=== PATIENT | male | born 1940 | race American Indian/Alaskan Native ===

== ENCOUNTER 2016-05-15 19:22 | Emergency (ER) | payer MEDICARE, OTHER ==
[2016-05-15 19:55] VITALS: BP 148/77
[2016-05-15 20:16] LABS: CHLORIDE,CL 105 mmol/L (101-111); SODIUM,NA 135 mmol/L (135-145)
[2016-05-15] MEDS ORDERED: cefTRIAXone 1 GM in Sodium Chloride 0.9% 100 ML IV ONE (20:34)
[2016-05-15] MEDS ORDERED: Loperamide 2 MG Cap PO ONE (20:35)
[2016-05-15] MEDS ORDERED: Ondansetron 4 MG/2 ML SDV IV ONE (20:35)
--- NOTE | 2016-05-15 20:52 | EDM.PDOC ---
ED HPI GENERAL MEDICAL PROBLEM - General Chief Complaint: General Stated Complaint: PAIN IN CHEST Time Seen by Provider: 05/15/16 19:30 Source of Information: Reports: Patient - History of Present Illness INITIAL COMMENTS - FREE TEXT/NARRATIVE: c/o multiple loose watery stools since 2pm. feeling weak, nausea. mild sore throat. chills no fever Onset: today Middle Chest Pain Score (Numeric/FACES): 3 - Related Data Allergies Allergy/AdvReac Type Severity Reaction Status Date / Time No Known Allergies Allergy Verified 05/15/16 20:05 Home Meds: Home Meds Aspirin [Halfprin] 81 mg PO DAILY 04/06/13 [History] Diazepam [Valium] 5 mg PO DAILY PRN 04/06/13 [History] Metoprolol Succinate [Toprol XL] 50 mg PO DAILY 04/06/13 [History] Ramipril [Altace] 5 mg PO DAILY 04/06/13 [History] Simvastatin [Zocor] 40 mg PO BEDTIME 04/06/13 [History] Tamsulosin [Tamsulosin 24 Hr] 0.4 mg PO DAILY 04/06/13 [History] glyBURIDE/Metformin [glyBURIDE/Metformin 5-500 MG] 2 tab PO BID 04/06/13 [ History] Clopidogrel [Plavix] 75 mg PO DAILY 06/30/13 [History] Insulin Detemir [Levemir] 45 unit SQ DAILY 09/15/13 [History] Leuprolide Acetate [Lupron Depot] 50 mg SQ ASDIRECTED 02/18/14 [History] Isosorbide Mononitrate [Imdur] 30 mg PO DAILY 07/11/15 [History] Pantoprazole [Protonix] 40 mg PO DAILY 10/16/15 [History] Past Medical History HEENT History: Reports: Impaired vision Cardiovascular History: Reports: High cholesterol, Hypertension, [place], Stents Genitourinary History: Reports: BPH Other Genitourinary History: prostate cancer Psychiatric History: Reports: Anxiety Endocrine/Metabolic History: 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, type I Oncologic (Cancer) History: Reports: Prostate - Past Surgical History Other Cardiovascular Surgeries/Procedures: 7 stents Social & Family History - Family History Family Medical History: Noncontributory - Tobacco Use Smoking Status *Q: Former Smoker Years of Tobacco use: 40 Used Tobacco, but Quit: Yes Month Tobacco Last Used: unknown Second Hand Smoke Exposure: No - Alcohol Use Days Per Week of Alcohol Use: 0 - Recreational Drug Use Recreational Drug Use: No - Living Situation & Occupation Living situation: Reports: , alone Occupation: retired ED ROS GENERAL - Review of Systems Review Of Systems: See Below Constitutional: Reports: chills, decreased appetite HEENT: Reports: Throat pain Respiratory: Reports: No Symptoms Cardiovascular: Reports: No symptoms GI/Abdominal: Reports: Diarrhea, Decreased appetite, Nausea : Reports: no symptoms Musculoskeletal: Reports: other (generalized aches) Skin: Reports: no symptoms Neurological: Reports: No Symptoms ED EXAM, GENERAL - Physical Exam Exam: See Below Exam Limited By: No limitations General Appearance: alert, mild distress Eye Exam: bilateral eye: EOMI, PERRL Ears: normal external exam Ear Exam: bilateral ear: TM normal Nose: normal inspection Throat/Mouth: Other (mild posterior pharyngeal erythema) Head: atraumatic, normocephalic Neck: normal inspection, non-tender Respiratory/Chest: no respiratory distress, lungs clear, normal breath sounds Cardiovascular: regular rate, rhythm GI/Abdominal: no distention. No: normal bowel sounds (hyperactve) Extremities: normal inspection Neurological: alert, oriented Psychiatric: normal affect, normal mood, other (pleasant talkative) Skin Exam: Warm, Dry, Intact Course - Vital Signs Last Recorded V/S: Last Vital Signs Temp 98.8 F 05/15/16 19:30 Pulse 99 05/15/16 19:30 Resp 16 05/15/16 19:30 BP 148/77 H 05/15/16 19:30 Pulse Ox 94 L 05/15/16 19:30 - Orders/Labs/Meds Orders: Active Orders 24 hr Category Date Time Status EKG 12 Lead [EKG Documentation Completion] [RC] URGENT Care 05/15/16 19:32 Active Labs: Laboratory Tests 05/15/16 05/15/16 05/15/16 Range/Units 19:45 19:45 19:45 WBC 7.7 (5.0-10.0) 10^3/uL RBC 4.06 L (4.6-6.2) 10^6/uL Hgb 13.0 L (14.0-18.0) g/dL Hct 38.5 L (40.0-54.0) % MCV 94.8 (80-100) fL MCH 32.0 (27.0-34.0) pg MCHC 33.8 (33.0-35.0) g/dL Plt Count 257 (150-450) 10^3/uL Neut % (Auto) 84.1 H (42.2-75.2) % Lymph % (Auto) 8.7 L (20.5-50.1) % [place] % (Auto) 6.5 (2-8) % Eos % (Auto) 0.4 L (1.0-3.0) % Baso % (Auto) 0.3 (0.0-1.0) % PT 9.3 (9.0-12.0) SEC INR 0.9 (0.9-1.2) Sodium 135 (135-145) mmol/L Potassium 4.7 (3.6-5.0) mmol/L Chloride 105 (101-111) mmol/L Carbon Dioxide 22.0 (21.0-31.0) mmol/L Anion Gap 12.7 BUN 25 H (7-18) mg/dL Creatinine 1.2 (0.6-1.3) mg/dL Est Cr Clr Drug Dosing 53.23 mL/min Estimated GFR (MDRD) 59 BUN/Creatinine Ratio 20.83 Glucose 208 H (74-105) mg/dL Lactic Acid (0.5-2.2) mmol/L Calcium 8.7 (8.4-10.2) mg/dl Magnesium 1.2 L (1.8-2.5) mg/dL Total Bilirubin 1.1 H (0.2-1.0) mg/dL AST 28 (10-42) IU/L ALT 17 (10-60) IU/L Alkaline Phosphatase 82 (42-121) IU/L Troponin I < 0.02 (0.00-0.02) ng/ml Total Protein 7.4 (6.7-8.2) g/dl Albumin 3.8 (3.2-5.5) g/dl Globulin 3.6 Albumin/Globulin Ratio 1.06 Amylase 72 (28-100) U/L Lipase 37 (22-51) U/L 03/15/17 Range/Units 19:45 WBC (5.0-10.0) 10^3/uL RBC (4.6-6.2) 10^6/uL Hgb (14.0-18.0) g/dL Hct (40.0-54.0) % MCV (80-100) fL MCH (27.0-34.0) pg MCHC (33.0-35.0) g/dL Plt Count (150-450) 10^3/uL Neut % (Auto) (42.2-75.2) % Lymph % (Auto) (20.5-50.1) % [place] % (Auto) (2-8) % Eos % (Auto) (1.0-3.0) % Baso % (Auto) (0.0-1.0) % PT (9.0-12.0) SEC INR (0.9-1.2) Sodium (135-145) mmol/L Potassium (3.6-5.0) mmol/L Chloride (101-111) mmol/L Carbon Dioxide (21.0-31.0) mmol/L Anion Gap BUN (7-18) mg/dL Creatinine (0.6-1.3) mg/dL Est Cr Clr Drug Dosing mL/min Estimated GFR (MDRD) BUN/Creatinine Ratio Glucose (74-105) mg/dL Lactic Acid 1.4 (0.5-2.2) mmol/L Calcium (8.4-10.2) mg/dl Magnesium (1.8-2.5) mg/dL Total Bilirubin (0.2-1.0) mg/dL AST (10-42) IU/L ALT (10-60) IU/L Alkaline Phosphatase (42-121) IU/L Troponin I (0.00-0.02) ng/ml Total Protein (6.7-8.2) g/dl Albumin (3.2-5.5) g/dl Globulin Albumin/Globulin Ratio Amylase (28-100) U/L Lipase (22-51) U/L Meds: Medications Discontinued Medications Generic Name Dose Route Start Last Admin Trade Name Freq PRN Reason Stop Dose Admin Ceftriaxone Sodium 1 gm/ 100 mls @ 200 mls/hr 05/15/16 20:34 05/15/16 20:43 Sodium Chloride IV 05/15/16 21:03 200 mls/hr ONETIME ONE Administration Loperamide HCl 2 mg 05/15/16 20:35 05/15/16 20:49 Imodium PO 05/15/16 20:36 2 mg ONETIME ONE Administration Ondansetron HCl 4 mg 05/15/16 20:35 05/15/16 20:42 Zofran IV 05/15/16 20:36 4 mg ONETIME ONE Administration Ondansetron HCl Confirm 05/15/16 20:59 05/15/16 21:27 Zofran Odt Administered 05/15/16 21:00 Not Given Dose 8 mg .ROUTE .STK-MED ONE - Re-Assessments/Exams Free Text/Narrative Re-Assessment/Exam: 05/16/16 03:34 Up to BR one time during ED stay. Steady. Nausea resolved with zofran. Tolerating water. Departure - Departure Time of Disposition: 20:46 Disposition: Home, Self-Care 01 Condition: good Clinical Impression: Gastroenteritis, Strep pharyngitis, Anxiety Diarrhea Qualifiers: Diarrhea type: unspecified type Qualified Code(s): R19.7 - Diarrhea, unspecified Instructions: Diarrhea, Adult Referrals: Pamela Blair [facility] [Primary Care Provider] - Forms: ED Department Discharge Additional Instructions: zofran 4mg ODT one every 6 hours as needed for nausea encouage fluid, small amounts, gradually progress monitor blood sugars amoxicillin 500mg one three times daily for one week imodium 2mg oral after each loose stool up to 6 tablets per day follow up if not improving - My Orders Last 24 Hours: My Active Orders 05/15/16 19:32 EKG 12 Lead [EKG Documentation Completion] [RC] URGENT - Assessment/Plan Last 24 Hours: My Active Orders 05/15/16 19:32 EKG 12 Lead [EKG Documentation Completion] [RC] URGENT
[2016-05-15] MEDS ORDERED: Ondansetron 4 MG Tab.DIS ONE (20:59)
[2016-05-15] MEDS ORDERED: Ondansetron 4 MG Tab.DIS PO ONE (20:59)
--- NOTE | 2016-05-16 20:42 | EKG ---
05/15/2016 - LUKASZ FLETCHER - TIME OF EK hours. EKG shows sinus rhythm at 99 beats per minute. There are Q-waves present in inferior leads III and AVF, consistent with prior inferior infarct. There is poor R-wave delayed progression. Inverted T-wave in aVL. [facility] /[id number]
== END 2016-05-15 21:24 | disposition home or self-care (01) ==
LOC: DL.ED 19:22
DX: K52.9 Noninfective gastroenteritis and colitis, unspecified (principal); J02.0 Streptococcal pharyngitis; F41.9 Anxiety disorder, unspecified; E78.00 Pure hypercholesterolemia, unspecified; I10 Essential (primary) hypertension; I25.2 Old myocardial infarction; E10.9 Type 1 diabetes mellitus without complications; Z79.899 Other long term (current) drug therapy; Z87.891 Personal history of nicotine dependence
CPT/HCPCS: 36415; 80053; 82150; 83605; 83690; 83735; 84484; 85025; 85610; 87430; 87804; 93005; 93010; 96365; 96375; 99284; A9270; J0696; J2405; J7050

== ENCOUNTER 2016-06-28 18:01 | Emergency (ER) | payer SELFPAY ==
[2016-06-28 18:42] VITALS: BP 154/63
[2016-06-28 19:05] LABS: CHLORIDE,CL 104 mmol/L (101-111); SODIUM,NA 136 mmol/L (135-145)
--- NOTE | 2016-06-28 19:10 | EDM.PDOC ---
ED HISTORY OF PRESENT ILLNESS - General Chief Complaint: Cardiovascular Problem Stated Complaint: DIZZY,SHORT OF BREATH,LEFT ARM PAIN Time Seen by Provider: 06/28/16 19:08 Source of Information: Reports: Patient History Limitations: Reports: No limitations - History of Present Illness INITIAL COMMENTS - FREE TEXT/NARRATIVE: 3 weeks h/o [id number]. not seen anyone for this and not getting better. states doesn't like the clinic. appetite on off. - Related Data Allergies/ADRs: Allergies Allergy/AdvReac Type Severity Reaction Status Date / Time No Known Allergies Allergy Verified 06/28/16 18:12 Home Meds: Home Meds Aspirin [Halfprin] 81 mg PO DAILY 04/06/13 [History] Diazepam [Valium] 5 mg PO DAILY PRN 04/06/13 [History] Metoprolol Succinate [Toprol XL] 50 mg PO DAILY 04/06/13 [History] Ramipril [Altace] 5 mg PO DAILY 04/06/13 [History] Simvastatin [Zocor] 40 mg PO BEDTIME 04/06/13 [History] Tamsulosin [Tamsulosin 24 Hr] 0.4 mg PO DAILY 04/06/13 [History] glyBURIDE/Metformin [glyBURIDE/Metformin 5-500 MG] 2 tab PO BID 04/06/13 [ History] Clopidogrel [Plavix] 75 mg PO DAILY 06/30/13 [History] Insulin Detemir [Levemir] 60 unit SQ DAILY 09/15/13 [History] Leuprolide Acetate [Lupron Depot] 50 mg SQ ASDIRECTED 02/18/14 [History] Isosorbide Mononitrate [Imdur] 30 mg PO DAILY 07/11/15 [History] Pantoprazole [ProTONIX] 40 mg PO DAILY 10/16/15 [History] Past Medical History HEENT History: Reports: Impaired vision Cardiovascular History: Reports: High cholesterol, Hypertension, [place], Stents Respiratory History: Reports: Pneumonia, recurrent Genitourinary History: Reports: BPH Other Genitourinary History: prostate cancer Psychiatric History: Reports: Anxiety Endocrine/Metabolic History: 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, type I Oncologic (Cancer) History: Reports: Prostate - Past Surgical History Other Cardiovascular Surgeries/Procedures: 7 stents Social & Family History - Family History Family Medical History: Noncontributory - Tobacco Use Smoking Status *Q: Former Smoker Years of Tobacco use: 40 Used Tobacco, but Quit: No Month Tobacco Last Used: unknown Second Hand Smoke Exposure: No - Caffeine Use Caffeine Use: Reports: None - Alcohol Use Days Per Week of Alcohol Use: 0 - Recreational Drug Use Recreational Drug Use: No - Living Situation & Occupation Living situation: Reports: , alone Occupation: retired ED ROS GENERAL - Review of Systems Review Of Systems: ROS reveals no pertinent complaints other than HPI. ED EXAM, GENERAL - Physical Exam Exam: See Below Exam Limited By: No limitations General Appearance: alert, WD/WN, no apparent distress Ears: hearing grossly normal Throat/Mouth: Normal voice, No airway compromise Head: atraumatic Neck: non-tender, full range of motion Respiratory/Chest: no respiratory distress Cardiovascular: regular rate, rhythm GI/Abdominal: soft, non tender Neurological: alert, oriented, normal cognition, normal gait, no motor/sensory deficits Psychiatric: flat affect Skin Exam: Warm, Dry Lymphatic: no adenopathy Course - Vital Signs Last Recorded V/S: Last Vital Signs Temp 36.2 C 06/28/16 18:30 Pulse 71 06/28/16 18:38 Resp 16 06/28/16 18:38 BP 129/64 06/28/16 18:38 Pulse Ox 96 06/28/16 18:38 - Orders/Labs/Meds Orders: Active Orders 24 hr Category Date Time Status EKG 12 Lead [EKG Documentation Completion] [RC] URGENT Care 06/28/16 19:00 Active Labs: Laboratory Tests 06/28/16 06/28/16 06/28/16 Range/Units 18:36 18:36 18:36 WBC 6.2 (5.0-10.0) 10^3/uL RBC 3.78 L (4.6-6.2) 10^6/uL Hgb 12.0 L (14.0-18.0) g/dL Hct 36.2 L (40.0-54.0) % MCV 95.8 (80-100) fL MCH 31.7 (27.0-34.0) pg MCHC 33.1 (33.0-35.0) g/dL Plt Count 274 (150-450) 10^3/uL Neut % (Auto) 60.3 (42.2-75.2) % Lymph % (Auto) 26.6 (20.5-50.1) % [place] % (Auto) 10.0 H (2-8) % Eos % (Auto) 2.6 (1.0-3.0) % Baso % (Auto) 0.5 (0.0-1.0) % Sodium 136 (135-145) mmol/L Potassium 4.7 (3.6-5.0) mmol/L Chloride 104 (101-111) mmol/L Carbon Dioxide 24.0 (21.0-31.0) mmol/L Anion Gap 12.7 BUN 22 H (7-18) mg/dL Creatinine 1.3 (0.6-1.3) mg/dL Est Cr Clr Drug Dosing TNP Estimated GFR (MDRD) 54 BUN/Creatinine Ratio 16.92 Glucose 222 H (74-105) mg/dL Calcium 8.8 (8.4-10.2) mg/dl Total Bilirubin 0.3 (0.2-1.0) mg/dL AST 25 (10-42) IU/L ALT 19 (10-60) IU/L Alkaline Phosphatase 83 (42-121) IU/L Troponin I < 0.02 (0.00-0.02) ng/ml B-Natriuretic Peptide 17 (0-100) pg/ml Total Protein 7.2 (6.7-8.2) g/dl Albumin 3.7 (3.2-5.5) g/dl Globulin 3.5 Albumin/Globulin Ratio 1.06 - Re-Assessments/Exams Free Text/Narrative Re-Assessment/Exam: 06/28/16 20:05 results discussed with Pt & family who state Pt has been depressed past 3 years since of spouse. Pt states knows this but is having a slow & hard time in getting over it. but is trying his best. Departure - Departure Time of Disposition: 20:06 Disposition: Home, Self-Care 01 Condition: good Clinical Impression: Reaction, situational, acute, to stress Forms: ED Department Discharge Additional Instructions: 1) avoid excessive activities 2) follow up with family doctor or recheck if there is any change or concern - My Orders Last 24 Hours: My Active Orders 06/28/16 19:00 EKG 12 Lead [EKG Documentation Completion] [RC] URGENT - Assessment/Plan Last 24 Hours: My Active Orders 06/28/16 19:00 EKG 12 Lead [EKG Documentation Completion] [RC] URGENT
--- NOTE | 2016-07-04 07:44 | EKG ---
06/28/2016 - LUKASZ FLETCHER - This 12-lead EKG shows a normal sinus rhythm with a ventricular rate of 62. Normal intervals, left axis deviation. No acute ST-T wave changes. [facility] /[id number]
== END 2016-06-28 20:14 | disposition home or self-care (01) ==
LOC: DL.ED 18:01
DX: F43.9 Reaction to severe stress, unspecified (principal); E78.00 Pure hypercholesterolemia, unspecified; I10 Essential (primary) hypertension; I25.2 Old myocardial infarction; Z95.5 Presence of coronary angioplasty implant and graft; N40.0 Benign prostatic hyperplasia without lower urinary tract symptoms; F41.9 Anxiety disorder, unspecified; E10.9 Type 1 diabetes mellitus without complications; Z79.4 Long term (current) use of insulin; Z79.899 Other long term (current) drug therapy; Z87.891 Personal history of nicotine dependence; Z79.82 Long term (current) use of aspirin; Z79.02 Long term (current) use of antithrombotics/antiplatelets
CPT/HCPCS: 36415; 71020; 80053; 83880; 84484; 85025; 93005; 93010; 99282; 99284

== ENCOUNTER 2016-08-12 15:37 | Observation (INO) | payer OTHER ==
--- NOTE | 2016-08-12 15:39 | EDM.PDOC ---
ED HPI GENERAL MEDICAL PROBLEM - General Chief Complaint: Head Injury Stated Complaint: IN BY AMBULANCE Time Seen by Provider: 08/12/16 15:39 Source of Information: Reports: Patient, EMS, Old Records, Provider, RN, RN Notes Reviewed History Limitations: Reports: No Limitations - History of Present Illness INITIAL COMMENTS - FREE TEXT/NARRATIVE: Arrives by ambulance from [facility] with report that he blacked out and woke up on the floor. Patient has given varying accounts of what happened. He told a family member that he had fallen and hit his head and he told the nurse that he fainted and fell but did not hit his head. He admits to generalized weakness and fatigue over the past few days. Denies fever, chills, cough or headache. Patient is not able to provide any more relevant history. He was alone during the episode and there are not witnesses. Denies any chest pain or lightheadedness and denies nausea or vomiting. He admits to decreased appetite this week. Severity: Moderate Improves with: Reports: None Worsens with: Reports: None Associated Symptoms: Reports: No Other Symptoms - Related Data Allergies Allergy/AdvReac Type Severity Reaction Status Date / Time cephalexin Allergy Mild Itching Verified 08/12/16 15:57 levofloxacin [From Levaquin] Allergy chest pain Verified 08/12/16 15:57 and SOB Home Meds: Home Meds Aspirin [Halfprin] 81 mg PO DAILY 04/06/13 [History] Diazepam [Valium] 5 mg PO DAILY PRN 04/06/13 [History] Metoprolol Succinate [Toprol XL] 50 mg PO DAILY 04/06/13 [History] Ramipril [Altace] 5 mg PO DAILY 04/06/13 [History] Simvastatin [Zocor] 40 mg PO BEDTIME 04/06/13 [History] Tamsulosin [Tamsulosin 24 Hr] 0.4 mg PO DAILY 04/06/13 [History] glyBURIDE/Metformin [glyBURIDE/Metformin 5-500 MG] 2 tab PO BID 04/06/13 [ History] Clopidogrel [Plavix] 75 mg PO DAILY 06/30/13 [History] Insulin Detemir [Levemir] 60 unit SQ DAILY 09/15/13 [History] Leuprolide Acetate [Lupron Depot] 50 mg SQ ASDIRECTED 12/19/14 [History] Isosorbide Mononitrate [Imdur] 30 mg PO DAILY 07/11/15 [History] Pantoprazole [ProTONIX] 40 mg PO DAILY 10/16/15 [History] Past Medical History HEENT History: Reports: Impaired Vision Cardiovascular History: Reports: High Cholesterol, Hypertension, [place], Stents Respiratory History: Reports: Pneumonia, Recurrent Genitourinary History: Reports: BPH Other Genitourinary History: prostate cancer Psychiatric History: Reports: Anxiety Endocrine/Metabolic History: 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, Type I Oncologic (Cancer) History: Reports: Prostate - Past Surgical History Cardiovascular Surgical History: Reports: Coronary Artery Stent Social & Family History - Family History Family Medical History: Noncontributory - Tobacco Use Smoking Status *Q: Former Smoker Years of Tobacco use: 40 Used Tobacco, but Quit: No Month Tobacco Last Used: unknown Second Hand Smoke Exposure: No - Caffeine Use Caffeine Use: Reports: None - Alcohol Use Days Per Week of Alcohol Use: 0 - Recreational Drug Use Recreational Drug Use: No - Living Situation & Occupation Living situation: Reports: , Alone Occupation: Retired ED ROS GENERAL - Review of Systems Review Of Systems: ROS reveals no pertinent complaints other than HPI. ED EXAM, GENERAL - Physical Exam Exam: See Below Exam Limited By: Altered Mental Status General Appearance: Alert, WD/WN, No Apparent Distress Eye Exam: Bilateral Eye: Normal Inspection Ears: Normal External Exam, Normal Canal, Hearing Grossly Normal, Normal TMs Nose: Normal Inspection, Normal Mucosa, No Blood Throat/Mouth: Normal Inspection, Normal Lips, Normal Teeth, Normal Gums, Normal Oropharynx, Normal Voice, No Airway Compromise, Other (dry oral membranes.) Head: Atraumatic, Normocephalic Neck: Normal Inspection, Supple, Non-Tender, Full Range of Motion Respiratory/Chest: No Respiratory Distress, Lungs Clear, No Accessory Muscle Use , Decreased Breath Sounds Cardiovascular: Normal Peripheral Pulses, Regular Rate, Rhythm, No Gallop, No JVD, No Murmur, No Rub, Other (trace pedal edema.) GI/Abdominal: Normal Bowel Sounds, Soft, Non-Tender, No Distention, No Abnormal Bruit (Male) Exam: Deferred Rectal (Males) Exam: Deferred Back Exam: Normal Inspection, Full Range of Motion, NT Extremities: Normal Inspection, Normal Range of Motion, Non-Tender, Normal Capillary Refill, No Pedal Edema Neurological: Alert, CN II-XII Intact, No Motor/Sensory Deficits, Other ( orientated to person, place and month. Generalized weakness without focal deficits. ) Psychiatric: Normal Affect, Normal Mood Skin Exam: Warm, Dry, Intact, No Rash, Pallor EKG INTERPRETATION EKG Date: 08/12/16 Time: 15:50 Rhythm: other (sinus rhythm) Rate (beats/min): 63 QRS: other (Q waves in inferior leads, old.) Course - Vital Signs Last Recorded V/S: Last Vital Signs Temp 36.4 C 08/12/16 15:40 Pulse 70 08/12/16 15:40 Resp 20 08/12/16 15:40 BP 125/56 L 08/12/16 15:40 Pulse Ox 100 08/12/16 15:40 - Orders/Labs/Meds Orders: Active Orders 24 hr Category Date Time Status Blood Glucose Check, Bedside [] ONETIME Care 08/12/16 15:44 Active EKG 12 Lead [EKG Documentation Completion] [] STAT Care 08/12/16 15:46 Active Peripheral IV Care [] . DIRECTED Care 08/12/16 15:48 Active Head wo Cont [CT] Stat Exams 08/12/16 18:12 Taken CULTURE BLOOD [BC] Stat Lab 08/12/16 16:03 Received CULTURE BLOOD [BC] Stat Lab 08/12/16 16:24 Received Sodium Chloride 0.9% [Saline Flush] Med 08/12/16 15:47 Active 10 ml FLUSH ASDIRECTED PRN Blood Culture x2 Reflex Set [OM.PC] Stat Oth 08/12/16 15:47 Ordered Peripheral IV Insertion Adult [OM.PC] Stat Oth 08/12/16 15:46 Ordered Medication Orders Sodium Chloride (Saline Flush) 10 ml FLUSH ASDIRECTED PRN PRN Reason: Keep Vein Open Last Admin: 08/12/16 16:16 Dose: 10 ml Labs: Laboratory Tests 08/12/16 08/12/16 08/12/16 Range/Units 15:47 16:03 16:03 WBC 7.9 (5.0-10.0) 10^3/uL RBC 3.93 L (4.6-6.2) 10^6/uL Hgb 12.6 L (14.0-18.0) g/dL Hct 37.9 L (40.0-54.0) % MCV 96.4 (80-100) fL MCH 32.1 (27.0-34.0) pg MCHC 33.2 (33.0-35.0) g/dL Plt Count 231 (150-450) 10^3/uL Neut % (Auto) 75.7 H (42.2-75.2) % Lymph % (Auto) 13.2 L (20.5-50.1) % Webb % (Auto) 8.7 H (2-8) % Eos % (Auto) 2.0 (1.0-3.0) % Baso % (Auto) 0.4 (0.0-1.0) % PT 9.5 (9.0-12.0) SEC INR 0.9 (0.9-1.2) APTT 23.5 (22.0-34.0) SEC Sodium (135-145) mmol/L Potassium (3.6-5.0) mmol/L Chloride (101-111) mmol/L Carbon Dioxide (21.0-31.0) mmol/L Anion Gap BUN (7-18) mg/dL Creatinine (0.6-1.3) mg/dL Est Cr Clr Drug Dosing Estimated GFR (MDRD) BUN/Creatinine Ratio Glucose (74-105) mg/dL POC Glucose 105 (83-110) mg/dl Lactic Acid (0.5-2.2) mmol/L Calcium (8.4-10.2) mg/dl Total Bilirubin (0.2-1.0) mg/dL AST (10-42) IU/L ALT (10-60) IU/L Alkaline Phosphatase (42-121) IU/L Troponin I (0.00-0.02) ng/ml B-Natriuretic Peptide (0-100) pg/ml Total Protein (6.7-8.2) g/dl Albumin (3.2-5.5) g/dl Globulin Albumin/Globulin Ratio Amylase (28-100) U/L Lipase (22-51) U/L Urine Color (YELLOW) Urine Appearance (CLEAR) Urine pH (5.0-9.0) Ur Specific [place] (1.005-1.030) Urine Protein (NEGATIVE) Urine Glucose (UA) (NEGATIVE) Urine Ketones (NEGATIVE) Urine Occult Blood (NEGATIVE) Urine Nitrite (NEGATIVE) Urine Bilirubin (NEGATIVE) Urine Urobilinogen (0.2-1.0) mg/dL Ur Leukocyte Esterase (NEGATIVE) Urine RBC /HPF Urine WBC (0-5/HPF) /HPF Urine Bacteria (0-FEW/HPF) /HPF Urine Mucus /LPF 08/12/16 08/12/16 08/12/16 Range/Units 16:03 16:03 16:20 WBC (5.0-10.0) 10^3/uL RBC (4.6-6.2) 10^6/uL Hgb (14.0-18.0) g/dL Hct (40.0-54.0) % MCV (80-100) fL MCH (27.0-34.0) pg MCHC (33.0-35.0) g/dL Plt Count (150-450) 10^3/uL Neut % (Auto) (42.2-75.2) % Lymph % (Auto) (20.5-50.1) % Webb % (Auto) (2-8) % Eos % (Auto) (1.0-3.0) % Baso % (Auto) (0.0-1.0) % PT (9.0-12.0) SEC INR (0.9-1.2) APTT (22.0-34.0) SEC Sodium 140 (135-145) mmol/L Potassium 4.3 (3.6-5.0) mmol/L Chloride 105 (101-111) mmol/L Carbon Dioxide 24.0 (21.0-31.0) mmol/L Anion Gap 15.3 BUN 20 H (7-18) mg/dL Creatinine 1.2 (0.6-1.3) mg/dL Est Cr Clr Drug Dosing TNP Estimated GFR (MDRD) 59 BUN/Creatinine Ratio 16.66 Glucose 117 H (74-105) mg/dL POC Glucose (83-110) mg/dl Lactic Acid 2.4 H (0.5-2.2) mmol/L Calcium 9.1 (8.4-10.2) mg/dl Total Bilirubin 0.4 (0.2-1.0) mg/dL AST 22 (10-42) IU/L ALT 21 (10-60) IU/L Alkaline Phosphatase 78 (42-121) IU/L Troponin I < 0.02 (0.00-0.02) ng/ml B-Natriuretic Peptide 27 (0-100) pg/ml Total Protein 7.2 (6.7-8.2) g/dl Albumin 3.9 (3.2-5.5) g/dl Globulin 3.3 Albumin/Globulin Ratio 1.18 Amylase 78 (28-100) U/L Lipase 35 (22-51) U/L Urine Color Yellow (YELLOW) Urine Appearance Clear (CLEAR) Urine pH 5.5 (5.0-9.0) Ur Specific [place] <= 1.005 (1.005-1.030) Urine Protein Negative (NEGATIVE) Urine Glucose (UA) Negative (NEGATIVE) Urine Ketones Negative (NEGATIVE) Urine Occult Blood Negative (NEGATIVE) Urine Nitrite Negative (NEGATIVE) Urine Bilirubin Negative (NEGATIVE) Urine Urobilinogen 0.2 (0.2-1.0) mg/dL Ur Leukocyte Esterase Negative (NEGATIVE) Urine RBC 0-5 /HPF Urine WBC 0-5 (0-5/HPF) /HPF Urine Bacteria Rare (0-FEW/HPF) /HPF Urine Mucus Rare /LPF /02/16 Range/Units 17:06 WBC (5.0-10.0) 10^3/uL RBC (4.6-6.2) 10^6/uL Hgb (14.0-18.0) g/dL Hct (40.0-54.0) % MCV (80-100) fL MCH (27.0-34.0) pg MCHC (33.0-35.0) g/dL Plt Count (150-450) 10^3/uL Neut % (Auto) (42.2-75.2) % Lymph % (Auto) (20.5-50.1) % Webb % (Auto) (2-8) % Eos % (Auto) (1.0-3.0) % Baso % (Auto) (0.0-1.0) % PT (9.0-12.0) SEC INR (0.9-1.2) APTT (22.0-34.0) SEC Sodium (135-145) mmol/L Potassium (3.6-5.0) mmol/L Chloride (101-111) mmol/L Carbon Dioxide (21.0-31.0) mmol/L Anion Gap BUN (7-18) mg/dL Creatinine (0.6-1.3) mg/dL Est Cr Clr Drug Dosing Estimated GFR (MDRD) BUN/Creatinine Ratio Glucose (74-105) mg/dL POC Glucose 221 H (83-110) mg/dl Lactic Acid (0.5-2.2) mmol/L Calcium (8.4-10.2) mg/dl Total Bilirubin (0.2-1.0) mg/dL AST (10-42) IU/L ALT (10-60) IU/L Alkaline Phosphatase (42-121) IU/L Troponin I (0.00-0.02) ng/ml B-Natriuretic Peptide (0-100) pg/ml Total Protein (6.7-8.2) g/dl Albumin (3.2-5.5) g/dl Globulin Albumin/Globulin Ratio Amylase (28-100) U/L Lipase (22-51) U/L Urine Color (YELLOW) Urine Appearance (CLEAR) Urine pH (5.0-9.0) Ur Specific [place] (1.005-1.030) Urine Protein (NEGATIVE) Urine Glucose (UA) (NEGATIVE) Urine Ketones (NEGATIVE) Urine Occult Blood (NEGATIVE) Urine Nitrite (NEGATIVE) Urine Bilirubin (NEGATIVE) Urine Urobilinogen (0.2-1.0) mg/dL Ur Leukocyte Esterase (NEGATIVE) Urine RBC /HPF Urine WBC (0-5/HPF) /HPF Urine Bacteria (0-FEW/HPF) /HPF Urine Mucus /LPF Meds: Medications Generic Name Dose Route Start Last Admin Trade Name Freq PRN Reason Stop Dose Admin Sodium Chloride 10 ml 08/12/16 15:47 08/12/16 16:16 Saline Flush FLUSH 10 ml ASDIRECTED PRN Administration Keep Vein Open Discontinued Medications Generic Name Dose Route Start Last Admin Trade Name Freq PRN Reason Stop Dose Admin Dextrose/Water 25 ml 08/12/16 15:48 08/12/16 16:15 Dextrose 50% In Water IVPUSH 08/12/16 15:49 25 ml ONETIME ONE Administration - Radiology Interpretation Free Text/Narrative:: Chest x-ray: Per rad report shows no acute cardiopulmonary abnormality since June 28, [address] head: Per rad report reveals no acute findings. - Re-Assessments/Exams Free Text/Narrative Re-Assessment/Exam: 08/12/16 18:41 Care of patient transferred to [facility] at shift change. Departure - Departure Time of Disposition: 19:00 ((Admit to Dr. Maldonado)) Disposition: Refer to Observation Condition: serious Clinical Impression: Decreased appetite Syncope Qualifiers: Syncope type: unspecified Qualified Code(s): R55 - Syncope and collapse - Discharge Information Forms: ED Department Discharge - My Orders Last 24 Hours: My Active Orders 08/12/16 15:44 Blood Glucose Check, Bedside [RC] ONETIME 08/12/16 15:46 EKG 12 Lead [EKG Documentation Completion] [RC] STAT Peripheral IV Insertion Adult [OM.PC] Stat 08/12/16 15:47 Sodium Chloride 0.9% [Saline Flush] 10 ml FLUSH ASDIRECTED PRN Blood Culture x2 Reflex Set [OM.PC] Stat 08/12/16 15:48 Peripheral IV Care [RC] . DIRECTED 08/12/16 16:03 CULTURE BLOOD [BC] Stat 08/12/16 16:24 CULTURE BLOOD [BC] Stat 08/12/16 18:12 Head wo Cont [CT] Stat - Assessment/Plan Last 24 Hours: My Active Orders 08/12/16 15:44 Blood Glucose Check, Bedside [RC] ONETIME 08/12/16 15:46 EKG 12 Lead [EKG Documentation Completion] [RC] STAT Peripheral IV Insertion Adult [OM.PC] Stat 08/12/16 15:47 Sodium Chloride 0.9% [Saline Flush] 10 ml FLUSH ASDIRECTED PRN Blood Culture x2 Reflex Set [OM.PC] Stat 08/12/16 15:48 Peripheral IV Care [RC] . DIRECTED 08/12/16 16:03 CULTURE BLOOD [BC] Stat 08/12/16 16:24 CULTURE BLOOD [BC] Stat 08/12/16 18:12 Head wo Cont [CT] Stat
[2016-08-12] MEDS ORDERED: Sodium Chloride 0.9% 10 ML Syringe FLUSH PRN (15:47)
[2016-08-12] MEDS ORDERED: 50% Dextrose in Water 50 ML Syringe IVPUSH ONE (15:48)
--- NOTE | 2016-08-12 16:10 | CR ---
Clinical history: 75-year-old male with chest pain. Interpretation: Less than optimal inspiratory effort accentuating some chronic lingular fibrosis unchanged since 28 June 2016 exam. Normal cardiac silhouette without new cephalization of flow, signs of alveolar edema or dependent ef fusion. No new lung mass, hilar lymphadenopathy or focal lobar infiltrate/atelectasis. No pneumothorax (chronic rotator cuff damage right shoulder). CONCLUSION: No acute new cardiopulmonary abnormality since 28 June 2016 exam.
[2016-08-12 16:35] LABS: CHLORIDE,CL 105 mmol/L (101-111); SODIUM,NA 140 mmol/L (135-145)
[2016-08-12] MEDS ORDERED: Diazepam 5 MG Tab PO PRN (19:29)
[2016-08-12] MEDS ORDERED: Dextrose 5%-0.9% NaCl with KCl 1,000 ML IV SCH (19:30)
[2016-08-12] MEDS ORDERED: Acetaminophen 325 MG Tab PO PRN (19:37)
[2016-08-12] MEDS ORDERED: Zolpidem 5 MG Tab PO PRN (19:37)
[2016-08-12] MEDS ORDERED: 25% Dextrose in Water 10 ML Syringe IVPUSH PRN (19:41)
--- NOTE | 2016-08-12 20:11 | PCM.HP ---
H&P History of Present Illness - General Date of Service: 08/12/16 Admit Problem/Dx: Admission Diagnosis/Problem Admission Diagnosis/Problem Syncope Source of Information: Patient - History of Present Illness Initial Comments - Free Text/Narative: The patient is a diabetic whose blood sugars usually run in the 200 or above range. He does not really follow up set dietary pattern. Yesterday had a regular normal day. He used 40 units of Levemir yesterday. Today he woke up around 6:00. He was watching the news. Blood sugar was 215. He took his imdur. He ate a toast with that. A little later he was sitting on the side of the bed and somehow he got down on the floor. He is unsure if he passed out. He did hurt his right shoulder and right side of the face. He was able to get up and started to do his daily activities. He went to a meeting with other elders. When he explained his symptoms he was sent to the clinic and from the clinic today emergency room. In the clinic he was noted to have blood sugar in the 60s. He was given some sugar to eat. The blood glucose still remained in the 60s. In the emergency room he was given dextrose and blood sugar came up to above 100. He is feeling well now. Throughout this episode he never had chest pain, no shortness of breath, no headache, no focal motor weakness. - Related Data Allergies/Adverse Reactions: Allergies Allergy/AdvReac Type Severity Reaction Status Date / Time cephalexin Allergy Mild Itching Verified 08/12/16 15:57 levofloxacin [From Levaquin] Allergy chest pain Verified 08/12/16 15:57 and SOB Home Medications: Home Meds Aspirin [Halfprin] 81 mg PO DAILY 04/06/13 [History] Diazepam [Valium] 5 mg PO DAILY PRN 04/06/13 [History] Metoprolol Succinate [Toprol XL] 50 mg PO DAILY 04/06/13 [History] Ramipril [Altace] 5 mg PO DAILY 04/06/13 [History] Simvastatin [Zocor] 40 mg PO BEDTIME 04/06/13 [History] Tamsulosin [Tamsulosin 24 Hr] 0.4 mg PO DAILY 04/06/13 [History] glyBURIDE/Metformin [glyBURIDE/Metformin 5-500 MG] 2 tab PO BID 04/06/13 [ History] Clopidogrel [Plavix] 75 mg PO DAILY 06/30/13 [History] Insulin Detemir [Levemir] 60 unit SQ DAILY 09/15/13 [History] Leuprolide Acetate [Lupron Depot] 50 mg SQ ASDIRECTED 02/18/14 [History] Isosorbide Mononitrate [Imdur] 30 mg PO DAILY 07/11/15 [History] Pantoprazole [ProTONIX] 40 mg PO DAILY 10/16/15 [History] Past Medical History HEENT History: Reports: Impaired Vision Cardiovascular History: Reports: High Cholesterol, Hypertension, [place], Stents Respiratory History: Reports: Pneumonia, Recurrent Gastrointestinal History: Reports: None Genitourinary History: Reports: BPH Other Genitourinary History: prostate cancer Musculoskeletal History: Reports: None Neurological History: Reports: None Psychiatric History: Reports: Anxiety Endocrine/Metabolic History: 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, Type I Hematologic History: Reports: None Immunologic History: Reports: None Oncologic (Cancer) History: Reports: Prostate Dermatologic History: Reports: None - Infectious Disease History Infectious Disease History: Reports: None - Past Surgical History Head Surgeries/Procedures: Reports: None Cardiovascular Surgical History: Reports: Coronary Artery Stent Social & Family History - Family History Family Medical History: Noncontributory - Tobacco Use Smoking Status *Q: Former Smoker Years of Tobacco use: 30 Packs/Tins Daily: 1 Used Tobacco, but Quit: Yes Month Tobacco Last Used: March Second Hand Smoke Exposure: No - Caffeine Use Caffeine Use: Reports: Coffee - Alcohol Use Days Per Week of Alcohol Use: 0 - Recreational Drug Use Recreational Drug Use: No - Living Situation & Occupation Living situation: Reports: , Alone Occupation: Retired H&P Review of Systems - Review of Systems: Review Of Systems: See Below General: Denies: Chills Pulmonary: Denies: Shortness of Breath Cardiovascular: Denies: Chest Pain, Edema Gastrointestinal: Denies: Abdominal Pain Musculoskeletal: Reports: Shoulder Pain (after the fall/syncope). Denies: Neck Pain Psychiatric: Denies: Confusion Neurological: Reports: Syncope. Denies: Dizziness, Headache Exam - Exam Exam: See Below - Vital Signs Vital Signs: Last Vital Signs Temp 36.3 C 08/12/16 19:37 Pulse 66 08/12/16 19:37 Resp 22 H 08/12/16 19:37 BP 167/62 H 08/12/16 19:37 Pulse Ox 100 08/12/16 19:37 Weight: 91.263 kg - Exam General: Alert, Oriented, 4 HEENT: Conjunctiva Clear, EACs Clear, EOMI, Hearing Intact, Mucosa Moist & [place] , Nares Patent, PERRLA Neck: Supple, Trachea Midline, 2 Lungs: Clear to Auscultation, Normal Respiratory Effort Cardiovascular: Regular Rate, Regular Rhythm Abdomen: Normal Bowel Sounds, Soft Extremities: Normal Inspection. No: Edema - Patient Data Result Diagrams: 08/12/16 16:03 08/12/16 16:03 *Q Meaningful Use (ADM) - VTE *Q VTE Criteria *Q: - Stroke *Q Stroke Criteria *Q: - AMI *Q AMI Criteria *Q: - Problem List (1) Hypoglycemia SNOMED Code(s): 575537552 ICD Code: E16.2 - HYPOGLYCEMIA, UNSPECIFIED Status: Acute Current Visit: Yes (2) Syncope SNOMED Code(s): 797604394 ICD Code: R55 - SYNCOPE AND COLLAPSE Status: Acute Current Visit: Yes Qualifiers: Syncope type: unspecified Qualified Code(s): R55 - Syncope and collapse Problem List Initiated/Reviewed/Updated: Yes Orders Last 24hrs: Active Orders 24 hr Category Date Time Status Telemetry Monitoring [Cardiac Monitoring] [RC] . Care 08/12/16 19:40 Active DIRECTED BASIC METABOLIC PANEL,BMP [CHEM] AM Lab 08/13/16 05:15 Ordered CBC WITH AUTO DIFF [HEME] AM Lab 08/13/16 05:15 Ordered TROPONIN I [CHEM] AM Lab 08/13/16 05:11 Ordered Dextrose 25% in Water Med 08/12/16 19:41 Active 10 ml IVPUSH .Q1H PRN Medication Orders Acetaminophen (Tylenol) 650 mg PO Q4H PRN PRN Reason: Pain (Mild 1-3)/fever Aspirin (Halfprin) 81 mg PO DAILY DRU Clopidogrel Bisulfate (Plavix) 75 mg PO DAILY DRU Dextrose/Water (Dextrose 25% In Water) 10 ml IVPUSH .Q1H PRN PRN Reason: bs<70 or symptomatic Diazepam (Valium.) 5 mg PO DAILY PRN PRN Reason: Anxiety Heparin Sodium (Porcine) (Heparin Sodium) 5,000 units SUBCUT Q8HR DRU Potassium Chloride/Dextrose/Sod Cl (D5 Ns With 20 Meq Kcl) 1,000 mls @ 75 mls/ hr IV ASDIRECTED DRU Isosorbide Mononitrate (Imdur) 30 mg PO DAILY DRU Metoprolol Succinate (Toprol Xl) 50 mg PO DAILY DRU Non-Formulary Medication (Insulin Detemir) 30 unit SQ DAILY DRU Pantoprazole Sodium (Protonix) 40 mg PO ACBREAKFAST DRU Ramipril (Altace) 5 mg PO DAILY DRU Simvastatin (Zocor) 40 mg PO BEDTIME DRU Sodium Chloride (Saline Flush) 10 ml FLUSH ASDIRECTED PRN PRN Reason: Keep Vein Open Last Admin: 08/12/16 16:16 Dose: 10 ml Tamsulosin HCl (Flomax) 0.4 mg PO DAILY DRU Zolpidem Tartrate (Ambien) 5 mg PO BEDTIME PRN PRN Reason: Sleep Assessment/Plan Comment:: The patient is a diabetic whose blood sugars usually run in the 200 or above range. He does not really follow up set dietary pattern. Yesterday had a regular normal day. He used 40 units of Levemir yesterday. Today he woke up around 6:00. He was watching the news. Blood sugar was 215. He took his imdur. He ate a toast with that. A little later he was sitting on the side of the bed and somehow he got down on the floor. He is unsure if he passed out. He did hurt his right shoulder and right side of the face. He was able to get up and started to do his daily activities. He went to a meeting with other elders. When he explained his symptoms he was sent to the clinic and from the clinic today emergency room. In the clinic he was noted to have blood sugar in the 60s. He was given some sugar to eat. The blood glucose still remained in the 60s. In the emergency room he was given dextrose and blood sugar came up to above 100. He is feeling well now. Throughout this episode he never had chest pain, no shortness of breath, no headache, no focal motor weakness. Possible Syncopal episode Differential diagnosis is wide It might be due to hypoglycemia For now to keep the blood sugars from going too low risk start the patient on D5 normal saline IV fluid. We will decrease the patients diabetic regimen. Stop the glyburide and metformin Decrease Levemir from 40 units to 30. Follow blood sugars Use supplemental insulin for hyperglycemia and D50 for hypoglycemia. Discussed with the patient that it is very difficult to set the blood sugars from the hospital. After discharge he will have to check his blood sugars more frequently, eat more regularly. Follow-up with dietary and diabetic educators. Accidentally he is granddaughter who has just recently graduated will be a diabetic nurse. Have to consider cardiac events Recheck troponin Monitor on telemetry The patient has been on metoprolol and ramipril Monitor blood pressure with his home regimen Consider neurological event No apparent seizure or focal neurological deficit We will monitor the patient closely The patient has been on diazepam We will have to use with caution The patient has prostate cancer On CAT scan no apparent mental status is seen If no other abnormalities consider MRI of the head is outpatient If no other abnormalities found consider EEG as outpatient Consider metabolic causes Recheck electrolytes in the morning Consider musculoskeletal causes Consult physical and occupational therapy for evaluation History of coronary artery disease Treat with aspirin, Plavix, Imdur, metoprolol Monitor blood pressure, heart rhythm and heart rate DVT prophylaxis will be with subcutaneous heparin
[2016-08-12] MEDS ORDERED: INSULIN DETEMIR 30 UNIT SQ SCH (21:00)
[2016-08-12] MEDS ORDERED: Insulin Detemir 100 Units/ML 3 ML Pen SUBCUT SCH (21:00)
[2016-08-12] MEDS ORDERED: Simvastatin 40 MG Tab PO SCH (21:00)
[2016-08-12] MEDS: Heparin Sodium 5,000 Units/ML Vial SUBCUT SCH (21:46)
[2016-08-13] MEDS ORDERED: Pantoprazole 40 MG Tab.CR PO SCH (06:00)
[2016-08-13] MEDS: Heparin Sodium 5,000 Units/ML Vial SUBCUT SCH ×2 (06:17→14:39)
[2016-08-13 07:05] LABS: CHLORIDE,CL 104 mmol/L (101-111); SODIUM,NA 138 mmol/L (135-145)
[2016-08-13] MEDS ORDERED: Metoprolol Succinate 50 MG Tab.ER PO SCH (09:00)
[2016-08-13] MEDS ORDERED: Insulin Detemir 100 Units/ML 3 ML Pen SUBCUT SCH (09:00)
[2016-08-13] MEDS ORDERED: Ramipril 5 MG Cap PO SCH (09:00)
[2016-08-13] MEDS ORDERED: Isosorbide Mononitrate 30 MG Tab.ER PO SCH (09:00)
[2016-08-13] MEDS ORDERED: Tamsulosin 0.4 MG Cap.ER PO SCH (09:00)
[2016-08-13] MEDS ORDERED: Aspirin 81 MG Tab.EC PO SCH (09:00)
[2016-08-13] MEDS ORDERED: Clopidogrel 75 MG Tab PO SCH (09:00)
[2016-08-13] MEDS ORDERED: INSULIN DETEMIR 30 UNIT SQ SCH (09:00)
--- NOTE | 2016-08-13 10:00 | PCM.DCSUM1 ---
Discharge Summary - Hospital Course Free Text/Narrative:: The patient is a 75-year-old gentleman who presented after a possible syncopal episode. The patient was alone it was on weakness. It is unclear what exactly happened but somehow he fell down from sitting on the side of the bed to the floor. He had minor injuries to the right shoulder and right side of the head. Subsequently was doing his usual activities during the day but at the request of the family later he showed up at the clinic for evaluation. The patient was noted to have hypoglycemia in the clinic although according to the patient's he had no hypoglycemia at home before and after the presumed syncopal episode. During the hospital stay the patient has been given dextrose supplements. With that his blood sugars remained elevated. We discussed the importance of blood sugar control at home. It will be challenging for the patient since he has been using Levemir twice a day at his will and has an irregular eating pattern. I suggested the patient to follow-up with network relations consultant. Using NovoLog rather than Levemir to correct hyperglycemia. We discussed the action and length of action of Levemir and why it is not a good idea to use that for quick blood sugar control. The patient's daughter is using NovoLog and she is straining to be a diabetic nurse so I believe the patient has good resources. From cardiac point the patient was monitored on telemetry. There was no significant arrhythmia. Remained Coumadin medically stable. Had repeat troponins remained stable. The patient's potassium on the day of discharge was noted to be on the upper limit. This is likely due to not receiving his morning insulin yet. For now continue all home medications including the ramipril but follow-up with the primary care physician in a few days to recheck electrolyte panel to evaluate for hyperkalemia. From neurological point the patient had no focal motor weakness. CT of the head showed no acute changes (this was without contrast). The patient will be discharged in a stable condition. Follow up with his primary care physician in a few days. - Discharge Data Discharge Date: 08/13/16 Discharge Disposition: Home, Self-Care 01 Condition: Good - Discharge Diagnosis/Problem(s) (1) Hypoglycemia SNOMED Code(s): 086260743 ICD Code: E16.2 - HYPOGLYCEMIA, UNSPECIFIED Status: Acute Current Visit: Yes (2) Syncope SNOMED Code(s): 296435151 ICD Code: R55 - SYNCOPE AND COLLAPSE Status: Acute Current Visit: Yes Qualifiers: Syncope type: unspecified Qualified Code(s): R55 - Syncope and collapse - Patient Instructions Diet: Heart Healthy Diet Activity: As Tolerated - Discharge Plan Home Medications: Home Meds Aspirin [Halfprin] 81 mg PO DAILY 04/06/13 [History] Diazepam [Valium] 5 mg PO DAILY PRN 04/06/13 [History] Metoprolol Succinate [Toprol XL] 50 mg PO DAILY 04/06/13 [History] Ramipril [Altace] 5 mg PO DAILY 04/06/13 [History] Simvastatin [Zocor] 40 mg PO BEDTIME 04/06/13 [History] Tamsulosin [Flomax] 0.4 mg PO DAILY 04/06/13 [History] glyBURIDE/Metformin [glyBURIDE/Metformin 5-500 MG] 2 tab PO BID 04/06/13 [ History] Clopidogrel [Plavix] 75 mg PO DAILY 06/30/13 [History] Insulin Detemir [Levemir] 60 unit SQ DAILY 09/15/13 [History] Leuprolide Acetate [Lupron Depot] 50 mg SQ ASDIRECTED 02/18/14 [History] Isosorbide Mononitrate [Imdur] 30 mg PO DAILY 07/11/15 [History] Pantoprazole [ProTONIX] 40 mg PO DAILY 10/16/15 [History] Forms: ED Department Discharge Referrals: [facility] [Primary Care Provider] - (in 2-3 days with BMP: re diabetes, hyperkalemia) - Discharge Summary/Plan Comment DC Time >30 min.: No - General Info Date of Service: 08/13/16 Admission Dx/Problem (Free Text: Admission Diagnosis/Problem Admission Diagnosis/Problem Syncope Functional Status: Reports: pain controlled - Review of Systems General: Denies: Fever Pulmonary: Denies: shortness of breath Cardiovascular: Denies: Chest Pain, Palpitations Gastrointestinal: Denies: Abdominal pain Neurological: Denies: Confusion, Dizziness Psychiatric: Denies: depression - Patient Data Vitals - Most Recent: Last Vital Signs Temp 36.3 C 08/13/16 08:16 Pulse 71 08/13/16 09:51 Resp 20 08/13/16 08:16 BP 152/69 H 08/13/16 09:52 Pulse Ox 97 08/13/16 08:16 Weight - Most Recent: 91.263 kg I&O - Last 24 hours: Intake & Output 08/12/16 08/13/16 08/13/16 22:59 06:59 14:59 Intake Total 1212 Output Total 1450 Balance -238 Lab Results - Last 24 hrs: Laboratory Results - last 24 hr 08/12/16 08/13/16 08/13/16 Range/Units 20:43 06:25 06:25 WBC 5.3 (5.0-10.0) 10^3/uL RBC 3.93 L (4.6-6.2) 10^6/uL Hgb 12.4 L (14.0-18.0) g/dL Hct 37.7 L (40.0-54.0) % MCV 95.9 (80-100) fL MCH 31.6 (27.0-34.0) pg MCHC 32.9 L (33.0-35.0) g/dL Plt Count 229 (150-450) 10^3/uL Neut % (Auto) 59.5 (42.2-75.2) % Lymph % (Auto) 23.0 (20.5-50.1) % [place] % (Auto) 13.3 H (2-8) % Eos % (Auto) 3.8 H (1.0-3.0) % Baso % (Auto) 0.4 (0.0-1.0) % Sodium 138 (135-145) mmol/L Potassium 5.1 H (3.6-5.0) mmol/L Chloride 104 (101-111) mmol/L Carbon Dioxide 25.0 (21.0-31.0) mmol/L Anion Gap 14.1 BUN 17 (7-18) mg/dL Creatinine 1.2 (0.6-1.3) mg/dL Est Cr Clr Drug Dosing 53.23 mL/min Estimated GFR (MDRD) 59 Glucose 292 H (74-105) mg/dL POC Glucose 126 H (83-110) mg/dl Calcium 8.8 (8.4-10.2) mg/dl Troponin I < 0.02 (0.00-0.02) ng/ml 08/13/16 Range/Units 07:44 WBC (5.0-10.0) 10^3/uL RBC (4.6-6.2) 10^6/uL Hgb (14.0-18.0) g/dL Hct (40.0-54.0) % MCV (80-100) fL MCH (27.0-34.0) pg MCHC (33.0-35.0) g/dL Plt Count (150-450) 10^3/uL Neut % (Auto) (42.2-75.2) % Lymph % (Auto) (20.5-50.1) % [place] % (Auto) (2-8) % Eos % (Auto) (1.0-3.0) % Baso % (Auto) (0.0-1.0) % Sodium (135-145) mmol/L Potassium (3.6-5.0) mmol/L Chloride (101-111) mmol/L Carbon Dioxide (21.0-31.0) mmol/L Anion Gap BUN (7-18) mg/dL Creatinine (0.6-1.3) mg/dL Est Cr Clr Drug Dosing mL/min Estimated GFR (MDRD) Glucose (74-105) mg/dL POC Glucose 282 H (83-110) mg/dl Calcium (8.4-10.2) mg/dl Troponin I (0.00-0.02) ng/ml Med Orders - Current: Current Medications Acetaminophen (Tylenol) 650 mg PO Q4H PRN PRN Reason: Pain (Mild 1-3)/fever Aspirin (Halfprin) 81 mg PO DAILY [facility] Last Admin: 08/13/16 09:52 Dose: 81 mg Clopidogrel Bisulfate (Plavix) 75 mg PO DAILY [facility] Last Admin: 08/13/16 09:52 Dose: 75 mg Dextrose/Water (Dextrose 25% In Water) 10 ml IVPUSH .Q1H PRN PRN Reason: bs<70 or symptomatic Diazepam (Valium.) 5 mg PO DAILY PRN PRN Reason: Anxiety Heparin Sodium (Porcine) (Heparin Sodium) 5,000 units SUBCUT Q8HR [facility] Last Admin: 08/13/16 06:17 Dose: 5,000 units Insulin Detemir (Levemir) 30 unit SUBCUT DAILY [facility] Last Admin: 08/13/16 09:49 Dose: 30 units Isosorbide Mononitrate (Imdur) 30 mg PO DAILY [facility] Last Admin: 08/13/16 09:52 Dose: 30 mg Metoprolol Succinate (Toprol Xl) 50 mg PO DAILY [facility] Last Admin: 08/13/16 09:51 Dose: 50 mg Pantoprazole Sodium (Protonix) 40 mg PO ACBREAKFAST [facility] Last Admin: 08/13/16 06:17 Dose: 40 mg Simvastatin (Zocor) 40 mg PO BEDTIME [facility] Last Admin: 08/12/16 20:52 Dose: 40 mg Sodium Chloride (Saline Flush) 10 ml FLUSH ASDIRECTED PRN PRN Reason: Keep Vein Open Last Admin: 08/12/16 16:16 Dose: 10 ml Tamsulosin HCl (Flomax) 0.4 mg PO DAILY [facility] Last Admin: 08/13/16 09:52 Dose: 0.4 mg Zolpidem Tartrate (Ambien) 5 mg PO BEDTIME PRN PRN Reason: Sleep Discontinued Medications Dextrose/Water (Dextrose 50% In Water) 25 ml IVPUSH ONETIME ONE Stop: 08/12/16 15:49 Last Admin: 08/12/16 16:15 Dose: 25 ml Potassium Chloride/Dextrose/Sod Cl (D5 Ns With 20 Meq Kcl) 1,000 mls @ 75 mls/ hr IV ASDIRECTED [facility] Last Admin: 08/12/16 20:30 Dose: 75 mls/hr Insulin Detemir (Levemir) 30 unit SUBCUT BEDTIME [facility] Last Admin: 08/12/16 22:13 Dose: Not Given Non-Formulary Medication (Insulin Detemir) 30 unit SQ DAILY [facility] Non-Formulary Medication (Insulin Detemir) 30 unit SQ QID [facility] Ramipril (Altace) 5 mg PO DAILY [facility] - Exam General: Reports: alert, oriented Neck: Reports: supple Lungs: Reports: Clear to auscultation, Normal respiratory effort Cardiovascular: Reports: Regular Rate, Regular Rhythm Abdomen: Reports: bowel sounds present, soft, no tenderness, no distension Extremities: Reports: no edema Skin: Reports: warm, dry, intact Neurological: Reports: no new focal deficit Psy/Mental Status: Reports: alert, normal affect, normal mood *Q Meaningful Use (DIS) - VTE *Q VTE Criteria *Q: - Stroke *Q Stroke Criteria *Q: - AMI *Q AMI Criteria *Q:
[2016-08-13] MEDS ORDERED: Insulin Aspart 100 Units/ML 3 ML Pen SUBCUT ONE (12:08)
[2016-08-13 14:44] VITALS: BP 154/70
--- NOTE | 2016-08-14 13:20 | EKG ---
08/12/2016- LUKASZ FLETCHER - EKG per my reading shows sinus rhythm with a rate of 63 with inferior Q-waves. [facility] /[id number]
== END 2016-08-13 14:07 | disposition home or self-care (01) ==
LOC: DL.ED 15:37 → DL.MS 19:08 → UNDOADMOB 19:08 → DL.MS 19:37
PROVIDERS: ADMIT Internal Medicine; ATTEND Internal Medicine
DX: E10.649 Type 1 diabetes mellitus with hypoglycemia without coma (principal); R55 Syncope and collapse; E78.00 Pure hypercholesterolemia, unspecified; I10 Essential (primary) hypertension; I25.10 Atherosclerotic heart disease of native coronary artery without angina pectoris; I25.2 Old myocardial infarction; F41.9 Anxiety disorder, unspecified; Z79.82 Long term (current) use of aspirin; Z79.899 Other long term (current) drug therapy; Z95.5 Presence of coronary angioplasty implant and graft; Z87.01 Personal history of pneumonia (recurrent); Z79.02 Long term (current) use of antithrombotics/antiplatelets; Z85.46 Personal history of malignant neoplasm of prostate; Z87.891 Personal history of nicotine dependence; Z88.8 Allergy status to other drugs, medicaments and biological substances
CPT/HCPCS: 36415; 70450; 71010; 80048; 80053; 81001; 82150; 82962; 83605; 83690; 83880; 84484; 85025; 85610; 85730; 87040; 93005; 93010; 96361; 96372; 99284; 99285; A9270; G0378; J1644; J1815; J3480; J7050; 99217; J7060

== ENCOUNTER 2016-10-12 11:58 | Emergency (ER) | payer SELFPAY ==
[2016-10-12 13:16] VITALS: BP 104/40
--- NOTE | 2016-10-12 13:29 | EDM.PDOC ---
Scribed by Shawna Bynum 10/12/16 1329 for Virgil Anaya MD ED HPI GENERAL MEDICAL PROBLEM - General Chief Complaint: Upper Extremity Injury/Pain Stated Complaint: HAND CUT BLEADING [id number] Time Seen by Provider: 10/12/16 13:15 Source of Information: Reports: Patient, RN, RN Notes Reviewed History Limitations: Reports: No Limitations - History of Present Illness INITIAL COMMENTS - FREE TEXT/NARRATIVE: Skin tear to dorsum of left hand sustained this morning on the edge of a door. No other injury. Last tetanus was less than 10 years. Onset: Today Location: Reports: Upper Extremity, Left Quality: Reports: Ache Severity: Mild Improves with: Reports: None Worsens with: Reports: None Associated Symptoms: Reports: No Other Symptoms - Related Data Allergies Allergy/AdvReac Type Severity Reaction Status Date / Time cephalexin Allergy Mild Itching Verified 08/12/16 15:57 levofloxacin [From Levaquin] Allergy chest pain Verified 08/12/16 15:57 and SOB Home Meds: Home Meds Aspirin [Halfprin] 81 mg PO DAILY 04/06/13 [History] Diazepam [Valium] 5 mg PO DAILY PRN 04/06/13 [History] Metoprolol Succinate [Toprol XL] 50 mg PO DAILY 04/06/13 [History] Ramipril [Altace] 5 mg PO DAILY 04/06/13 [History] Simvastatin [Zocor] 40 mg PO BEDTIME 04/06/13 [History] Tamsulosin [Flomax] 0.4 mg PO DAILY 04/06/13 [History] glyBURIDE/Metformin [glyBURIDE/Metformin 5-500 MG] 2 tab PO BID 04/06/13 [ History] Clopidogrel [Plavix] 75 mg PO DAILY 06/30/13 [History] Insulin Detemir [Levemir] 60 unit SQ DAILY 09/15/13 [History] Leuprolide Acetate [Lupron Depot] 50 mg SQ ASDIRECTED 02/18/14 [History] Isosorbide Mononitrate [Imdur] 30 mg PO DAILY 07/11/15 [History] Pantoprazole [ProTONIX] 40 mg PO DAILY 10/16/15 [History] Past Medical History HEENT History: Reports: Impaired Vision Cardiovascular History: Reports: High Cholesterol, Hypertension, [place], Stents Respiratory History: Reports: Pneumonia, Recurrent Gastrointestinal History: Reports: None Genitourinary History: Reports: BPH Other Genitourinary History: prostate cancer Musculoskeletal History: Reports: None Neurological History: Reports: None Psychiatric History: Reports: Anxiety Endocrine/Metabolic History: 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, Type I Hematologic History: Reports: None Immunologic History: Reports: None Oncologic (Cancer) History: Reports: Prostate Dermatologic History: Reports: None - Infectious Disease History Infectious Disease History: Reports: None - Past Surgical History Head Surgeries/Procedures: Reports: None Cardiovascular Surgical History: Reports: Coronary Artery Stent Social & Family History - Family History Family Medical History: Noncontributory - Tobacco Use Smoking Status *Q: Former Smoker Years of Tobacco use: 30 Packs/Tins Daily: 1 Used Tobacco, but Quit: Yes Month Tobacco Last Used: March Hand Smoke Exposure: No - Caffeine Use Caffeine Use: Reports: Coffee - Alcohol Use Days Per Week of Alcohol Use: 0 - Recreational Drug Use Recreational Drug Use: No - Living Situation & Occupation Living situation: Reports: , Alone Occupation: Retired Review of Systems - Review of Systems Review Of Systems: ROS reveals no pertinent complaints other than HPI. ED EXAM, GENERAL - Physical Exam Exam: See Below Exam Limited By: No Limitations General Appearance: Alert, WD/WN, No Apparent Distress Head: Atraumatic, Normocephalic Respiratory/Chest: No Respiratory Distress Extremities: Normal Range of Motion, Other (4cm crescent shaped skin tear dorsum of left hand. No active bleeding. No foriegn body. ) Neurological: Alert, No Motor/Sensory Deficits Course - Vital Signs Last Recorded V/S: Last Vital Signs Temp 35.3 C 10/12/16 13:15 Pulse 54 L 10/12/16 13:15 Resp 16 10/12/16 13:15 BP 104/40 L 10/12/16 13:15 Pulse Ox 96 10/12/16 13:15 - Re-Assessments/Exams Free Text/Narrative Re-Assessment/Exam: 10/12/16 13:29 Steri-Strip closure and dressing by RN. Departure - Departure Time of Disposition: 13:25 Disposition: Home, Self-Care 01 Condition: Good Clinical Impression: Skin tear of left hand without complication Qualifiers: Encounter type: initial encounter Qualified Code(s): S61.412A - Laceration without foreign body of left hand, initial encounter - Discharge Information Instructions: Stitches, Vida, or Adhesive Wound Closure, [id number] Forms: ED Department Discharge Additional Instructions: Follow up in clinic if any signs of wound infection or other problems develop. I have read and agree with the documentation that has been completed regarding this visit. By signing this record, I attest that the documentation was completed in my physical presence and is an accurate record of the encounter.
== END 2016-10-12 13:31 | disposition home or self-care (01) ==
LOC: DL.ED 11:58
DX: S61.412A Laceration without foreign body of left hand, initial encounter (principal); E78.00 Pure hypercholesterolemia, unspecified; I10 Essential (primary) hypertension; I25.2 Old myocardial infarction; F41.9 Anxiety disorder, unspecified; E10.9 Type 1 diabetes mellitus without complications; Z87.891 Personal history of nicotine dependence; Z87.01 Personal history of pneumonia (recurrent); Z95.5 Presence of coronary angioplasty implant and graft; Z88.1 Allergy status to other antibiotic agents; Z79.82 Long term (current) use of aspirin; Z79.899 Other long term (current) drug therapy; Z79.4 Long term (current) use of insulin; W26.9XXA Contact with unspecified sharp object(s), initial encounter
CPT/HCPCS: 99282

== ENCOUNTER 2016-10-23 14:10 | Emergency (ER) | payer OTHER ==
--- NOTE | 2016-10-23 11:56 | EDM.PDOC ---
ED HPI GENERAL MEDICAL PROBLEM - General Chief Complaint: Respiratory Problem Stated Complaint: IN BY AMBULANCE Time Seen by Provider: 10/23/16 11:32 Source of Information: Reports: Patient, EMS History Limitations: Reports: No Limitations - History of Present Illness INITIAL COMMENTS - FREE TEXT/NARRATIVE: This 75 yo male patient reports to the ED with increased shortness of breath over the past 3 weeks. The patient reports he is only able to walk short distances without feeling lightheaded and short of breath. The patient has not been followed up by his primary care facility ([facility]) due to the provider advising the patient that he was too complicated and referred the patient to Dr. Pack. The patient has not been able to get into see Dr. Pack. The patient reports his quality of life is not good. The patient reports he is very lonely and "does not care if he is here." The patient denies any chest pain at this time. The patient does have a history of cardiac stents in 2007 or 2010. Onset: Gradual Duration: Week(s):, Constant, Getting Worse Location: Reports: Chest Quality: Reports: Ache, Dull Severity: Moderate Improves with: Reports: Rest Worsens with: Reports: Movement Associated Symptoms: Reports: Shortness of Breath - Related Data Allergies Allergy/AdvReac Type Severity Reaction Status Date / Time cephalexin Allergy Mild Itching Verified 10/23/16 11:20 levofloxacin [From Levaquin] Allergy chest pain Verified 10/23/16 11:20 and SOB Home Meds: Home Meds Aspirin [Halfprin] 81 mg PO DAILY 04/06/13 [History] Diazepam [Valium] 5 mg PO DAILY PRN 04/06/13 [History] Metoprolol Succinate [Toprol XL] 50 mg PO DAILY 04/06/13 [History] Ramipril [Altace] 5 mg PO DAILY 04/06/13 [History] Simvastatin [Zocor] 40 mg PO BEDTIME 04/06/13 [History] Tamsulosin [Flomax] 0.4 mg PO DAILY 04/06/13 [History] glyBURIDE/Metformin [glyBURIDE/Metformin 5-500 MG] 2 tab PO BID 04/06/13 [ History] Clopidogrel [Plavix] 75 mg PO DAILY 06/30/13 [History] Insulin Detemir [Levemir] 60 unit SQ DAILY 09/15/13 [History] Leuprolide Acetate [Lupron Depot] 50 mg SQ ASDIRECTED 02/18/14 [History] Isosorbide Mononitrate [Imdur] 30 mg PO DAILY 07/11/15 [History] Pantoprazole [ProTONIX] 40 mg PO DAILY 10/16/15 [History] Past Medical History HEENT History: Reports: Impaired Vision Cardiovascular History: Reports: High Cholesterol, Hypertension, Stents Respiratory History: Reports: Pneumonia, Recurrent Gastrointestinal History: Reports: None Genitourinary History: Reports: BPH Other Genitourinary History: prostate cancer Musculoskeletal History: Reports: None Neurological History: Reports: None Psychiatric History: Reports: Anxiety Endocrine/Metabolic History: 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, Type I Hematologic History: Reports: None Immunologic History: Reports: None Oncologic (Cancer) History: Reports: Prostate Dermatologic History: Reports: None - Infectious Disease History Infectious Disease History: Reports: None - Past Surgical History Head Surgeries/Procedures: Reports: None Cardiovascular Surgical History: Reports: Coronary Artery Stent Social & Family History - Family History Family Medical History: Noncontributory - Tobacco Use Smoking Status *Q: Never Smoker Years of Tobacco use: 30 Packs/Tins Daily: 1 Used Tobacco, but Quit: Yes Month Tobacco Last Used: March Second Hand Smoke Exposure: No - Caffeine Use Caffeine Use: Reports: Coffee - Alcohol Use Days Per Week of Alcohol Use: 0 - Recreational Drug Use Recreational Drug Use: No - Living Situation & Occupation Living situation: Reports: , Alone Occupation: Retired ED ROS GENERAL - Review of Systems Review Of Systems: ROS reveals no pertinent complaints other than HPI. ED EXAM, GENERAL - Physical Exam Exam: See Below Exam Limited By: No Limitations General Appearance: Alert, WD/WN, Moderate Distress Eye Exam: Bilateral Eye: EOMI, Normal Inspection, PERRL Ears: Normal External Exam, Normal Canal, Hearing Grossly Normal, Normal TMs Nose: Normal Inspection, Normal Mucosa, No Blood Throat/Mouth: Normal Inspection, Normal Lips, Normal Teeth, Normal Gums, Normal Oropharynx, Normal Voice, No Airway Compromise Head: Atraumatic, Normocephalic Neck: Normal Inspection, Supple, Non-Tender, Full Range of Motion Respiratory/Chest: Decreased Breath Sounds (bilateral lower lobes), Crackles Cardiovascular: Normal Peripheral Pulses, Regular Rate, Rhythm, No Edema, No Gallop, No JVD, No Murmur, No Rub GI/Abdominal: Normal Bowel Sounds, Soft, Non-Tender, No Organomegaly, No Distention, No Abnormal Bruit, No Mass (Male) Exam: Deferred Rectal (Males) Exam: Deferred Back Exam: Normal Inspection, Full Range of Motion, NT Extremities: Normal Inspection, Normal Range of Motion, Non-Tender, Normal Capillary Refill, No Pedal Edema Neurological: Alert, Oriented, CN II-XII Intact, Normal Cognition, Normal Gait, Normal Reflexes, No Motor/Sensory Deficits Psychiatric: Normal Affect, Depressed Mood Skin Exam: Warm, Dry, Intact, Normal Color, No Rash Lymphatic: No Adenopathy Course - Vital Signs Last Recorded V/S: Last Vital Signs Temp 36.6 C 10/23/16 15:06 Pulse 65 10/23/16 15:06 Resp 20 10/23/16 15:06 BP 130/56 L 10/23/16 15:06 Pulse Ox 99 10/23/16 15:06 - Orders/Labs/Meds Orders: Active Orders 24 hr Category Date Time Status EKG Documentation Completion [RC] URGENT Care 10/23/16 11:23 Active RT Post Treatment Assessment [RC] Click To Edit Care 10/23/16 15:06 Ordered RT Pre-Treatment Assessment [RC] Click To Edit Care 10/23/16 15:06 Ordered Labs: Laboratory Tests 10/23/16 10/23/16 10/23/16 Range/Units 11:35 11:35 11:35 WBC 6.0 (5.0-10.0) 10^3/uL RBC 4.07 L (4.6-6.2) 10^6/uL Hgb 12.9 L (14.0-18.0) g/dL Hct 39.3 L (40.0-54.0) % MCV 96.6 (80-100) fL MCH 31.7 (27.0-34.0) pg MCHC 32.8 L (33.0-35.0) g/dL Plt Count 245 (150-450) 10^3/uL Neut % (Auto) 66.5 (42.2-75.2) % Lymph % (Auto) 20.7 (20.5-50.1) % [place] % (Auto) 9.3 H (2-8) % Eos % (Auto) 3.2 H (1.0-3.0) % Baso % (Auto) 0.3 (0.0-1.0) % D-Dimer, Quantitative 226 (0-400) ng/mL Sodium 138 (135-145) mmol/L Potassium 5.2 H (3.6-5.0) mmol/L Chloride 105 (101-111) mmol/L Carbon Dioxide 21.0 (21.0-31.0) mmol/L Anion Gap 17.2 BUN 25 H (7-18) mg/dL Creatinine 1.2 (0.6-1.3) mg/dL Est Cr Clr Drug Dosing 53.23 mL/min Estimated GFR (MDRD) 59 BUN/Creatinine Ratio 20.83 Glucose 325 H (74-105) mg/dL Calcium 8.7 (8.4-10.2) mg/dl Total Bilirubin 0.6 (0.2-1.0) mg/dL AST 24 (10-42) IU/L ALT 19 (10-60) IU/L Alkaline Phosphatase 90 (42-121) IU/L Troponin I < 0.02 (0.00-0.02) ng/ml B-Natriuretic Peptide (0-100) pg/ml Total Protein 7.1 (6.7-8.2) g/dl Albumin 3.6 (3.2-5.5) g/dl Globulin 3.5 Albumin/Globulin Ratio 1.03 // Range/Units 11:35 WBC (5.0-10.0) 10^3/uL RBC (4.6-6.2) 10^6/uL Hgb (14.0-18.0) g/dL Hct (40.0-54.0) % MCV (80-100) fL MCH (27.0-34.0) pg MCHC (33.0-35.0) g/dL Plt Count (150-450) 10^3/uL Neut % (Auto) (42.2-75.2) % Lymph % (Auto) (20.5-50.1) % [place] % (Auto) (2-8) % Eos % (Auto) (1.0-3.0) % Baso % (Auto) (0.0-1.0) % D-Dimer, Quantitative (0-400) ng/mL Sodium (135-145) mmol/L Potassium (3.6-5.0) mmol/L Chloride (101-111) mmol/L Carbon Dioxide (21.0-31.0) mmol/L Anion Gap BUN (7-18) mg/dL Creatinine (0.6-1.3) mg/dL Est Cr Clr Drug Dosing mL/min Estimated GFR (MDRD) BUN/Creatinine Ratio Glucose (74-105) mg/dL Calcium (8.4-10.2) mg/dl Total Bilirubin (0.2-1.0) mg/dL AST (10-42) IU/L ALT (10-60) IU/L Alkaline Phosphatase (42-121) IU/L Troponin I (0.00-0.02) ng/ml B-Natriuretic Peptide 37 (0-100) pg/ml Total Protein (6.7-8.2) g/dl Albumin (3.2-5.5) g/dl Globulin Albumin/Globulin Ratio Meds: Medications Discontinued Medications Generic Name Dose Route Start Last Admin Trade Name Arielq PRN Reason Stop Dose Admin Albuterol 6.7 gm 10/23/16 15:06 Proventil Hfa INH 10/23/16 15:07 ONETIME ONE Iopamidol 75 ml 10/23/16 13:11 10/23/16 13:40 Isovue-300 (61%) IVPUSH 10/23/16 13:12 75 ml ONETIME ONE Administration Departure - Departure Time of Disposition: 15:09 Disposition: Home, Self-Care 01 Condition: Fair Clinical Impression: COPD (chronic obstructive pulmonary disease) Qualifiers: COPD type: unspecified COPD Qualified Code(s): J44.9 - Chronic obstructive pulmonary disease, unspecified - Discharge Information Instructions: Chronic Obstructive Pulmonary Disease Exacerbation, [id number] Forms: ED Department Discharge Care Plan Goals: The patient was advised of the examination, lab, EKG, x-ray and CT results during the visit. The patient was discharged with an Albuterol (metered dose inhaler) to take 2 puffs every 6 hours as needed for shortness of breath. The patient was encouraged to follow-up with his primary care facility for further evaluation (a pulmonary function test) and treatment. If the patient has any additional symptoms or concerns, the patient should visit his primary care facility or return to the emergency department. - My Orders Last 24 Hours: My Active Orders 10/23/16 11:23 EKG Documentation Completion [RC] URGENT 10/23/16 15:06 RT Post Treatment Assessment [RC] Click To Edit RT Pre-Treatment Assessment [RC] Click To Edit - Assessment/Plan Last 24 Hours: My Active Orders 10/23/16 11:23 EKG Documentation Completion [RC] URGENT 10/23/16 15:06 RT Post Treatment Assessment [RC] Click To Edit RT Pre-Treatment Assessment [RC] Click To Edit
[2016-10-23 12:03] LABS: CHLORIDE,CL 105 mmol/L (101-111); SODIUM,NA 138 mmol/L (135-145)
[~2016-10-23 14:10] MED LIST: Iopamidol 612 MG/ML 75 ML Bottle IVPUSH ONE
[2016-10-23] MEDS ORDERED: Albuterol 6.7 GM Inhaler INH ONE (15:06)
[2016-10-23 15:07] VITALS: BP 130/56
--- NOTE | 2016-12-02 04:54 | EKG ---
10/23/2016 - LUKASZ FLETCHER - This 12-lead EKG shows a normal sinus rhythm with a ventricular rate of 64. Left axis deviation. No acute ST-segment or T-wave changes. [facility] /[id number]
== END 2016-10-23 15:33 | disposition home or self-care (01) ==
LOC: DL.ED 14:10
DX: J44.9 Chronic obstructive pulmonary disease, unspecified (principal); H54.7 Unspecified visual loss; E78.00 Pure hypercholesterolemia, unspecified; I10 Essential (primary) hypertension; F41.9 Anxiety disorder, unspecified; E10.9 Type 1 diabetes mellitus without complications; Z95.5 Presence of coronary angioplasty implant and graft; Z88.1 Allergy status to other antibiotic agents; Z88.8 Allergy status to other drugs, medicaments and biological substances; Z79.82 Long term (current) use of aspirin; Z79.899 Other long term (current) drug therapy; Z79.4 Long term (current) use of insulin
CPT/HCPCS: 36415; 71010; 71020; 71260; 80053; 83880; 84484; 85025; 85379; 93005; 93010; 99285; A9270; Q9967

== ENCOUNTER 2016-10-31 01:10 | Emergency (ER) | payer OTHER ==
--- NOTE | 2016-10-31 01:16 | EDM.PDOC ---
ED HPI GENERAL MEDICAL PROBLEM - General Stated Complaint: IN BY AMBULANCE Time Seen by Provider: 10/31/16 01:14 Source of Information: Reports: Patient, EMS History Limitations: Reports: No Limitations - History of Present Illness INITIAL COMMENTS - FREE TEXT/NARRATIVE: EMS states pt said onset mid sternal CP after lunch then tonight pain went directly to his back with SOB. EMS gave 4x NTG and now pain almost gone. Mid-Sternal Chest Pain Score (Numeric/FACES): 1 - Related Data Allergies Allergy/AdvReac Type Severity Reaction Status Date / Time cephalexin Allergy Mild Itching Verified 10/31/16 01:18 levofloxacin [From Levaquin] Allergy chest pain Verified 10/31/16 01:18 and SOB Home Meds: Home Meds Aspirin [Halfprin] 81 mg PO DAILY 04/06/13 [History] Diazepam [Valium] 5 mg PO DAILY PRN 04/06/13 [History] Metoprolol Succinate [Toprol XL] 50 mg PO DAILY 04/06/13 [History] Ramipril [Altace] 5 mg PO DAILY 04/06/13 [History] Simvastatin [Zocor] 40 mg PO BEDTIME 04/06/13 [History] Tamsulosin [Flomax] 0.4 mg PO DAILY 04/06/13 [History] glyBURIDE/Metformin [glyBURIDE/Metformin 5-500 MG] 2 tab PO BID 04/06/13 [ History] Clopidogrel [Plavix] 75 mg PO DAILY 06/30/13 [History] Insulin Detemir [Levemir] 60 unit SQ DAILY 09/15/13 [History] Leuprolide Acetate [Lupron Depot] 50 mg SQ ASDIRECTED 02/18/14 [History] Isosorbide Mononitrate [Imdur] 30 mg PO DAILY 07/11/15 [History] Pantoprazole [ProTONIX] 40 mg PO DAILY 10/16/15 [History] Past Medical History HEENT History: Reports: Impaired Vision Cardiovascular History: Reports: High Cholesterol, Hypertension, Stents Respiratory History: Reports: Pneumonia, Recurrent Gastrointestinal History: Reports: None Genitourinary History: Reports: BPH Other Genitourinary History: prostate cancer Musculoskeletal History: Reports: None Neurological History: Reports: None Psychiatric History: Reports: Anxiety Endocrine/Metabolic History: 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, Type I Hematologic History: Reports: None Immunologic History: Reports: None Oncologic (Cancer) History: Reports: Prostate Dermatologic History: Reports: None - Infectious Disease History Infectious Disease History: Reports: None - Past Surgical History Head Surgeries/Procedures: Reports: None Cardiovascular Surgical History: Reports: Coronary Artery Stent Social & Family History - Family History Family Medical History: Noncontributory - Tobacco Use Smoking Status *Q: Never Smoker Years of Tobacco use: 30 Packs/Tins Daily: 1 Used Tobacco, but Quit: Yes Month Tobacco Last Used: March Second Hand Smoke Exposure: No - Caffeine Use Caffeine Use: Reports: Coffee - Alcohol Use Days Per Week of Alcohol Use: 0 - Recreational Drug Use Recreational Drug Use: No - Living Situation & Occupation Living situation: Reports: , Alone Occupation: Retired ED ROS GENERAL - Review of Systems Review Of Systems: ROS reveals no pertinent complaints other than HPI. ED EXAM, GENERAL - Physical Exam Exam: See Below Exam Limited By: No Limitations General Appearance: Alert, WD/WN, No Apparent Distress, Anxious Ears: Hearing Grossly Normal Throat/Mouth: Normal Voice, No Airway Compromise Head: Atraumatic Neck: Non-Tender, Full Range of Motion Respiratory/Chest: No Respiratory Distress Cardiovascular: Regular Rate, Rhythm GI/Abdominal: Soft, Non-Tender Neurological: Alert, Oriented, Normal Cognition, No Motor/Sensory Deficits Psychiatric: Flat Affect Skin Exam: Warm, Dry, Normal Color Lymphatic: No Adenopathy Course - Vital Signs Last Recorded V/S: Last Vital Signs Temp 36.2 C 10/31/16 01:14 Pulse 59 L 10/31/16 01:14 Resp 18 10/31/16 01:14 BP 126/61 10/31/16 01:14 Pulse Ox 97 10/31/16 01:14 - Orders/Labs/Meds Orders: Active Orders 24 hr Category Date Time Status EKG 12 Lead [EKG Documentation Completion] [RC] STAT Care 10/31/16 01:13 Active Chest 1V Frontal [CR] Urgent Exams 10/31/16 01:48 Taken Amoxicillin [Amoxil] Med 10/31/16 03:02 Once 250 mg PO ONETIME ONE Medication Orders Amoxicillin (Amoxil) 250 mg PO ONETIME ONE Stop: 10/31/16 03:03 Labs: Laboratory Tests 10/31/16 10/31/16 Range/Units 01:20 01:20 WBC 7.4 (5.0-10.0) 10^3/uL RBC 3.92 L (4.6-6.2) 10^6/uL Hgb 12.4 L (14.0-18.0) g/dL Hct 38.1 L (40.0-54.0) % MCV 97.2 (80-100) fL MCH 31.6 (27.0-34.0) pg MCHC 32.5 L (33.0-35.0) g/dL Plt Count 272 (150-450) 10^3/uL Neut % (Auto) 65.2 (42.2-75.2) % Lymph % (Auto) 20.8 (20.5-50.1) % [place] % (Auto) 9.5 H (2-8) % Eos % (Auto) 4.1 H (1.0-3.0) % Baso % (Auto) 0.4 (0.0-1.0) % Sodium 142 (135-145) mmol/L Potassium 4.5 (3.6-5.0) mmol/L Chloride 105 (101-111) mmol/L Carbon Dioxide 27.0 (21.0-31.0) mmol/L Anion Gap 14.5 BUN 15 (7-18) mg/dL Creatinine 1.2 (0.6-1.3) mg/dL Est Cr Clr Drug Dosing 53.23 mL/min Estimated GFR (MDRD) 59 BUN/Creatinine Ratio 12.50 Glucose 104 (74-105) mg/dL Calcium 8.9 (8.4-10.2) mg/dl Total Bilirubin 0.1 L (0.2-1.0) mg/dL AST 23 (10-42) IU/L ALT 19 (10-60) IU/L Alkaline Phosphatase 86 (42-121) IU/L Troponin I < 0.02 (0.00-0.02) ng/ml Total Protein 7.0 (6.7-8.2) g/dl Albumin 3.5 (3.2-5.5) g/dl Globulin 3.5 Albumin/Globulin Ratio 1.00 Meds: Medications Generic Name Dose Route Start Last Admin Trade Name Freq PRN Reason Stop Dose Admin Amoxicillin 250 mg 10/31/16 03:02 Amoxil PO 10/31/16 03:03 ONETIME ONE - Re-Assessments/Exams Free Text/Narrative Re-Assessment/Exam: 10/31/16 03:03 results discussed with Pt & family. pt states noticed while he was taking amox for his left hand infection, he actually felt better in his lings & chest since he wasn't so congested. Departure - Departure Time of Disposition: 03:04 Disposition: Home, Self-Care 01 Condition: Good Clinical Impression: Atypical chest pain, Pleurisy Instructions: Nonspecific Chest Pain, [id number] Forms: ED Department Discharge Additional Instructions: 1) rest 2) don't sleep flat at night 3) follow up at clinic or recheck as needed rx given; amox 250mg tid x 30 - My Orders Last 24 Hours: My Active Orders 10/31/16 01:13 EKG 12 Lead [EKG Documentation Completion] [RC] STAT 10/31/16 01:48 Chest 1V Frontal [CR] Urgent 10/31/16 03:02 Amoxicillin [Amoxil] 250 mg PO ONETIME ONE - Assessment/Plan Last 24 Hours: My Active Orders 10/31/16 01:13 EKG 12 Lead [EKG Documentation Completion] [RC] STAT 10/31/16 01:48 Chest 1V Frontal [CR] Urgent 10/31/16 03:02 Amoxicillin [Amoxil] 250 mg PO ONETIME ONE
[2016-10-31 01:19] VITALS: BP 126/61
[2016-10-31 01:52] LABS: CHLORIDE,CL 105 mmol/L (101-111); SODIUM,NA 142 mmol/L (135-145)
[2016-10-31] MEDS ORDERED: Amoxicillin 250 MG Cap PO ONE (03:02)
--- NOTE | 2016-11-03 10:52 | EKG ---
10/31/2016 - LUKASZ FLETCHER - This 12-lead EKG shows sinus bradycardia with a ventricular rate of 58. Normal axis and intervals. There is left axis deviation. No acute changes. [facility] /[id number] MTDD
== END 2016-10-31 03:14 | disposition home or self-care (01) ==
LOC: DL.ED 01:10
DX: R09.1 Pleurisy (principal); I10 Essential (primary) hypertension; E78.00 Pure hypercholesterolemia, unspecified; F41.9 Anxiety disorder, unspecified; E10.9 Type 1 diabetes mellitus without complications; Z87.01 Personal history of pneumonia (recurrent); Z85.46 Personal history of malignant neoplasm of prostate; Z79.4 Long term (current) use of insulin; Z79.82 Long term (current) use of aspirin; Z79.02 Long term (current) use of antithrombotics/antiplatelets; Z79.899 Other long term (current) drug therapy; Z95.5 Presence of coronary angioplasty implant and graft; Z88.1 Allergy status to other antibiotic agents
CPT/HCPCS: 36415; 71010; 80053; 84484; 85025; 93005; 93010; 99285; A9270; 99284

== ENCOUNTER 2017-01-18 16:45 | Observation (INO) | payer OTHER ==
--- NOTE | 2017-01-18 17:21 | EDM.PDOC ---
ED HPI GENERAL MEDICAL PROBLEM - General Stated Complaint: AMBULANCE/ STROKE LIKE SYMPTOMS Time Seen by Provider: 01/18/17 17:11 Source of Information: Reports: Patient, Family History Limitations: Reports: No Limitations - History of Present Illness INITIAL COMMENTS - FREE TEXT/NARRATIVE: This 76 yo male patient reports to the ED with changes in mental status. The patient reports he was napping this afternoon and when he woke up from his nap he was having difficulties remembering his grandson's name as well as other family members names. The patient reports about 1 hour ago he was having difficulties speaking in full sentences. The patient also reports pain in his left eye and left side of his head. The patient's family reports he was last seen normal at about 1330 or 1400 today. The patient reports he continues to have difficulties remembering names of people that he should know, but is now able to come up with the names after a short amount of time. Onset: Today Duration: Hour(s):, Other (The patient was last seen normal between 1330 and 1400 today. ) Location: Reports: Head (pain in left eye (intermittent) ) Severity: Moderate Improves with: Reports: None Worsens with: Reports: None Associated Symptoms: Reports: No Other Symptoms Left Eye Pain Score (Numeric/FACES): 4 - Related Data Allergies Allergy/AdvReac Type Severity Reaction Status Date / Time cephalexin Allergy Mild Itching Verified 10/31/16 01:18 levofloxacin [From Levaquin] Allergy chest pain Verified 10/31/16 01:18 and SOB Home Meds: Home Meds Aspirin [Halfprin] 81 mg PO DAILY 04/06/13 [History] Diazepam [Valium] 5 mg PO DAILY PRN 04/06/13 [History] Metoprolol Succinate [Toprol XL] 50 mg PO DAILY 04/06/13 [History] Ramipril [Altace] 5 mg PO DAILY 04/06/13 [History] Simvastatin [Zocor] 40 mg PO BEDTIME 04/06/13 [History] Tamsulosin [Flomax] 0.4 mg PO DAILY 04/06/13 [History] glyBURIDE/Metformin [glyBURIDE/Metformin 5-500 MG] 2 tab PO BIDMEALS 04/06/13 [ History] Clopidogrel [Plavix] 75 mg PO DAILY 06/30/13 [History] Insulin Detemir [Levemir] 50 unit SQ DAILY 09/15/13 [History] Leuprolide Acetate [Lupron Depot] 50 mg SQ ASDIRECTED 02/18/14 [History] Isosorbide Mononitrate [Imdur] 15 mg PO DAILY 07/11/15 [History] Pantoprazole [ProTONIX] 40 mg PO DAILY 10/16/15 [History] Past Medical History HEENT History: Reports: Impaired Vision Cardiovascular History: Reports: High Cholesterol, Hypertension, VT, Stents Respiratory History: Reports: Pneumonia, Recurrent Gastrointestinal History: Reports: None Genitourinary History: Reports: BPH Other Genitourinary History: prostate cancer Musculoskeletal History: Reports: None Neurological History: Reports: None Psychiatric History: Reports: Anxiety Endocrine/Metabolic History: 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, Type I Hematologic History: Reports: None Immunologic History: Reports: None Oncologic (Cancer) History: Reports: Prostate Dermatologic History: Reports: None - Infectious Disease History Infectious Disease History: Reports: None - Past Surgical History Head Surgeries/Procedures: Reports: None Cardiovascular Surgical History: Reports: Coronary Artery Stent Social & Family History - Family History Family Medical History: Noncontributory - Tobacco Use Smoking Status *Q: Unknown Ever Smoked Years of Tobacco use: 30 Packs/Tins Daily: 1 Used Tobacco, but Quit: Yes Month Tobacco Last Used: March Hand Smoke Exposure: No - Caffeine Use Caffeine Use: Reports: Coffee - Alcohol Use Days Per Week of Alcohol Use: 0 - Recreational Drug Use Recreational Drug Use: No - Living Situation & Occupation Living situation: Reports: , Alone Occupation: Retired ED ROS GENERAL - Review of Systems Review Of Systems: ROS reveals no pertinent complaints other than HPI. ED EXAM, NEURO - Physical Exam Exam: See Below Exam Limited By: No Limitations General Appearance: Alert, WD/WN, Mild Distress Eye Exam: Bilateral Eye: EOMI, Normal Inspection, PERRL Ears: Normal External Exam, Normal Canal, Hearing Grossly Normal, Normal TMs Nose: Normal Inspection, Normal Mucosa, No Blood Throat/Mouth: Normal Inspection, Normal Lips, Normal Teeth, Normal Gums, Normal Oropharynx, Normal Voice, No Airway Compromise Head Exam: Atraumatic, Normocephalic Neck: Normal Inspection, Supple, Non-Tender, Full Range of Motion Respiratory/Chest: No Respiratory Distress, Lungs Clear, Normal Breath Sounds, No Accessory Muscle Use, Chest Non-Tender Cardiovascular: Normal Peripheral Pulses, Regular Rate, Rhythm, No Edema, No Gallop, No JVD, No Murmur, No Rub GI/Abdominal: Normal Bowel Sounds, Soft, Non-Tender, No Organomegaly, No Distention, No Abnormal Bruit, No Mass (Male) Exam: Deferred Rectal (Males) Exam: Deferred Neurological: Alert, Normal Mood/Affect, Normal Dorsiflexion, CN II-XII Intact, Oriented x 3 Back Exam: Normal Inspection, Full Range of Motion, NT Extremities: Normal Inspection, Normal Range of Motion, Non-Tender, No Pedal Edema, Normal Capillary Refill Psychiatric: Normal Affect, Normal Mood Skin Exam: Warm, Dry, Intact, Normal Color, No Rash EKG INTERPRETATION EKG Date: 01/18/17 Time: 17:16 Rhythm: NSR [place]: Normal P-Wave: Present QRS: Normal ST-T: Normal QT: Normal Course - Vital Signs Last Recorded V/S: Last Vital Signs Temp 36.5 C 01/18/17 18:20 Pulse 66 01/18/17 18:20 Resp 18 01/18/17 18:20 BP 142/66 H 01/18/17 18:20 Pulse Ox 96 01/18/17 18:20 - Orders/Labs/Meds Orders: Active Orders 24 hr Category Date Time Status EKG Documentation Completion [RC] URGENT Care 01/18/17 16:46 Active Labs: Laboratory Tests 01/18/17 01/18/17 01/18/17 Range/Units 17:15 17:15 17:15 WBC 6.1 (5.0-10.0) 10^3/uL RBC 4.13 L (4.6-6.2) 10^6/uL Hgb 13.1 L (14.0-18.0) g/dL Hct 39.5 L (40.0-54.0) % MCV 95.6 (80-100) fL MCH 31.7 (27.0-34.0) pg MCHC 33.2 (33.0-35.0) g/dL Plt Count 291 (150-450) 10^3/uL Neut % (Auto) 58.8 (42.2-75.2) % Lymph % (Auto) 27.3 (20.5-50.1) % [place] % (Auto) 10.4 H (2-8) % Eos % (Auto) 3.0 (1.0-3.0) % Baso % (Auto) 0.5 (0.0-1.0) % ESR (0-15) mm/hr PT 9.2 (9.0-12.0) SEC INR 0.9 (0.9-1.2) Sodium 138 (135-145) mmol/L Potassium 4.7 (3.6-5.0) mmol/L Chloride 102 (101-111) mmol/L Carbon Dioxide 26.0 (21.0-31.0) mmol/L Anion Gap 14.7 BUN 21 H (7-18) mg/dL Creatinine 1.3 (0.6-1.3) mg/dL Est Cr Clr Drug Dosing 48.35 mL/min Estimated GFR (MDRD) 53 BUN/Creatinine Ratio 16.15 Glucose 157 H (74-105) mg/dL POC Glucose (83-110) mg/dl Calcium 9.3 (8.4-10.2) mg/dl Total Bilirubin 0.2 (0.2-1.0) mg/dL AST 21 (10-42) IU/L ALT 18 (10-60) IU/L Alkaline Phosphatase 90 (42-121) IU/L Troponin I < 0.02 (0.00-0.02) ng/ml Total Protein 7.5 (6.7-8.2) g/dl Albumin 4.0 (3.2-5.5) g/dl Globulin 3.5 Albumin/Globulin Ratio 1.14 Urine Color (YELLOW) Urine Appearance (CLEAR) Urine pH (5.0-9.0) Ur Specific [place] (1.005-1.030) Urine Protein (NEGATIVE) Urine Glucose (UA) (NEGATIVE) Urine Ketones (NEGATIVE) Urine Occult Blood (NEGATIVE) Urine Nitrite (NEGATIVE) Urine Bilirubin (NEGATIVE) Urine Urobilinogen (0.2-1.0) mg/dL Ur Leukocyte Esterase (NEGATIVE) Urine RBC /HPF Urine WBC (0-5/HPF) /HPF Ur Epithelial Cells /HPF Urine Bacteria (0-FEW/HPF) /HPF Urine Opiates Screen (NEGATIVE) Ur Oxycodone Screen (NEGATIVE) Urine Methadone Screen (NEGATIVE) Ur Barbiturates Screen (NEGATIVE) U Tricyclic Antidepress (NEGATIVE) Ur Phencyclidine Scrn (NEGATIVE) Ur Amphetamine Screen (NEGATIVE) U Methamphetamines Scrn (NEGATIVE) Urine MDMA Screen (NEGATIVE) U Benzodiazepines Scrn (NEGATIVE) Urine Cocaine Screen (NEGATIVE) U Marijuana (THC) Screen (NEGATIVE) 01/18/17 01/18/17 01/18/17 Range/Units 17:15 17:24 17:49 WBC (5.0-10.0) 10^3/uL RBC (4.6-6.2) 10^6/uL Hgb (14.0-18.0) g/dL Hct (40.0-54.0) % MCV (80-100) fL MCH (27.0-34.0) pg MCHC (33.0-35.0) g/dL Plt Count (150-450) 10^3/uL Neut % (Auto) (42.2-75.2) % Lymph % (Auto) (20.5-50.1) % [place] % (Auto) (2-8) % Eos % (Auto) (1.0-3.0) % Baso % (Auto) (0.0-1.0) % ESR 26 H (0-15) mm/hr PT (9.0-12.0) SEC INR (0.9-1.2) Sodium (135-145) mmol/L Potassium (3.6-5.0) mmol/L Chloride (101-111) mmol/L Carbon Dioxide (21.0-31.0) mmol/L Anion Gap BUN (7-18) mg/dL Creatinine (0.6-1.3) mg/dL Est Cr Clr Drug Dosing mL/min Estimated GFR (MDRD) BUN/Creatinine Ratio Glucose (74-105) mg/dL POC Glucose 143 H (83-110) mg/dl Calcium (8.4-10.2) mg/dl Total Bilirubin (0.2-1.0) mg/dL AST (10-42) IU/L ALT (10-60) IU/L Alkaline Phosphatase (42-121) IU/L Troponin I (0.00-0.02) ng/ml Total Protein (6.7-8.2) g/dl Albumin (3.2-5.5) g/dl Globulin Albumin/Globulin Ratio Urine Color (YELLOW) Urine Appearance (CLEAR) Urine pH (5.0-9.0) Ur Specific [place] (1.005-1.030) Urine Protein (NEGATIVE) Urine Glucose (UA) (NEGATIVE) Urine Ketones (NEGATIVE) Urine Occult Blood (NEGATIVE) Urine Nitrite (NEGATIVE) Urine Bilirubin (NEGATIVE) Urine Urobilinogen (0.2-1.0) mg/dL Ur Leukocyte Esterase (NEGATIVE) Urine RBC /HPF Urine WBC (0-5/HPF) /HPF Ur Epithelial Cells /HPF Urine Bacteria (0-FEW/HPF) /HPF Urine Opiates Screen Negative (NEGATIVE) Ur Oxycodone Screen Negative (NEGATIVE) Urine Methadone Screen Negative (NEGATIVE) Ur Barbiturates Screen Negative (NEGATIVE) U Tricyclic Antidepress Negative (NEGATIVE) Ur Phencyclidine Scrn Negative (NEGATIVE) Ur Amphetamine Screen Negative (NEGATIVE) U Methamphetamines Scrn Negative (NEGATIVE) Urine MDMA Screen Negative (NEGATIVE) U Benzodiazepines Scrn Positive H (NEGATIVE) Urine Cocaine Screen Negative (NEGATIVE) U Marijuana (THC) Screen Negative (NEGATIVE) 01/18/17 Range/Units 17:49 WBC (5.0-10.0) 10^3/uL RBC (4.6-6.2) 10^6/uL Hgb (14.0-18.0) g/dL Hct (40.0-54.0) % MCV (80-100) fL MCH (27.0-34.0) pg MCHC (33.0-35.0) g/dL Plt Count (150-450) 10^3/uL Neut % (Auto) (42.2-75.2) % Lymph % (Auto) (20.5-50.1) % [place] % (Auto) (2-8) % Eos % (Auto) (1.0-3.0) % Baso % (Auto) (0.0-1.0) % ESR (0-15) mm/hr PT (9.0-12.0) SEC INR (0.9-1.2) Sodium (135-145) mmol/L Potassium (3.6-5.0) mmol/L Chloride (101-111) mmol/L Carbon Dioxide (21.0-31.0) mmol/L Anion Gap BUN (7-18) mg/dL Creatinine (0.6-1.3) mg/dL Est Cr Clr Drug Dosing mL/min Estimated GFR (MDRD) BUN/Creatinine Ratio Glucose (74-105) mg/dL POC Glucose (83-110) mg/dl Calcium (8.4-10.2) mg/dl Total Bilirubin (0.2-1.0) mg/dL AST (10-42) IU/L ALT (10-60) IU/L Alkaline Phosphatase (42-121) IU/L Troponin I (0.00-0.02) ng/ml Total Protein (6.7-8.2) g/dl Albumin (3.2-5.5) g/dl Globulin Albumin/Globulin Ratio Urine Color Yellow (YELLOW) Urine Appearance Clear (CLEAR) Urine pH 5.5 (5.0-9.0) Ur Specific [place] 1.015 (1.005-1.030) Urine Protein Negative (NEGATIVE) Urine Glucose (UA) Negative (NEGATIVE) Urine Ketones Negative (NEGATIVE) Urine Occult Blood Trace-lysed H (NEGATIVE) Urine Nitrite Negative (NEGATIVE) Urine Bilirubin Negative (NEGATIVE) Urine Urobilinogen 0.2 (0.2-1.0) mg/dL Ur Leukocyte Esterase Negative (NEGATIVE) Urine RBC 0-5 /HPF Urine WBC Not seen (0-5/HPF) /HPF Ur Epithelial Cells Rare /HPF Urine Bacteria Rare (0-FEW/HPF) /HPF Urine Opiates Screen (NEGATIVE) Ur Oxycodone Screen (NEGATIVE) Urine Methadone Screen (NEGATIVE) Ur Barbiturates Screen (NEGATIVE) U Tricyclic Antidepress (NEGATIVE) Ur Phencyclidine Scrn (NEGATIVE) Ur Amphetamine Screen (NEGATIVE) U Methamphetamines Scrn (NEGATIVE) Urine MDMA Screen (NEGATIVE) U Benzodiazepines Scrn (NEGATIVE) Urine Cocaine Screen (NEGATIVE) U Marijuana (THC) Screen (NEGATIVE) - Re-Assessments/Exams Free Text/Narrative Re-Assessment/Exam: 01/18/17 17:41 A call was placed to Dr. Grant (Neurology with [facility]) for consult. After reporting the patient's symptoms, CT, x-ray, EKG and initial lab results. Dr. Grant advised that these symptoms do not present as an acute stroke. Dr. Grant advised to monitor the patient for improvement, but no further work-up with Neuro at this time. Departure - Departure Time of Disposition: 18:59 Disposition: Home, Self-Care 01 Condition: Fair Clinical Impression: TIA (transient ischemic attack) Qualifiers: Transient cerebral ischemia type: unspecified Qualified Code(s): G45.9 - Transient cerebral ischemic attack, unspecified - Discharge Information Instructions: Transient Ischemic Attack, [id number] Forms: ED Department Discharge Care Plan Goals: The patient and family were advised of the examination, lab, x-ray and CT results during the visit. The patient was encouraged to continue to remain active. If the patient has any additional symptoms or concerns, the patient should follow-up with his primary care facility or return to the ED. - My Orders Last 24 Hours: My Active Orders 01/18/17 16:46 EKG Documentation Completion [RC] URGENT - Assessment/Plan Last 24 Hours: My Active Orders 01/18/17 16:46 EKG Documentation Completion [RC] URGENT
[2017-01-18 17:44] LABS: CHLORIDE,CL 102 mmol/L (101-111); SODIUM,NA 138 mmol/L (135-145)
[2017-01-18] MEDS ORDERED: Sodium Chloride 0.9% 10 ML Syringe FLUSH PRN (20:38)
[2017-01-18] MEDS ORDERED: Acetaminophen 325 MG Tab PO PRN (20:38)
[2017-01-18] MEDS ORDERED: Temazepam 15 MG Cap PO PRN (20:38)
[2017-01-18] MEDS ORDERED: Diazepam 5 MG Tab PO PRN (20:42)
[2017-01-18] MEDS ORDERED: Simvastatin 40 MG Tab PO SCH (21:00)
[2017-01-18] MEDS: Heparin Sodium 5,000 Units/ML Vial SUBCUT SCH (21:14)
--- NOTE | 2017-01-18 21:17 | PCM.HP ---
H&P History of Present Illness - General Date of Service: 01/18/17 Admit Problem/Dx: Admission Diagnosis/Problem Admission Diagnosis/Problem TIA, Transient ischemic attack Source of Information: Patient - History of Present Illness Initial Comments - Free Text/Narative: The patient is a 76-year-old with a history of coronary artery disease. The patient has been on aspirin and Plavix. He was noted to have episodes of transient memory deficit 2 or 3 times over the past week. Today after waking up the patient was noted to have inappropriate use of words. This has improved quickly but then recurred in the emergency room. This was associated with headache that is mostly behind the left eye. The patient usually does not get headaches. The patient was seen in the emergency room CT of the head which showed no acute bleed. The symptoms and presentation was discussed with neurology. They recommended observation but no further immediate workup. Onset of Symptoms: Reports: Today, Sudden Left Eye Pain Score (Numeric/FACES): 4 - Related Data Allergies/Adverse Reactions: Allergies Allergy/AdvReac Type Severity Reaction Status Date / Time cephalexin Allergy Mild Itching Verified 01/18/17 20:35 levofloxacin [From Levaquin] Allergy chest pain Verified 01/18/17 20:35 and SOB Home Medications: Home Meds Aspirin [Halfprin] 81 mg PO DAILY 04/06/13 [History] Diazepam [Valium] 5 mg PO DAILY PRN 04/06/13 [History] Metoprolol Succinate [Toprol XL] 50 mg PO DAILY 04/06/13 [History] Ramipril [Altace] 5 mg PO DAILY 04/06/13 [History] Simvastatin [Zocor] 40 mg PO BEDTIME 04/06/13 [History] Tamsulosin [Flomax] 0.4 mg PO DAILY 04/06/13 [History] glyBURIDE/Metformin [glyBURIDE/Metformin 5-500 MG] 2 tab PO BIDMEALS 04/06/13 [ History] Clopidogrel [Plavix] 75 mg PO DAILY 06/30/13 [History] Insulin Detemir [Levemir] 50 unit SQ DAILY 09/15/13 [History] Leuprolide Acetate [Lupron Depot] 50 mg SQ ASDIRECTED 02/18/14 [History] Isosorbide Mononitrate [Imdur] 15 mg PO DAILY 07/11/15 [History] Pantoprazole [ProTONIX] 40 mg PO DAILY 10/16/15 [History] Past Medical History HEENT History: Reports: Impaired Vision Cardiovascular History: Reports: High Cholesterol, Hypertension, [place], Stents Respiratory History: Reports: Pneumonia, Recurrent Gastrointestinal History: Reports: None Genitourinary History: Reports: BPH Other Genitourinary History: prostate cancer Musculoskeletal History: Reports: None Neurological History: Reports: None Psychiatric History: Reports: Anxiety Endocrine/Metabolic History: 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, Type I Hematologic History: Reports: None Immunologic History: Reports: None Oncologic (Cancer) History: Reports: Prostate Dermatologic History: Reports: None - Infectious Disease History Infectious Disease History: Reports: None - Past Surgical History Head Surgeries/Procedures: Reports: None Cardiovascular Surgical History: Reports: Coronary Artery Stent Social & Family History - Family History Family Medical History: Noncontributory - Tobacco Use Smoking Status *Q: Former Smoker Years of Tobacco use: 30 Packs/Tins Daily: 1 Used Tobacco, but Quit: No Month Tobacco Last Used: March Hand Smoke Exposure: Yes - Caffeine Use Caffeine Use: Reports: Coffee - Alcohol Use Days Per Week of Alcohol Use: 0 - Recreational Drug Use Recreational Drug Use: No - Living Situation & Occupation Living situation: Reports: , Alone Occupation: Retired H&P Review of Systems - Review of Systems: Review Of Systems: See Below General: Denies: Fever Pulmonary: Denies: Shortness of Breath Cardiovascular: Denies: Chest Pain Gastrointestinal: Denies: Abdominal Pain Genitourinary: Denies: Dysuria Exam - Exam Exam: See Below - Vital Signs Vital Signs: Last Vital Signs Temp 36.4 C 01/18/17 19:05 Pulse 72 01/18/17 19:05 Resp 18 01/18/17 19:05 BP 173/70 H 01/18/17 19:05 Pulse Ox 96 01/18/17 19:05 Weight: 88.904 kg - Exam General: Alert, Oriented Neck: Supple Lungs: Clear to Auscultation, Normal Respiratory Effort Cardiovascular: Regular Rate, Regular Rhythm GI/Abdominal Exam: Normal Bowel Sounds, Soft Extremities: No Pedal Edema Skin: Warm, Dry Neuro Extensive - Mental Status: Alert, Oriented x3, Normal Mood/Affect, Normal Cognition, Memory Intact Neuro Extensive - Motor, Sensory, Reflexes: No: Abnormal Gait, Ataxia, Receptive Aphasia, Expressive Aphasia Psychiatric: Alert, Normal Affect, Normal Mood - Patient Data Result Diagrams: 01/18/17 17:15 01/18/17 17:15 *Q Meaningful Use (ADM) - VTE *Q VTE Criteria *Q: - Stroke *Q Stroke Criteria *Q: - AMI *Q AMI Criteria *Q: - Problem List (1) TIA (transient ischemic attack) SNOMED Code(s): 953475906 ICD Code: G45.9 - TRANSIENT CEREBRAL ISCHEMIC ATTACK, UNSPECIFIED Status: Acute Current Visit: Yes Qualifiers: Transient cerebral ischemia type: unspecified Qualified Code(s): G45.9 - Transient cerebral ischemic attack, unspecified Problem List Initiated/Reviewed/Updated: Yes Orders Last 24hrs: Active Orders 24 hr Category Date Time Status Telemetry Monitoring [Cardiac Monitoring] [RC] . Care 01/18/17 20:41 Active DIRECTED Aspirin [Halfprin] Med 01/19/17 09:00 Active 81 mg PO DAILY Clopidogrel [Plavix] Med 01/19/17 09:00 Active 75 mg PO DAILY Diazepam [Valium] Med 01/18/17 20:42 Active 5 mg PO DAILY PRN Insulin Aspart [NovoLOG] Med 01/19/17 08:00 Active See Protocol SUBCUT TIDAC Insulin Detemir [Levemir] Med 01/19/17 09:00 Active 50 unit SUBCUT DAILY Isosorbide Mononitrate [Imdur] Med 01/19/17 09:00 Active 15 mg PO DAILY Metoprolol Succinate [Toprol XL] Med 01/19/17 09:00 Active 50 mg PO DAILY Pantoprazole [ProTONIX] Med 01/19/17 09:00 Active 40 mg PO DAILY Ramipril [Altace] Med 01/19/17 09:00 Active 5 mg PO DAILY Simvastatin [Zocor] Med 01/18/17 21:00 Active 40 mg PO BEDTIME Tamsulosin [Flomax] Med 01/19/17 09:00 Active 0.4 mg PO DAILY glyBURIDE [Micronase] Med 01/19/17 08:00 Active 10 mg PO BIDMEALS metFORMIN [Glucophage] Med 01/19/17 08:00 Active 1,000 mg PO BIDMEALS Medication Orders Acetaminophen (Tylenol) 650 mg PO Q4H PRN PRN Reason: Pain (Mild 1-3)/fever Aspirin (Halfprin) 81 mg PO DAILY DRU Clopidogrel Bisulfate (Plavix) 75 mg PO DAILY DRU Diazepam (Valium.) 5 mg PO DAILY PRN PRN Reason: Anxiety Glyburide (Micronase) 10 mg PO BIDMEALS [facility] Heparin Sodium (Porcine) (Heparin Sodium) 5,000 units SUBCUT Q8HR DRU Insulin Aspart (Novolog) 0 unit SUBCUT TIDAC DRU PRN Reason: Protocol Insulin Detemir (Levemir) 50 unit SUBCUT DAILY [facility] Isosorbide Mononitrate (Imdur) 15 mg PO DAILY [facility] Metformin HCl (Glucophage) 1,000 mg PO BIDMEALS [facility] Metoprolol Succinate (Toprol Xl) 50 mg PO DAILY [facility] Pantoprazole Sodium (Protonix) 40 mg PO DAILY DRU Ramipril (Altace) 5 mg PO DAILY [facility] Simvastatin (Zocor) 40 mg PO BEDTIME DRU Sodium Chloride (Saline Flush) 10 ml FLUSH ASDIRECTED PRN PRN Reason: Keep Vein Open Tamsulosin HCl (Flomax) 0.4 mg PO DAILY DRU Temazepam (Restoril) 15 mg PO BEDTIME PRN PRN Reason: Sleep Assessment/Plan Comment:: The patient is a 76-year-old gentleman who presented with transient memory deficit. Noted to have a inappropriate use of words. Associated headache. #[address] of the head showed no acute bleed. The patient is already on aspirin and Plavix. Sedimentation rate is not elevated. I will monitor the patient on telemetry for arrhythmia requiring anticoagulation. Monitor neurological symptoms. #2 coronary artery disease Continue to treat with aspirin, Plavix, Imdur #3 diabetes Use glipizide, Metformin, Levemir Follow blood sugars use supplemental insulin as needed #4 DVT prophylaxis will be subcutaneous heparin
[2017-01-19] MEDS: Heparin Sodium 5,000 Units/ML Vial SUBCUT SCH (05:32)
[2017-01-19 06:40] LABS: CHLORIDE,CL 104 mmol/L (101-111); SODIUM,NA 138 mmol/L (135-145)
[2017-01-19] MEDS ORDERED: glyBURIDE 5 MG Tab PO SCH (08:00)
[2017-01-19] MEDS ORDERED: METFORMIN PO SCH (08:00)
[2017-01-19] MEDS ORDERED: Insulin Aspart 100 Units/ML 3 ML Pen SUBCUT SCH (08:00)
[2017-01-19] MEDS ORDERED: [UNRECOGNIZED DRUG - OTHER] PO SCH (08:00)
[2017-01-19] MEDS ORDERED: GLYBURIDE PO SCH (08:00)
[2017-01-19] MEDS ORDERED: metFORMIN 500 MG Tab PO SCH (08:00)
[2017-01-19] MEDS ORDERED: Tamsulosin 0.4 MG Cap.ER PO SCH (09:00)
[2017-01-19] MEDS ORDERED: Insulin Detemir 100 Units/ML 3 ML Pen SUBCUT SCH (09:00)
[2017-01-19] MEDS ORDERED: Pantoprazole 40 MG Tab.CR PO SCH (09:00)
[2017-01-19] MEDS ORDERED: Aspirin 81 MG Tab.EC PO SCH (09:00)
[2017-01-19] MEDS ORDERED: Ramipril 5 MG Cap PO SCH (09:00)
[2017-01-19] MEDS ORDERED: Metoprolol Succinate 50 MG Tab.ER PO SCH (09:00)
[2017-01-19] MEDS ORDERED: Clopidogrel 75 MG Tab PO SCH (09:00)
[2017-01-19] MEDS ORDERED: Isosorbide Mononitrate 30 MG Tab.ER PO SCH (09:00)
[2017-01-19 10:30] VITALS: BP 120/53
--- NOTE | 2017-01-19 11:00 | PCM.DCSUM1 ---
Discharge Summary - Hospital Course Free Text/Narrative:: The patient is a 76-year-old with a history of coronary artery disease. The patient has been on aspirin and Plavix. He was noted to have episodes of transient memory deficit 2 or 3 times over the past week. Today after waking up the patient was noted to have inappropriate use of words. This has improved quickly but then recurred in the emergency room. This was associated with headache that is mostly behind the left eye. The patient usually does not get headaches. The patient was seen in the emergency room CT of the head which showed no acute bleed. The symptoms and presentation was discussed with neurology. They recommended observation but no further immediate workup. The patient was admitted for close monitoring The headache has resolved. Slept well. No new neurological deficit noted. The patient is a 76-year-old gentleman who presented with transient memory deficit. Noted to have a inappropriate use of words. Associated headache. #[address] of the head showed no acute bleed. The patient is already on aspirin and Plavix. Sedimentation rate is not elevated. Suggested follow-up with carotid ultrasound and brain MRI. #2 coronary artery disease Continue to treat with aspirin, Plavix, Imdur #3 diabetes Use glipizide, Metformin, Levemir Follow blood sugars use supplemental insulin as needed #4 started Restoril for sleep - Discharge Data Discharge Date: 01/19/17 Discharge Disposition: Home, Self-Care 01 Condition: Stable - Discharge Diagnosis/Problem(s) (1) TIA (transient ischemic attack) SNOMED Code(s): 217701529 ICD Code: G45.9 - TRANSIENT CEREBRAL ISCHEMIC ATTACK, UNSPECIFIED Status: Acute Current Visit: Yes Qualifiers: Transient cerebral ischemia type: transient global amnesia Qualified Code(s ): G45.4 - Transient global amnesia - Patient Instructions Diet: Heart Healthy Diet Activity: As Tolerated - Discharge Plan Prescriptions/Med Rec: Temazepam [Restoril] 15 mg PO BEDTIME PRN #30 cap PRN Reason: for sleep Home Medications: Home Meds Aspirin [Halfprin] 81 mg PO DAILY 04/06/13 [History] Diazepam [Valium] 5 mg PO DAILY PRN 04/06/13 [History] Metoprolol Succinate [Toprol XL] 50 mg PO DAILY 04/06/13 [History] Ramipril [Altace] 5 mg PO DAILY 04/06/13 [History] Simvastatin [Zocor] 40 mg PO BEDTIME 04/06/13 [History] Tamsulosin [Flomax] 0.4 mg PO DAILY 04/06/13 [History] glyBURIDE/Metformin [glyBURIDE/Metformin 5-500 MG] 2 tab PO BIDMEALS 04/06/13 [ History] Clopidogrel [Plavix] 75 mg PO DAILY 06/30/13 [History] Insulin Detemir [Levemir] 50 unit SQ DAILY 09/15/13 [History] Leuprolide Acetate [Lupron Depot] 50 mg SQ ASDIRECTED 02/18/14 [History] Isosorbide Mononitrate [Imdur] 15 mg PO DAILY 07/11/15 [History] Pantoprazole [ProTONIX] 40 mg PO DAILY 10/16/15 [History] Temazepam [Restoril] 15 mg PO BEDTIME PRN #30 cap 01/19/17 [Rx] Patient Handouts: Transient Ischemic Attack, [id number] Forms: ED Department Discharge Referrals: PCP,Unobtain [Ordering Only Provider] - (See primary cared doctor in [facility], schedule 2-3 days Carotid U/s re: tia, CAD MRI Head with and without contrast re: Transient word finding difficulty) - General Info Date of Service: 01/19/17 Admission Dx/Problem (Free Text: Admission Diagnosis/Problem Admission Diagnosis/Problem TIA, Transient ischemic attack - Review of Systems General: Denies: Fever, Weakness Pulmonary: Denies: Shortness of Breath Cardiovascular: Denies: Chest Pain Gastrointestinal: Denies: Abdominal Pain Neurological: Reports: Other (No new deficit, headache resolved.). Denies: Confusion - Patient Data Vitals - Most Recent: Last Vital Signs Temp 36.7 C 01/19/17 10:29 Pulse 66 01/19/17 10:29 Resp 20 01/19/17 10:29 BP 120/53 L 01/19/17 10:29 Pulse Ox 96 01/19/17 10:29 Weight - Most Recent: 88.904 kg I&O - Last 24 hours: Intake & Output 01/18/17 01/19/17 01/19/17 22:59 06:59 14:59 Intake Total 200 500 Balance 200 500 Lab Results - Last 24 hrs: Laboratory Results - last 24 hr 1101/19/17 01/19/17 Range/Units 05:55 05:55 07:45 WBC 5.9 (5.0-10.0) 10^3/uL RBC 3.90 L (4.6-6.2) 10^6/uL Hgb 12.2 L (14.0-18.0) g/dL Hct 37.4 L (40.0-54.0) % MCV 95.9 (80-100) fL MCH 31.3 (27.0-34.0) pg MCHC 32.6 L (33.0-35.0) g/dL Plt Count 276 (150-450) 10^3/uL Neut % (Auto) 57.3 (42.2-75.2) % Lymph % (Auto) 29.2 (20.5-50.1) % [place] % (Auto) 10.8 H (2-8) % Eos % (Auto) 2.4 (1.0-3.0) % Baso % (Auto) 0.3 (0.0-1.0) % Sodium 138 (135-145) mmol/L Potassium 4.4 (3.6-5.0) mmol/L Chloride 104 (101-111) mmol/L Carbon Dioxide 26.0 (21.0-31.0) mmol/L Anion Gap 12.4 BUN 20 H (7-18) mg/dL Creatinine 1.2 (0.6-1.3) mg/dL Est Cr Clr Drug Dosing 52.38 mL/min Estimated GFR (MDRD) 59 Glucose 123 H (74-105) mg/dL POC Glucose 143 H (83-110) mg/dl Calcium 8.8 (8.4-10.2) mg/dl Total Bilirubin 0.3 (0.2-1.0) mg/dL Direct Bilirubin < 0.1 (0.0-0.2) mg/dL Indirect Bilirubin 0.87256 AST 20 (10-42) IU/L ALT 16 (10-60) IU/L Alkaline Phosphatase 73 (42-121) IU/L Total Protein 6.6 L (6.7-8.2) g/dl Albumin 3.4 (3.2-5.5) g/dl Globulin 3.2 Albumin/Globulin Ratio 1.06 Med Orders - Current: Current Medications Acetaminophen (Tylenol) 650 mg PO Q4H PRN PRN Reason: Pain (Mild 1-3)/fever Last Admin: 01/18/17 21:12 Dose: 650 mg Aspirin (Halfprin) 81 mg PO DAILY [facility] Last Admin: 01/19/17 09:09 Dose: 81 mg Clopidogrel Bisulfate (Plavix) 75 mg PO DAILY [facility] Last Admin: 01/19/17 09:08 Dose: 75 mg Diazepam (Valium.) 5 mg PO DAILY PRN PRN Reason: Anxiety Glyburide (Micronase) 10 mg PO BIDMEALS [facility] Last Admin: 01/19/17 08:23 Dose: 10 mg Heparin Sodium (Porcine) (Heparin Sodium) 5,000 units SUBCUT Q8HR [facility] Last Admin: 01/19/17 05:32 Dose: 5,000 units Insulin Aspart (Novolog) 0 unit SUBCUT TIDAC [facility] PRN Reason: Protocol Last Admin: 01/19/17 08:17 Dose: Not Given Insulin Detemir (Levemir) 50 unit SUBCUT DAILY [facility] Last Admin: 01/19/17 09:04 Dose: 50 units Isosorbide Mononitrate (Imdur) 15 mg PO DAILY [facility] Last Admin: 01/19/17 09:11 Dose: 15 mg Metformin HCl (Glucophage) 1,000 mg PO BIDMEALS [facility] Last Admin: 01/19/17 08:24 Dose: 1,000 mg Metoprolol Succinate (Toprol Xl) 50 mg PO DAILY [facility] Last Admin: 01/19/17 09:10 Dose: 50 mg Pantoprazole Sodium (Protonix) 40 mg PO DAILY [facility] Last Admin: 01/19/17 09:09 Dose: 40 mg Ramipril (Altace) 5 mg PO DAILY [facility] Last Admin: 01/19/17 09:09 Dose: 5 mg Simvastatin (Zocor) 40 mg PO BEDTIME [facility] Last Admin: 01/18/17 21:13 Dose: Not Given Sodium Chloride (Saline Flush) 10 ml FLUSH ASDIRECTED PRN PRN Reason: Keep Vein Open Tamsulosin HCl (Flomax) 0.4 mg PO DAILY [facility] Last Admin: 01/19/17 09:09 Dose: 0.4 mg Temazepam (Restoril) 15 mg PO BEDTIME PRN PRN Reason: Sleep Last Admin: 01/18/17 21:13 Dose: 15 mg Discontinued Medications Non-Formulary Medication (Glyburide/Metformin [Glyburide/Metformin 5-500 Mg]) 2 tab PO BIDMEALS DRU - Exam General: Reports: Alert, Oriented Neck: Reports: Supple Lungs: Reports: Clear to Auscultation, Normal Respiratory Effort Cardiovascular: Reports: Regular Rate, Regular Rhythm Extremities: No Pedal Edema *Q Meaningful Use (DIS) - VTE *Q VTE Criteria *Q: - Stroke *Q Stroke Criteria *Q: - AMI *Q AMI Criteria *Q:
--- NOTE | 2017-01-22 09:39 | EKG ---
01/18/2017- LUKASZ FLETCHER - EKG per my reading shows sinus rhythm at a rate of 67. [facility] /[id number]
== END 2017-01-19 12:00 | disposition home or self-care (01) ==
LOC: DL.ED 16:45 → DL.MS 20:00 → UNDOADMOB 20:00 → DL.MS 20:38
PROVIDERS: ADMIT Internal Medicine; ATTEND Internal Medicine
DX: R41.3 Other amnesia (principal); R47.89 Other speech disturbances; R51 Headache; I25.10 Atherosclerotic heart disease of native coronary artery without angina pectoris; E11.9 Type 2 diabetes mellitus without complications; I25.2 Old myocardial infarction; E78.00 Pure hypercholesterolemia, unspecified; F41.9 Anxiety disorder, unspecified; N40.0 Benign prostatic hyperplasia without lower urinary tract symptoms; Z87.891 Personal history of nicotine dependence; Z79.4 Long term (current) use of insulin; Z79.01 Long term (current) use of anticoagulants; Z79.82 Long term (current) use of aspirin; Z79.899 Other long term (current) drug therapy; Z88.1 Allergy status to other antibiotic agents; Z95.5 Presence of coronary angioplasty implant and graft; Z87.01 Personal history of pneumonia (recurrent); Z85.46 Personal history of malignant neoplasm of prostate
CPT/HCPCS: 36415; 70450; 71020; 80048; 80053; 80076; 80305; 81001; 82962; 84484; 85025; 85610; 85651; 93005; 93010; 99285; A9270; J1644; J1815; 96372; 99217; 99283; G0378

== ENCOUNTER 2017-01-20 09:48 | Emergency (ER) | payer OTHER ==
[2017-01-20 10:41] LABS: CHLORIDE,CL 101 mmol/L (101-111); SODIUM,NA 135 mmol/L (135-145)
--- NOTE | 2017-01-20 11:00 | EDM.PDOC ---
ED HPI GENERAL MEDICAL PROBLEM - General Chief Complaint: Chest Pain Stated Complaint: CHEST PAIN . IN BY [facility] Time Seen by Provider: 01/20/17 10:30 Source of Information: Reports: Patient History Limitations: Reports: No Limitations - History of Present Illness INITIAL COMMENTS - FREE TEXT/NARRATIVE: This 76 yo male patient was brought to the ED by [facility] from the [facility] due to chest pain. The patient reports he was at home this morning when his chest pain started. The patient describes his pain as a sharp pressure in the middle of his chest. The patient rates his initial pain at a 9/10. The patient stated that his pain started just after he had eaten breakfast and taken his morning medications. The patient reports that after her started having pain, he got in his car and drove to the [facility]. The patient reports he was given 2 oral doses of Nitro and an oral dose of Aspirin while in the Clinic. The patient reports that his pain went away while in the clinic, but he continued to have pressure in his chest. The patient reports that during the ambulance transport the chest pressure went away. The patient reports his pain and pressure were gone at the time of the examination. Onset: Today Onset Date: 01/20/17 Onset Time: 08:30 Duration: Resolved Prior to Arrival Location: Reports: Chest Quality: Reports: Ache, Dull, Pressure Severity: Severe Improves with: Reports: Medication (Aspirin and Nitro (x2)) Worsens with: Reports: None Associated Symptoms: Reports: Chest Pain Treatments [employer]LEOM[employer]INE [employer]ER: Reports: Aspirin, Nitroglycerin Mid-Sternal Chest Pain Score (Numeric/FACES): 1 - Related Data Allergies Allergy/AdvReac Type Severity Reaction Status Date / Time cephalexin Allergy Mild Itching Verified 01/18/17 20:35 levofloxacin [From Levaquin] Allergy chest pain Verified 01/18/17 20:35 and SOB Home Meds: Home Meds Aspirin [Halfprin] 81 mg PO DAILY 04/06/13 [History] Diazepam [Valium] 5 mg PO DAILY PRN 04/06/13 [History] Metoprolol Succinate [Toprol XL] 50 mg PO DAILY 04/06/13 [History] Ramipril [Altace] 5 mg PO DAILY 04/06/13 [History] Simvastatin [Zocor] 40 mg PO BEDTIME 04/06/13 [History] Tamsulosin [Flomax] 0.4 mg PO DAILY 04/06/13 [History] glyBURIDE/Metformin [glyBURIDE/Metformin 5-500 MG] 2 tab PO BIDMEALS 04/06/13 [ History] Clopidogrel [Plavix] 75 mg PO DAILY 06/30/13 [History] Insulin Detemir [Levemir] 50 unit SQ DAILY 09/15/13 [History] Leuprolide Acetate [Lupron Depot] 50 mg SQ ASDIRECTED 02/18/14 [History] Isosorbide Mononitrate [Imdur] 15 mg PO DAILY 07/11/15 [History] Pantoprazole [ProTONIX] 40 mg PO DAILY 10/16/15 [History] Temazepam [Restoril] 15 mg PO BEDTIME PRN #30 cap 01/19/17 [Rx] Past Medical History HEENT History: Reports: Impaired Vision Cardiovascular History: Reports: High Cholesterol, Hypertension, [place], Stents Respiratory History: Reports: Pneumonia, Recurrent Gastrointestinal History: Reports: GERD Genitourinary History: Reports: BPH Other Genitourinary History: prostate cancer Musculoskeletal History: Reports: None Neurological History: Reports: TIA Psychiatric History: Reports: Anxiety Endocrine/Metabolic History: 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, Type II Hematologic History: Reports: None Immunologic History: Reports: None Oncologic (Cancer) History: Reports: Prostate Dermatologic History: Reports: None - Infectious Disease History Infectious Disease History: Reports: None - Past Surgical History Head Surgeries/Procedures: Reports: None Cardiovascular Surgical History: Reports: Coronary Artery Stent Social & Family History - Family History Family Medical History: Noncontributory HEENT: Reports: None Cardiac: Reports: None Respiratory: Reports: None GI: Reports: None : Reports: None OBGYN: Reports: None Musculoskeletal: Reports: None Neurological: Reports: None Psychiatric: Reports: None Endocrine/Metabolic: 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, Type I Hematologic: Reports: None Immunologic: Reports: None Dermatologic: Reports: None Oncologic: Reports: Breast, Colon, Pancreatic - Tobacco Use Smoking Status *Q: Former Smoker Years of Tobacco use: 30 Packs/Tins Daily: 1 Used Tobacco, but Quit: Yes Month Tobacco Last Used: 1984 Second Hand Smoke Exposure: Yes - Caffeine Use Caffeine Use: Reports: Coffee, Soda, Tea - Alcohol Use Days Per Week of Alcohol Use: 0 - Recreational Drug Use Recreational Drug Use: No - Living Situation & Occupation Living situation: Reports: , Alone Occupation: Retired ED ROS GENERAL - Review of Systems Review Of Systems: ROS reveals no pertinent complaints other than HPI. ED EXAM, GENERAL - Physical Exam Exam: See Below Exam Limited By: No Limitations General Appearance: Alert, WD/WN, Moderate Distress, Obese Eye Exam: Bilateral Eye: EOMI, Normal Inspection, PERRL Ears: Normal External Exam, Normal Canal, Hearing Grossly Normal, Normal TMs Nose: Normal Inspection, Normal Mucosa, No Blood Throat/Mouth: Normal Inspection, Normal Lips, Normal Teeth, Normal Gums, Normal Oropharynx, Normal Voice, No Airway Compromise Head: Atraumatic, Normocephalic Neck: Normal Inspection, Supple, Non-Tender, Full Range of Motion Respiratory/Chest: No Respiratory Distress, Lungs Clear, Normal Breath Sounds, No Accessory Muscle Use, Chest Non-Tender Cardiovascular: Normal Peripheral Pulses, Regular Rate, Rhythm, No Edema, No Gallop, No JVD, No Murmur, No Rub GI/Abdominal: Normal Bowel Sounds, Soft, Non-Tender, No Organomegaly, No Distention, No Abnormal Bruit, No Mass (Male) Exam: Deferred Rectal (Males) Exam: Deferred Back Exam: Normal Inspection, Full Range of Motion, NT Extremities: Normal Inspection, Normal Range of Motion, Non-Tender, Normal Capillary Refill, No Pedal Edema Neurological: Alert, Oriented, CN II-XII Intact, Normal Cognition, Normal Gait, Normal Reflexes, No Motor/Sensory Deficits Psychiatric: Anxious Skin Exam: Warm, Dry, Intact, Normal Color, No Rash Lymphatic: No Adenopathy Course - Vital Signs Last Recorded V/S: Last Vital Signs Temp 36.1 C 01/20/17 15:00 Pulse 96 01/20/17 15:00 Resp 18 01/20/17 15:00 BP 128/59 L 01/20/17 15:00 Pulse Ox 95 01/20/17 15:00 - Orders/Labs/Meds Orders: Active Orders 24 hr Category Date Time Status EKG Documentation Completion [RC] ROUTINE Care 01/20/17 14:30 Active EKG Documentation Completion [RC] URGENT Care 01/20/17 09:52 Active Heart Healthy Diet [DIET] Diet 01/20/17 Lunch Active Labs: Laboratory Tests 01/20/17 01/20/17 01/20/17 Range/Units 10:02 10:02 14:26 WBC 6.9 (5.0-10.0) 10^3/uL RBC 4.10 L (4.6-6.2) 10^6/uL Hgb 12.9 L (14.0-18.0) g/dL Hct 39.0 L (40.0-54.0) % MCV 95.1 (80-100) fL MCH 31.5 (27.0-34.0) pg MCHC 33.1 (33.0-35.0) g/dL Plt Count 298 (150-450) 10^3/uL Neut % (Auto) 71.3 (42.2-75.2) % Lymph % (Auto) 19.1 L (20.5-50.1) % [place] % (Auto) 7.2 (2-8) % Eos % (Auto) 2.0 (1.0-3.0) % Baso % (Auto) 0.4 (0.0-1.0) % Sodium 135 (135-145) mmol/L Potassium 4.4 (3.6-5.0) mmol/L Chloride 101 (101-111) mmol/L Carbon Dioxide 22.0 (21.0-31.0) mmol/L Anion Gap 16.4 BUN 23 H (7-18) mg/dL Creatinine 1.2 (0.6-1.3) mg/dL Est Cr Clr Drug Dosing 52.38 mL/min Estimated GFR (MDRD) 59 BUN/Creatinine Ratio 19.16 Glucose 291 H (74-105) mg/dL Calcium 9.2 (8.4-10.2) mg/dl Total Bilirubin 0.4 (0.2-1.0) mg/dL AST 20 (10-42) IU/L ALT 16 (10-60) IU/L Alkaline Phosphatase 82 (42-121) IU/L Troponin I < 0.02 < 0.02 (0.00-0.02) ng/ml Total Protein 7.4 (6.7-8.2) g/dl Albumin 3.8 (3.2-5.5) g/dl Globulin 3.6 Albumin/Globulin Ratio 1.06 - Re-Assessments/Exams Free Text/Narrative Re-Assessment/Exam: 01/20/17 11:06 Discussed the examination, lab, EKG and x-ray results with the patient. The patient will be sent to the floor as an extended ED patient with repeat EKG and Troponin scheduled at 1430. Departure - Departure Time of Disposition: 16:55 Disposition: Home, Self-Care 01 Condition: Fair Clinical Impression: Non-cardiac chest pain Instructions: Nonspecific Chest Pain, [id number] Forms: ED Department Discharge Care Plan Goals: The patient was advised of the examination, lab, EKG and x-ray results during the visit. The patient was encouraged to continue to take his medications as previously prescribed. The patient should follow-up with his primary care facility this week for continued evaluation and further management. - My Orders Last 24 Hours: My Active Orders 01/20/17 09:52 EKG Documentation Completion [RC] URGENT 01/20/17 14:30 EKG Documentation Completion [RC] ROUTINE 01/20/17 Lunch Heart Healthy Diet [DIET] - Assessment/Plan Last 24 Hours: My Active Orders 01/20/17 09:52 EKG Documentation Completion [RC] URGENT 01/20/17 14:30 EKG Documentation Completion [RC] ROUTINE 01/20/17 Lunch Heart Healthy Diet [DIET]
--- NOTE | 2017-01-20 11:44 | CR ---
Clinical history: 76-year-old male chest pain. Interpretation: Upright AP portable chest film reveals bibasilar atelectasis that reflects less than optimal or poor inspiratory effort when compared to 18 January 2017 exam. Normal cardiac silhouette without new signs of alveolar edema or dependent pleural fluid accumulation . No new lung mass, hilar lymphadenopathy focal lobar pneumonia or pneumothorax.
[2017-01-20 15:34] VITALS: BP 128/59
--- NOTE | 2017-01-21 20:02 | EKG ---
01/20/2017 - LUKASZ FLETCHER - TIME: 9:58 a.m. EKG per my reading, shows sinus rhythm with inferior Q-waves. [facility] /[id number]
--- NOTE | 2017-01-22 09:39 | EKG ---
01/20/2017- LUKASZ FLETCHER - EKG per my reading from 5:15 p.m. shows sinus rhythm with inferior Q-waves. [facility] /[id number]
== END 2017-01-20 17:15 | disposition home or self-care (01) ==
LOC: DL.ED 09:48
DX: R07.89 Other chest pain (principal); I10 Essential (primary) hypertension; E78.00 Pure hypercholesterolemia, unspecified; F41.9 Anxiety disorder, unspecified; E11.9 Type 2 diabetes mellitus without complications; Z87.891 Personal history of nicotine dependence; Z79.4 Long term (current) use of insulin; Z79.02 Long term (current) use of antithrombotics/antiplatelets; Z79.82 Long term (current) use of aspirin; Z79.899 Other long term (current) drug therapy; Z88.1 Allergy status to other antibiotic agents
CPT/HCPCS: 36415; 71010; 80053; 84484; 85025; 93005; 93010; 99283; 99285

== ENCOUNTER 2017-01-25 20:06 | Emergency (ER) | payer OTHER ==
[2017-01-25] MEDS ORDERED: Acetaminophen/HYDROcodone 325-10 MG Tab PO ONE ×2 (20:07→20:27)
--- NOTE | 2017-01-25 20:33 | EDM.PDOC ---
ED HPI GENERAL MEDICAL PROBLEM - General Chief Complaint: Upper Extremity Injury/Pain Stated Complaint: FELL [id number] Time Seen by Provider: 01/25/17 20:30 Source of Information: Reports: Patient History Limitations: Reports: No Limitations - History of Present Illness INITIAL COMMENTS - FREE TEXT/NARRATIVE: states fell injuring left rib 11am today tried to tough it out but unable. now hard to breath & cough. hurts too much. Left Shoulder Pain Score (Numeric/FACES): 7 - Related Data Allergies Allergy/AdvReac Type Severity Reaction Status Date / Time cephalexin Allergy Mild Itching Verified 01/25/17 20:35 levofloxacin [From Levaquin] Allergy chest pain Verified 01/25/17 20:35 and SOB Home Meds: Home Meds Aspirin [Halfprin] 81 mg PO DAILY 04/06/13 [History] Diazepam [Valium] 5 mg PO DAILY PRN 04/06/13 [History] Metoprolol Succinate [Toprol XL] 50 mg PO DAILY 04/06/13 [History] Ramipril [Altace] 5 mg PO DAILY 04/06/13 [History] Simvastatin [Zocor] 40 mg PO BEDTIME 04/06/13 [History] Tamsulosin [Flomax] 0.4 mg PO DAILY 04/06/13 [History] glyBURIDE/Metformin [glyBURIDE/Metformin 5-500 MG] 2 tab PO BIDMEALS 04/06/13 [ History] Clopidogrel [Plavix] 75 mg PO DAILY 06/30/13 [History] Insulin Detemir [Levemir] 50 unit SQ DAILY 09/15/13 [History] Leuprolide Acetate [Lupron Depot] 50 mg SQ ASDIRECTED 02/18/14 [History] Isosorbide Mononitrate [Imdur] 15 mg PO DAILY 07/11/15 [History] Pantoprazole [ProTONIX] 40 mg PO DAILY 10/16/15 [History] Temazepam [Restoril] 15 mg PO BEDTIME PRN #30 cap 01/19/17 [Rx] Past Medical History HEENT History: Reports: Impaired Vision Cardiovascular History: Reports: High Cholesterol, Hypertension, [place], Stents Respiratory History: Reports: Pneumonia, Recurrent Gastrointestinal History: Reports: None Genitourinary History: Reports: BPH Other Genitourinary History: prostate cancer Musculoskeletal History: Reports: None Neurological History: Reports: None Psychiatric History: Reports: Anxiety Endocrine/Metabolic History: 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, Type I Hematologic History: Reports: None Immunologic History: Reports: None Oncologic (Cancer) History: Reports: Prostate Dermatologic History: Reports: None - Infectious Disease History Infectious Disease History: Reports: None - Past Surgical History Head Surgeries/Procedures: Reports: None Cardiovascular Surgical History: Reports: Coronary Artery Stent Social & Family History - Family History Family Medical History: Noncontributory HEENT: Reports: None Cardiac: Reports: None Respiratory: Reports: None GI: Reports: None : Reports: None OBGYN: Reports: None Musculoskeletal: Reports: None Neurological: Reports: None Psychiatric: Reports: None Endocrine/Metabolic: 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, Type I Hematologic: Reports: None Immunologic: Reports: None Dermatologic: Reports: None Oncologic: Reports: Breast, Colon, Pancreatic - Tobacco Use Smoking Status *Q: Never Smoker Years of Tobacco use: 30 Packs/Tins Daily: 1 Used Tobacco, but Quit: Yes Month Tobacco Last Used: 1984 Second Hand Smoke Exposure: Yes - Caffeine Use Caffeine Use: Reports: Coffee - Alcohol Use Days Per Week of Alcohol Use: 0 - Recreational Drug Use Recreational Drug Use: No - Living Situation & Occupation Living situation: Reports: , Alone Occupation: Retired Review of Systems - Review of Systems Review Of Systems: ROS reveals no pertinent complaints other than HPI. ED EXAM, GENERAL - Physical Exam Exam: See Below Exam Limited By: No Limitations General Appearance: Alert, WD/WN, Mild Distress, Moderate Distress, Other ( distraught) Ears: Hearing Grossly Normal Throat/Mouth: Normal Voice, No Airway Compromise Head: Atraumatic Neck: Non-Tender, Full Range of Motion Respiratory/Chest: Decreased Breath Sounds, Rhonchi, Splinting, Other (tender left brass roller-lateral #5-8, no gross E/C) Cardiovascular: Regular Rate, Rhythm GI/Abdominal: Soft, Non-Tender Neurological: Alert, Oriented, Normal Cognition, Normal Gait, No Motor/Sensory Deficits Psychiatric: Flat Affect Skin Exam: Warm, Dry, Normal Color Lymphatic: No Adenopathy Course - Vital Signs Last Recorded V/S: Last Vital Signs Temp 36.4 C 01/25/17 20:13 Pulse 65 01/25/17 20:58 Resp 22 H 01/25/17 20:58 BP 107/47 L 01/25/17 20:58 Pulse Ox 99 01/25/17 20:58 - Orders/Labs/Meds Meds: Medications Discontinued Medications Generic Name Dose Route Start Last Admin Trade Name Jessie PRN Reason Stop Dose Admin Hydrocodone Bitart/Acetaminophen 1 tab 01/25/17 20:27 01/25/17 20:36 [place] 325-10 Mg PO 01/25/17 20:28 1 tab ONETIME ONE Administration - Re-Assessments/Exams Free Text/Narrative Re-Assessment/Exam: 01/25/17 21:19 results discussed with pt & family. Departure - Departure Time of Disposition: 21:19 Disposition: Home, Self-Care 01 Condition: Good Clinical Impression: Rib fracture Qualifiers: Encounter type: initial encounter Rib fracture type: single rib Fracture type: closed Laterality: left Qualified Code(s): S22.32XA - Fracture of one rib, left side, initial encounter for closed fracture - Discharge Information Instructions: Rib Fracture, [id number] Forms: ED Department Discharge Additional Instructions: 1) try to breath deeply as much as possible 2) avoid bending lifting straining 3) recheck if develops increasing breathing problems and high fever rx given; vicodin 5/325mg bid prn x12
[2017-01-25 20:59] VITALS: BP 107/47
[2017-01-25] MEDS ORDERED: Acetaminophen/HYDROcodone 325-10 MG Tab ONE (21:20)
== END 2017-01-25 21:33 | disposition home or self-care (01) ==
LOC: DL.ED 20:06
DX: S22.32XA Fracture of one rib, left side, initial encounter for closed fracture (principal); E10.9 Type 1 diabetes mellitus without complications; I10 Essential (primary) hypertension; Z88.1 Allergy status to other antibiotic agents; Z79.82 Long term (current) use of aspirin; Z79.899 Other long term (current) drug therapy; Z79.4 Long term (current) use of insulin; W19.XXXA Unspecified fall, initial encounter
CPT/HCPCS: 71250; 99283; A9270

== ENCOUNTER 2017-03-06 07:13 | Emergency (ER) | payer OTHER ==
--- NOTE | 2017-03-06 07:15 | EDM.PDOC ---
ED HPI GENERAL MEDICAL PROBLEM - General Chief Complaint: Chest Pain Stated Complaint: CHEST PAIN Time Seen by Provider: 03/06/17 07:15 Source of Information: Reports: Patient, Old Records, RN, RN Notes Reviewed History Limitations: Reports: No Limitations - History of Present Illness INITIAL COMMENTS - FREE TEXT/NARRATIVE: Arrives from home by POV with pt c/o waking with heavy, dull aching substernal chest pain this morning. Pt states he had no CP yesterday, and went to be last night pain free. He was seen in clinic last week and tx'd with amoxicillin for sinusitis & pharyngitis. 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 He was scheduled to have a neurology f/u visit in [place] today at 1100HRS. Pt states his CP was about a 6/10 pain when he woke. He admits to generalized weakness this morning also. The pain radiated to the left neck. He denies any associated nausea, vomiting, shortness of breath, fever, chills, cough, wheezing , orthopnea, edema, rapid HR or palpitations, neck pain, headache, or neuro. deficits. Pt states he took a Nitroglycerin 0.4mg SL shortly after waking this morning, then took a second dose just prior to arrival to the ER. He isn't sure if the Nitro relieved the pain, or if it just subsided on it's own. Currently pt states the pain is "almost completely gone". He did not take any aspirin today. He took his scheduled dose of Plavix and Aspirin last night. Today he also took all of his "regular morning medications". Onset: Today, Unknown/Unsure (woke with the pain) Duration: Improving, Resolved Prior to Arrival Location: Reports: Chest Quality: Reports: Ache, Dull, Pressure Severity: Moderate Improves with: Reports: None Worsens with: Reports: None Context: Reports: Other (onset at rest) Associated Symptoms: Reports: No Other Symptoms Treatments [employer]: Reports: Nitroglycerin Anterior Chest Pain Score (Numeric/FACES): 4 - Related Data Allergies Allergy/AdvReac Type Severity Reaction Status Date / Time cephalexin Allergy Mild Itching Verified 01/25/17 20:35 levofloxacin [From Levaquin] Allergy chest pain Verified 01/25/17 20:35 and SOB Home Meds: Home Meds Aspirin [Halfprin] 81 mg PO DAILY 04/06/13 [History] Diazepam [Valium] 5 mg PO DAILY PRN 04/06/13 [History] Metoprolol Succinate [Toprol XL] 50 mg PO DAILY 04/06/13 [History] Ramipril [Altace] 5 mg PO DAILY 04/06/13 [History] Simvastatin [Zocor] 40 mg PO BEDTIME 04/06/13 [History] Tamsulosin [Flomax] 0.4 mg PO DAILY 04/06/13 [History] glyBURIDE/Metformin [glyBURIDE/Metformin 5-500 MG] 2 tab PO BIDMEALS 04/06/13 [ History] Clopidogrel [Plavix] 75 mg PO DAILY 06/30/13 [History] Insulin Detemir [Levemir] 60 unit SQ DAILY 09/15/13 [History] Leuprolide Acetate [Lupron Depot] 50 mg SQ ASDIRECTED 02/18/14 [History] Isosorbide Mononitrate [Imdur] 15 mg PO DAILY 07/11/15 [History] Pantoprazole [ProTONIX] 40 mg PO DAILY 10/16/15 [History] Temazepam [Restoril] 15 mg PO BEDTIME PRN #30 cap 01/19/17 [Rx] Past Medical History HEENT History: Reports: Impaired Vision Cardiovascular History: Reports: Angina, High Cholesterol, Hypertension, [place], Stents Respiratory History: Reports: Pneumonia, Recurrent Gastrointestinal History: Reports: None Genitourinary History: Reports: BPH Other Genitourinary History: prostate cancer Musculoskeletal History: Reports: None Neurological History: Reports: TIA (TIA or CVA in 01/2017) Psychiatric History: Reports: Anxiety, Depression, Panic Attack Endocrine/Metabolic History: 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, Type II Hematologic History: Reports: None Immunologic History: Reports: None Oncologic (Cancer) History: Reports: Prostate Dermatologic History: Reports: None - Infectious Disease History Infectious Disease History: Reports: None - Past Surgical History Head Surgeries/Procedures: Reports: None Cardiovascular Surgical History: Reports: Coronary Artery Stent Social & Family History - Family History Family Medical History: Noncontributory HEENT: Reports: None Cardiac: Reports: None Respiratory: Reports: None GI: Reports: None : Reports: None OBGYN: Reports: None Musculoskeletal: Reports: None Neurological: Reports: None Psychiatric: Reports: None Endocrine/Metabolic: 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, Type I Hematologic: Reports: None Immunologic: Reports: None Dermatologic: Reports: None Oncologic: Reports: Breast, Colon, Pancreatic - Tobacco Use Smoking Status *Q: Never Smoker Years of Tobacco use: 30 Packs/Tins Daily: 1 Used Tobacco, but Quit: Yes Month Tobacco Last Used: 1984 Second Hand Smoke Exposure: Yes - Caffeine Use Caffeine Use: Reports: Coffee - Alcohol Use Days Per Week of Alcohol Use: 0 - Recreational Drug Use Recreational Drug Use: No - Living Situation & Occupation Living situation: Reports: , Alone Occupation: Retired ED ROS GENERAL - Review of Systems Review Of Systems: ROS reveals no pertinent complaints other than HPI. ED EXAM, GENERAL - Physical Exam Exam: See Below Exam Limited By: No Limitations General Appearance: Alert, No Apparent Distress, Anxious, Other (frail elderly and chronically ill appearing) Eye Exam: Bilateral Eye: Normal Inspection Ears: Normal External Exam, Hearing Grossly Normal Nose: Normal Inspection, Normal Mucosa, No Blood Throat/Mouth: Normal Inspection, Normal Lips, Normal Teeth, Normal Gums, Normal Oropharynx, Normal Voice, No Airway Compromise Head: Atraumatic, Normocephalic Neck: Normal Inspection, Supple, Non-Tender, Full Range of Motion Respiratory/Chest: No Respiratory Distress, Lungs Clear, Normal Breath Sounds, No Accessory Muscle Use, Chest Non-Tender Cardiovascular: Normal Peripheral Pulses, Regular Rate, Rhythm, No Edema, No Gallop, No JVD, No Murmur, No Rub GI/Abdominal: Normal Bowel Sounds, Soft, Non-Tender, No Distention, No Abnormal Bruit (Male) Exam: Deferred Rectal (Males) Exam: Deferred Back Exam: Normal Inspection Extremities: Normal Inspection, Normal Range of Motion, Non-Tender, Normal Capillary Refill, No Pedal Edema Neurological: Alert, Oriented, CN II-XII Intact, Normal Cognition, Normal Gait, No Motor/Sensory Deficits Psychiatric: Anxious Skin Exam: Warm, Dry, Intact, No Rash, Pallor EKG INTERPRETATION EKG Date: 03/06/17 Time: 07:14 Rhythm: Other (Sinus Tach) Rate (Beats/Min): 102 P-Wave: Present QRS: Other (old inferior Q-waves) ST-T: Normal QT: Normal Comparison: No Change EKG Interpretation Comments: No acute ischemic changes. Course - Vital Signs Last Recorded V/S: Last Vital Signs Temp 36.6 C 03/06/17 07:14 Pulse 102 H 03/06/17 07:14 Resp 22 H 03/06/17 07:14 BP 142/62 H 03/06/17 07:14 Pulse Ox 97 03/06/17 07:14 - Orders/Labs/Meds Orders: Active Orders 24 hr Category Date Time Status EKG 12 Lead [EKG Documentation Completion] [RC] STAT Care 03/06/17 07:22 Active Peripheral IV Care [RC] . DIRECTED Care 03/06/17 07:22 Active Chest 1V Frontal [CR] Stat Exams 03/06/17 07:22 Taken Nitroglycerin [Nitrostat] Med 03/06/17 07:21 Active 0.4 mg SL Q5M PRN Sodium Chloride 0.9% [Saline Flush] Med 03/06/17 07:22 Active 10 ml FLUSH ASDIRECTED PRN Peripheral IV Insertion Adult [OM.PC] Stat Oth 03/06/17 07:22 Ordered Medication Orders Nitroglycerin (Nitrostat) 0.4 mg SL Q5M PRN PRN Reason: Chest Pain Sodium Chloride (Saline Flush) 10 ml FLUSH ASDIRECTED PRN PRN Reason: Keep Vein Open Last Admin: 03/06/17 07:31 Dose: 10 ml Labs: Laboratory Tests 03/06/17 03/06/17 03/06/17 Range/Units 07:30 07:30 07:30 WBC 7.2 (5.0-10.0) 10^3/uL RBC 3.92 L (4.6-6.2) 10^6/uL Hgb 12.3 L (14.0-18.0) g/dL Hct 37.3 L (40.0-54.0) % MCV 95.2 (80-100) fL MCH 31.4 (27.0-34.0) pg MCHC 33.0 (33.0-35.0) g/dL Plt Count 286 (150-450) 10^3/uL Neut % (Auto) 71.4 (42.2-75.2) % Lymph % (Auto) 17.4 L (20.5-50.1) % [place]rell % (Auto) 7.6 (2-8) % Eos % (Auto) 3.2 H (1.0-3.0) % Baso % (Auto) 0.4 (0.0-1.0) % PT 9.2 (9.0-12.0) SEC INR 0.9 (0.9-1.2) APTT 23.5 (22.0-34.0) SEC Sodium 132 L (135-145) mmol/L Potassium 5.2 H (3.6-5.0) mmol/L Chloride 99 L (101-111) mmol/L Carbon Dioxide 22.0 (21.0-31.0) mmol/L Anion Gap 16.2 BUN 19 H (7-18) mg/dL Creatinine 1.2 (0.6-1.3) mg/dL Est Cr Clr Drug Dosing 52.38 mL/min Estimated GFR (MDRD) 59 BUN/Creatinine Ratio 15.83 Glucose 285 H (74-105) mg/dL Calcium 9.0 (8.4-10.2) mg/dl Total Bilirubin 0.6 (0.2-1.0) mg/dL AST 20 (10-42) IU/L ALT 17 (10-60) IU/L Alkaline Phosphatase 80 (42-121) IU/L Troponin I < 0.02 (0.00-0.02) ng/ml Total Protein 7.2 (6.7-8.2) g/dl Albumin 3.6 (3.2-5.5) g/dl Globulin 3.6 Albumin/Globulin Ratio 1.00 Amylase 91 (28-100) U/L Lipase 52 H (22-51) U/L Meds: Medications Generic Name Dose Route Start Last Admin Trade Name Freq PRN Reason Stop Dose Admin Nitroglycerin 0.4 mg 03/06/17 07:21 Nitrostat SL Q5M PRN Chest Pain Sodium Chloride 10 ml 03/06/17 07:22 03/06/17 07:31 Saline Flush FLUSH 10 ml ASDIRECTED PRN Administration Keep Vein Open Discontinued Medications Generic Name Dose Route Start Last Admin Trade Name Freq PRN Reason Stop Dose Admin Aspirin 324 mg 03/06/17 07:21 03/06/17 07:31 Aspirin PO 03/06/17 07:22 324 mg ONETIME ONE Administration - Radiology Interpretation Free Text/Narrative:: CXR: no acute process compared to 01/2017 CXR; see Rad. report. Departure - Departure Time of Disposition: 08:13 Disposition: Home, Self-Care 01 Condition: Good Clinical Impression: Chest pain Qualifiers: Chest pain type: unspecified Qualified Code(s): R07.9 - Chest pain, unspecified Instructions: Nonspecific Chest Pain, [id number] Forms: ED Department Discharge Additional Instructions: Continue your current medications as prescribed. Follow up with your primary doctor or settlement technician in the next 3 to 5 days for recheck. Return to ER if chest pain returns. Inform your neurologist about your swallowing difficulty that began with your TIA. - My Orders Last 24 Hours: My Active Orders 03/06/17 07:21 Nitroglycerin [Nitrostat] 0.4 mg SL Q5M PRN 03/06/17 07:22 EKG 12 Lead [EKG Documentation Completion] [RC] STAT Peripheral IV Care [RC] . DIRECTED Chest 1V Frontal [CR] Stat Sodium Chloride 0.9% [Saline Flush] 10 ml FLUSH ASDIRECTED PRN Peripheral IV Insertion Adult [OM.PC] Stat - Assessment/Plan Last 24 Hours: My Active Orders 03/06/17 07:21 Nitroglycerin [Nitrostat] 0.4 mg SL Q5M PRN 03/06/17 07:22 EKG 12 Lead [EKG Documentation Completion] [RC] STAT Peripheral IV Care [RC] . DIRECTED Chest 1V Frontal [CR] Stat Sodium Chloride 0.9% [Saline Flush] 10 ml FLUSH ASDIRECTED PRN Peripheral IV Insertion Adult [OM.PC] Stat
[2017-03-06] MEDS ORDERED: Aspirin 81 MG Tab.Chew PO ONE (07:21)
[2017-03-06] MEDS ORDERED: Nitroglycerin 0.4 MG Tab.SL SL PRN (07:21)
[2017-03-06] MEDS ORDERED: Sodium Chloride 0.9% 10 ML Syringe FLUSH PRN (07:22)
[2017-03-06 07:41] VITALS: BP 142/62
[2017-03-06 07:58] LABS: CHLORIDE,CL 99 mmol/L (101-111); SODIUM,NA 132 mmol/L (135-145)
--- NOTE | 2017-03-06 08:42 | CR ---
Clinical history: 76-year-old male chest pain. Was a history (January 2017) "left fifth rib fracture ". Interpretation: Platelike atelectasis right lung base and reproducible consolidation left lower lobe silhouetting the hemidiaphragm unchanged since plain film exam 20 January 2017. Despite less than optimal inspiratory effort normal cardiac silhouette without cephalization of vascu lar flow, signs of alveolar edema or dependent new pleural fluid accumulation. Some peribronchial "cuffing" but no new lung mass or focal lobar pneumonia. No rib fractures or pneum othorax. CONCLUSION: Atelectasis and pleural reactive changes both bases that were present on 20 January 2017 upright AP portable chest film. No acute new cardiopulmonary abnormality.
--- NOTE | 2017-03-11 09:06 | EKG ---
03/06/2017 - LUKASZ FLETCHER - FINDINGS: This 12-lead EKG shows a sinus tachycardia with a ventricular rate of 102. Normal axis and intervals. Q-waves seen in the inferior leads, suggesting possible previous inferior infarct, age indeterminate. No acute ST-T wave changes. [facility] /[id number] MTDD
== END 2017-03-06 08:37 | disposition home or self-care (01) ==
LOC: DL.ED 07:13
DX: R07.2 Precordial pain (principal); E11.9 Type 2 diabetes mellitus without complications; I10 Essential (primary) hypertension; E78.00 Pure hypercholesterolemia, unspecified; Z79.82 Long term (current) use of aspirin; Z79.4 Long term (current) use of insulin; Z79.899 Other long term (current) drug therapy; Z88.1 Allergy status to other antibiotic agents; Z87.891 Personal history of nicotine dependence
CPT/HCPCS: 36415; 71045; 80053; 82150; 83690; 84484; 85025; 85610; 85730; 93005; 93010; 99285; A9270; J7050

== ENCOUNTER 2017-03-06 16:18 | Emergency (ER) | payer OTHER ==
[2017-03-06] MEDS ORDERED: Sodium Chloride 0.9% 10 ML Syringe FLUSH PRN (16:26)
--- NOTE | 2017-03-06 16:26 | EDM.PDOC ---
ED HPI GENERAL MEDICAL PROBLEM - General Chief Complaint: Chest Pain Stated Complaint: Chest Pain Time Seen by Provider: 03/06/17 16:23 Source of Information: Reports: Patient, EMS, Old Records, RN, RN Notes Reviewed History Limitations: Reports: No Limitations - History of Present Illness INITIAL COMMENTS - FREE TEXT/NARRATIVE: Arrives from home by ambulance with c/o chest pain. Pt was seen here early this morning for chest pain and had a negative work up. Pt states the CP returned this afternoon and was worse. This afternoon he also felt he heart rate was much faster than normal, but did not measure his pulse. The pain radiates to the left neck. Pt feels that the CP is worse with even minimal exertion. Onset: Today Duration: Recurring Location: Reports: Chest Quality: Reports: Ache, Dull, Pressure Improves with: Reports: None Worsens with: Reports: Movement Associated Symptoms: Reports: No Other Symptoms Treatments [facility] [employer]: Reports: Aspirin, Nitroglycerin - Related Data Allergies Allergy/AdvReac Type Severity Reaction Status Date / Time cephalexin Allergy Mild Itching Verified 01/25/17 20:35 levofloxacin [From Levaquin] Allergy chest pain Verified 01/25/17 20:35 and SOB Home Meds: Home Meds Aspirin [Halfprin] 81 mg PO DAILY 04/06/13 [History] Diazepam [Valium] 5 mg PO DAILY PRN 04/06/13 [History] Metoprolol Succinate [Toprol XL] 50 mg PO DAILY 04/06/13 [History] Ramipril [Altace] 5 mg PO DAILY 04/06/13 [History] Simvastatin [Zocor] 40 mg PO BEDTIME 04/06/13 [History] Tamsulosin [Flomax] 0.4 mg PO DAILY 04/06/13 [History] glyBURIDE/Metformin [glyBURIDE/Metformin 5-500 MG] 2 tab PO BIDMEALS 04/06/13 [ History] Clopidogrel [Plavix] 75 mg PO DAILY 06/30/13 [History] Insulin Detemir [Levemir] 60 unit SQ DAILY 09/15/13 [History] Leuprolide Acetate [Lupron Depot] 50 mg SQ ASDIRECTED 02/18/14 [History] Isosorbide Mononitrate [Imdur] 15 mg PO DAILY 07/11/15 [History] Pantoprazole [ProTONIX] 40 mg PO DAILY 10/16/15 [History] Temazepam [Restoril] 15 mg PO BEDTIME PRN #30 cap 01/19/17 [Rx] Past Medical History HEENT History: Reports: Impaired Vision Cardiovascular History: Reports: Angina, High Cholesterol, Hypertension, [place], Stents Respiratory History: Reports: Pneumonia, Recurrent Gastrointestinal History: Reports: None Genitourinary History: Reports: BPH Other Genitourinary History: prostate cancer Musculoskeletal History: Reports: None Neurological History: Reports: TIA (TIA or CVA in 01/2017) Psychiatric History: Reports: Anxiety, Depression, Panic Attack Endocrine/Metabolic History: 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, Type II Hematologic History: Reports: None Immunologic History: Reports: None Oncologic (Cancer) History: Reports: Prostate Dermatologic History: Reports: None - Infectious Disease History Infectious Disease History: Reports: None - Past Surgical History Head Surgeries/Procedures: Reports: None Cardiovascular Surgical History: Reports: Coronary Artery Stent Social & Family History - Family History Family Medical History: Noncontributory HEENT: Reports: None Cardiac: Reports: None Respiratory: Reports: None GI: Reports: None : Reports: None OBGYN: Reports: None Musculoskeletal: Reports: None Neurological: Reports: None Psychiatric: Reports: None Endocrine/Metabolic: 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, Type I Hematologic: Reports: None Immunologic: Reports: None Dermatologic: Reports: None Oncologic: Reports: Breast, Colon, Pancreatic - Tobacco Use Smoking Status *Q: Never Smoker Years of Tobacco use: 30 Packs/Tins Daily: 1 Used Tobacco, but Quit: Yes Month Tobacco Last Used: 1984 Second Hand Smoke Exposure: Yes - Caffeine Use Caffeine Use: Reports: Coffee - Alcohol Use Days Per Week of Alcohol Use: 0 - Recreational Drug Use Recreational Drug Use: No - Living Situation & Occupation Living situation: Reports: , Alone Occupation: Retired ED ROS GENERAL - Review of Systems Review Of Systems: ROS reveals no pertinent complaints other than HPI. ED EXAM, GENERAL - Physical Exam Exam: See Below Exam Limited By: No Limitations General Appearance: Alert, No Apparent Distress, Anxious, Other (frail elderly, chronically ill but non-toxic appearing) Eye Exam: Bilateral Eye: Normal Inspection Ears: Hearing Grossly Normal Nose: Normal Inspection Throat/Mouth: Normal Inspection, Normal Lips, Normal Teeth, Normal Gums, Normal Oropharynx, Normal Voice, No Airway Compromise Head: Atraumatic, Normocephalic Neck: Normal Inspection, Supple, Non-Tender, Full Range of Motion Respiratory/Chest: No Respiratory Distress, Lungs Clear, Normal Breath Sounds, No Accessory Muscle Use, Chest Non-Tender Cardiovascular: Normal Peripheral Pulses, Regular Rate, Rhythm, No Edema, No Gallop, No JVD, No Murmur, No Rub, Tachycardia GI/Abdominal: Normal Bowel Sounds, Soft, Non-Tender, No Distention, No Abnormal Bruit (Male) Exam: Deferred Rectal (Males) Exam: Deferred Back Exam: Normal Inspection Extremities: Normal Inspection, Normal Range of Motion, Non-Tender, Normal Capillary Refill, No Pedal Edema Neurological: Alert, Oriented, CN II-XII Intact, Normal Cognition, Normal Gait, No Motor/Sensory Deficits Psychiatric: Anxious Skin Exam: Warm, Dry, Intact, Normal Color, No Rash EKG INTERPRETATION EKG Date: 03/06/17 Time: 16:31 Rhythm: Other (Sinus Tach) Rate (Beats/Min): 100 [place]: LAD-Left [place] Deviation P-Wave: Present QRS: Other (old inf. Q-waves) ST-T: Normal QT: Normal Comparison: No Change EKG Interpretation Comments: No acute ischemic changes. Course - Vital Signs Last Recorded V/S: Last Vital Signs Temp 36.4 C 03/06/17 18:29 Pulse 95 03/06/17 18:29 Resp 24 H 03/06/17 18:29 BP 157/65 H 03/06/17 18:29 Pulse Ox 98 03/06/17 18:29 - Orders/Labs/Meds Orders: Active Orders 24 hr Category Date Time Status EKG 12 Lead [EKG Documentation Completion] [RC] STAT Care 03/06/17 16:26 Active Peripheral IV Care [RC] . DIRECTED Care 03/06/17 16:27 Active Chest 1V Frontal [CR] Stat Exams 03/06/17 16:26 Taken Sodium Chloride 0.9% [Saline Flush] Med 03/06/17 16:26 Active 10 ml FLUSH ASDIRECTED PRN Peripheral IV Insertion Adult [OM.PC] Stat Oth 03/06/17 16:26 Ordered Medication Orders Sodium Chloride (Saline Flush) 10 ml FLUSH ASDIRECTED PRN PRN Reason: Keep Vein Open Last Admin: 03/06/17 16:50 Dose: 10 ml Labs: Laboratory Tests 03/06/17 03/06/17 Range/Units 16:36 16:36 WBC 6.1 (5.0-10.0) 10^3/uL RBC 4.01 L (4.6-6.2) 10^6/uL Hgb 12.5 L (14.0-18.0) g/dL Hct 38.0 L (40.0-54.0) % MCV 94.8 (80-100) fL MCH 31.2 (27.0-34.0) pg MCHC 32.9 L (33.0-35.0) g/dL Plt Count 285 (150-450) 10^3/uL Neut % (Auto) 65.7 (42.2-75.2) % Lymph % (Auto) 20.9 (20.5-50.1) % [place] % (Auto) 9.9 H (2-8) % Eos % (Auto) 2.5 (1.0-3.0) % Baso % (Auto) 1.0 (0.0-1.0) % Sodium 131 L (135-145) mmol/L Potassium 5.2 H (3.6-5.0) mmol/L Chloride 99 L (101-111) mmol/L Carbon Dioxide 23.0 (21.0-31.0) mmol/L Anion Gap 14.2 BUN 20 H (7-18) mg/dL Creatinine 1.3 (0.6-1.3) mg/dL Est Cr Clr Drug Dosing 48.35 mL/min Estimated GFR (MDRD) 53 BUN/Creatinine Ratio 15.38 Glucose 336 H (74-105) mg/dL Calcium 8.9 (8.4-10.2) mg/dl Total Bilirubin 0.5 (0.2-1.0) mg/dL AST 24 (10-42) IU/L ALT 17 (10-60) IU/L Alkaline Phosphatase 76 (42-121) IU/L Troponin I 0.02 (0.00-0.02) ng/ml B-Natriuretic Peptide 29 (0-100) pg/ml Total Protein 7.2 (6.7-8.2) g/dl Albumin 3.7 (3.2-5.5) g/dl Globulin 3.5 Albumin/Globulin Ratio 1.06 Amylase 102 H (28-100) U/L Lipase 65 H (22-51) U/L Meds: Medications Generic Name Dose Route Start Last Admin Trade Name Freq PRN Reason Stop Dose Admin Sodium Chloride 10 ml 03/06/17 16:26 03/06/17 16:50 Saline Flush FLUSH 10 ml ASDIRECTED PRN Administration Keep Vein Open Pt received Aspirin 324mg at first ER visit today. - Radiology Interpretation Free Text/Narrative:: CXR: no acute process per Rad. report. - Re-Assessments/Exams Free Text/Narrative Re-Assessment/Exam: 03/06/17 18:58 No cardiology/lab director locally. Attempted transfer to [facility] (closest facility) but they had no beds available. Pt transferred to [facility] to Dr. Tracy. Departure - Departure Time of Disposition: 18:56 Disposition: DC/Tfer to [facility] 02 Reason for Transfer *Q: Primary PCI Indicated Condition: Serious Clinical Impression: Acute coronary syndrome Chest pain Qualifiers: Chest pain type: unspecified Qualified Code(s): R07.9 - Chest pain, unspecified Forms: ED Department Discharge, Interfacility Transfer EMTALA - My Orders Last 24 Hours: My Active Orders 03/06/17 16:26 EKG 12 Lead [EKG Documentation Completion] [RC] STAT Chest 1V Frontal [CR] Stat Sodium Chloride 0.9% [Saline Flush] 10 ml FLUSH ASDIRECTED PRN Peripheral IV Insertion Adult [OM.PC] Stat 03/06/17 16:27 Peripheral IV Care [RC] . DIRECTED - Assessment/Plan Last 24 Hours: My Active Orders 03/06/17 16:26 EKG 12 Lead [EKG Documentation Completion] [RC] STAT Chest 1V Frontal [CR] Stat Sodium Chloride 0.9% [Saline Flush] 10 ml FLUSH ASDIRECTED PRN Peripheral IV Insertion Adult [OM.PC] Stat 03/06/17 16:27 Peripheral IV Care [RC] . DIRECTED
[2017-03-06 18:30] VITALS: BP 157/65
--- NOTE | 2017-03-10 14:41 | EKG ---
03/06/2017 - LUKASZ FLETCHER - FINDINGS: This 12-lead EKG shows a sinus tachycardia with a ventricular rate of 100, left axis deviation. No acute ST-segment or T-wave changes. [facility] /[id number]
== END 2017-03-06 19:27 ==
LOC: DL.ED 16:18
DX: I24.9 Acute ischemic heart disease, unspecified (principal); I10 Essential (primary) hypertension; E11.9 Type 2 diabetes mellitus without complications; E78.00 Pure hypercholesterolemia, unspecified; I25.2 Old myocardial infarction; Z87.891 Personal history of nicotine dependence; Z79.84 Long term (current) use of oral hypoglycemic drugs; Z79.899 Other long term (current) drug therapy; Z79.4 Long term (current) use of insulin; Z88.8 Allergy status to other drugs, medicaments and biological substances; Z88.1 Allergy status to other antibiotic agents
CPT/HCPCS: 36415; 71045; 80053; 82150; 83690; 83880; 84484; 85025; 93005; 93010; 99285; J7050

== ENCOUNTER 2017-03-26 17:01 | Emergency (ER) | payer MEDICAID, OTHER ==
--- NOTE | 2017-03-26 17:30 | EDM.PDOC ---
<Anthony Almendarez - Last Filed: 03/26/17 17:25> ED HPI GENERAL MEDICAL PROBLEM - General Chief Complaint: Cardiovascular Problem Stated Complaint: SWOLLEN ARM, [facility] Time Seen by Provider: 03/26/17 17:20 Source of Information: Reports: Patient History Limitations: Reports: No Limitations - History of Present Illness INITIAL COMMENTS - FREE TEXT/NARRATIVE: This 76 yo male patient was sent to the ED from [facility] due to swelling in his left forearm. The patient had a bypass at [facility] on 03/11/17 in which they harvested the vein from his left forearm. The patient reports he started to notice the swelling about 4 hours ago and went to the clinic to get is looked at. The patient reports tenderness to palpation of his left upper forearm. Onset: Today Duration: Hour(s): (4), Constant Location: Reports: Upper Extremity, Left Quality: Reports: Ache, Dull, Pressure Severity: Moderate Improves with: Reports: None Worsens with: Reports: None Associated Symptoms: Reports: No Other Symptoms Mid-Sternal Chest Pain Score (Numeric/FACES): 5 - Related Data Allergies Allergy/AdvReac Type Severity Reaction Status Date / Time cephalexin Allergy Mild Itching Verified 03/26/17 17:05 levofloxacin [From Levaquin] Allergy chest pain Verified 03/26/17 17:05 and SOB Home Meds: Home Meds Aspirin [Halfprin] 81 mg PO DAILY 04/06/13 [History] Diazepam [Valium] 5 mg PO DAILY PRN 04/06/13 [History] Metoprolol Succinate [Toprol XL] 50 mg PO DAILY 04/06/13 [History] Ramipril [Altace] 5 mg PO DAILY 04/06/13 [History] Simvastatin [Zocor] 40 mg PO BEDTIME 04/06/13 [History] Tamsulosin [Flomax] 0.4 mg PO DAILY 04/06/13 [History] glyBURIDE/Metformin [glyBURIDE/Metformin 5-500 MG] 2 tab PO BIDMEALS 04/06/13 [ History] Clopidogrel [Plavix] 75 mg PO DAILY 06/30/13 [History] Insulin Detemir [Levemir] 60 unit SQ DAILY 09/15/13 [History] Leuprolide Acetate [Lupron Depot] 50 mg SQ ASDIRECTED 02/18/14 [History] Isosorbide Mononitrate [Imdur] 15 mg PO DAILY 07/11/15 [History] Pantoprazole [ProTONIX] 40 mg PO DAILY 10/16/15 [History] Temazepam [Restoril] 15 mg PO BEDTIME PRN #30 cap 01/19/17 [Rx] Past Medical History HEENT History: Reports: Impaired Vision Cardiovascular History: Reports: Angina, High Cholesterol, Hypertension, [place], Stents Respiratory History: Reports: Pneumonia, Recurrent Gastrointestinal History: Reports: None Genitourinary History: Reports: BPH Other Genitourinary History: prostate cancer Musculoskeletal History: Reports: None Neurological History: Reports: TIA Psychiatric History: Reports: Anxiety, Depression, Panic Attack Endocrine/Metabolic History: 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, Type II Hematologic History: Reports: None Immunologic History: Reports: None Oncologic (Cancer) History: Reports: Prostate Dermatologic History: Reports: None - Infectious Disease History Infectious Disease History: Reports: None - Past Surgical History Head Surgeries/Procedures: Reports: None Cardiovascular Surgical History: Reports: Coronary Artery Bypass, Coronary Artery Stent Social & Family History - Family History Family Medical History: Noncontributory HEENT: Reports: None Cardiac: Reports: None Respiratory: Reports: None GI: Reports: None : Reports: None OBGYN: Reports: None Musculoskeletal: Reports: None Neurological: Reports: None Psychiatric: Reports: None Endocrine/Metabolic: 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, Type I Hematologic: Reports: None Immunologic: Reports: None Dermatologic: Reports: None Oncologic: Reports: Breast, Colon, Pancreatic - Tobacco Use Smoking Status *Q: Never Smoker Years of Tobacco use: 30 Packs/Tins Daily: 1 Used Tobacco, but Quit: Yes Month Tobacco Last Used: 1984 Second Hand Smoke Exposure: No - Caffeine Use Caffeine Use: Reports: Coffee - Alcohol Use Days Per Week of Alcohol Use: 0 - Recreational Drug Use Recreational Drug Use: No - Living Situation & Occupation Living situation: Reports: , Alone Occupation: Retired ED ROS GENERAL - Review of Systems Review Of Systems: ROS reveals no pertinent complaints other than HPI. ED EXAM, GENERAL - Physical Exam Exam: See Below Exam Limited By: No Limitations General Appearance: Alert, WD/WN, Moderate Distress Eye Exam: Bilateral Eye: EOMI, Normal Inspection, PERRL Ears: Normal External Exam, Normal Canal, Hearing Grossly Normal, Normal TMs Nose: Normal Inspection, Normal Mucosa, No Blood Throat/Mouth: Normal Inspection, Normal Lips, Normal Teeth, Normal Gums, Normal Oropharynx, Normal Voice, No Airway Compromise Head: Atraumatic, Normocephalic Neck: Normal Inspection, Supple, Non-Tender, Full Range of Motion Respiratory/Chest: No Respiratory Distress, Lungs Clear, Normal Breath Sounds, No Accessory Muscle Use, Chest Non-Tender Cardiovascular: Normal Peripheral Pulses, Regular Rate, Rhythm, No Edema, No Gallop, No JVD, No Murmur, No Rub GI/Abdominal: Normal Bowel Sounds, Soft, Non-Tender, No Organomegaly, No Distention, No Abnormal Bruit, No Mass (Male) Exam: Deferred Rectal (Males) Exam: Deferred Back Exam: Normal Inspection, Full Range of Motion, NT Extremities: Other (swelling and tenderness of the left upper forearm) Neurological: Alert, Oriented, CN II-XII Intact, Normal Cognition, Normal Gait, Normal Reflexes, No Motor/Sensory Deficits Psychiatric: Normal Affect, Normal Mood Skin Exam: Warm, Dry, Intact, Normal Color, No Rash Lymphatic: No Adenopathy Course - Vital Signs Last Recorded V/S: Last Vital Signs Temp 97.8 F 03/26/17 17:01 Pulse 93 03/26/17 20:50 Resp 20 03/26/17 20:50 BP 120/56 L 03/26/17 20:50 Pulse Ox 96 03/26/17 20:50 - Orders/Labs/Meds Labs: Laboratory Tests 03/26/17 03/26/17 03/26/17 Range/Units 17:37 17:37 17:37 WBC 8.3 (5.0-10.0) 10^3/uL RBC 3.37 L (4.6-6.2) 10^6/uL Hgb 10.4 L D (14.0-18.0) g/dL Hct 32.8 L (40.0-54.0) % MCV 97.3 (80-100) fL MCH 30.9 (27.0-34.0) pg MCHC 31.7 L (33.0-35.0) g/dL Plt Count 538 H D (150-450) 10^3/uL Neut % (Auto) 78.5 H (42.2-75.2) % Lymph % (Auto) 9.7 L (20.5-50.1) % [place] % (Auto) 6.7 (2-8) % Eos % (Auto) 4.7 H (1.0-3.0) % Baso % (Auto) 0.4 (0.0-1.0) % D-Dimer, Quantitative 3820 H (0-400) ng/mL Sodium 133 L (135-145) mmol/L Potassium 4.4 (3.6-5.0) mmol/L Chloride 101 (101-111) mmol/L Carbon Dioxide 23.0 (21.0-31.0) mmol/L Anion Gap 13.4 BUN 16 (7-18) mg/dL Creatinine 1.3 (0.6-1.3) mg/dL Est Cr Clr Drug Dosing 48.35 mL/min Estimated GFR (MDRD) 53 BUN/Creatinine Ratio 12.30 Glucose 233 H (74-105) mg/dL POC Glucose (83-110) mg/dl Calcium 8.5 (8.4-10.2) mg/dl Total Bilirubin 0.8 (0.2-1.0) mg/dL AST 19 (10-42) IU/L ALT 15 (10-60) IU/L Alkaline Phosphatase 109 (42-121) IU/L Creatine Kinase (26-174) IU/L Creatine Kinase Index (0-2.4) % CK-MB (CK-2) (0.4-4.7) ng/mL Total Protein 6.7 (6.7-8.2) g/dl Albumin 3.1 L (3.2-5.5) g/dl Globulin 3.6 Albumin/Globulin Ratio 0.86 Urine Color (YELLOW) Urine Appearance (CLEAR) Urine pH (5.0-9.0) Ur Specific [place] (1.005-1.030) Urine Protein (NEGATIVE) Urine Glucose (UA) (NEGATIVE) Urine Ketones (NEGATIVE) Urine Occult Blood (NEGATIVE) Urine Nitrite (NEGATIVE) Urine Bilirubin (NEGATIVE) Urine Urobilinogen (0.2-1.0) mg/dL Ur Leukocyte Esterase (NEGATIVE) Urine RBC /HPF Urine WBC (0-5/HPF) /HPF Ur Epithelial Cells /HPF Urine Bacteria (0-FEW/HPF) /HPF 03/26/17 03/26/17 03/26/17 Range/Units 18:00 19:27 21:48 WBC (5.0-10.0) 10^3/uL RBC (4.6-6.2) 10^6/uL Hgb (14.0-18.0) g/dL Hct (40.0-54.0) % MCV (80-100) fL MCH (27.0-34.0) pg MCHC (33.0-35.0) g/dL Plt Count (150-450) 10^3/uL Neut % (Auto) (42.2-75.2) % Lymph % (Auto) (20.5-50.1) % [place] % (Auto) (2-8) % Eos % (Auto) (1.0-3.0) % Baso % (Auto) (0.0-1.0) % D-Dimer, Quantitative (0-400) ng/mL Sodium (135-145) mmol/L Potassium (3.6-5.0) mmol/L Chloride (101-111) mmol/L Carbon Dioxide (21.0-31.0) mmol/L Anion Gap BUN (7-18) mg/dL Creatinine (0.6-1.3) mg/dL Est Cr Clr Drug Dosing mL/min Estimated GFR (MDRD) BUN/Creatinine Ratio Glucose (74-105) mg/dL POC Glucose 204 H (83-110) mg/dl Calcium (8.4-10.2) mg/dl Total Bilirubin (0.2-1.0) mg/dL AST (10-42) IU/L ALT (10-60) IU/L Alkaline Phosphatase (42-121) IU/L Creatine Kinase 32 (26-174) IU/L Creatine Kinase Index 3.8 H (0-2.4) % CK-MB (CK-2) 1.20 (0.4-4.7) ng/mL Total Protein (6.7-8.2) g/dl Albumin (3.2-5.5) g/dl Globulin Albumin/Globulin Ratio Urine Color Yellow (YELLOW) Urine Appearance Clear (CLEAR) Urine pH 5.5 (5.0-9.0) Ur Specific [place] <= 1.005 (1.005-1.030) Urine Protein Negative (NEGATIVE) Urine Glucose (UA) Negative (NEGATIVE) Urine Ketones Negative (NEGATIVE) Urine Occult Blood Negative (NEGATIVE) Urine Nitrite Negative (NEGATIVE) Urine Bilirubin Negative (NEGATIVE) Urine Urobilinogen 0.2 (0.2-1.0) mg/dL Ur Leukocyte Esterase Negative (NEGATIVE) Urine RBC 0-5 /HPF Urine WBC 0-5 (0-5/HPF) /HPF Ur Epithelial Cells Rare /HPF Urine Bacteria Rare (0-FEW/HPF) /HPF Meds: Medications Discontinued Medications Generic Name Dose Route Start Last Admin Trade Name Jessie PRN Reason Stop Dose Admin Hydrocodone Bitart/Acetaminophen 1 tab 03/26/17 19:19 03/26/17 19:26 [place] 325-10 Mg PO 03/26/17 19:20 1 tab ONETIME ONE Administration Iopamidol 100 ml 03/26/17 21:54 03/26/17 21:54 Isovue-300 (61%) IVPUSH 03/26/17 21:55 100 ml ONETIME ONE Administration Departure - Departure Disposition: DC/Tfer to Acute Hospital 02 Clinical Impression: Arm pain, left Hematoma, postoperative Qualifiers: Surgical complication system/body Area: circulatory system Procedure type: circulatory, unspecified Qualified Code(s): I97.638 - Postprocedural hematoma of a circulatory system organ or structure following other circulatory system procedure Referrals: Hiren Tatum [Primary Care Provider] - Forms: ED Department Discharge <Suzie Drummond - Last Filed: 03/27/17 03:31> ED EXAM, GENERAL - Physical Exam Cardiovascular: Other Extremities: Other (swelling and tenderness of the left upper forearm, unable to palpate redial pulses bilaterally, weak doppler bilateral, delayed cap refill bilaterally. ) Course - Re-Assessments/Exams Free Text/Narrative Re-Assessment/Exam: 03/27/17 03:23 Pain improved, improved mobility of extremity upper forearm firm. No decrease in sensation. Dr.Bhunia Jacob Adorno, accepting of patient for further evaluation of postsurgical swelling and pain at harvest site. Tx via [facility]. Departure - Departure Time of Disposition: 22:10 Reason for Transfer *Q: Other Condition: Undetermined
[2017-03-26 18:25] LABS: ANION GAP 13.4
[2017-03-26] MEDS ORDERED: Acetaminophen/HYDROcodone 325-10 MG Tab PO ONE (19:19)
[2017-03-26 20:50] VITALS: BP 120/56
[2017-03-26] MEDS ORDERED: Iopamidol 612 MG/ML 100 ML Bottle IVPUSH ONE (21:54)
== END 2017-03-26 22:05 ==
LOC: DL.ED 17:01 → EEVIPCON 17:01 → DL.ED 22:05
DX: I97.638 Postprocedural hematoma of a circulatory system organ or structure following other circulatory system procedure (principal); E78.00 Pure hypercholesterolemia, unspecified; I10 Essential (primary) hypertension; E11.9 Type 2 diabetes mellitus without complications; Z88.1 Allergy status to other antibiotic agents; Z79.82 Long term (current) use of aspirin; Z79.899 Other long term (current) drug therapy; Z87.891 Personal history of nicotine dependence; Z95.1 Presence of aortocoronary bypass graft
CPT/HCPCS: 36415; 73201; 80053; 81001; 82550; 82553; 82962; 85025; 85379; 87804; 99285; A9270; Q9967; 99284

== ENCOUNTER 2017-04-04 22:18 | Emergency (ER) | payer MEDICAID, OTHER ==
[2017-04-04 22:25] VITALS: BP 154/61
[2017-04-04 23:01] LABS: CHLORIDE,CL 100 mmol/L (101-111); SODIUM,NA 133 mmol/L (135-145)
[2017-04-04] MEDS ORDERED: Oxymetazoline 0.05% Nasal Spray 15 ML Bottle NAS ONE (23:16)
--- NOTE | 2017-04-04 23:23 | EDM.PDOC ---
ED HPI GENERAL MEDICAL PROBLEM - General Chief Complaint: Gastrointestinal Problem Stated Complaint: COUGHING UP BLOOD Time Seen by Provider: 04/04/17 23:15 Source of Information: Reports: Patient History Limitations: Reports: No Limitations - History of Present Illness INITIAL COMMENTS - FREE TEXT/NARRATIVE: This 76 yo male patient was brought to the ED by [facility] due to coughing up blood. The patient reports he has coughed up blood all evening, but it was much worse when he was at home. The patient believes his bleeding is coming from his throat. The patient has been hacking and coughing since he arrived in the ED. The patient reports no history of a GI bleed in the past. Onset: Today Duration: Constant Location: Reports: Other (coughing up blood) Quality: Reports: Other Severity: Moderate Improves with: Reports: None Worsens with: Reports: None Associated Symptoms: Reports: Other - Related Data Allergies Allergy/AdvReac Type Severity Reaction Status Date / Time cephalexin Allergy Mild Itching Verified 04/04/17 22:29 levofloxacin [From Levaquin] Allergy chest pain Verified 04/04/17 22:29 and SOB Home Meds: Home Meds Aspirin [Halfprin] 81 mg PO DAILY 04/06/13 [History] Diazepam [Valium] 5 mg PO DAILY PRN 04/06/13 [History] Metoprolol Succinate [Toprol XL] 50 mg PO DAILY 04/06/13 [History] Ramipril [Altace] 5 mg PO DAILY 04/06/13 [History] Simvastatin [Zocor] 40 mg PO BEDTIME 04/06/13 [History] Tamsulosin [Flomax] 0.4 mg PO DAILY 04/06/13 [History] glyBURIDE/Metformin [glyBURIDE/Metformin 5-500 MG] 2 tab PO BIDMEALS 04/06/13 [ History] Clopidogrel [Plavix] 75 mg PO DAILY 06/30/13 [History] Insulin Detemir [Levemir] 60 unit SQ DAILY 09/15/13 [History] Leuprolide Acetate [Lupron Depot] 50 mg SQ ASDIRECTED 02/18/14 [History] Isosorbide Mononitrate [Imdur] 15 mg PO DAILY 07/11/15 [History] Pantoprazole [ProTONIX] 40 mg PO DAILY 10/16/15 [History] Temazepam [Restoril] 15 mg PO BEDTIME PRN #30 cap 01/19/17 [Rx] Past Medical History HEENT History: Reports: Impaired Vision Cardiovascular History: Reports: Angina, High Cholesterol, Hypertension, [place], Stents Respiratory History: Reports: Pneumonia, Recurrent Gastrointestinal History: Reports: None Genitourinary History: Reports: BPH Other Genitourinary History: prostate cancer Musculoskeletal History: Reports: None Neurological History: Reports: TIA Psychiatric History: Reports: Anxiety, Depression, Panic Attack Endocrine/Metabolic History: 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, Type II Hematologic History: Reports: None Immunologic History: Reports: None Oncologic (Cancer) History: Reports: Prostate Dermatologic History: Reports: None - Infectious Disease History Infectious Disease History: Reports: None - Past Surgical History Head Surgeries/Procedures: Reports: None Cardiovascular Surgical History: Reports: Coronary Artery Bypass, Coronary Artery Stent Social & Family History - Family History Family Medical History: Noncontributory HEENT: Reports: None Cardiac: Reports: None Respiratory: Reports: None GI: Reports: None : Reports: None OBGYN: Reports: None Musculoskeletal: Reports: None Neurological: Reports: None Psychiatric: Reports: None Endocrine/Metabolic: 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, Type I Hematologic: Reports: None Immunologic: Reports: None Dermatologic: Reports: None Oncologic: Reports: Breast, Colon, Pancreatic - Tobacco Use Smoking Status *Q: Former Smoker Years of Tobacco use: 30 Packs/Tins Daily: 1 Used Tobacco, but Quit: Yes Month Tobacco Last Used: mar Second Hand Smoke Exposure: No - Caffeine Use Caffeine Use: Reports: Coffee - Alcohol Use Days Per Week of Alcohol Use: 0 - Recreational Drug Use Recreational Drug Use: No - Living Situation & Occupation Living situation: Reports: , Alone Occupation: Retired ED ROS GENERAL - Review of Systems Review Of Systems: ROS reveals no pertinent complaints other than HPI. ED EXAM, GENERAL - Physical Exam Exam: See Below Exam Limited By: No Limitations General Appearance: Alert, WD/WN, Moderate Distress Eye Exam: Bilateral Eye: EOMI, Normal Inspection, PERRL Ears: Normal External Exam, Normal Canal, Hearing Grossly Normal, Normal TMs Nose: Other (The patient has dried blood in the anterior nare bilaterally with current bleeding observed in the posterior nasal cavity bilaterally ) Throat/Mouth: Normal Lips, Normal Teeth, Normal Gums, Normal Voice, No Airway Compromise, Other (There is bloody transudate observed in the posterior pharynx) Head: Atraumatic, Normocephalic Neck: Normal Inspection, Supple, Non-Tender, Full Range of Motion Respiratory/Chest: No Respiratory Distress, Lungs Clear, Normal Breath Sounds, No Accessory Muscle Use, Chest Non-Tender Cardiovascular: Normal Peripheral Pulses, Regular Rate, Rhythm, No Edema, No Gallop, No JVD, No Murmur, No Rub GI/Abdominal: Normal Bowel Sounds, Soft, Non-Tender, No Organomegaly, No Distention, No Abnormal Bruit, No Mass (Male) Exam: Deferred Rectal (Males) Exam: Deferred Back Exam: Normal Inspection, Full Range of Motion, NT Extremities: Normal Inspection, Normal Range of Motion, Non-Tender, Normal Capillary Refill, No Pedal Edema Neurological: Alert, Oriented, CN II-XII Intact, Normal Cognition, Normal Gait, Normal Reflexes, No Motor/Sensory Deficits Psychiatric: Normal Affect, Normal Mood Skin Exam: Warm, Dry, Intact, Normal Color, No Rash Lymphatic: No Adenopathy Course - Vital Signs Last Recorded V/S: Last Vital Signs Temp 36.1 C 04/04/17 22:20 Pulse 82 04/04/17 22:20 Resp 18 04/04/17 22:20 BP 154/61 H 04/04/17 22:20 Pulse Ox 97 04/04/17 22:20 - Orders/Labs/Meds Orders: Active Orders 24 hr Category Date Time Status CULTURE STREP A CONFIRMATION [RM] Stat Lab 04/04/17 22:36 Results STREP SCRN A RAPID W CULT CONF [RM] Stat Lab 04/04/17 22:36 Results Labs: Laboratory Tests 04/04/17 04/04/17 04/04/17 Range/Units 22:28 22:28 22:28 WBC 7.0 (5.0-10.0) 10^3/uL RBC 3.42 L (4.6-6.2) 10^6/uL Hgb 10.5 L (14.0-18.0) g/dL Hct 32.9 L (40.0-54.0) % MCV 96.2 (80-100) fL MCH 30.7 (27.0-34.0) pg MCHC 31.9 L (33.0-35.0) g/dL Plt Count 432 D (150-450) 10^3/uL Neut % (Auto) 62.9 (42.2-75.2) % Lymph % (Auto) 20.7 (20.5-50.1) % [place] % (Auto) 8.8 H (2-8) % Eos % (Auto) 7.3 H (1.0-3.0) % Baso % (Auto) 0.3 (0.0-1.0) % Sodium 133 L (135-145) mmol/L Potassium 4.0 (3.6-5.0) mmol/L Chloride 100 L (101-111) mmol/L Carbon Dioxide 24.0 (21.0-31.0) mmol/L Anion Gap 13.0 BUN 16 (7-18) mg/dL Creatinine 1.2 (0.6-1.3) mg/dL Est Cr Clr Drug Dosing 52.38 mL/min Estimated GFR (MDRD) 59 BUN/Creatinine Ratio 13.33 Glucose 267 H (74-105) mg/dL Calcium 8.7 (8.4-10.2) mg/dl Total Bilirubin 0.4 (0.2-1.0) mg/dL AST 17 (10-42) IU/L ALT 15 (10-60) IU/L Alkaline Phosphatase 160 H (42-121) IU/L Ammonia 16 (11-35) umol/L Total Protein 7.1 (6.7-8.2) g/dl Albumin 3.5 (3.2-5.5) g/dl Globulin 3.6 Albumin/Globulin Ratio 0.97 Amylase 102 H (28-100) U/L Lipase 107 H (22-51) U/L Urine Color (YELLOW) Urine Appearance (CLEAR) Urine pH (5.0-9.0) Ur Specific [place] (1.005-1.030) Urine Protein (NEGATIVE) Urine Glucose (UA) (NEGATIVE) Urine Ketones (NEGATIVE) Urine Occult Blood (NEGATIVE) Urine Nitrite (NEGATIVE) Urine Bilirubin (NEGATIVE) Urine Urobilinogen (0.2-1.0) mg/dL Ur Leukocyte Esterase (NEGATIVE) Urine RBC /HPF Urine WBC (0-5/HPF) /HPF Ur Epithelial Cells /HPF Urine Bacteria (0-FEW/HPF) /HPF Urine Opiates Screen (NEGATIVE) Ur Oxycodone Screen (NEGATIVE) Urine Methadone Screen (NEGATIVE) Ur Barbiturates Screen (NEGATIVE) U Tricyclic Antidepress (NEGATIVE) Ur Phencyclidine Scrn (NEGATIVE) Ur Amphetamine Screen (NEGATIVE) U Methamphetamines Scrn (NEGATIVE) Urine MDMA Screen (NEGATIVE) U Benzodiazepines Scrn (NEGATIVE) Urine Cocaine Screen (NEGATIVE) U Marijuana (THC) Screen (NEGATIVE) Ethyl Alcohol < 5 mg/dL 04/04/17 04/04/17 Range/Units 23:48 23:48 WBC (5.0-10.0) 10^3/uL RBC (4.6-6.2) 10^6/uL Hgb (14.0-18.0) g/dL Hct (40.0-54.0) % MCV (80-100) fL MCH (27.0-34.0) pg MCHC (33.0-35.0) g/dL Plt Count (150-450) 10^3/uL Neut % (Auto) (42.2-75.2) % Lymph % (Auto) (20.5-50.1) % [place] % (Auto) (2-8) % Eos % (Auto) (1.0-3.0) % Baso % (Auto) (0.0-1.0) % Sodium (135-145) mmol/L Potassium (3.6-5.0) mmol/L Chloride (101-111) mmol/L Carbon Dioxide (21.0-31.0) mmol/L Anion Gap BUN (7-18) mg/dL Creatinine (0.6-1.3) mg/dL Est Cr Clr Drug Dosing mL/min Estimated GFR (MDRD) BUN/Creatinine Ratio Glucose (74-105) mg/dL Calcium (8.4-10.2) mg/dl Total Bilirubin (0.2-1.0) mg/dL AST (10-42) IU/L ALT (10-60) IU/L Alkaline Phosphatase (42-121) IU/L Ammonia (11-35) umol/L Total Protein (6.7-8.2) g/dl Albumin (3.2-5.5) g/dl Globulin Albumin/Globulin Ratio Amylase (28-100) U/L Lipase (22-51) U/L Urine Color Yellow (YELLOW) Urine Appearance Clear (CLEAR) Urine pH 5.5 (5.0-9.0) Ur Specific [place] 1.010 (1.005-1.030) Urine Protein Negative (NEGATIVE) Urine Glucose (UA) 100 H (NEGATIVE) Urine Ketones Negative (NEGATIVE) Urine Occult Blood Negative (NEGATIVE) Urine Nitrite Negative (NEGATIVE) Urine Bilirubin Negative (NEGATIVE) Urine Urobilinogen 0.2 (0.2-1.0) mg/dL Ur Leukocyte Esterase Negative (NEGATIVE) Urine RBC 0-5 /HPF Urine WBC 0-5 (0-5/HPF) /HPF Ur Epithelial Cells Few /HPF Urine Bacteria Few (0-FEW/HPF) /HPF Urine Opiates Screen Positive H (NEGATIVE) Ur Oxycodone Screen Negative (NEGATIVE) Urine Methadone Screen Negative (NEGATIVE) Ur Barbiturates Screen Negative (NEGATIVE) U Tricyclic Antidepress Negative (NEGATIVE) Ur Phencyclidine Scrn Negative (NEGATIVE) Ur Amphetamine Screen Negative (NEGATIVE) U Methamphetamines Scrn Negative (NEGATIVE) Urine MDMA Screen Negative (NEGATIVE) U Benzodiazepines Scrn Positive H (NEGATIVE) Urine Cocaine Screen Negative (NEGATIVE) U Marijuana (THC) Screen Negative (NEGATIVE) Ethyl Alcohol mg/dL Meds: Medications Discontinued Medications Generic Name Dose Route Start Last Admin Trade Name Freq PRN Reason Stop Dose Admin Oxymetazoline HCl 1 ml 04/04/17 23:16 04/04/17 23:21 Afrin Original 0.05% Nasal [place] AMITA 04/04/17 23:17 1 ml ONETIME ONE Administration Departure - Departure Time of Disposition: 00:53 Disposition: DC/Tfer to Acute Hospital 02 Condition: Fair Clinical Impression: Upper GI bleeding - Discharge Information Forms: Interfacility Transfer EMTALA Care Plan Goals: Discussed the examination, history and lab results with Dr. Gonzalez ( Hospitalist with [facility] in [place]). Dr. Gonzalez accepted the patient for continued evaluation and further management. The patient will be transferred by [facility]. - My Orders Last 24 Hours: My Active Orders 04/04/17 22:36 CULTURE STREP A CONFIRMATION [RM] Stat STREP SCRN A RAPID W CULT CONF [RM] Stat - Assessment/Plan Last 24 Hours: My Active Orders 04/04/17 22:36 CULTURE STREP A CONFIRMATION [RM] Stat STREP SCRN A RAPID W CULT CONF [RM] Stat
--- NOTE | 2017-04-09 12:40 | EKG ---
04/04/2017 - LUKASZ FLETCHER - FINDINGS: A 12-lead EKG shows normal sinus rhythm with left axis deviation. Heart rate of 79. No significant ST elevation or ST depression noted on this 12- lead EKG. Some T-wave inversions noted on leads V2 and V3. [facility] /[id number]
== END 2017-04-05 01:35 ==
LOC: DL.ED 22:18
DX: K92.2 Gastrointestinal hemorrhage, unspecified (principal); Z87.891 Personal history of nicotine dependence; I10 Essential (primary) hypertension; E78.00 Pure hypercholesterolemia, unspecified; F32.9 Major depressive disorder, single episode, unspecified; E11.9 Type 2 diabetes mellitus without complications; Z95.1 Presence of aortocoronary bypass graft; Z95.5 Presence of coronary angioplasty implant and graft; Z88.1 Allergy status to other antibiotic agents; Z79.4 Long term (current) use of insulin; Z79.02 Long term (current) use of antithrombotics/antiplatelets; Z79.82 Long term (current) use of aspirin; Z79.899 Other long term (current) drug therapy
CPT/HCPCS: 36415; 80053; 80305; 81001; 82140; 82150; 82962; 83690; 85025; 87081; 87430; 99285; A9270; G0480

== ENCOUNTER 2017-05-24 14:53 | Emergency (ER) | payer MEDICAID, OTHER ==
[2017-05-24 15:26] VITALS: BP 112/58
--- NOTE | 2017-05-24 15:56 | EDM.PDOC ---
ED HPI GENERAL MEDICAL PROBLEM - General Chief Complaint: Skin Complaint Stated Complaint: neck problem [id number] Time Seen by Provider: 05/24/17 15:40 Source of Information: Reports: Patient, Family, RN, RN Notes Reviewed - History of Present Illness INITIAL COMMENTS - FREE TEXT/NARRATIVE: Pt to the ER with his daughter with c/o possible blood around his tracheostomy. Daughter states that he has had the trach for about 3 weeks. She states when she cleaned it this morning she felt there was a tinge of pink on the q tip. She states there has been some green drainage from around the trach which has been normal. Skin is red but is healing after changing the type of gauze used around the trach. Onset: Today, Sudden - Related Data Allergies Allergy/AdvReac Type Severity Reaction Status Date / Time cephalexin Allergy Mild Itching Verified 04/04/17 22:29 levofloxacin [From Levaquin] Allergy chest pain Verified 04/04/17 22:29 and SOB Home Meds: Home Meds Aspirin [Halfprin] 81 mg PO DAILY 04/06/13 [History] Diazepam [Valium] 5 mg PO DAILY PRN 04/06/13 [History] Metoprolol Succinate [Toprol XL] 50 mg PO DAILY 04/06/13 [History] Ramipril [Altace] 5 mg PO DAILY 04/06/13 [History] Simvastatin [Zocor] 40 mg PO BEDTIME 04/06/13 [History] Tamsulosin [Flomax] 0.4 mg PO DAILY 04/06/13 [History] glyBURIDE/Metformin [glyBURIDE/Metformin 5-500 MG] 2 tab PO BIDMEALS 04/06/13 [ History] Clopidogrel [Plavix] 75 mg PO DAILY 06/30/13 [History] Insulin Detemir [Levemir] 60 unit SQ DAILY 09/15/13 [History] Leuprolide Acetate [Lupron Depot] 50 mg SQ ASDIRECTED 02/18/14 [History] Isosorbide Mononitrate [Imdur] 15 mg PO DAILY 07/11/15 [History] Pantoprazole [ProTONIX] 40 mg PO DAILY 10/16/15 [History] Temazepam [Restoril] 15 mg PO BEDTIME PRN #30 cap 01/19/17 [Rx] Past Medical History HEENT History: Reports: Impaired Vision Cardiovascular History: Reports: Angina, High Cholesterol, Hypertension, [place], Stents Respiratory History: Reports: Pneumonia, Recurrent Gastrointestinal History: Reports: None Genitourinary History: Reports: BPH Other Genitourinary History: prostate cancer Musculoskeletal History: Reports: None Neurological History: Reports: TIA Psychiatric History: Reports: Anxiety, Depression, Panic Attack Endocrine/Metabolic History: 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, Type II Hematologic History: Reports: None Immunologic History: Reports: None Oncologic (Cancer) History: Reports: Prostate, Other (See Below) Other Oncologic History: throat Dermatologic History: Reports: None - Infectious Disease History Infectious Disease History: Reports: None - Past Surgical History Head Surgeries/Procedures: Reports: None Cardiovascular Surgical History: Reports: Coronary Artery Bypass, Coronary Artery Stent Respiratory Surgical History: Reports: Tracheostomy Social & Family History - Family History Family Medical History: Noncontributory HEENT: Reports: None Cardiac: Reports: None Respiratory: Reports: None GI: Reports: None : Reports: None OBGYN: Reports: None Musculoskeletal: Reports: None Neurological: Reports: None Psychiatric: Reports: None Endocrine/Metabolic: 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, Type I Hematologic: Reports: None Immunologic: Reports: None Dermatologic: Reports: None Oncologic: Reports: Breast, Colon, Pancreatic - Tobacco Use Smoking Status *Q: Never Smoker Years of Tobacco use: 30 Packs/Tins Daily: 1 Used Tobacco, but Quit: Yes Month/Year Tobacco Last Used: mar Second Hand Smoke Exposure: No - Caffeine Use Caffeine Use: Reports: Tea - Alcohol Use Days Per Week of Alcohol Use: 0 - Recreational Drug Use Recreational Drug Use: No - Living Situation & Occupation Living situation: Reports: , Alone Occupation: Retired ED ROS GENERAL - Review of Systems Review Of Systems: ROS reveals no pertinent complaints other than HPI. ED EXAM, SKIN/RASH Exam: See Below Exam Limited By: No Limitations General Appearance: Alert, WD/WN, No Apparent Distress Eye Exam: Bilateral Eye: EOMI, Normal Inspection, PERRL Ears: Normal External Exam Nose: Normal Inspection Throat/Mouth: Normal Inspection, No Airway Compromise Head: Atraumatic, Normocephalic Neck: Other (trach placement, no concerns at this time) Respiratory/Chest: No Respiratory Distress, Lungs Clear, Normal Breath Sounds, No Accessory Muscle Use, Chest Non-Tender Cardiovascular: Normal Peripheral Pulses, Regular Rate, Rhythm, No Edema, No Gallop, No JVD, No Murmur, No Rub GI/Abdominal: Normal Bowel Sounds, Soft, Tender (near feeding tube) (Male) Exam: Deferred Rectal (Males) Exam: Deferred Back Exam: Normal Inspection, Full Range of Motion Extremities: Normal Inspection, Normal Range of Motion, Non-Tender, No Pedal Edema, Normal Capillary Refill Neurological: Alert, Oriented, CN II-XII Intact, Normal Cognition, No Motor/ Sensory Deficits Psychiatric: Normal Affect, Normal Mood Skin: Warm, Dry, Erythema (slight around trach ) Lymphatic: No Adenopathy Course - Vital Signs Last Recorded V/S: Last Vital Signs Temp 98 F 05/24/17 15:24 Pulse 72 05/24/17 15:24 Resp 16 05/24/17 15:24 BP 112/58 L 05/24/17 15:24 Pulse Ox 100 05/24/17 15:24 - Re-Assessments/Exams Free Text/Narrative Re-Assessment/Exam: 05/24/17 16:10 Discussed with the patient and his daughter that no blood was seen around the tracheostomy. Dgt states that the skin around is looking much less irritated after they changed the type of gauze being used. She was afraid there was blood coming from inside the throat as the patient has accidentally pulled on the trach. Family and pt were encouraged to continue to clean the are well as directed and follow up with their primary care facility Departure - Departure Time of Disposition: 15:54 Disposition: Home, Self-Care 01 Condition: Fair Clinical Impression: Worried well Tracheostomy complication, unspecified Qualifiers: Tracheostomy complication: unspecified Qualified Code(s): J95.00 - Unspecified tracheostomy complication - Discharge Information Forms: ED Department Discharge Additional Instructions: Continue with trach care as ordered Follow up with your primary care facility
== END 2017-05-24 16:19 | disposition home or self-care (01) ==
LOC: DL.ED 14:53
DX: J95.00 Unspecified tracheostomy complication (principal); E11.9 Type 2 diabetes mellitus without complications; I25.2 Old myocardial infarction; I10 Essential (primary) hypertension; E78.00 Pure hypercholesterolemia, unspecified; Z79.4 Long term (current) use of insulin; Z79.899 Other long term (current) drug therapy; Z79.82 Long term (current) use of aspirin; Z88.1 Allergy status to other antibiotic agents
CPT/HCPCS: 99283

== ENCOUNTER 2017-06-14 16:28 | Emergency (ER) | payer MEDICAID, MEDICARE, OTHER ==
[2017-06-14] MEDS ORDERED: Amoxicillin/Clavulanate K 875-125 MG Tab PO ONE ×2 (16:29→17:44)
--- NOTE | 2017-06-14 17:39 | EDM.PDOC ---
ED HPI GENERAL MEDICAL PROBLEM - General Chief Complaint: Respiratory Problem Stated Complaint: FEEL SICK [id number] Time Seen by Provider: 06/14/17 16:50 Source of Information: Reports: Patient History Limitations: Reports: No Limitations - History of Present Illness INITIAL COMMENTS - FREE TEXT/NARRATIVE: This 76 yo male patient reports to the ED feeling ill. The patient reports he started to have a productive cough 2-3 days ago while at home. The patient initially thought he would just get better, but reports his symptoms have been getting worse. The patient has a history of cancer (throat and nose). The patient has also had stents placed this year. The patient reports he has been coughing up green tinged fluid. Duration: Day(s):, Constant, Getting Worse Location: Reports: Chest Severity: Moderate Improves with: Reports: None Worsens with: Reports: None Associated Symptoms: Reports: cough w sputum, Fever/Chills, Shortness of Breath - Related Data Allergies Allergy/AdvReac Type Severity Reaction Status Date / Time cephalexin Allergy Mild Itching Verified 06/14/17 16:38 levofloxacin [From Levaquin] Allergy chest pain Verified 06/14/17 16:38 and SOB Home Meds: Home Meds Aspirin [Halfprin] 81 mg PO DAILY 04/06/13 [History] Diazepam [Valium] 5 mg PO DAILY PRN 04/06/13 [History] Metoprolol Succinate [Toprol XL] 50 mg PO DAILY 04/06/13 [History] Ramipril [Altace] 5 mg PO DAILY 04/06/13 [History] Simvastatin [Zocor] 40 mg PO BEDTIME 04/06/13 [History] Tamsulosin [Flomax] 0.4 mg PO DAILY 04/06/13 [History] Clopidogrel [Plavix] 75 mg PO DAILY 06/30/13 [History] Insulin Detemir [Levemir] 60 unit SQ DAILY 09/15/13 [History] Leuprolide Acetate [Lupron Depot] 50 mg SQ ASDIRECTED 02/18/14 [History] Isosorbide Mononitrate [Imdur] 15 mg PO DAILY 07/11/15 [History] Pantoprazole [ProTONIX] 40 mg PO DAILY 10/16/15 [History] Temazepam [Restoril] 15 mg PO BEDTIME PRN #30 cap 01/19/17 [Rx] Past Medical History HEENT History: Reports: Impaired Vision Cardiovascular History: Reports: Angina, Bypass, CAD, High Cholesterol, Hypertension, [place], Stents Respiratory History: Reports: Pneumonia, Recurrent Gastrointestinal History: Reports: None Genitourinary History: Reports: BPH Other Genitourinary History: prostate cancer Musculoskeletal History: Reports: None Neurological History: Reports: TIA Psychiatric History: Reports: Anxiety, Depression, Panic Attack Endocrine/Metabolic History: 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, Type II, IDDM Hematologic History: Reports: None Immunologic History: Reports: None 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, Prostate Other Oncologic History: throat Dermatologic History: Reports: None - Infectious Disease History Infectious Disease History: Reports: None - Past Surgical History Head Surgeries/Procedures: Reports: None Cardiovascular Surgical History: Reports: Coronary Artery Bypass, Coronary Artery Stent Respiratory Surgical History: Reports: Tracheostomy Social & Family History - Family History Family Medical History: Noncontributory HEENT: Reports: None Cardiac: Reports: None Respiratory: Reports: None GI: Reports: None : Reports: None OBGYN: Reports: None Musculoskeletal: Reports: None Neurological: Reports: None Psychiatric: Reports: None Endocrine/Metabolic: 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, Type I Hematologic: Reports: None Immunologic: Reports: None Dermatologic: Reports: None Oncologic: Reports: Breast, Colon, Pancreatic - Tobacco Use Smoking Status *Q: Unknown Ever Smoked Years of Tobacco use: 30 Packs/Tins Daily: 1 Used Tobacco, but Quit: Yes Month/Year Tobacco Last Used: mar Second Hand Smoke Exposure: Yes - Caffeine Use Caffeine Use: Reports: Coffee - Alcohol Use Days Per Week of Alcohol Use: 0 - Recreational Drug Use Recreational Drug Use: No - Living Situation & Occupation Living situation: Reports: , Alone Occupation: Retired ED ROS GENERAL - Review of Systems Review Of Systems: ROS reveals no pertinent complaints other than HPI. ED EXAM, GENERAL - Physical Exam Exam: See Below Exam Limited By: No Limitations General Appearance: Alert, WD/WN, Moderate Distress Eye Exam: Bilateral Eye: EOMI, Normal Inspection, PERRL Ears: Normal External Exam, Normal Canal, Hearing Grossly Normal, Normal TMs Nose: Normal Inspection, Normal Mucosa, No Blood Throat/Mouth: Normal Inspection, Normal Lips, Normal Teeth, Normal Gums, Normal Oropharynx, Normal Voice, No Airway Compromise Head: Atraumatic, Normocephalic Neck: Normal Inspection, Supple, Non-Tender, Full Range of Motion, Other (trach) Respiratory/Chest: Decreased Breath Sounds (bilateral lower lobes) Cardiovascular: Normal Peripheral Pulses, Regular Rate, Rhythm, No Edema, No Gallop, No JVD, No Murmur, No Rub GI/Abdominal: Normal Bowel Sounds, Soft, Non-Tender, No Organomegaly, No Distention, No Abnormal Bruit, No Mass (Male) Exam: Deferred Rectal (Males) Exam: Deferred Back Exam: Normal Inspection, Full Range of Motion, NT Extremities: Normal Inspection, Normal Range of Motion, Non-Tender, Normal Capillary Refill, No Pedal Edema Neurological: Alert, Oriented, CN II-XII Intact, Normal Cognition, Normal Gait, Normal Reflexes, No Motor/Sensory Deficits Psychiatric: Depressed Mood, Flat Affect Skin Exam: Warm, Dry, Intact, Normal Color, No Rash Lymphatic: No Adenopathy Course - Vital Signs Last Recorded V/S: Last Vital Signs Temp 37.4 C 06/14/17 16:42 Pulse 94 06/14/17 16:42 Resp 20 06/14/17 16:42 BP Pulse Ox 99 06/14/17 16:42 - Orders/Labs/Meds Orders: Active Orders 24 hr Category Date Time Status EKG Documentation Completion [RC] URGENT Care 06/14/17 16:48 Active Chest 2V [CR] Urgent Exams 06/14/17 16:55 Taken CULTURE BLOOD [BC] Stat Lab 06/14/17 17:00 Received CULTURE BLOOD [BC] Stat Lab 06/14/17 17:12 Received CULTURE SPUTUM + SMEAR [RM] Stat Lab 06/14/17 17:32 Ordered Blood Culture x2 Reflex Set [OM.PC] Stat Oth 06/14/17 16:49 Ordered Labs: Laboratory Tests 06/14/17 06/14/17 06/14/17 Range/Units 17:00 17:00 17:00 WBC 7.8 (5.0-10.0) 10^3/uL RBC 4.17 L (4.6-6.2) 10^6/uL Hgb 11.9 L (14.0-18.0) g/dL Hct 37.5 L (40.0-54.0) % MCV 89.9 D (80-100) fL MCH 28.5 (27.0-34.0) pg MCHC 31.7 L (33.0-35.0) g/dL Plt Count 310 D (150-450) 10^3/uL Neut % (Auto) 61.1 (42.2-75.2) % Lymph % (Auto) 23.2 (20.5-50.1) % [place] % (Auto) 12.1 H (2-8) % Eos % (Auto) 3.2 H (1.0-3.0) % Baso % (Auto) 0.4 (0.0-1.0) % Sodium 135 (135-145) mmol/L Potassium 4.2 (3.6-5.0) mmol/L Chloride 102 (101-111) mmol/L Carbon Dioxide 26.0 (21.0-31.0) mmol/L Anion Gap 11.2 BUN 17 (7-18) mg/dL Creatinine 1.2 (0.6-1.3) mg/dL Est Cr Clr Drug Dosing 52.38 mL/min Estimated GFR (MDRD) 59 BUN/Creatinine Ratio 14.16 Glucose 260 H (74-105) mg/dL Lactic Acid 1.5 (0.5-2.2) mmol/L Calcium 8.7 (8.4-10.2) mg/dl Total Bilirubin 0.4 (0.2-1.0) mg/dL AST 22 (10-42) IU/L ALT 17 (10-60) IU/L Alkaline Phosphatase 122 H (42-121) IU/L Troponin I 0.03 H* (0.00-0.02) ng/ml Total Protein 7.5 (6.7-8.2) g/dl Albumin 3.2 (3.2-5.5) g/dl Globulin 4.3 Albumin/Globulin Ratio 0.74 Departure - Departure Time of Disposition: 17:50 Disposition: Home, Self-Care 01 Condition: Fair Clinical Impression: Bronchitis - Discharge Information Instructions: Acute Bronchitis, Adult, [id number] Care Plan Goals: The patient was advised of the examination, lab, EKG and x-ray results during the visit. The patient was given an oral dose of Augmentin while in the ED. The patient was discharged with Augmentin (875/125) to take 1 by mouth 2 times per day for 10 days with 2 additional pills given due to the pharmacy not being open until noon tomorrow. If the patient has any additional symptoms or concerns , the patient should follow-up with his primary care facility or return to the emergency department. - My Orders Last 24 Hours: My Active Orders 06/14/17 16:48 EKG Documentation Completion [RC] URGENT 06/14/17 16:49 Blood Culture x2 Reflex Set [OM.PC] Stat 06/14/17 16:55 Chest 2V [CR] Urgent 06/14/17 17:00 CULTURE BLOOD [BC] Stat 06/14/17 17:12 CULTURE BLOOD [BC] Stat 06/14/17 17:32 CULTURE SPUTUM + SMEAR [RM] Stat - Assessment/Plan Last 24 Hours: My Active Orders 06/14/17 16:48 EKG Documentation Completion [RC] URGENT 06/14/17 16:49 Blood Culture x2 Reflex Set [OM.PC] Stat 06/14/17 16:55 Chest 2V [CR] Urgent 06/14/17 17:00 CULTURE BLOOD [BC] Stat 06/14/17 17:12 CULTURE BLOOD [BC] Stat 06/14/17 17:32 CULTURE SPUTUM + SMEAR [RM] Stat
[2017-06-14] MEDS ORDERED: Amoxicillin/Clavulanate K 875-125 MG Tab ONE (17:58)
== END 2017-06-14 18:03 | disposition home or self-care (01) ==
LOC: DL.ED 16:28
DX: J40 Bronchitis, not specified as acute or chronic (principal); E78.00 Pure hypercholesterolemia, unspecified; I10 Essential (primary) hypertension; I25.2 Old myocardial infarction; E11.9 Type 2 diabetes mellitus without complications; I25.119 Atherosclerotic heart disease of native coronary artery with unspecified angina pectoris; Z88.1 Allergy status to other antibiotic agents; Z79.82 Long term (current) use of aspirin; Z79.899 Other long term (current) drug therapy; Z79.4 Long term (current) use of insulin; Z87.891 Personal history of nicotine dependence
CPT/HCPCS: 36415; 71046; 80053; 83605; 84484; 85025; 87040; 87070; 87205; 93005; 99285; A9270

== ENCOUNTER 2017-06-17 10:46 | Emergency (ER) | payer MEDICAID, OTHER ==
[2017-06-17 11:08] VITALS: BP 129/61
--- NOTE | 2017-06-17 11:55 | EDM.PDOC ---
ED HPI GENERAL MEDICAL PROBLEM - General Chief Complaint: Gastrointestinal Problem Stated Complaint: FEEDING TUB GOT CAUGHT AND CAME OUT Time Seen by Provider: 06/17/17 11:52 Source of Information: Reports: Patient History Limitations: Reports: No Limitations - History of Present Illness INITIAL COMMENTS - FREE TEXT/NARRATIVE: This 76 yo male patient reports to the ED due to his feeding tube being pulled out partially. The patient reports he caught his feeding tube this morning and noticed that it was longer than it had bee previously. The patient reports he has always had some pain in the area of the feeding tube since it was placed. The patient reports that he uses the feeding tube each day in the morning and wants to make sure it is going to the right area. Onset: Today Duration: Minutes: Location: Reports: Abdomen Quality: Reports: Other Severity: Mild Improves with: Reports: None Worsens with: Reports: None Associated Symptoms: Reports: No Other Symptoms Abdominal Pain Score (Numeric/FACES): 5 - Related Data Allergies Allergy/AdvReac Type Severity Reaction Status Date / Time cephalexin Allergy Mild Itching Verified 06/14/17 16:38 levofloxacin [From Levaquin] Allergy chest pain Verified 06/14/17 16:38 and SOB Home Meds: Home Meds Aspirin [Halfprin] 81 mg PO DAILY 04/06/13 [History] Diazepam [Valium] 5 mg PO DAILY PRN 04/06/13 [History] Metoprolol Succinate [Toprol XL] 50 mg PO DAILY 04/06/13 [History] Ramipril [Altace] 5 mg PO DAILY 04/06/13 [History] Simvastatin [Zocor] 40 mg PO BEDTIME 04/06/13 [History] Tamsulosin [Flomax] 0.4 mg PO DAILY 04/06/13 [History] Clopidogrel [Plavix] 75 mg PO DAILY 06/30/13 [History] Insulin Detemir [Levemir] 60 unit SQ DAILY 09/15/13 [History] Leuprolide Acetate [Lupron Depot] 50 mg SQ ASDIRECTED 02/18/14 [History] Isosorbide Mononitrate [Imdur] 15 mg PO DAILY 07/11/15 [History] Pantoprazole [ProTONIX] 40 mg PO DAILY 10/16/15 [History] Temazepam [Restoril] 15 mg PO BEDTIME PRN #30 cap 01/19/17 [Rx] Past Medical History HEENT History: Reports: Impaired Vision Cardiovascular History: Reports: Angina, Bypass, CAD, High Cholesterol, Hypertension, [place], Stents Respiratory History: Reports: Pneumonia, Recurrent Gastrointestinal History: Reports: None Genitourinary History: Reports: BPH, Other (See Below) Other Genitourinary History: prostate cancer Musculoskeletal History: Reports: None Neurological History: Reports: TIA Psychiatric History: Reports: Anxiety, Depression, Panic Attack Endocrine/Metabolic History: 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, Type II, IDDM Hematologic History: Reports: None Immunologic History: Reports: None 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, Prostate, Other (See Below) Other Oncologic History: throat Dermatologic History: Reports: None - Infectious Disease History Infectious Disease History: Reports: None - Past Surgical History Head Surgeries/Procedures: Reports: None Cardiovascular Surgical History: Reports: Coronary Artery Bypass, Coronary Artery Stent Respiratory Surgical History: Reports: Tracheostomy Social & Family History - Family History Family Medical History: Noncontributory HEENT: Reports: None Cardiac: Reports: None Respiratory: Reports: None GI: Reports: None : Reports: None OBGYN: Reports: None Musculoskeletal: Reports: None Neurological: Reports: None Psychiatric: Reports: None Endocrine/Metabolic: 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, Type I Hematologic: Reports: None Immunologic: Reports: None Dermatologic: Reports: None Oncologic: Reports: Breast, Colon, Pancreatic - Tobacco Use Smoking Status *Q: Unknown Ever Smoked Years of Tobacco use: 30 Packs/Tins Daily: 1 Used Tobacco, but Quit: Yes Month/Year Tobacco Last Used: mar Second Hand Smoke Exposure: Yes - Caffeine Use Caffeine Use: Reports: Coffee - Alcohol Use Days Per Week of Alcohol Use: 0 - Recreational Drug Use Recreational Drug Use: No - Living Situation & Occupation Living situation: Reports: , Alone Occupation: Retired ED ROS GENERAL - Review of Systems Review Of Systems: ROS reveals no pertinent complaints other than HPI. ED EXAM, GI/ABD - Physical Exam Exam: See Below Exam Limited By: No Limitations General Appearance: Alert, WD/WN, Mild Distress, Obese Eyes: Bilateral: Normal Appearance, EOMI Ears: Normal External Exam, Normal Canal, Hearing Grossly Normal, Normal TMs Nose: Normal Inspection, Normal Mucosa, No Blood Throat/Mouth: Normal Inspection, Normal Lips, Normal Teeth, Normal Gums, Normal Oropharynx, Normal Voice, No Airway Compromise Head: Atraumatic, Normocephalic Respiratory/Chest: No Respiratory Distress, Lungs Clear, Normal Breath Sounds, No Accessory Muscle Use, Chest Non-Tender Cardiovascular: Normal Peripheral Pulses, Regular Rate, Rhythm, No Edema, No Gallop, No JVD, No Murmur, No Rub GI/Abdominal Exam: Normal Bowel Sounds, Soft, Tender (around feeding tube) (Male) Exam: Deferred Rectal (Males) Exam: Deferred Back Exam: Normal Inspection, Full Range of Motion, NT Extremities: Normal Inspection, Normal Range of Motion, Non-Tender, Normal Capillary Refill, No Pedal Edema Neurological: Alert, Oriented, CN II-XII Intact, Normal Cognition, Normal Gait, Normal Reflexes, No Motor/Sensory Deficits Psychiatric: Normal Affect, Normal Mood Skin Exam: Warm, Dry, Intact, Normal Color, No Rash Lymphatic: No Adenopathy Course - Vital Signs Last Recorded V/S: Last Vital Signs Temp 36.6 C 06/17/17 10:56 Pulse 97 06/17/17 10:56 Resp BP 129/61 06/17/17 10:56 Pulse Ox 97 06/17/17 10:56 - Orders/Labs/Meds Orders: Active Orders 24 hr Category Date Time Status Abdomen 2V AP Flat Upright [CR] Urgent Exams 06/17/17 11:48 Taken Departure - Departure Time of Disposition: 13:21 Disposition: Home, Self-Care 01 Condition: Fair Clinical Impression: Complication of feeding tube - Discharge Information Forms: ED Department Discharge Care Plan Goals: The patient was advised of the examination and x-ray results during the visit. The patient had x-rays that confirmed the feeding tube placement. If the patient has any additional symptoms or concerns, the patient should [id number] with his primary care facility or return to the emergency department. - My Orders Last 24 Hours: My Active Orders 06/17/17 11:48 Abdomen 2V AP Flat Upright [CR] Urgent - Assessment/Plan Last 24 Hours: My Active Orders 06/17/17 11:48 Abdomen 2V AP Flat Upright [CR] Urgent
== END 2017-06-17 13:35 | disposition home or self-care (01) ==
LOC: DL.ED 10:46
DX: K94.23 Gastrostomy malfunction (principal); E78.00 Pure hypercholesterolemia, unspecified; I10 Essential (primary) hypertension; I25.2 Old myocardial infarction; E11.9 Type 2 diabetes mellitus without complications; Z88.1 Allergy status to other antibiotic agents; Z79.82 Long term (current) use of aspirin; Z79.899 Other long term (current) drug therapy; Z79.4 Long term (current) use of insulin; Z87.891 Personal history of nicotine dependence
CPT/HCPCS: 74019; 99283

== ENCOUNTER 2017-06-21 08:25 | Emergency (ER) | payer MEDICAID, OTHER ==
[2017-06-21 09:30] LABS: ANION GAP 12.8
[2017-06-21] MEDS ORDERED: Metoclopramide 10 MG/2 ML SDV IVPUSH ONE (09:39)
[2017-06-21] MEDS ORDERED: Insulin Regular, Human 100 Units/ML 3 ML Vial SUBCUT ONE (09:40)
--- NOTE | 2017-06-21 10:39 | EDM.PDOC ---
ED HPI GENERAL MEDICAL PROBLEM - General Chief Complaint: Abdominal Pain Stated Complaint: feeling sick [id number] Time Seen by Provider: 06/21/17 08:30 Source of Information: Reports: Patient History Limitations: Reports: No Limitations - History of Present Illness INITIAL COMMENTS - FREE TEXT/NARRATIVE: ED with family with c/o some nausea, increased pain around feeding tube. Was seen on friday for bronchitis, notes has been coughing more. Feels feeding tube is sticking him in belly. Mild nausea, No vomiting. Relates hx of terminal esophageal Cancer, Trach placed prophylactically continues to eat solids, supplements with G tube. Abdomen Pain Score (Numeric/FACES): 5 - Related Data Allergies Allergy/AdvReac Type Severity Reaction Status Date / Time cephalexin Allergy Mild Itching Verified 06/14/17 16:38 levofloxacin [From Levaquin] Allergy chest pain Verified 06/14/17 16:38 and SOB Home Meds: Home Meds Aspirin [Halfprin] 81 mg PO DAILY 04/06/13 [History] Diazepam [Valium] 5 mg PO DAILY PRN 04/06/13 [History] Metoprolol Succinate [Toprol XL] 50 mg PO DAILY 04/06/13 [History] Ramipril [Altace] 5 mg PO DAILY 04/06/13 [History] Simvastatin [Zocor] 40 mg PO BEDTIME 04/06/13 [History] Tamsulosin [Flomax] 0.4 mg PO DAILY 04/06/13 [History] Clopidogrel [Plavix] 75 mg PO DAILY 06/30/13 [History] Insulin Detemir [Levemir] 60 unit SQ DAILY 09/15/13 [History] Leuprolide Acetate [Lupron Depot] 50 mg SQ ASDIRECTED 02/18/14 [History] Isosorbide Mononitrate [Imdur] 15 mg PO DAILY 07/11/15 [History] Pantoprazole [ProTONIX] 40 mg PO DAILY 10/16/15 [History] Temazepam [Restoril] 15 mg PO BEDTIME PRN #30 cap 01/19/17 [Rx] Past Medical History HEENT History: Reports: Impaired Vision Cardiovascular History: Reports: Angina, Bypass, CAD, High Cholesterol, Hypertension, [place], Stents Respiratory History: Reports: Pneumonia, Recurrent Gastrointestinal History: Reports: Other (See Below) Other Gastrointestinal History: feeding tube in place Genitourinary History: Reports: BPH, Other (See Below) Other Genitourinary History: prostate cancer Musculoskeletal History: Reports: None Neurological History: Reports: TIA Psychiatric History: Reports: Anxiety, Depression, Panic Attack Endocrine/Metabolic History: 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, Type II, IDDM Hematologic History: Reports: None Immunologic History: Reports: None 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, Prostate, Other (See Below) Other Oncologic History: throat Dermatologic History: Reports: None - Infectious Disease History Infectious Disease History: Reports: None - Past Surgical History Head Surgeries/Procedures: Reports: None Cardiovascular Surgical History: Reports: Coronary Artery Bypass, Coronary Artery Stent Respiratory Surgical History: Reports: Tracheostomy Social & Family History - Family History Family Medical History: Noncontributory HEENT: Reports: None Cardiac: Reports: None Respiratory: Reports: None GI: Reports: None : Reports: None OBGYN: Reports: None Musculoskeletal: Reports: None Neurological: Reports: None Psychiatric: Reports: None Endocrine/Metabolic: 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, Type I Hematologic: Reports: None Immunologic: Reports: None Dermatologic: Reports: None Oncologic: Reports: Breast, Colon, Pancreatic - Tobacco Use Smoking Status *Q: Former Smoker Years of Tobacco use: 6 Packs/Tins Daily: 1 Used Tobacco, but Quit: Yes Month/Year Tobacco Last Used: 06/1989 Second Hand Smoke Exposure: Yes - Caffeine Use Caffeine Use: Reports: Coffee, Tea - Alcohol Use Days Per Week of Alcohol Use: 0 - Recreational Drug Use Recreational Drug Use: No - Living Situation & Occupation Living situation: Reports: , Alone Occupation: Retired ED ROS GENERAL - Review of Systems Review Of Systems: See Below Constitutional: Reports: Weight Loss HEENT: Reports: No Symptoms, Other (trach, increased secretions) Cardiovascular: Reports: No Symptoms GI/Abdominal: Reports: Abdominal Pain, Nausea. Denies: Vomiting Musculoskeletal: Reports: No Symptoms Neurological: Reports: No Symptoms Psychiatric: Reports: Depression ED EXAM, GI/ABD - Physical Exam Exam: See Below Exam Limited By: No Limitations General Appearance: Alert, No Apparent Distress Ears: Normal External Exam Nose: Normal Inspection Throat/Mouth: Normal Inspection, Perioral Cyanosis Head: Atraumatic Neck: Normal Inspection Respiratory/Chest: No Respiratory Distress, Lungs Clear, Other (trach, capped.) Cardiovascular: Normal Peripheral Pulses, Regular Rate, Rhythm GI/Abdominal Exam: Soft, Distended (mild), Tender, Abnormal Bowel Sounds ( hypoaactive left, hyperactive right), Other (Feeding tube present). No: Guarding Extremities: Normal Inspection Neurological: Alert, Oriented Psychiatric: Normal Affect, Depressed Mood Skin Exam: Warm, Dry, Intact, Pallor Course - Vital Signs Last Recorded V/S: Last Vital Signs Temp 97.1 F 06/21/17 08:30 Pulse 61 06/21/17 09:15 Resp 22 H 06/21/17 09:15 BP 102/60 06/21/17 09:15 Pulse Ox 93 L 06/21/17 09:15 - Orders/Labs/Meds Orders: Active Orders 24 hr Category Date Time Status Glucose [Blood Glucose Check, Bedside] [RC] ONETIME Care 06/21/17 10:32 Active Abdomen wo Cont [CT] Urgent Exams 06/21/17 09:57 Taken CULTURE BLOOD [BC] Stat Lab 06/21/17 08:58 Received UA W/MICROSCOPIC [URIN] Stat Lab 06/21/17 08:56 Ordered Labs: Laboratory Tests 06/21/17 06/21/17 06/21/17 Range/Units 08:58 08:58 08:58 WBC 9.0 (5.0-10.0) 10^3/uL RBC 4.30 L (4.6-6.2) 10^6/uL Hgb 12.4 L (14.0-18.0) g/dL Hct 38.8 L (40.0-54.0) % MCV 90.2 (80-100) fL MCH 28.8 (27.0-34.0) pg MCHC 32.0 L (33.0-35.0) g/dL Plt Count 298 (150-450) 10^3/uL Neut % (Auto) 70.8 (42.2-75.2) % Lymph % (Auto) 15.1 L (20.5-50.1) % [place] % (Auto) 8.5 H (2-8) % Eos % (Auto) 5.3 H (1.0-3.0) % Baso % (Auto) 0.3 (0.0-1.0) % Sodium 133 L (135-145) mmol/L Potassium 4.8 (3.6-5.0) mmol/L Chloride 99 L (101-111) mmol/L Carbon Dioxide 26.0 (21.0-31.0) mmol/L Anion Gap 12.8 BUN 12 (7-18) mg/dL Creatinine 1.2 (0.6-1.3) mg/dL Est Cr Clr Drug Dosing 52.38 mL/min Estimated GFR (MDRD) 59 BUN/Creatinine Ratio 10.00 Glucose 368 H (74-105) mg/dL Lactic Acid 2.0 (0.5-2.2) mmol/L Calcium 8.8 (8.4-10.2) mg/dl Total Bilirubin 0.5 (0.2-1.0) mg/dL AST 25 (10-42) IU/L ALT 14 (10-60) IU/L Alkaline Phosphatase 125 H (42-121) IU/L Total Protein 7.5 (6.7-8.2) g/dl Albumin 3.1 L (3.2-5.5) g/dl Globulin 4.4 Albumin/Globulin Ratio 0.70 Amylase 58 (28-100) U/L Meds: Medications Discontinued Medications Generic Name Dose Route Start Last Admin Trade Name Freq PRN Reason Stop Dose Admin Insulin Human Regular 5 unit 06/21/17 09:40 06/21/17 09:52 Humulin R SUBCUT 06/21/17 09:41 5 units ONETIME ONE Administration Metoclopramide HCl 5 mg 06/21/17 09:39 06/21/17 09:48 Reglan IVPUSH 06/21/17 09:40 5 mg ONETIME ONE Administration - Radiology Interpretation Free Text/Narrative:: CT abdomen, Feeding tube transverses mid stomach and duodenum, tip in jejunem . left upper . Right lobe nodularity, Skin thickening and sub Q stranding of right lower abdomen Departure - Departure Time of Disposition: 10:59 Disposition: Home, Self-Care 01 Condition: Fair Clinical Impression: Nausea, Anxiety Abdominal pain Qualifiers: Abdominal location: unspecified location Qualified Code(s): R10.9 - Unspecified abdominal pain - Discharge Information Instructions: Nausea, Adult Forms: ED Department Discharge Additional Instructions: 1/2 usual G-tube feedings Follow up in clinic Friday If develop fever or unable to control nausea follow up sooner. If frequent cough, use robitussin one teaspoon every 4 hours as needed Reglan 5mg every 6 hours as needed for nausea - My Orders Last 24 Hours: My Active Orders 06/21/17 08:56 UA W/MICROSCOPIC [URIN] Stat 06/21/17 08:58 CULTURE BLOOD [BC] Stat 06/21/17 09:57 Abdomen wo Cont [CT] Urgent 06/21/17 10:32 Glucose [Blood Glucose Check, Bedside] [RC] ONETIME - Assessment/Plan Last 24 Hours: My Active Orders 06/21/17 08:56 UA W/MICROSCOPIC [URIN] Stat 06/21/17 08:58 CULTURE BLOOD [BC] Stat 06/21/17 09:57 Abdomen wo Cont [CT] Urgent 06/21/17 10:32 Glucose [Blood Glucose Check, Bedside] [RC] ONETIME
[2017-06-21 11:35] VITALS: BP 102/59
--- NOTE | 2017-06-24 13:09 | EKG ---
06/21/2017- LUKASZ FLETCHER - FINDINGS: EKG, per my reading, shows sinus rhythm with inferior Q waves. [facility] /[id number]
== END 2017-06-21 11:31 | disposition home or self-care (01) ==
LOC: DL.ED 08:25
DX: R11.0 Nausea (principal); F41.9 Anxiety disorder, unspecified; R10.9 Unspecified abdominal pain; F32.9 Major depressive disorder, single episode, unspecified; I25.2 Old myocardial infarction; I10 Essential (primary) hypertension; E11.9 Type 2 diabetes mellitus without complications; Z87.891 Personal history of nicotine dependence; Z88.1 Allergy status to other antibiotic agents; Z79.82 Long term (current) use of aspirin; Z79.899 Other long term (current) drug therapy
CPT/HCPCS: 36415; 74150; 80053; 82150; 83605; 85025; 87040; 93005; 96372; 96374; 99285; J1815; J2765

== ENCOUNTER 2017-06-27 07:10 | Emergency (ER) | payer MEDICAID, OTHER ==
[2017-06-27 07:27] VITALS: BP 144/63
[2017-06-27] MEDS ORDERED: Sodium Chloride 0.9% 10 ML Syringe FLUSH PRN (07:27)
[2017-06-27] MEDS ORDERED: Ondansetron 4 MG/2 ML SDV IV ONE (07:30)
--- NOTE | 2017-06-27 07:34 | EDM.PDOC ---
ED HPI GENERAL MEDICAL PROBLEM - General Chief Complaint: ENT Problem Stated Complaint: TREACH BLEEDING INSIDE Time Seen by Provider: 06/27/17 07:20 Source of Information: Reports: Patient, RN, RN Notes Reviewed History Limitations: Reports: No Limitations - History of Present Illness INITIAL COMMENTS - FREE TEXT/NARRATIVE: Pt presents to the ER with c/o bleeding from his trach. Patient states he began coughing up some blood and feels he has a large amount of sputum in the back of his throat. Pt states he has cancer, and when he had this trach placed he was to notify his doctors if he had any bleeding from the site. The patient is unaware of what his doctors names are. Patient states he had fever and chills x1 week ago, but not now. He admits to nausea. Pt denies diarrhea, chest pain, or sob. Onset: Today, Sudden - Related Data Allergies Allergy/AdvReac Type Severity Reaction Status Date / Time cephalexin Allergy Mild Itching Verified 06/14/17 16:38 levofloxacin [From Levaquin] Allergy chest pain Verified 06/14/17 16:38 and SOB Home Meds: Home Meds Aspirin [Halfprin] 81 mg PO DAILY 04/06/13 [History] Diazepam [Valium] 5 mg PO DAILY PRN 04/06/13 [History] Metoprolol Succinate [Toprol XL] 50 mg PO DAILY 04/06/13 [History] Ramipril [Altace] 5 mg PO DAILY 04/06/13 [History] Simvastatin [Zocor] 40 mg PO BEDTIME 04/06/13 [History] Tamsulosin [Flomax] 0.4 mg PO DAILY 04/06/13 [History] Clopidogrel [Plavix] 75 mg PO DAILY 06/30/13 [History] Insulin Detemir [Levemir] 60 unit SQ DAILY 09/15/13 [History] Leuprolide Acetate [Lupron Depot] 50 mg SQ ASDIRECTED 02/18/14 [History] Isosorbide Mononitrate [Imdur] 15 mg PO DAILY 07/11/15 [History] Pantoprazole [ProTONIX] 40 mg PO DAILY 10/16/15 [History] Temazepam [Restoril] 15 mg PO BEDTIME PRN #30 cap 01/19/17 [Rx] Past Medical History HEENT History: Reports: Impaired Vision Cardiovascular History: Reports: Angina, Bypass, CAD, High Cholesterol, Hypertension, [place], Stents Respiratory History: Reports: Pneumonia, Recurrent Gastrointestinal History: Reports: Other (See Below) Other Gastrointestinal History: feeding tube in place Genitourinary History: Reports: BPH, Other (See Below) Other Genitourinary History: prostate cancer Musculoskeletal History: Reports: None Neurological History: Reports: TIA Psychiatric History: Reports: Anxiety, Depression, Panic Attack Endocrine/Metabolic History: 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, Type II, IDDM Hematologic History: Reports: None Immunologic History: Reports: None 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, Prostate, Other (See Below) Other Oncologic History: throat Dermatologic History: Reports: None - Infectious Disease History Infectious Disease History: Reports: None - Past Surgical History Head Surgeries/Procedures: Reports: None Cardiovascular Surgical History: Reports: Coronary Artery Bypass, Coronary Artery Stent Respiratory Surgical History: Reports: Tracheostomy Social & Family History - Family History Family Medical History: Noncontributory HEENT: Reports: None Cardiac: Reports: None Respiratory: Reports: None GI: Reports: None : Reports: None OBGYN: Reports: None Musculoskeletal: Reports: None Neurological: Reports: None Psychiatric: Reports: None Endocrine/Metabolic: 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, Type I Hematologic: Reports: None Immunologic: Reports: None Dermatologic: Reports: None Oncologic: Reports: Breast, Colon, Pancreatic - Tobacco Use Smoking Status *Q: Former Smoker Years of Tobacco use: 6 Packs/Tins Daily: 1 Used Tobacco, but Quit: Yes Month/Year Tobacco Last Used: 06/1989 Second Hand Smoke Exposure: Yes - Caffeine Use Caffeine Use: Reports: Coffee, Tea - Alcohol Use Days Per Week of Alcohol Use: 0 - Recreational Drug Use Recreational Drug Use: No - Living Situation & Occupation Living situation: Reports: , Alone Occupation: Retired ED ROS ENT - Review of Systems Review Of Systems: ROS reveals no pertinent complaints other than HPI. ED EXAM, ENT - Physical Exam Exam: See Below Exam Limited By: No Limitations General Appearance: Alert, WD/WN, No Apparent Distress Eye Exam: Bilateral Eye: EOMI, Normal Inspection Ears: Normal External Exam, Hearing Grossly Normal Nose: Normal Inspection Mouth/Throat: Normal Gums, Normal Lips, Normal Oropharynx, Normal Teeth, Other ( tracheostomy) Head: Atraumatic, Normocephalic Neck: Normal Inspection, Supple, Non-Tender, Full Range of Motion Respiratory/Chest: No Respiratory Distress, No Accessory Muscle Use, Chest Non- Tender, Crackles (right base) Cardiovascular: Normal Peripheral Pulses, Regular Rate, Rhythm, No Edema, No Gallop, No JVD, No Murmur, No Rub GI/Abdominal: Normal Bowel Sounds, Soft, Non-Tender, No Organomegaly, No Distention, No Abnormal Bruit, No Mass (Male) Exam: Deferred Rectal (Males) Exam: Deferred Back: Normal Inspection, Full Range of Motion Extremities: Normal Inspection, Normal Range of Motion, Non-Tender, No Pedal Edema, Normal Capillary Refill Neurological: Alert, Oriented, CN II-XII Intact, Normal Cognition, Normal Gait, Normal Reflexes, No Motor/Sensory Deficits Psychiatric: Anxious Skin: Warm, Dry, Intact, Normal Color, No Rash Lymphatic: No Adenopathy Course - Vital Signs Last Recorded V/S: Last Vital Signs Temp 97 F 06/27/17 07:11 Pulse 109 H 06/27/17 07:11 Resp 16 06/27/17 07:11 BP 144/63 H 06/27/17 07:11 Pulse Ox 97 06/27/17 07:11 - Orders/Labs/Meds Orders: Active Orders 24 hr Category Date Time Status Peripheral IV Care [RC] . DIRECTED Care 06/27/17 07:30 Active Peripheral IV Insertion Adult [OM.PC] Stat Oth 06/27/17 07:27 Ordered Labs: Laboratory Tests 06/27/17 06/27/17 06/27/17 Range/Units 07:40 07:40 07:40 WBC 8.0 (5.0-10.0) 10^3/uL RBC 4.19 L (4.6-6.2) 10^6/uL Hgb 12.1 L (14.0-18.0) g/dL Hct 38.1 L (40.0-54.0) % MCV 90.9 (80-100) fL MCH 28.9 (27.0-34.0) pg MCHC 31.8 L (33.0-35.0) g/dL Plt Count 321 (150-450) 10^3/uL Neut % (Auto) 67.4 (42.2-75.2) % Lymph % (Auto) 20.3 L (20.5-50.1) % [place] % (Auto) 7.8 (2-8) % Eos % (Auto) 4.1 H (1.0-3.0) % Baso % (Auto) 0.4 (0.0-1.0) % PT 9.4 (9.0-12.0) SEC INR 0.9 (0.9-1.2) Sodium 136 (135-145) mmol/L Potassium 3.8 (3.6-5.0) mmol/L Chloride 104 (101-111) mmol/L Carbon Dioxide 25.0 (21.0-31.0) mmol/L Anion Gap 10.8 BUN 15 (7-18) mg/dL Creatinine 1.2 (0.6-1.3) mg/dL Est Cr Clr Drug Dosing 52.38 mL/min Estimated GFR (MDRD) 59 BUN/Creatinine Ratio 12.50 Glucose 277 H (74-105) mg/dL Calcium 8.5 (8.4-10.2) mg/dl Total Bilirubin 0.5 (0.2-1.0) mg/dL AST 24 (10-42) IU/L ALT 12 (10-60) IU/L Alkaline Phosphatase 104 (42-121) IU/L Total Protein 7.1 (6.7-8.2) g/dl Albumin 3.1 L (3.2-5.5) g/dl Globulin 4.0 Albumin/Globulin Ratio 0.78 Meds: Medications Discontinued Medications Generic Name Dose Route Start Last Admin Trade Name Freq PRN Reason Stop Dose Admin Ondansetron HCl 4 mg 06/27/17 07:30 06/27/17 07:43 Zofran IV 06/27/17 07:31 4 mg ONETIME ONE Administration Sodium Chloride 10 ml 06/27/17 07:27 06/27/17 07:43 Saline Flush FLUSH 10 ml ASDIRECTED PRN Administration Keep Vein Open Departure - Departure Time of Disposition: 08:25 Disposition: Home, Self-Care 01 Condition: Fair Clinical Impression: Bronchitis, Cough - Discharge Information Referrals: Rickey Crouch MD [Primary Care Provider] - Forms: ED Department Discharge Additional Instructions: Follow up with your primary care facility Take the cap off the tracheostomy to cough out through the trach. - My Orders Last 24 Hours: My Active Orders 06/27/17 07:27 Peripheral IV Insertion Adult [OM.PC] Stat 06/27/17 07:30 Peripheral IV Care [RC] . DIRECTED - Assessment/Plan Last 24 Hours: My Active Orders 06/27/17 07:27 Peripheral IV Insertion Adult [OM.PC] Stat 06/27/17 07:30 Peripheral IV Care [RC] . DIRECTED
== END 2017-06-27 08:37 | disposition home or self-care (01) ==
LOC: DL.ED 07:10
DX: J40 Bronchitis, not specified as acute or chronic (principal); I25.2 Old myocardial infarction; I10 Essential (primary) hypertension; E11.9 Type 2 diabetes mellitus without complications; E78.00 Pure hypercholesterolemia, unspecified; Z88.1 Allergy status to other antibiotic agents; Z79.82 Long term (current) use of aspirin; Z79.899 Other long term (current) drug therapy; Z87.891 Personal history of nicotine dependence
CPT/HCPCS: 36415; 80053; 85025; 85610; 96374; 99284; J2405; J7050

== ENCOUNTER 2017-11-05 00:15 | Emergency (ER) | payer MEDICARE, MEDICAID ==
[2017-11-05] MEDS ORDERED: LORazepam 1 MG Tab PO ONE (00:16)
[2017-11-05 00:45] VITALS: BP 129/71
--- NOTE | 2017-11-05 01:00 | EDM.PDOC ---
ED HPI GENERAL MEDICAL PROBLEM - General Chief Complaint: Respiratory Problem Stated Complaint: YADIEL METCALF [id number] Time Seen by Provider: 11/05/17 00:50 Source of Information: Reports: Patient History Limitations: Reports: No Limitations - History of Present Illness INITIAL COMMENTS - FREE TEXT/NARRATIVE: This 76 yo male patient reports to the ED with difficulties breathing. The patient reports his symptoms started 1 1/2 weeks ago, but has been getting worse. The patient reports that he was placed on an antibiotic by his primary care facility, but he does not know what it is called. Onset: Gradual Duration: Constant, Getting Worse Location: Reports: Chest Quality: Reports: Other Severity: Moderate Improves with: Reports: None Worsens with: Reports: None Associated Symptoms: Reports: Cough, Shortness of Breath - Related Data Allergies Allergy/AdvReac Type Severity Reaction Status Date / Time cephalexin Allergy Mild Itching Verified 11/05/17 00:34 levofloxacin [From Levaquin] Allergy chest pain Verified 11/05/17 00:34 and SOB Home Meds: Home Meds Aspirin [Halfprin] 81 mg PO DAILY 04/06/13 [History] Metoprolol Succinate [Toprol XL] 50 mg PO DAILY 04/06/13 [History] Ramipril [Altace] 5 mg PO DAILY 04/06/13 [History] Simvastatin [Zocor] 40 mg PO BEDTIME 04/06/13 [History] Tamsulosin [Flomax] 0.4 mg PO DAILY 04/06/13 [History] diazePAM [Valium] 5 mg PO DAILY PRN 04/06/13 [History] Clopidogrel [Plavix] 75 mg PO DAILY 06/30/13 [History] Insulin Detemir [Levemir] 0 unit SQ DAILY 09/15/13 [History] Leuprolide Acetate [Lupron Depot] 50 mg SQ ASDIRECTED 02/18/14 [History] Isosorbide Mononitrate [Imdur] 15 mg PO DAILY 07/11/15 [History] Pantoprazole [ProTONIX] 40 mg PO DAILY 10/16/15 [History] Temazepam [Restoril] 15 mg PO BEDTIME PRN #30 cap 01/19/17 [Rx] Doxycycline [Doxycycline Hyclate] 100 mg PO BID 11/05/17 [History] Pembrolizumab [Keytruda] 0 mg IV ASDIRECTED 11/05/17 [History] Past Medical History HEENT History: Reports: Impaired Vision Cardiovascular History: Reports: Angina, Bypass, CAD, High Cholesterol, Hypertension, [place], Stents Respiratory History: Reports: Pneumonia, Recurrent Other Respiratory History: tracheostomy Gastrointestinal History: Reports: Other (See Below) Other Gastrointestinal History: feeding tube in place Genitourinary History: Reports: BPH, Other (See Below) Other Genitourinary History: prostate cancer Musculoskeletal History: Reports: None Neurological History: Reports: TIA Psychiatric History: Reports: Anxiety, Depression, Panic Attack Endocrine/Metabolic History: 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, Type II, IDDM Hematologic History: Reports: None Immunologic History: Reports: None 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, Prostate, Other (See Below) Other Oncologic History: throat Dermatologic History: Reports: None - Infectious Disease History Infectious Disease History: Reports: None - Past Surgical History Head Surgeries/Procedures: Reports: None Cardiovascular Surgical History: Reports: Coronary Artery Bypass, Coronary Artery Stent Other Cardiovascular Surgeries/Procedures: 2 bipass Respiratory Surgical History: Reports: Tracheostomy Social & Family History - Family History Family Medical History: Noncontributory HEENT: Reports: None Cardiac: Reports: None Respiratory: Reports: None GI: Reports: None : Reports: None OBGYN: Reports: None Musculoskeletal: Reports: None Neurological: Reports: None Psychiatric: Reports: None Endocrine/Metabolic: 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, Type I Hematologic: Reports: None Immunologic: Reports: None Dermatologic: Reports: None Oncologic: Reports: Breast, Colon, Pancreatic - Tobacco Use Smoking Status *Q: Never Smoker - Caffeine Use Caffeine Use: Reports: Coffee, Tea - Recreational Drug Use Recreational Drug Use: No - Living Situation & Occupation Living situation: Reports: , Alone Occupation: Retired ED ROS GENERAL - Review of Systems Review Of Systems: ROS reveals no pertinent complaints other than HPI. ED EXAM, GENERAL - Physical Exam Exam: See Below Exam Limited By: No Limitations General Appearance: Alert, WD/WN, Mild Distress Eye Exam: Bilateral Eye: EOMI, Normal Inspection, PERRL Ears: Normal External Exam, Normal Canal, Hearing Grossly Normal, Normal TMs Nose: Normal Inspection, Normal Mucosa, No Blood Throat/Mouth: Normal Inspection, Normal Lips, Normal Teeth, Normal Gums, Normal Oropharynx, Normal Voice, No Airway Compromise Head: Atraumatic, Normocephalic Neck: Other (Trach) Respiratory/Chest: No Respiratory Distress, No Accessory Muscle Use, Chest Non- Tender, Decreased Breath Sounds Cardiovascular: Normal Peripheral Pulses, Regular Rate, Rhythm, No Edema, No Gallop, No JVD, No Murmur, No Rub GI/Abdominal: Normal Bowel Sounds, Soft, Non-Tender, No Organomegaly, No Distention, No Abnormal Bruit, No Mass (Male) Exam: Deferred Rectal (Males) Exam: Deferred Back Exam: Normal Inspection, Full Range of Motion, NT Extremities: Normal Inspection, Normal Range of Motion, Non-Tender, Normal Capillary Refill, No Pedal Edema Neurological: Alert, Oriented, CN II-XII Intact, Normal Cognition, Normal Gait, Normal Reflexes, No Motor/Sensory Deficits Psychiatric: Normal Affect, Normal Mood Skin Exam: Warm, Dry, Intact, Normal Color, No Rash Lymphatic: No Adenopathy Course - Vital Signs Last Recorded V/S: Last Vital Signs Temp 36.5 C 11/05/17 00:42 Pulse 66 11/05/17 00:42 Resp 18 11/05/17 00:42 BP 129/71 11/05/17 00:42 Pulse Ox 97 11/05/17 00:42 - Orders/Labs/Meds Orders: Active Orders 24 hr Category Date Time Status Chest 2V [CR] Urgent Exams 11/05/17 00:47 Taken CULTURE BLOOD [BC] Stat Lab 11/05/17 00:55 Received CULTURE BLOOD [BC] Stat Lab 11/05/17 01:02 Received Benzonatate [Tessalon Perles] Med 11/05/17 01:50 Once 200 mg PO ONETIME ONE Blood Culture x2 Reflex Set [OM.PC] Stat Oth 11/05/17 00:50 Ordered Medication Orders Benzonatate (Tessalon Perles) 200 mg PO ONETIME ONE Stop: 11/05/17 01:51 Labs: Laboratory Tests 11/05/17 11/05/17 11/05/17 Range/Units 00:55 00:55 00:55 WBC 7.6 (5.0-10.0) 10^3/uL RBC 3.94 L (4.6-6.2) 10^6/uL Hgb 12.6 L (14.0-18.0) g/dL Hct 38.9 L (40.0-54.0) % MCV 98.7 D (80-100) fL MCH 32.0 (27.0-34.0) pg MCHC 32.4 L (33.0-35.0) g/dL Plt Count 287 (150-450) 10^3/uL Neut % (Auto) 60.9 (42.2-75.2) % Lymph % (Auto) 23.3 (20.5-50.1) % [place] % (Auto) 11.4 H (2-8) % Eos % (Auto) 4.1 H (1.0-3.0) % Baso % (Auto) 0.3 (0.0-1.0) % Sodium 134 L (135-145) mmol/L Potassium 4.9 (3.6-5.0) mmol/L Chloride 102 (101-111) mmol/L Carbon Dioxide 25.0 (21.0-31.0) mmol/L Anion Gap 11.9 BUN 23 H (7-18) mg/dL Creatinine 1.3 (0.6-1.3) mg/dL Est Cr Clr Drug Dosing 48.35 mL/min Estimated GFR (MDRD) 53 BUN/Creatinine Ratio 17.69 Glucose 306 H (74-105) mg/dL Lactic Acid 1.2 (0.5-2.2) mmol/L Calcium 8.5 (8.4-10.2) mg/dl Total Bilirubin 0.7 (0.2-1.0) mg/dL AST 27 (10-42) IU/L ALT 13 (10-60) IU/L Alkaline Phosphatase 104 (42-121) IU/L Total Protein 7.1 (6.7-8.2) g/dl Albumin 3.1 L (3.2-5.5) g/dl Globulin 4.0 Albumin/Globulin Ratio 0.78 Meds: Medications Generic Name Dose Route Start Last Admin Trade Name Freq PRN Reason Stop Dose Admin Benzonatate 200 mg 11/05/17 01:50 Josh Rios PO 11/05/17 01:51 ONETIME ONE Departure - Departure Time of Disposition: 01:52 Disposition: Home, Self-Care 01 Condition: Fair Clinical Impression: Anxiety URI (upper respiratory infection) Qualifiers: URI type: unspecified URI Qualified Code(s): J06.9 - Acute upper respiratory infection, unspecified - Discharge Information *PRESCRIPTION DRUG MONITORING PROGRAM REVIEWED*: Not Applicable *COPY OF PRESCRIPTION DRUG MONITORING REPORT IN PATIENT GLADYS: Not Applicable Forms: ED Department Discharge Care Plan Goals: The patient was advised of the examination, lab and x-ray results during the visit. The patient was given a dose of Tessalon Perles while in the ED to make his secretions less dense. The patient was discharged with Ativan (1 mg) #1 to take at bedtime and a script for Tessalon Perles (200 mg) to take 1 by mouth 3 times per day as needed. If the patient has any additional symptoms or concerns , the patient should visit his primary care facility or return to the emergency department. - My Orders Last 24 Hours: My Active Orders 11/05/17 00:47 Chest 2V [CR] Urgent 11/05/17 00:50 Blood Culture x2 Reflex Set [OM.PC] Stat 11/05/17 00:55 CULTURE BLOOD [BC] Stat 11/05/17 01:02 CULTURE BLOOD [BC] Stat 11/05/17 01:50 Benzonatate [Tessalon Perles] 200 mg PO ONETIME ONE - Assessment/Plan Last 24 Hours: My Active Orders 11/05/17 00:47 Chest 2V [CR] Urgent 11/05/17 00:50 Blood Culture x2 Reflex Set [OM.PC] Stat 11/05/17 00:55 CULTURE BLOOD [BC] Stat 11/05/17 01:02 CULTURE BLOOD [BC] Stat 11/05/17 01:50 Benzonatate [Tessalon Perles] 200 mg PO ONETIME ONE
[2017-11-05 01:28] LABS: ANION GAP 11.9
[2017-11-05] MEDS ORDERED: Benzonatate 100 MG Cap PO ONE (01:50)
[2017-11-05] MEDS ORDERED: LORazepam 1 MG Tab ONE (01:54)
== END 2017-11-05 02:02 | disposition home or self-care (01) ==
LOC: DL.ED 00:15
DX: J06.9 Acute upper respiratory infection, unspecified (principal); F41.9 Anxiety disorder, unspecified; I10 Essential (primary) hypertension; I25.2 Old myocardial infarction; E11.9 Type 2 diabetes mellitus without complications; Z88.1 Allergy status to other antibiotic agents; Z79.4 Long term (current) use of insulin; Z79.82 Long term (current) use of aspirin; Z79.899 Other long term (current) drug therapy; Z95.1 Presence of aortocoronary bypass graft
CPT/HCPCS: 36415; 71046; 80053; 83605; 85025; 87040; 99283; 99284; A9270

== ENCOUNTER 2017-11-10 09:37 | Emergency (ER) | payer MEDICARE, MEDICAID ==
--- NOTE | 2017-11-10 09:55 | EDM.PDOC ---
ED HPI GENERAL MEDICAL PROBLEM - General Chief Complaint: Respiratory Problem Stated Complaint: IN BY AMBULANCE Time Seen by Provider: 11/10/17 09:45 Source of Information: Reports: Patient, EMS, Old Records, RN, RN Notes Reviewed History Limitations: Reports: No Limitations - History of Present Illness INITIAL COMMENTS - FREE TEXT/NARRATIVE: Pt with c/o cough and excess mucus secretions from the sinuses and throat. Sx's have been present for a few months, and only began after he was diagnosed with throat cancer and had a trach. w/canula placed. He denies fever or chills. Pt has been seen in clinic and ER for this several times, but is not satisfied with the answers or treatments thus far. Duration: Week(s): ("several weeks"), Constant, Getting Worse Location: Reports: Chest Quality: Reports: Other (denies pain) Severity: Moderate Improves with: Reports: None Worsens with: Reports: Breathing Associated Symptoms: Reports: No Other Symptoms - Related Data Allergies Allergy/AdvReac Type Severity Reaction Status Date / Time cephalexin Allergy Mild Itching Verified 11/05/17 00:34 levofloxacin [From Levaquin] Allergy chest pain Verified 11/05/17 00:34 and SOB Home Meds: Home Meds Aspirin [Halfprin] 81 mg PO DAILY 04/06/13 [History] Metoprolol Succinate [Toprol XL] 50 mg PO DAILY 04/06/13 [History] Ramipril [Altace] 5 mg PO DAILY 04/06/13 [History] Simvastatin [Zocor] 40 mg PO BEDTIME 04/06/13 [History] Tamsulosin [Flomax] 0.4 mg PO DAILY 04/06/13 [History] diazePAM [Valium] 5 mg PO DAILY PRN 04/06/13 [History] Clopidogrel [Plavix] 75 mg PO DAILY 06/30/13 [History] Insulin Detemir [Levemir] 0 unit SQ DAILY 09/15/13 [History] Leuprolide Acetate [Lupron Depot] 50 mg SQ ASDIRECTED 02/18/14 [History] Isosorbide Mononitrate [Imdur] 15 mg PO DAILY 07/11/15 [History] Pantoprazole [ProTONIX] 40 mg PO DAILY 10/16/15 [History] Temazepam [Restoril] 15 mg PO BEDTIME PRN #30 cap 01/19/17 [Rx] Doxycycline [Doxycycline Hyclate] 100 mg PO BID 11/05/17 [History] Pembrolizumab [Keytruda] 0 mg IV ASDIRECTED 11/05/17 [History] Past Medical History HEENT History: Reports: Impaired Vision Cardiovascular History: Reports: Angina, Bypass, CAD, High Cholesterol, Hypertension, MT, Stents Respiratory History: Reports: Pneumonia, Recurrent Other Respiratory History: tracheostomy Gastrointestinal History: Reports: Other (See Below) Other Gastrointestinal History: feeding tube in place Genitourinary History: Reports: BPH, Other (See Below) Other Genitourinary History: prostate cancer Musculoskeletal History: Reports: None Neurological History: Reports: TIA Psychiatric History: Reports: Anxiety, Depression, Panic Attack Endocrine/Metabolic History: 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, Type II, IDDM Hematologic History: Reports: None Immunologic History: Reports: None 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, Prostate, Other (See Below) Other Oncologic History: throat Dermatologic History: Reports: None - Infectious Disease History Infectious Disease History: Reports: None - Past Surgical History Head Surgeries/Procedures: Reports: None Cardiovascular Surgical History: Reports: Coronary Artery Bypass, Coronary Artery Stent Other Cardiovascular Surgeries/Procedures: 2 vessel bypass Respiratory Surgical History: Reports: Tracheostomy Social & Family History - Family History Family Medical History: Noncontributory HEENT: Reports: None Cardiac: Reports: None Respiratory: Reports: None GI: Reports: None : Reports: None OBGYN: Reports: None Musculoskeletal: Reports: None Neurological: Reports: None Psychiatric: Reports: None Endocrine/Metabolic: 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, Type I Hematologic: Reports: None Immunologic: Reports: None Dermatologic: Reports: None Oncologic: Reports: Breast, Colon, Pancreatic - Tobacco Use Smoking Status *Q: Former Smoker Tobacco Use Within Last Twelve Months: Cigarettes, Smokeless Tobacco Years of Tobacco use: 48 Used Tobacco, but Quit: Yes Month/Year Tobacco Last Used: ? - Caffeine Use Caffeine Use: Reports: Coffee - Alcohol Use Alcohol Use History: No - Recreational Drug Use Recreational Drug Use: No - Living Situation & Occupation Living situation: Reports: , Alone Occupation: Retired ED ROS GENERAL - Review of Systems Review Of Systems: ROS reveals no pertinent complaints other than HPI. ED EXAM, GENERAL - Physical Exam Exam: See Below Exam Limited By: No Limitations General Appearance: Alert, No Apparent Distress, Anxious, Other (chronically ill appearing) Eye Exam: Bilateral Eye: Normal Inspection Nose: Normal Inspection, Normal Mucosa, No Blood Throat/Mouth: Normal Lips, Normal Voice, No Airway Compromise Head: Atraumatic, Normocephalic Neck: Supple, Non-Tender, Full Range of Motion, Other (capped trach in place). No: Lymphadenopathy (L), Lymphadenopathy (R) Respiratory/Chest: No Respiratory Distress, No Accessory Muscle Use, Chest Non- Tender, Decreased Breath Sounds, Crackles, Rhonchi (intermittent Rt mid to lower lung field rhonchi), Other (frequent cough/throat clearing). No: Wheezing , Stridor Cardiovascular: Regular Rate, Rhythm, No Edema GI/Abdominal: Normal Bowel Sounds, Soft, Non-Tender, No Distention, Other ( feeding tube in place). No: Guarding, Rigid, Rebound (Male) Exam: Deferred Rectal (Males) Exam: Deferred Back Exam: Normal Inspection Extremities: Normal Inspection, Normal Range of Motion, Non-Tender, Normal Capillary Refill, No Pedal Edema Neurological: Alert, Oriented, Normal Cognition, Normal Gait, No Motor/Sensory Deficits Psychiatric: Anxious Skin Exam: Warm, Dry, Intact, No Rash, Pallor Course - Vital Signs Last Recorded V/S: Last Vital Signs Temp 36.3 C 11/10/17 09:41 Pulse 62 11/10/17 11:07 Resp 16 11/10/17 11:07 BP 117/62 11/10/17 11:07 Pulse Ox 96 11/10/17 11:07 - Orders/Labs/Meds Labs: Laboratory Tests 11/10/17 11/10/17 Range/Units 10:20 10:20 WBC 8.6 (5.0-10.0) 10^3/uL RBC 4.39 L (4.6-6.2) 10^6/uL Hgb 14.0 (14.0-18.0) g/dL Hct 43.3 (40.0-54.0) % MCV 98.6 (80-100) fL MCH 31.9 (27.0-34.0) pg MCHC 32.3 L (33.0-35.0) g/dL Plt Count 295 (150-450) 10^3/uL Neut % (Auto) 65.7 (42.2-75.2) % Lymph % (Auto) 21.2 (20.5-50.1) % [place] % (Auto) 9.2 H (2-8) % Eos % (Auto) 3.7 H (1.0-3.0) % Baso % (Auto) 0.2 (0.0-1.0) % Sodium 134 L (135-145) mmol/L Potassium 4.4 (3.6-5.0) mmol/L Chloride 99 L (101-111) mmol/L Carbon Dioxide 26.0 (21.0-31.0) mmol/L Anion Gap 13.4 BUN 28 H (7-18) mg/dL Creatinine 1.3 (0.6-1.3) mg/dL Est Cr Clr Drug Dosing 48.35 mL/min Estimated GFR (MDRD) 53 BUN/Creatinine Ratio 21.53 Glucose 260 H (74-105) mg/dL Calcium 9.0 (8.4-10.2) mg/dl Total Bilirubin 0.4 (0.2-1.0) mg/dL AST 19 (10-42) IU/L ALT 15 (10-60) IU/L Alkaline Phosphatase 116 (42-121) IU/L B-Natriuretic Peptide 61 (0-100) pg/ml Total Protein 8.2 (6.7-8.2) g/dl Albumin 3.6 (3.2-5.5) g/dl Globulin 4.6 Albumin/Globulin Ratio 0.78 Meds: Medications Discontinued Medications Generic Name Dose Route Start Last Admin Trade Name Freq PRN Reason Stop Dose Admin Iopamidol 75 ml 11/10/17 10:47 Isovue-300 (61%) IVPUSH 11/10/17 10:48 ONETIME ONE Iopamidol 100 ml 11/10/17 11:27 11/10/17 11:54 Isovue-370 (76%) IVPUSH 11/10/17 11:28 73 ml ONETIME ONE Administration Sodium Chloride 10 ml 11/10/17 10:50 11/10/17 11:02 Saline Flush FLUSH 10 ml ASDIRECTED PRN Administration Keep Vein Open - Radiology Interpretation Free Text/Narrative:: [facility] Final Radiology Report Call: [phone] assistance Online chat: [email or web address] Name: LUKASZ FLETCHER Age: 76Years M Date: 11/10/2017 SSN: -- : 1940 Study: XR CHEST 2 VIEWS Requesting Physician: JUAN VALENZUELA Images: 2 Addl Studies: Provided Clinical History: Contrast: Contrast Medium: Contrast Amount: Contrast Method: Page 1 of 2 EXAM: XR Chest, 2 Views EXAM DATE/TIME: 11/10/2017 10:04 AM CLINICAL HISTORY: 76 years old, male; Signs and symptoms; Cough and dyspnea TECHNIQUE: Frontal and lateral views of the chest. COMPARISON: CR - Chest 2V 11/05/2017 1:06 AM FINDINGS: Lungs: Platelike areas of subsegmental atelectasis have developed in the lung bases. No lobar pneumonia seen. Pleural space: Unremarkable. No pneumothorax. Heart: Stable. No cardiomegaly. Mediastinum: Unremarkable. Bones/joints: Prior median sternotomy. Vasculature: The aorta is tortuous. Tubes, lines and devices: There is a tracheostomy tube with tip projecting at the level of the clavicles. A gastrostomy tube is partially visualized in the upper abdomen. IMPRESSION: Platelike areas of subsegmental atelectasis have developed in the lung bases. No lobar pneumonia seen. LUKASZ FLETCHER | Final Radiology Report CONFIDENTIALITY STATEMENT This report is intended only for use by the referring physician, and only in accordance with law. If you received this in error, call [phone]. Page 2 of 2 Thank you for allowing us to participate in the care of your patient. Dictated and Authenticated by: Shoshana Arana MD 11/10/2017 11:25 AM Central Time ([place] & [place]) [facility] Final Radiology Report Call: [phone] assistance Online chat: [email or web address] Name: LUKASZ FLETCHER Age: 76Years M Date: 11/10/2017 SSN: -- : 1940 Study: CT CHEST W Requesting Physician: JUAN VALENZUELA Images: [id number] Addl Studies: Provided Clinical History: Contrast: With Contrast Medium: ISOVUE 370 Contrast Amount: 73 mL Contrast Method: LAC Page 1 of 4 EXAM: CT Chest With Intravenous Contrast CLINICAL HISTORY: 76 years old, male; Abnormal findings; Abnormal radiologic exam of lung or chest ; Prior surgery; Surgery date: 1-6 months; Patient HX: Cough, shortness of breath. ? Pe TECHNIQUE: Axial computed tomography images of the chest with intravenous contrast. All CT scans at this facility use at least one of these dose optimization techniques: automated exposure control; mA and/or kV adjustment per patient size (includes targeted exams where dose is matched to clinical indication); or iterative reconstruction. CONTRAST: 73 mL of ISOVUE 370 administered intravenously. COMPARISON: CT - Chest wo Cont 01/25/2017 8:40 PM FINDINGS: Limitations: Mild respiratory motion limits evaluation of subsegmental branch pulmonary arteries. SUPPORT APPARATUS: The tracheostomy tube tip is at sternoclavicular junction level, approximately 6 cm above the steffany. The percutaneous gastrojejunostomy tube enters the stomach at the distal body of stomach, traverses the duodenum and jejunum. This is incompletely imaged by the [id number], but the tip terminates below the [id number] in the jejunum. PULMONARY ARTERIES: No pulmonary embolism through the segmental branch arteries bilaterally. No subsegmental embolism is detected within the confines of respiratory motion effects at this level. FLETCHER LUKASZ | Final Radiology Report Page 2 of 4 AORTA/VASCULATURE: No thoracic aortic aneurysm or dissection. Mild atheromatous plaque of the thoracic aorta and proximal left subclavian artery, with very mild scattered calcification in the thoracic aorta. Normal three-vessel arch anatomy. The contrast bolus is in the left subclavian vein and superior vena cava. MEDIASTINUM: No mediastinal mass. The heart size is upper normal. No pericardial effusion. Status post median sternotomy and CABG. Advanced [place]ah coronary calcific CAD; coronary artery stents may also be present in this density pattern. Unremarkable esophagus. No pneumomediastinum. THYROID: The thyroid is smaller-normal size, larger on the right. In the inferior pole right lobe of thyroid, there is a 1.4 x 0.8 cm x 1.3 cm CC noncalcified nodule that cannot be further characterized by CT (coronal image 45). Limitations of streak artifact in the region of interest, but may be slightly enlarged since the chest CT 01/25/2017, at which time this is roughly 1.1 cm CC. Streak artifact limits detail through the remainder of the lower poles and isthmus. PLEURA: No pleural effusion or pneumothorax. Proliferation of bilateral posterior subpleural fat has increased since the prior study, nonspecific but can be seen with chronic pleural irritation. Pleuralbased nodules or plaques, as below. LUNGS/AIRWAY: The trachea and central airways are clear bilaterally. Mosaic attenuation of the lungs reflects either pulmonary vascular congestion or air-trapping/small airways disease. Posterior left lower lobe (superior segment 0.6 cm noncalcified nodular density (series 5 image 37) is stable. The anterior left upper lobe the pleural nodule versus noncalcified pleural plaque (series 6 image 32) retains is essentially stable, measuring 1.6 cm x 0.7 cm. Similar morphology anterior right upper lobe soft tissue density pleural plaque (series 6 image 33) measures 3.0 cm length x 0.8 cm; this has a very small amount of calcification along its deep margin (image 29) and is also essentially stable. Otherwise, no calcified pleural plaques detected. Abutting both the major and minor fissure (coronal image 45), there is a 0.8 cm noncalcified nodule (series 5 image 48) that has mildly increased (from 0.6 cm) from the prior study; the adjacent curvilinear density component is also midlly increased. This could be a fissural lymph node with adjacent scar/atelectasis, but indeterminate. Right apical granuloma. Mild bibasilar hypoventilatory change and atelectasis. The lungs are otherwise clear. LYMPH NODES: No significant mediastinal, axillary, or hilar lymphadenopathy. Right axillary surgical clips suggest previous caridad dissection. CHEST WALL: Mild bilateral gynecomastia, right greater than left. Thin ventral midline chest wall scar related to prior sternotomy. UPPER ABDOMEN: No ascites or other major acute abnormality within the field-of- view. Mild eventration of the right hemidiaphragm. Status post cholecystectomy. The included (proximal and mid segments) of the common bile duct are normal small caliber. Normal bilateral adrenal glands. Underdistention of the stomach. The liver and spleen are unremarkable for technique. MUSCULOSKELETAL: No acute fracture. The median sternotomy appears intact; no dehiscence. Chronic left fifth lateral rib fracture deformity. Chronic right ninth lateral rib fracture deformity. No thoracic compressions. LUKASZ FLETCHER | Final Radiology Report Page 3 of 4 IMPRESSION: 1. No pulmonary embolism. 2. No acute thoracic aortic pathology. 3. Status post median sternotomy and CABG. Question also coronary stents in situ. Correlate with cardiac history. 4. Stable bilateral predominantly noncalcified anterior upper lobe pleural plaques and stable subpleural 0.6 cm nodule or very small plaque on the left. 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 These are stable compared to 10/23/2016. The images from CT chest 08/24/2012 have been requested for longer term comparison. An addendum regarding stability will be generated when the prior study images become available. 5. Interval mild enlargement of a subpleural/fissural nodule, now 0.8 cm with mildly increased adjacent scarring or atelectasis. This was 0.6 cm with similar adjacent curvilinear scar or atelectasis on the prior study. This may be benign scarring and adjacent subpleural lymph node (most likely), but followup per institutional protocol or per Fleischner Society Guidelines. 6. Percutaneous gastrojejunostomy tube in situ. Tracheostomy tube in appropriate position. 7. Question slight interval enlargement of the right lobe of thyroid lower pole hypodense nodule. This is not further characterized by CT. If this has not been previously evaluated, recommend outpatient/nonemergent thyroid ultrasound for further characterization of the nodule. (This recommendation is based on nodule size greater than 1 cm.) 8. Status post median sternotomy and CABG. Fleischner Society Pulmonary Nodule Guidelines Low Risk Patient: (minimal or absent history of smoking or other known risk factors): < or = 4mm: No followup necessary 4-6mm: Followup CT at 12 months; if stable, no further followup. 6-8mm: Followup CT at 6-12 months; if stable, followup CT at 12-18 months; if stable, no further followup. High Risk Patient: (History of smoking or of other known risk factors): < or = 4mm: Followup CT at 12 months; if stable, no further followup. 4-6mm: Followup CT at 6-12 months; if stable, followup CT at 24 months; if stable, no further folowup. 6-8mm: Followup CT at 3-6 months; if stable, followup CT at 9-12 months; if stable, followup CT at 24 months; if stable, no further followup. Any History: >8mm: Dedicated evaluation with contrast CT, PET, Biopsy. LUKASZ FLETCHER | Final Radiology Report CONFIDENTIALITY STATEMENT This report is intended only for use by the referring physician, and only in accordance with law. If you received this in error, call [phone]. Page 4 of 4 Thank you for allowing us to participate in the care of your patient. Dictated and Authenticated by: Nikki Callejas MD 11/10/2017 1:18 PM Central Time ([place] & [place]) Departure - Departure Time of Disposition: 13:43 Disposition: Home, Self-Care 01 Condition: Fair Clinical Impression: Chest congestion, Pulmonary nodule, Thyroid nodule, History of throat cancer - Discharge Information Instructions: Shortness of Breath, Adult, [id number] Forms: ED Department Discharge Additional Instructions: Rx: Zyrtec (Cetrizine) 10mg to reduce mucus production. Follow up with your doctor for evaluation of lung nodule and thyroid nodule.
[2017-11-10] MEDS ORDERED: Iopamidol 612 MG/ML 75 ML Bottle IVPUSH ONE (10:47)
[2017-11-10 10:48] LABS: ANION GAP 13.4
[2017-11-10] MEDS: Sodium Chloride 0.9% 10 ML Syringe FLUSH PRN (11:02)
[2017-11-10 11:07] VITALS: BP 117/62
[2017-11-10] MEDS: Iopamidol 755 Mg/ML 100 ML Bottle IVPUSH ONE (11:54)
== END 2017-11-10 13:54 | disposition home or self-care (01) ==
LOC: DL.ED 09:37
DX: R91.1 Solitary pulmonary nodule (principal); R09.89 Other specified symptoms and signs involving the circulatory and respiratory systems; E04.1 Nontoxic single thyroid nodule; C32.9 Malignant neoplasm of larynx, unspecified; I10 Essential (primary) hypertension; I25.10 Atherosclerotic heart disease of native coronary artery without angina pectoris; F41.9 Anxiety disorder, unspecified; F32.9 Major depressive disorder, single episode, unspecified; E11.9 Type 2 diabetes mellitus without complications; Z88.1 Allergy status to other antibiotic agents; Z88.8 Allergy status to other drugs, medicaments and biological substances; Z79.82 Long term (current) use of aspirin; Z79.899 Other long term (current) drug therapy; Z79.4 Long term (current) use of insulin; Z87.891 Personal history of nicotine dependence
CPT/HCPCS: 36415; 71046; 71260; 80053; 83880; 85025; 99284; 99285; J7050; Q9967

== ENCOUNTER 2018-05-30 11:10 | Emergency (ER) | payer MEDICARE, MEDICAID ==
[2018-05-30 11:21] VITALS: BP 126/60
[2018-05-30] MEDS ORDERED: Sodium Chloride 0.9% 10 ML Syringe FLUSH PRN (11:48)
[2018-05-30] MEDS ORDERED: Clindamycin Phosphate 600 MG in Sodium Chloride 0.9% 100 ML IV ONE (12:24)
[2018-05-30 12:44] LABS: ANION GAP 14.3
--- NOTE | 2018-05-30 13:02 | EDM.PDOC ---
ED HPI GENERAL MEDICAL PROBLEM - General Chief Complaint: Wound Recheck Stated Complaint: THROAT PROBLEM Time Seen by Provider: 05/30/18 11:45 Source of Information: Reports: Patient History Limitations: Reports: No Limitations - History of Present Illness INITIAL COMMENTS - FREE TEXT/NARRATIVE: Patient comes emergency Department today with complaints of a infected surgical site. On Friday of this week the patient had surgery in [place] for the closure of the tracheostomy but did not close on its own. He has noticed some increased swelling and pain and erythema over the past 24 hours. During the night he feels that his throat is becoming very tight swollen and painful. He has had increased drainage over the past couple of days as well. He does complain of subjective fever and chills. He is able to eat and drink appropriately. He does not feel short of breath just feels tighter than normal. He has no pain in his chest. No weakness dizziness lightheadedness. No palpitations. Neck Pain Score (Numeric/FACES): 6 - Related Data Allergies Allergy/AdvReac Type Severity Reaction Status Date / Time cephalexin Allergy Mild Itching Verified 11/05/17 00:34 levofloxacin [From Levaquin] Allergy chest pain Verified 11/05/17 00:34 and SOB Home Meds: Home Meds Aspirin [Halfprin] 81 mg PO DAILY 04/06/13 [History] Metoprolol Succinate [Toprol XL] 50 mg PO DAILY 04/06/13 [History] Ramipril [Altace] 5 mg PO DAILY 04/06/13 [History] Simvastatin [Zocor] 40 mg PO BEDTIME 04/06/13 [History] Tamsulosin [Flomax] 0.4 mg PO DAILY 04/06/13 [History] diazePAM [Valium] 5 mg PO DAILY PRN 04/06/13 [History] Clopidogrel [Plavix] 75 mg PO DAILY 06/30/13 [History] Insulin Detemir [Levemir] 0 unit SQ DAILY 09/15/13 [History] Leuprolide Acetate [Lupron Depot] 50 mg SQ ASDIRECTED 02/18/14 [History] Isosorbide Mononitrate [Imdur] 15 mg PO DAILY 07/11/15 [History] Pantoprazole [ProTONIX] 40 mg PO DAILY 10/16/15 [History] Temazepam [Restoril] 15 mg PO BEDTIME PRN #30 cap 01/19/17 [Rx] Doxycycline [Doxycycline Hyclate] 100 mg PO BID 11/05/17 [History] Pembrolizumab [Keytruda] 0 mg IV ASDIRECTED 11/05/17 [History] Past Medical History HEENT History: Reports: Impaired Vision Cardiovascular History: Reports: Angina, Bypass, CAD, High Cholesterol, Hypertension, [place], Stents Respiratory History: Reports: Pneumonia, Recurrent Other Respiratory History: tracheostomy Gastrointestinal History: Reports: Other (See Below) Other Gastrointestinal History: feeding tube in place Genitourinary History: Reports: BPH, Other (See Below) Other Genitourinary History: prostate cancer Musculoskeletal History: Reports: None Neurological History: Reports: TIA Psychiatric History: Reports: Anxiety, Depression, Panic Attack Endocrine/Metabolic History: 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, Type II, IDDM Hematologic History: Reports: None Immunologic History: Reports: None 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, Prostate, Other (See Below) Other Oncologic History: throat Dermatologic History: Reports: None - Infectious Disease History Infectious Disease History: Reports: None - Past Surgical History Head Surgeries/Procedures: Reports: None Cardiovascular Surgical History: Reports: Coronary Artery Bypass, Coronary Artery Stent Other Cardiovascular Surgeries/Procedures: 2 vessel bypass Respiratory Surgical History: Reports: Tracheostomy Social & Family History - Family History Family Medical History: Noncontributory HEENT: Reports: None Cardiac: Reports: None Respiratory: Reports: None GI: Reports: None : Reports: None OBGYN: Reports: None Musculoskeletal: Reports: None Neurological: Reports: None Psychiatric: Reports: None Endocrine/Metabolic: 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, Type I Hematologic: Reports: None Immunologic: Reports: None Dermatologic: Reports: None Oncologic: Reports: Breast, Colon, Pancreatic - Tobacco Use Smoking Status *Q: Former Smoker Used Tobacco, but Quit: Yes Month/Year Tobacco Last Used: 1989 - Caffeine Use Caffeine Use: Reports: Coffee - Recreational Drug Use Recreational Drug Use: No - Living Situation & Occupation Living situation: Reports: , Alone Occupation: Retired ED ROS GENERAL - Review of Systems Review Of Systems: ROS reveals no pertinent complaints other than HPI. ED EXAM, GENERAL - Physical Exam Exam: See Below Exam Limited By: No Limitations General Appearance: Alert, WD/WN, No Apparent Distress Eye Exam: Bilateral Eye: EOMI, Normal Inspection Ears: Normal External Exam, Normal TMs Nose: Normal Inspection, Normal Mucosa Throat/Mouth: Normal Inspection, Normal Lips, Normal Oropharynx Head: Atraumatic, Normocephalic Neck: No: Normal Inspection (At the very base of the neck at the midline there is a transverse what appears to be surgical incision with well approximation. There is quite a bit of erythema induration and swelling where the surgical site is that extends laterally bilaterally. This erythema does extend down onto the anterior of the chest. There is no area of fluctuance concerning for abscess. There is no subcutaneous emphysema.) Respiratory/Chest: No Respiratory Distress, Lungs Clear, No Accessory Muscle Use Cardiovascular: Normal Peripheral Pulses, Regular Rate, Rhythm Course - Vital Signs Last Recorded V/S: Last Vital Signs Temp 36.4 C 05/30/18 11:19 Pulse 67 05/30/18 11:19 Resp 16 05/30/18 11:19 BP 126/60 05/30/18 11:19 Pulse Ox 98 05/30/18 11:19 - Orders/Labs/Meds Orders: Active Orders 24 hr Category Date Time Status Peripheral IV Care [RC] . DIRECTED Care 05/30/18 11:48 Active Late Tray [DIET] Routine Diet 05/30/18 12:47 Active CULTURE BLOOD [BC] Stat Lab 05/30/18 12:00 Received CULTURE BLOOD [BC] Stat Lab 05/30/18 12:15 Received CULTURE WOUND [RM] Stat Lab 05/30/18 11:55 Received Blood Culture x2 Reflex Set [OM.PC] Stat Oth 05/30/18 11:48 Ordered Peripheral IV Insertion Adult [OM.PC] Stat Oth 05/30/18 11:48 Ordered Labs: Laboratory Tests 05/30/18 05/30/18 05/30/18 Range/Units 12:00 12:00 12:00 WBC 9.6 (5.0-10.0) 10^3/uL RBC 4.12 L (4.6-6.2) 10^6/uL Hgb 13.2 L (14.0-18.0) g/dL Hct 39.9 L (40.0-54.0) % MCV 96.8 (80-100) fL MCH 32.0 (27.0-34.0) pg MCHC 33.1 (33.0-35.0) g/dL Plt Count 236 (150-450) 10^3/uL Neut % (Auto) 70.1 (42.2-75.2) % Lymph % (Auto) 12.2 L (20.5-50.1) % [place] % (Auto) 10.8 H (2-8) % Eos % (Auto) 6.7 H (1.0-3.0) % Baso % (Auto) 0.2 (0.0-1.0) % Sodium 136 (135-145) mmol/L Potassium 4.3 (3.6-5.0) mmol/L Chloride 104 (101-111) mmol/L Carbon Dioxide 22.0 (21.0-31.0) mmol/L Anion Gap 14.3 BUN 20 H (7-18) mg/dL Creatinine 1.3 (0.6-1.3) mg/dL Est Cr Clr Drug Dosing 46.08 mL/min Estimated GFR (MDRD) 53 BUN/Creatinine Ratio 15.38 Glucose 175 H (74-105) mg/dL Lactic Acid 0.8 (0.5-2.2) mmol/L Calcium 8.6 (8.4-10.2) mg/dl Total Bilirubin 0.8 (0.2-1.0) mg/dL AST 31 (10-42) IU/L ALT 28 (10-60) IU/L Alkaline Phosphatase 105 (42-121) IU/L C-Reactive Protein (0.0-1.3) mg/dL Total Protein 7.0 (6.7-8.2) g/dl Albumin 3.4 (3.2-5.5) g/dl Globulin 3.6 Albumin/Globulin Ratio 0.94 //19 Range/Units 12:00 WBC (5.0-10.0) 10^3/uL RBC (4.6-6.2) 10^6/uL Hgb (14.0-18.0) g/dL Hct (40.0-54.0) % MCV (80-100) fL MCH (27.0-34.0) pg MCHC (33.0-35.0) g/dL Plt Count (150-450) 10^3/uL Neut % (Auto) (42.2-75.2) % Lymph % (Auto) (20.5-50.1) % [place] % (Auto) (2-8) % Eos % (Auto) (1.0-3.0) % Baso % (Auto) (0.0-1.0) % Sodium (135-145) mmol/L Potassium (3.6-5.0) mmol/L Chloride (101-111) mmol/L Carbon Dioxide (21.0-31.0) mmol/L Anion Gap BUN (7-18) mg/dL Creatinine (0.6-1.3) mg/dL Est Cr Clr Drug Dosing mL/min Estimated GFR (MDRD) BUN/Creatinine Ratio Glucose (74-105) mg/dL Lactic Acid (0.5-2.2) mmol/L Calcium (8.4-10.2) mg/dl Total Bilirubin (0.2-1.0) mg/dL AST (10-42) IU/L ALT (10-60) IU/L Alkaline Phosphatase (42-121) IU/L C-Reactive Protein 7.5 H (0.0-1.3) mg/dL Total Protein (6.7-8.2) g/dl Albumin (3.2-5.5) g/dl Globulin Albumin/Globulin Ratio Meds: Medications Discontinued Medications Generic Name Dose Route Start Last Admin Trade Name Freq PRN Reason Stop Dose Admin Clindamycin Phosphate 600 mg/ 104 mls @ 200 mls/hr 05/30/18 12:24 05/30/18 12 :46 Sodium Chloride IV 05/30/18 12:55 200 mls/hr ONETIME ONE Administration Lactated Ringer's 1,000 mls @ 200 mls/hr 05/30/18 15:15 05/30/18 15:37 Ringers, Lactated IV 200 mls/hr ASDIRECTED DRU Administration Piperacillin Sod/Tazobactam 100 mls @ 200 mls/hr 05/30/18 15:12 05/30/18 15: 37 Sod 3.375 gm/ Sodium Chloride IV 05/30/18 15:41 200 mls/hr ONETIME ONE Administration Iopamidol 75 ml 05/30/18 13:48 05/30/18 14:54 Isovue-300 (61%) IVPUSH 05/30/18 13:49 75 ml ONETIME ONE Administration Sodium Chloride 10 ml 05/30/18 11:48 05/30/18 12:11 Saline Flush FLUSH 10 ml ASDIRECTED PRN Administration Keep Vein Open - Re-Assessments/Exams Free Text/Narrative Re-Assessment/Exam: 05/30/18 19:36 blood cultures 2 drawn. Is a normal lactic acid but an elevated CRP. Normal WBC. Clindamycin 600mg IVPB CT scan soft tissue neck with contrast shows a chronic mass of the tongue as well as quite a bit of swelling and concerns for an abscess in the area of the previous surgical site. I called and spoke with the hospitalist learning solutions specialist at [facility] in [place]. HPI ER Course findings and concerns were relayed to him. He accepted the patient in transfer at this time. 05/30/18 19:37 HE would like a dose of zosyn given prior to transfer. Departure - Departure Time of Disposition: 15:00 Disposition: DC/Tfer to [facility] 02 Clinical Impression: Abscess of neck Cellulitis Qualifiers: Site of cellulitis: neck Qualified Code(s): L03.221 - Cellulitis of neck - Discharge Information Referrals: Rickey Crouch MD [Primary Care Provider] - Forms: ED Department Discharge - My Orders Last 24 Hours: My Active Orders 05/30/18 11:48 Peripheral IV Care [RC] . DIRECTED Blood Culture x2 Reflex Set [OM.PC] Stat Peripheral IV Insertion Adult [OM.PC] Stat 05/30/18 11:55 CULTURE WOUND [RM] Stat 05/30/18 12:00 CULTURE BLOOD [BC] Stat 05/30/18 12:15 CULTURE BLOOD [BC] Stat 05/30/18 12:47 Late Tray [DIET] Routine - Assessment/Plan Last 24 Hours: My Active Orders 05/30/18 11:48 Peripheral IV Care [RC] . DIRECTED Blood Culture x2 Reflex Set [OM.PC] Stat Peripheral IV Insertion Adult [OM.PC] Stat 05/30/18 11:55 CULTURE WOUND [RM] Stat 05/30/18 12:00 CULTURE BLOOD [BC] Stat 05/30/18 12:15 CULTURE BLOOD [BC] Stat 05/30/18 12:47 Late Tray [DIET] Routine Assessment:: Abscess of the neck SP trach closure procedure. Oral cancer cellulitis of the neck trach area from surgery. Plan: Transfer to [facility] for further care and evaluation.
[2018-05-30] MEDS ORDERED: Iopamidol 612 MG/ML 75 ML Bottle IVPUSH ONE (13:48)
--- NOTE | 2018-05-30 14:52 | CT ---
Clinical history: 77-year-old 207 pound male with local swelling/erythema at tracheostomy site (tracheostomy "surgically removed" in December 2017 and recent surgery, because of tracheostomy site "drainage", a week ago. Rule out neck abscess in this patient with known oral cancer ("squamous cell carcinoma base, of the tongue, on the left"), surgery and radiation. Scan technique: Volume acquisition of data from the neck obtained after (delayed imaging) intravenous infusion 35 cc nonionic Isovue contrast while patient was lying supine on the Siemens multi slice scanner [facility]. *An additional sequence of imaging performed after repositioning patient's chin/neck. All data archived in the PACS system for storage, reformatting axial/sagittal/coronal planes and study. Comparison exam CT neck 15 April 2018 that revealed "rounded density, base of the tongue, on the right, that measured 3.2 x 3.1 cm and extends into the ipsilateral vallecula". Interpretation: Abnormal. 1. Reproducible "oval mass" (2.7 x 3.7 cm diameter), base of the tongue, on the right (probable known malignancy) reported 2. *Tiny collections subcutaneous air at the tracheostomy site and a relatively lower density oval collection of fluid (axial scan slices (#14-18) measuring 15 mm AP x 30 mm W, located anteriorly in the lower neck, toward the left of midline (tiny collection of air behind this as well presumably in the tracheostomy tract). Impression: probable small localized abscess. 3. Edema (skin thickening), anteriorly, lower neck. 4. No foreign bodies. 5. Normal thyroid gland and symmetric midline tracheal airway. No new cervical lymphadenopathy. 6. Paranasal and mastoid sinuses clear.
[2018-05-30] MEDS ORDERED: Piperacillin/Tazobactam 3.375 GM in Sodium Chloride 0.9% 100 ML IV ONE (15:12)
[2018-05-30] MEDS ORDERED: Lactated Ringers 1,000 ML IV SCH (15:15)
== END 2018-05-30 15:59 ==
LOC: EEVIPCON 11:10 → DL.ED 11:10
DX: J95.02 Infection of tracheostomy stoma (principal); L02.11 Cutaneous abscess of neck; L03.221 Cellulitis of neck; C06.9 Malignant neoplasm of mouth, unspecified; I10 Essential (primary) hypertension; E78.00 Pure hypercholesterolemia, unspecified; F41.9 Anxiety disorder, unspecified; F32.9 Major depressive disorder, single episode, unspecified; E11.9 Type 2 diabetes mellitus without complications; Z79.82 Long term (current) use of aspirin; Z87.891 Personal history of nicotine dependence; Z79.4 Long term (current) use of insulin; Z79.899 Other long term (current) drug therapy; Z88.1 Allergy status to other antibiotic agents; Z98.890 Other specified postprocedural states
CPT/HCPCS: 36415; 70491; 80053; 83605; 85025; 86140; 87040; 87070; 87077; 87186; 96365; 96366; 96367; 96368; 99283; J2543; J3490; J7050; J7120; Q9967

== ENCOUNTER 2018-07-07 19:38 | Emergency (ER) | payer MEDICARE, MEDICAID ==
[2018-07-07 20:14] VITALS: BP 127/47
[2018-07-07] MEDS ORDERED: Doxycycline 100 MG Cap PO ONE (22:07)
[2018-07-07] MEDS ORDERED: Amoxicillin/Clavulanate K 875-125 MG Tab PO ONE (22:07)
--- NOTE | 2018-07-07 22:10 | EDM.PDOC ---
ED HPI GENERAL MEDICAL PROBLEM - General Chief Complaint: Wound Recheck Stated Complaint: THROAT IS INFECTED, HAD SURG DONE [id number] Time Seen by Provider: 07/07/18 22:03 Source of Information: Reports: Patient History Limitations: Reports: No Limitations - History of Present Illness INITIAL COMMENTS - FREE TEXT/NARRATIVE: This 77 yo male patient reports to the ED with increased drainage with color change advisor the past couple of days from his neck surgical site. The patient had surgery in June. The patient reports he has a follow-up appointment scheduled for the of this month. Duration: Day(s):, Constant, Getting Worse Location: Reports: Other Quality: Reports: Other Severity: Mild Improves with: Reports: None Worsens with: Reports: None Context: Reports: Other Associated Symptoms: Reports: No Other Symptoms Treatments CLAIM INSPECTOR: Reports: Dressing(s) Neck Pain Score (Numeric/FACES): 5 - Related Data Allergies Allergy/AdvReac Type Severity Reaction Status Date / Time cephalexin Allergy Mild Itching Verified 07/07/18 20:15 levofloxacin [From Levaquin] Allergy chest pain Verified 07/07/18 20:15 and SOB Home Meds: Home Meds Aspirin [Halfprin] 81 mg PO DAILY 04/06/13 [History] Metoprolol Succinate [Toprol XL] 50 mg PO DAILY 04/06/13 [History] Ramipril [Altace] 5 mg PO DAILY 04/06/13 [History] Simvastatin [Zocor] 40 mg PO BEDTIME 04/06/13 [History] Tamsulosin [Flomax] 0.4 mg PO DAILY 04/06/13 [History] diazePAM [Valium] 5 mg PO DAILY PRN 04/06/13 [History] Clopidogrel [Plavix] 75 mg PO DAILY 06/30/13 [History] Insulin Detemir [Levemir] 0 unit SQ DAILY 09/15/13 [History] Leuprolide Acetate [Lupron Depot] 50 mg SQ ASDIRECTED 02/18/14 [History] Isosorbide Mononitrate [Imdur] 15 mg PO DAILY 07/11/15 [History] Pantoprazole [ProTONIX] 40 mg PO DAILY 10/16/15 [History] Temazepam [Restoril] 15 mg PO BEDTIME PRN #30 cap 01/19/17 [Rx] Doxycycline [Doxycycline Hyclate] 100 mg PO BID 11/05/17 [History] Pembrolizumab [Keytruda] 0 mg IV ASDIRECTED 11/05/17 [History] Cannabidiol 07/07/18 [History] Past Medical History HEENT History: Reports: Impaired Vision Cardiovascular History: Reports: Angina, Bypass, CAD, High Cholesterol, Hypertension, [place], Stents Respiratory History: Reports: Pneumonia, Recurrent Other Respiratory History: tracheostomy Gastrointestinal History: Reports: Other (See Below) Other Gastrointestinal History: feeding tube history Genitourinary History: Reports: BPH, Other (See Below) Other Genitourinary History: prostate cancer Musculoskeletal History: Reports: None Neurological History: Reports: TIA Psychiatric History: Reports: Anxiety, Depression, Panic Attack Endocrine/Metabolic History: 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, Type II, IDDM Hematologic History: Reports: None Immunologic History: Reports: None 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 "tongue" Dermatologic History: Reports: None - Infectious Disease History Infectious Disease History: Reports: None - Past Surgical History Head Surgeries/Procedures: Reports: None Cardiovascular Surgical History: Reports: Coronary Artery Bypass, Coronary Artery Stent Other Cardiovascular Surgeries/Procedures: 2 vessel bypass Respiratory Surgical History: Reports: Tracheostomy Other Respiratory Surgeries/Procedures: 06/05/18 repain of unhealing trach Social & Family History - Family History Family Medical History: Noncontributory HEENT: Reports: None Cardiac: Reports: None Respiratory: Reports: None GI: Reports: None : Reports: None OBGYN: Reports: None Musculoskeletal: Reports: None Neurological: Reports: None Psychiatric: Reports: None Endocrine/Metabolic: 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, Type I Hematologic: Reports: None Immunologic: Reports: None Dermatologic: Reports: None Oncologic: Reports: Breast, Colon, Pancreatic - Tobacco Use Smoking Status *Q: Unknown Ever Smoked - Caffeine Use Caffeine Use: Reports: Coffee - Recreational Drug Use Recreational Drug Use: No - Living Situation & Occupation Living situation: Reports: , Alone Occupation: Retired ED ROS GENERAL - Review of Systems Review Of Systems: ROS reveals no pertinent complaints other than HPI. ED EXAM, SKIN/RASH Exam: See Below Exam Limited By: No Limitations General Appearance: Alert, WD/WN, No Apparent Distress Eye Exam: Bilateral Eye: EOMI, Normal Inspection, PERRL Ears: Normal External Exam, Normal Canal, Hearing Grossly Normal, Normal TMs Nose: Normal Inspection, Normal Mucosa, No Blood Throat/Mouth: Normal Inspection, Normal Lips, Normal Teeth, Normal Gums, Normal Oropharynx, Normal Voice, No Airway Compromise Head: Atraumatic, Normocephalic Neck: Other (small amound of brownish drainage from incision site) Respiratory/Chest: No Respiratory Distress, Lungs Clear, Normal Breath Sounds, No Accessory Muscle Use, Chest Non-Tender Cardiovascular: Normal Peripheral Pulses, Regular Rate, Rhythm, No Edema, No Gallop, No JVD, No Murmur, No Rub GI/Abdominal: Normal Bowel Sounds, Soft, Non-Tender, No Organomegaly, No Distention, No Abnormal Bruit, No Mass (Male) Exam: Deferred Rectal (Males) Exam: Deferred Back Exam: Normal Inspection, Full Range of Motion, NT Extremities: Normal Inspection, Normal Range of Motion, Non-Tender, No Pedal Edema, Normal Capillary Refill Neurological: Alert, Oriented, CN II-XII Intact, Normal Cognition, Normal Gait, Normal Reflexes, No Motor/Sensory Deficits Psychiatric: Normal Affect, Normal Mood Skin: Warm, Dry, Normal Color, No Rash Location, Skin: Neck Associated features: Weeping Lymphatic: No Adenopathy Course - Vital Signs Last Recorded V/S: Last Vital Signs Temp 36.3 C 07/07/18 20:11 Pulse 73 07/07/18 20:11 Resp 20 07/07/18 20:11 BP 127/47 L 07/07/18 20:11 Pulse Ox 95 07/07/18 20:11 Departure - Departure Time of Disposition: 22:08 Disposition: Home, Self-Care 01 Condition: Fair Clinical Impression: Surgical site infection - Discharge Information *PRESCRIPTION DRUG MONITORING PROGRAM REVIEWED*: Not Applicable *COPY OF PRESCRIPTION DRUG MONITORING REPORT IN PATIENT GLADYS: Not Applicable Instructions: Wound Infection, [id number] Care Plan Goals: The patient was advised of the examination results during the visit. The patient was given an oral dose of Augmentin and Doxycycline while in the ED. The patient was discharged with a script for Augmentin (875/125) to take 1 by mouth 2 times per day for 10 days and Doxycycline (100 mg) to take 1 by mouth 2 times per day for 10 days. If the patient has any additional symptoms or concerns, the patient should either return to the emergency department or visit his primary care facility.
== END 2018-07-07 22:21 | disposition home or self-care (01) ==
LOC: DL.ED 19:38
DX: T81.43XA Infection following a procedure, organ and space surgical site, initial encounter (principal); E78.00 Pure hypercholesterolemia, unspecified; I10 Essential (primary) hypertension; I25.2 Old myocardial infarction; F41.9 Anxiety disorder, unspecified; E11.9 Type 2 diabetes mellitus without complications; F32.9 Major depressive disorder, single episode, unspecified; Z79.82 Long term (current) use of aspirin; Z79.899 Other long term (current) drug therapy; Z95.1 Presence of aortocoronary bypass graft; Z95.5 Presence of coronary angioplasty implant and graft; Z79.4 Long term (current) use of insulin; Z98.890 Other specified postprocedural states
CPT/HCPCS: 87070; 87077; 87186; 99283; A9270-GY

== ENCOUNTER 2018-08-13 04:42 | Emergency (ER) | payer MEDICARE, MEDICAID ==
[2018-08-13 05:01] VITALS: BP 155/67; PULSE 73
--- NOTE | 2018-08-13 05:24 | EDM.PDOC ---
ED HPI GENERAL MEDICAL PROBLEM - General Chief Complaint: Lower Extremity Injury/Pain Stated Complaint: FOOT IS ON FIRE Time Seen by Provider: 08/13/18 05:13 Source of Information: Reports: Patient History Limitations: Reports: No Limitations - History of Present Illness INITIAL COMMENTS - FREE TEXT/NARRATIVE: ED per wheelchair with c/o bilateral foot pain worse at heel burning sensation greater on left. Worse with weight bearing. Told neuropathy one ear ago. has not taken anything for pain. Been constant past 2 weeks Unable to be seen at clinic until October. IDDM, undergoing treatment for throat cancer. Left Foot Pain Score (Numeric/FACES): 8 - Related Data Allergies Allergy/AdvReac Type Severity Reaction Status Date / Time cephalexin Allergy Mild Itching Verified 08/13/18 05:01 levofloxacin [From Levaquin] Allergy chest pain Verified 08/13/18 05:01 and SOB Home Meds: Home Meds Aspirin [Halfprin] 81 mg PO DAILY 04/06/13 [History] Metoprolol Succinate [Toprol XL] 50 mg PO DAILY 04/06/13 [History] Ramipril [Altace] 5 mg PO DAILY 04/06/13 [History] Simvastatin [Zocor] 40 mg PO BEDTIME 04/06/13 [History] Tamsulosin [Flomax] 0.4 mg PO DAILY 04/06/13 [History] diazePAM [Valium] 5 mg PO DAILY PRN 04/06/13 [History] Clopidogrel [Plavix] 75 mg PO DAILY 06/30/13 [History] Insulin Detemir [Levemir] 0 unit SQ DAILY 09/15/13 [History] Leuprolide Acetate [Lupron Depot] 50 mg SQ ASDIRECTED 02/18/14 [History] Isosorbide Mononitrate [Imdur] 15 mg PO DAILY 07/11/15 [History] Pantoprazole [ProTONIX] 40 mg PO DAILY 10/16/15 [History] Temazepam [Restoril] 15 mg PO BEDTIME PRN #30 cap 01/19/17 [Rx] Doxycycline [Doxycycline Hyclate] 100 mg PO BID 11/05/17 [History] Pembrolizumab [Keytruda] 0 mg IV ASDIRECTED 11/05/17 [History] Cannabidiol 07/07/18 [History] Past Medical History HEENT History: Reports: Impaired Vision Cardiovascular History: Reports: Angina, Bypass, CAD, High Cholesterol, Hypertension, [place], Stents Respiratory History: Reports: Pneumonia, Recurrent Other Respiratory History: tracheostomy Gastrointestinal History: Reports: Other (See Below) Other Gastrointestinal History: feeding tube history Genitourinary History: Reports: BPH, Other (See Below) Other Genitourinary History: prostate cancer Musculoskeletal History: Reports: None Neurological History: Reports: TIA Psychiatric History: Reports: Anxiety, Depression, Panic Attack Endocrine/Metabolic History: 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, Type II, IDDM Hematologic History: Reports: None Immunologic History: Reports: None 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 "tongue" Dermatologic History: Reports: None - Infectious Disease History Infectious Disease History: Reports: None - Past Surgical History Head Surgeries/Procedures: Reports: None Cardiovascular Surgical History: Reports: Coronary Artery Bypass, Coronary Artery Stent Other Cardiovascular Surgeries/Procedures: 2 vessel bypass Respiratory Surgical History: Reports: Tracheostomy Other Respiratory Surgeries/Procedures: 06/05/18 repain of unhealing trach Social & Family History - Family History Family Medical History: Noncontributory HEENT: Reports: None Cardiac: Reports: None Respiratory: Reports: None GI: Reports: None : Reports: None OBGYN: Reports: None Musculoskeletal: Reports: None Neurological: Reports: None Psychiatric: Reports: None Endocrine/Metabolic: 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, Type I Hematologic: Reports: None Immunologic: Reports: None Dermatologic: Reports: None Oncologic: Reports: Breast, Colon, Pancreatic - Tobacco Use Smoking Status *Q: Never Smoker Second Hand Smoke Exposure: No - Caffeine Use Caffeine Use: Reports: Coffee - Recreational Drug Use Recreational Drug Use: No - Living Situation & Occupation Living situation: Reports: , Alone Occupation: Retired Review of Systems - Review of Systems Review Of Systems: ROS reveals no pertinent complaints other than HPI. ED EXAM, GENERAL - Physical Exam Exam: See Below Exam Limited By: No Limitations General Appearance: Alert, Anxious, Mild Distress Eye Exam: Bilateral Eye: EOMI Ears: Normal External Exam, Hearing Grossly Normal Throat/Mouth: Normal Inspection Head: Atraumatic, Normocephalic Neck: Other (anterior lower red, scaley scant yellow discharge on dressing) Respiratory/Chest: No Respiratory Distress, Lungs Clear Cardiovascular: Normal Peripheral Pulses, Regular Rate, Rhythm GI/Abdominal: Soft Extremities: Other (plantar foot pain, increase with flexion) Neurological: Alert, Oriented Skin Exam: Warm, Dry, Wound/Incision (scaley red anterior lower mid neck ) Course - Vital Signs Last Recorded V/S: Last Vital Signs Temp 96.6 F 08/13/18 04:54 Pulse 73 08/13/18 04:54 Resp 18 08/13/18 04:54 BP 155/67 H 08/13/18 04:54 Pulse Ox 98 08/13/18 04:54 - Orders/Labs/Meds Labs: Laboratory Tests 08/13/18 08/13/18 Range/Units 05:37 05:37 WBC 6.4 (5.0-10.0) 10^3/uL RBC 4.27 L (4.6-6.2) 10^6/uL Hgb 13.7 L (14.0-18.0) g/dL Hct 41.3 (40.0-54.0) % MCV 96.7 (80-100) fL MCH 32.1 (27.0-34.0) pg MCHC 33.2 (33.0-35.0) g/dL Plt Count 244 (150-450) 10^3/uL Neut % (Auto) 58.6 (42.2-75.2) % Lymph % (Auto) 21.5 (20.5-50.1) % [place] % (Auto) 12.3 H (2-8) % Eos % (Auto) 7.0 H (1.0-3.0) % Baso % (Auto) 0.6 (0.0-1.0) % Sodium 139 (135-145) mmol/L Potassium 4.0 (3.6-5.0) mmol/L Chloride 106 (101-111) mmol/L Carbon Dioxide 24.0 (21.0-31.0) mmol/L Anion Gap 13.0 BUN 18 (7-18) mg/dL Creatinine 1.4 H (0.6-1.3) mg/dL Est Cr Clr Drug Dosing 44.87 mL/min Estimated GFR (MDRD) 49 BUN/Creatinine Ratio 12.85 Glucose 167 H (74-105) mg/dL Calcium 8.6 (8.4-10.2) mg/dl Total Bilirubin 0.4 (0.2-1.0) mg/dL AST 22 (10-42) IU/L ALT 18 (10-60) IU/L Alkaline Phosphatase 115 (42-121) IU/L Total Protein 7.0 (6.7-8.2) g/dl Albumin 3.5 (3.2-5.5) g/dl Globulin 3.5 Albumin/Globulin Ratio 1.00 Meds: Medications Discontinued Medications Generic Name Dose Route Start Last Admin Trade Name Jessie PRN Reason Stop Dose Admin Acetaminophen 650 mg 08/13/18 05:33 08/13/18 05:40 Tylenol PO 08/13/18 05:34 650 mg NOW ONE Administration Departure - Departure Time of Disposition: 06:11 Disposition: Home, Self-Care 01 Condition: Good Clinical Impression: Peripheral neuritis of both feet, Throat cancer, IDDM (insulin dependent diabetes mellitus) - Discharge Information *PRESCRIPTION DRUG MONITORING PROGRAM REVIEWED*: No *COPY OF PRESCRIPTION DRUG MONITORING REPORT IN PATIENT GLADYS: No Instructions: Peripheral Neuropathy Forms: ED Department Discharge Additional Instructions: Gabapentin 300mg at bed x 3 days then 300mg twice daily #30 clinic follow upnext week continue dressing changes to neck at least 2 times daily Mefix tape to avoid skin irritation non adherant low lint dressing tylenol 650mg every 4 hours as needed for discomfort
[2018-08-13] MEDS ORDERED: Acetaminophen 325 MG Tab PO ONE (05:33)
== END 2018-08-13 06:26 | disposition home or self-care (01) ==
LOC: DL.ED 04:42
DX: E11.42 Type 2 diabetes mellitus with diabetic polyneuropathy (principal); C06.9 Malignant neoplasm of mouth, unspecified; F41.9 Anxiety disorder, unspecified; F32.9 Major depressive disorder, single episode, unspecified; I10 Essential (primary) hypertension; E78.00 Pure hypercholesterolemia, unspecified; I25.10 Atherosclerotic heart disease of native coronary artery without angina pectoris; I25.2 Old myocardial infarction; Z86.73 Personal history of transient ischemic attack (TIA), and cerebral infarction without residual deficits; Z79.4 Long term (current) use of insulin; Z79.899 Other long term (current) drug therapy; Z79.82 Long term (current) use of aspirin; Z88.1 Allergy status to other antibiotic agents
CPT/HCPCS: 36415; 80053; 85025; 99283; A9270

== ENCOUNTER 2018-11-23 00:04 | Emergency (ER) | payer MEDICARE, MEDICAID ==
[2018-11-23 00:20] VITALS: PULSE 74
--- NOTE | 2018-11-23 00:27 | EDM.PDOC ---
ED HPI GENERAL MEDICAL PROBLEM - General Chief Complaint: Respiratory Problem Stated Complaint: THROAT/CANT BREATHE Time Seen by Provider: 11/23/18 00:22 Source of Information: Reports: Patient History Limitations: Reports: No Limitations - History of Present Illness INITIAL COMMENTS - FREE TEXT/NARRATIVE: 4 days h/o throat tightness and feels like something is draining inside making it hard to breath. does have chest pain on-off. had trach removed 6 months ago. h/o tongue, throat, prostate cancer. - Related Data Allergies Allergy/AdvReac Type Severity Reaction Status Date / Time cephalexin Allergy Mild Itching Verified 11/23/18 00:08 levofloxacin [From Levaquin] Allergy chest pain Verified 11/23/18 00:08 and SOB Home Meds: Home Meds Aspirin [Halfprin] 81 mg PO DAILY 04/06/13 [History] Metoprolol Succinate [Toprol XL] 50 mg PO DAILY 04/06/13 [History] Ramipril [Altace] 5 mg PO DAILY 04/06/13 [History] Simvastatin [Zocor] 40 mg PO BEDTIME 04/06/13 [History] Tamsulosin [Flomax] 0.4 mg PO DAILY 04/06/13 [History] diazePAM [Valium] 5 mg PO DAILY PRN 04/06/13 [History] Clopidogrel [Plavix] 75 mg PO DAILY 06/30/13 [History] Insulin Detemir [Levemir] 0 unit SQ DAILY 09/15/13 [History] Leuprolide Acetate [Lupron Depot] 50 mg SQ ASDIRECTED 02/18/14 [History] Isosorbide Mononitrate [Imdur] 15 mg PO DAILY 07/11/15 [History] Pantoprazole [ProTONIX] 40 mg PO DAILY 10/16/15 [History] Temazepam [Restoril] 15 mg PO BEDTIME PRN #30 cap 01/19/17 [Rx] Doxycycline [Doxycycline Hyclate] 100 mg PO BID 11/05/17 [History] Pembrolizumab [Keytruda] 0 mg IV ASDIRECTED 11/05/17 [History] Cannabidiol 07/07/18 [History] Past Medical History HEENT History: Reports: Impaired Vision Cardiovascular History: Reports: Angina, Bypass, CAD, High Cholesterol, Hypertension, [place], Stents Respiratory History: Reports: Pneumonia, Recurrent Other Respiratory History: tracheostomy Gastrointestinal History: Reports: Other (See Below) Other Gastrointestinal History: feeding tube history Genitourinary History: Reports: BPH Other Genitourinary History: prostate cancer Musculoskeletal History: Reports: None Neurological History: Reports: TIA Psychiatric History: Reports: Anxiety, Depression, Panic Attack Endocrine/Metabolic History: 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, Type II, IDDM Hematologic History: Reports: None Immunologic History: Reports: None 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 "tongue" Dermatologic History: Reports: None - Infectious Disease History Infectious Disease History: Reports: None, Chicken Pox, Measles - Past Surgical History Head Surgeries/Procedures: Reports: None Cardiovascular Surgical History: Reports: Coronary Artery Bypass, Coronary Artery Stent Other Cardiovascular Surgeries/Procedures: 2 vessel bypass Respiratory Surgical History: Reports: Tracheostomy Other Respiratory Surgeries/Procedures: 06/05/18 repain of unhealing trach Social & Family History - Family History Family Medical History: Noncontributory HEENT: Reports: None Cardiac: Reports: None Respiratory: Reports: None GI: Reports: None : Reports: None OBGYN: Reports: None Musculoskeletal: Reports: None Neurological: Reports: None Psychiatric: Reports: None Endocrine/Metabolic: 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, Type I Hematologic: Reports: None Immunologic: Reports: None Dermatologic: Reports: None Oncologic: Reports: Breast, Colon, Pancreatic - Tobacco Use Smoking Status *Q: Former Smoker Used Tobacco, but Quit: Yes Month/Year Tobacco Last Used: 1990 - Caffeine Use Caffeine Use: Reports: Coffee - Recreational Drug Use Recreational Drug Use: No - Living Situation & Occupation Living situation: Reports: , Alone Occupation: Retired ED ROS GENERAL - Review of Systems Review Of Systems: ROS reveals no pertinent complaints other than HPI. ED EXAM, GENERAL - Physical Exam Exam: See Below Exam Limited By: No Limitations General Appearance: Alert, WD/WN, Anxious, Mild Distress Ears: Hearing Grossly Normal Throat/Mouth: Normal Voice, No Airway Compromise Head: Atraumatic Neck: Non-Tender, Full Range of Motion Respiratory/Chest: No Respiratory Distress, Rhonchi Cardiovascular: Regular Rate, Rhythm GI/Abdominal: Soft, Non-Tender Neurological: Alert, Oriented, Normal Cognition, Normal Gait, No Motor/Sensory Deficits Psychiatric: Flat Affect Skin Exam: Warm, Dry, Normal Color Lymphatic: No Adenopathy Course - Vital Signs Last Recorded V/S: Last Vital Signs Temp 36.5 C 11/23/18 02:11 Pulse 74 11/23/18 01:17 Resp 18 11/23/18 01:17 BP 126/45 L 11/23/18 01:17 Pulse Ox 97 11/23/18 01:17 - Orders/Labs/Meds Orders: Active Orders 24 hr Category Date Time Status EKG 12 Lead [EKG Documentation Completion] [RC] STAT Care 11/23/18 00:19 Active Labs: Laboratory Tests 11/23/18 11/23/18 Range/Units 00:22 00:22 WBC 7.5 (5.0-10.0) 10^3/uL RBC 4.55 L (4.6-6.2) 10^6/uL Hgb 14.7 (14.0-18.0) g/dL Hct 44.2 (40.0-54.0) % MCV 97.1 (80-100) fL MCH 32.3 (27.0-34.0) pg MCHC 33.3 (33.0-35.0) g/dL Plt Count 264 (150-450) 10^3/uL Neut % (Auto) 53.0 (42.2-75.2) % Lymph % (Auto) 29.5 (20.5-50.1) % [place] % (Auto) 11.1 H (2-8) % Eos % (Auto) 6.0 H (1.0-3.0) % Baso % (Auto) 0.4 (0.0-1.0) % Sodium 139 (135-145) mmol/L Potassium 4.0 (3.6-5.0) mmol/L Chloride 103 (101-111) mmol/L Carbon Dioxide 27.0 (21.0-31.0) mmol/L Anion Gap 13.0 BUN 22 H (7-18) mg/dL Creatinine 1.8 H (0.6-1.3) mg/dL Est Cr Clr Drug Dosing 34.36 mL/min Estimated GFR (MDRD) 37 BUN/Creatinine Ratio 12.22 Glucose 146 H (74-105) mg/dL Calcium 9.1 (8.4-10.2) mg/dl Total Bilirubin 0.5 (0.2-1.0) mg/dL AST 23 (10-42) IU/L ALT 20 (10-60) IU/L Alkaline Phosphatase 103 (42-121) IU/L Troponin I 0.02 (0.00-0.02) ng/ml B-Natriuretic Peptide 28 (0-100) pg/ml Total Protein 7.5 (6.7-8.2) g/dl Albumin 3.8 (3.2-5.5) g/dl Globulin 3.7 Albumin/Globulin Ratio 1.03 Meds: Medications Discontinued Medications Generic Name Dose Route Start Last Admin Trade Name Freq PRN Reason Stop Dose Admin Al Hydroxide/Mg Hydroxide 30 ml 11/23/18 01:51 11/23/18 01:58 Gi Cocktail PO 11/23/18 01:52 30 ml ONETIME ONE Administration - Re-Assessments/Exams Free Text/Narrative Re-Assessment/Exam: 11/23/18 01:52 results discussed with pt who states he has appt with ENT but would like something for his heartburn so he can sleep better tonight. Departure - Departure Time of Disposition: 02:10 Disposition: Home, Self-Care 01 Condition: Good Clinical Impression: Throat cancer, Gastroesophageal reflux disease - Discharge Information Referrals: PCP,None [Ordering Only Provider] - Forms: ED Department Discharge Additional Instructions: 1) don't sleep flat at night 2) see clinic tomorrow for possible MRI SCAN of neck - My Orders Last 24 Hours: My Active Orders 11/23/18 00:19 EKG 12 Lead [EKG Documentation Completion] [RC] STAT - Assessment/Plan Last 24 Hours: My Active Orders 11/23/18 00:19 EKG 12 Lead [EKG Documentation Completion] [RC] STAT
[2018-11-23 01:18] VITALS: BP 126/45
[2018-11-23] MEDS ORDERED: GI Cocktail Oral Solution 30 ML PO ONE (01:51)
== END 2018-11-23 02:12 | disposition home or self-care (01) ==
LOC: DL.ED 00:04
DX: K21.9 Gastro-esophageal reflux disease without esophagitis (principal); C14.0 Malignant neoplasm of pharynx, unspecified; I10 Essential (primary) hypertension; E11.9 Type 2 diabetes mellitus without complications; I25.119 Atherosclerotic heart disease of native coronary artery with unspecified angina pectoris; E78.00 Pure hypercholesterolemia, unspecified; I25.2 Old myocardial infarction; F41.0 Panic disorder [episodic paroxysmal anxiety]; F32.9 Major depressive disorder, single episode, unspecified; N40.0 Benign prostatic hyperplasia without lower urinary tract symptoms; Z87.891 Personal history of nicotine dependence; Z95.1 Presence of aortocoronary bypass graft; Z95.2 Presence of prosthetic heart valve; Z88.8 Allergy status to other drugs, medicaments and biological substances; Z79.82 Long term (current) use of aspirin; Z79.02 Long term (current) use of antithrombotics/antiplatelets; Z79.899 Other long term (current) drug therapy; Z79.4 Long term (current) use of insulin
CPT/HCPCS: 36415; 70490; 71045; 80053; 83880; 84484; 85025; 93005; 99284; A9270

== ENCOUNTER 2018-12-24 01:03 | Emergency (ER) | payer MEDICARE, MEDICAID ==
[2018-12-24 01:25] VITALS: BP 154/65; PULSE 76
--- NOTE | 2018-12-24 01:36 | EDM.PDOC ---
ED HPI GENERAL MEDICAL PROBLEM - General Chief Complaint: ENT Problem Stated Complaint: THROAT PAIN Time Seen by Provider: 12/24/18 01:26 Source of Information: Reports: Patient, RN, RN Notes Reviewed History Limitations: Reports: No Limitations - History of Present Illness INITIAL COMMENTS - FREE TEXT/NARRATIVE: 78 year old male who presents to the ER with complaint of right neck pain with for the past two days. He states he has pull his neck while carrying stuff into his tractor. He has not tried anything for pain and could not sleep tonight. He denies any trauma, injury or fall. 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 Denies any fever/chills or URI symptoms at this time. Location: Reports: Neck Quality: Reports: Ache Severity: Mild Improves with: Reports: Rest Worsens with: Reports: None Right Neck Pain Score (Numeric/FACES): 5 - Related Data Allergies Allergy/AdvReac Type Severity Reaction Status Date / Time cephalexin Allergy Mild Itching Verified 12/24/18 01:13 levofloxacin [From Levaquin] Allergy chest pain Verified 12/24/18 01:13 and SOB Home Meds: Home Meds Aspirin [Halfprin] 81 mg PO DAILY 04/06/13 [History] Metoprolol Succinate [Toprol XL] 50 mg PO DAILY 04/06/13 [History] Ramipril [Altace] 5 mg PO DAILY 04/06/13 [History] Simvastatin [Zocor] 40 mg PO BEDTIME 04/06/13 [History] Tamsulosin [Flomax] 0.4 mg PO DAILY 04/06/13 [History] diazePAM [Valium] 5 mg PO DAILY PRN 04/06/13 [History] Clopidogrel [Plavix] 75 mg PO DAILY 06/30/13 [History] Insulin Detemir [Levemir] 0 unit SQ DAILY 09/15/13 [History] Leuprolide Acetate [Lupron Depot] 50 mg SQ ASDIRECTED 02/18/14 [History] Isosorbide Mononitrate [Imdur] 15 mg PO DAILY 07/11/15 [History] Pantoprazole [ProTONIX] 40 mg PO DAILY 10/16/15 [History] Temazepam [Restoril] 15 mg PO BEDTIME PRN #30 cap 01/19/17 [Rx] Doxycycline [Doxycycline Hyclate] 100 mg PO BID 11/05/17 [History] Pembrolizumab [Keytruda] 0 mg IV ASDIRECTED 11/05/17 [History] Cannabidiol 07/07/18 [History] Past Medical History HEENT History: Reports: Impaired Vision Cardiovascular History: Reports: Angina, Bypass, CAD, High Cholesterol, Hypertension, [place], Stents Respiratory History: Reports: Pneumonia, Recurrent Other Respiratory History: tracheostomy Gastrointestinal History: Reports: Other (See Below) Other Gastrointestinal History: feeding tube history Genitourinary History: Reports: BPH Other Genitourinary History: prostate cancer Musculoskeletal History: Reports: None Neurological History: Reports: TIA Psychiatric History: Reports: Anxiety, Depression, Panic Attack Endocrine/Metabolic History: 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, Type II, IDDM Hematologic History: Reports: None Immunologic History: Reports: None 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 "tongue" Dermatologic History: Reports: None - Infectious Disease History Infectious Disease History: Reports: None, Chicken Pox, Measles - Past Surgical History Head Surgeries/Procedures: Reports: None Cardiovascular Surgical History: Reports: Coronary Artery Bypass, Coronary Artery Stent Other Cardiovascular Surgeries/Procedures: 2 vessel bypass Respiratory Surgical History: Reports: Tracheostomy Other Respiratory Surgeries/Procedures: 06/05/18 repain of unhealing trach Social & Family History - Family History Family Medical History: Noncontributory HEENT: Reports: None Cardiac: Reports: None Respiratory: Reports: None GI: Reports: None : Reports: None OBGYN: Reports: None Musculoskeletal: Reports: None Neurological: Reports: None Psychiatric: Reports: None Endocrine/Metabolic: 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, Type I Hematologic: Reports: None Immunologic: Reports: None Dermatologic: Reports: None Oncologic: Reports: Breast, Colon, Pancreatic - Caffeine Use Caffeine Use: Reports: Coffee - Living Situation & Occupation Living situation: Reports: , Alone Occupation: Retired ED ROS ENT - Review of Systems Review Of Systems: ROS reveals no pertinent complaints other than HPI. ED EXAM, ENT - Physical Exam Exam: See Below Exam Limited By: No Limitations General Appearance: Alert, WD/WN, No Apparent Distress Nose: Normal Inspection, Normal Mucousa, No Blood Mouth/Throat: Normal Inspection, Normal Gums, Normal Lips, Normal Oropharynx, Normal Teeth Neck: Normal Inspection, Full Range of Motion, Tender Lateral (on the right side of his neck muscle) Respiratory/Chest: No Respiratory Distress, Lungs Clear, Normal Breath Sounds, No Accessory Muscle Use, Chest Non-Tender Cardiovascular: Normal Peripheral Pulses, Regular Rate, Rhythm, No Edema, No Gallop, No JVD, No Murmur, No Rub Neurological: Alert, Oriented Psychiatric: Normal Affect, Normal Mood Skin: Warm, Dry, Intact, Normal Color, No Rash Lymphatic: No Adenopathy Course - Vital Signs Last Recorded V/S: Last Vital Signs Temp 98.0 F 12/24/18 01:24 Pulse 76 12/24/18 01:24 Resp 18 12/24/18 01:24 BP 154/65 H 12/24/18 01:24 Pulse Ox 95 12/24/18 01:24 Departure - Departure Time of Disposition: 01:49 Disposition: Refer to Observation Clinical Impression: Neck muscle spasm - Discharge Information *PRESCRIPTION DRUG MONITORING PROGRAM REVIEWED*: Not Applicable *COPY OF PRESCRIPTION DRUG MONITORING REPORT IN PATIENT GLADYS: Not Applicable Instructions: Muscle Cramps and Spasms, [id number], Heat Therapy, Easy-to- Read Care Plan Goals: Encouraged to apply and massage Biofreeze to the muscle of the left side of his neck . Patient reports he has a CBD cream which helps with spasms and he will use it. Follow up with PCP as scheduled. Symptoms to return to the ER reviewed with patient.
== END 2018-12-24 02:05 | disposition home or self-care (01) ==
LOC: DL.ED 01:03
DX: M62.838 Other muscle spasm (principal); I10 Essential (primary) hypertension; E78.5 Hyperlipidemia, unspecified; I25.2 Old myocardial infarction; E11.9 Type 2 diabetes mellitus without complications; Z88.1 Allergy status to other antibiotic agents; Z79.82 Long term (current) use of aspirin; Z95.5 Presence of coronary angioplasty implant and graft; Z79.4 Long term (current) use of insulin; Z79.01 Long term (current) use of anticoagulants
CPT/HCPCS: 99282

== ENCOUNTER 2019-03-20 03:00 | Emergency (ER) | payer MEDICARE, MEDICAID ==
[2019-03-20] MEDS ORDERED: Ketorolac 30 MG/ML SDV IVPUSH ONE (03:15)
--- NOTE | 2019-03-20 03:21 | EDM.PDOC ---
ED HPI GENERAL MEDICAL PROBLEM - General Chief Complaint: Headache Stated Complaint: AMBULANCE Time Seen by Provider: 03/20/19 03:16 Source of Information: Reports: Patient History Limitations: Reports: No Limitations - History of Present Illness INITIAL COMMENTS - FREE TEXT/NARRATIVE: 3 days h/o pain right upper neck area. denies injury or straining. but did fall onto his buttocks 2 weeks ago. got up by self and doing fine. denies CP/SOB perse. states his head really doesn't hurt just right side of his neck. Right Posterior Neck Pain Score (Numeric/FACES): 8 Right Shoulder Pain Score (Numeric/FACES): 8 - Related Data Allergies Allergy/AdvReac Type Severity Reaction Status Date / Time cephalexin Allergy Mild Itching Verified 12/24/18 01:13 levofloxacin [From Levaquin] Allergy chest pain Verified 12/24/18 01:13 and SOB Home Meds: Home Meds Aspirin [Halfprin] 81 mg PO DAILY 04/06/13 [History] Metoprolol Succinate [Toprol XL] 50 mg PO DAILY 04/06/13 [History] Ramipril [Altace] 5 mg PO DAILY 04/06/13 [History] Simvastatin [Zocor] 40 mg PO BEDTIME 04/06/13 [History] Tamsulosin [Flomax] 0.4 mg PO DAILY 04/06/13 [History] diazePAM [Valium] 5 mg PO DAILY PRN 04/06/13 [History] Clopidogrel [Plavix] 75 mg PO DAILY 06/30/13 [History] Insulin Detemir [Levemir] 0 unit SQ DAILY 09/15/13 [History] Leuprolide Acetate [Lupron Depot] 50 mg SQ ASDIRECTED 02/18/14 [History] Isosorbide Mononitrate [Imdur] 15 mg PO DAILY 07/11/15 [History] Pantoprazole [ProTONIX] 40 mg PO DAILY 10/16/15 [History] Temazepam [Restoril] 15 mg PO BEDTIME PRN #30 cap 01/19/17 [Rx] Doxycycline [Doxycycline Hyclate] 100 mg PO BID 11/05/17 [History] Pembrolizumab [Keytruda] 0 mg IV ASDIRECTED 11/05/17 [History] Cannabidiol 07/07/18 [History] Past Medical History HEENT History: Reports: Impaired Vision Cardiovascular History: Reports: Angina, Bypass, CAD, High Cholesterol, Hypertension, [place], Stents Respiratory History: Reports: Pneumonia, Recurrent Other Respiratory History: tracheostomy Gastrointestinal History: Reports: Other (See Below) Other Gastrointestinal History: feeding tube history Genitourinary History: Reports: BPH Other Genitourinary History: prostate cancer Musculoskeletal History: Reports: None Neurological History: Reports: TIA Psychiatric History: Reports: Anxiety, Depression, Panic Attack Endocrine/Metabolic History: 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, Type II, IDDM Hematologic History: Reports: None Immunologic History: Reports: None 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 "tongue" Dermatologic History: Reports: None - Infectious Disease History Infectious Disease History: Reports: None, Chicken Pox, Measles - Past Surgical History Head Surgeries/Procedures: Reports: None Cardiovascular Surgical History: Reports: Coronary Artery Bypass, Coronary Artery Stent Other Cardiovascular Surgeries/Procedures: 2 vessel bypass Respiratory Surgical History: Reports: Tracheostomy Other Respiratory Surgeries/Procedures: 06/05/18 repain of unhealing trach Social & Family History - Family History Family Medical History: Noncontributory HEENT: Reports: None Cardiac: Reports: None Respiratory: Reports: None GI: Reports: None : Reports: None OBGYN: Reports: None Musculoskeletal: Reports: None Neurological: Reports: None Psychiatric: Reports: None Endocrine/Metabolic: 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, Type I Hematologic: Reports: None Immunologic: Reports: None Dermatologic: Reports: None Oncologic: Reports: Breast, Colon, Pancreatic - Caffeine Use Caffeine Use: Reports: Coffee - Living Situation & Occupation Living situation: Reports: , Alone Occupation: Retired ED ROS GENERAL - Review of Systems Review Of Systems: Comprehensive ROS is negative, except as noted in HPI. - Physical Exam Exam: See Below Exam Limited By: No Limitations General Appearance: Alert, WD/WN, Mild Distress, Other (discomfort) Ears: Hearing Grossly Normal Throat/Mouth: Normal Voice, No Airway Compromise Head Exam: Atraumatic Neck: Tender Lateral, Other (right C2-3-4-5 region) Respiratory/Chest: No Respiratory Distress Cardiovascular: Regular Rate, Rhythm GI/Abdominal: Soft, Non-Tender Neuro Exam (Abbreviated): Alert, Oriented, Normal Cognition, Normal Gait, No Motor/Sensory Deficits Psychiatric: Normal Affect, Normal Mood Skin Exam: Warm, Dry, Normal Color Course - Vital Signs Last Recorded V/S: Last Vital Signs Temp 36.5 C 03/20/19 03:03 Pulse 74 03/20/19 03:03 Resp 19 03/20/19 03:03 BP 154/62 H 03/20/19 03:03 Pulse Ox 95 03/20/19 03:03 - Orders/Labs/Meds Orders: Active Orders 24 hr Category Date Time Status Cervical Spine wo Cont [CT] Urgent Exams 03/20/19 04:04 Taken Labs: Laboratory Tests 03/20/19 03/20/19 Range/Units 03:24 03:24 WBC 6.1 (5.0-10.0) 10^3/uL RBC 4.28 L (4.6-6.2) 10^6/uL Hgb 13.7 L (14.0-18.0) g/dL Hct 41.5 (40.0-54.0) % MCV 97.0 (80-100) fL MCH 32.0 (27.0-34.0) pg MCHC 33.0 (33.0-35.0) g/dL Plt Count 252 (150-450) 10^3/uL Neut % (Auto) 53.6 (42.2-75.2) % Lymph % (Auto) 22.7 (20.5-50.1) % Blair % (Auto) 16.6 H (2-8) % Eos % (Auto) 6.6 H (1.0-3.0) % Baso % (Auto) 0.5 (0.0-1.0) % Sodium 138 (135-145) mmol/L Potassium 4.3 (3.6-5.0) mmol/L Chloride 103 (101-111) mmol/L Carbon Dioxide 27.0 (21.0-31.0) mmol/L Anion Gap 12.3 BUN 23 H (7-18) mg/dL Creatinine 1.5 H (0.6-1.3) mg/dL Est Cr Clr Drug Dosing 40.56 mL/min Estimated GFR (MDRD) 45 BUN/Creatinine Ratio 15.33 Glucose 126 H (74-105) mg/dL Calcium 8.6 (8.4-10.2) mg/dl Total Bilirubin 0.4 (0.2-1.0) mg/dL AST 19 (10-42) IU/L ALT 23 (10-60) IU/L Alkaline Phosphatase 100 (42-121) IU/L Troponin I < 0.02 (0.00-0.02) ng/ml Total Protein 7.5 (6.7-8.2) g/dl Albumin 3.5 (3.2-5.5) g/dl Globulin 4.0 Albumin/Globulin Ratio 0.88 Meds: Medications Discontinued Medications Generic Name Dose Route Start Last Admin Trade Name Freq PRN Reason Stop Dose Admin Ketorolac Tromethamine 30 mg 03/20/19 03:15 03/20/19 03:30 Toradol IVPUSH 03/20/19 03:16 30 mg ONETIME ONE Administration - Re-Assessments/Exams Free Text/Narrative Re-Assessment/Exam: 03/20/19 04:05 re-exam; s/p Iv toradol = better, sharp pain gone but still has dull pain when moves neck and also right arm has difficulty in moving, feels heavy. states when he fell 2 weeks ago he guarded his neck so he wouldn't hurt it but felt it snap back. but pain went away till few days ago it came back. denies paeresis/ paraesthesia except right arm hurts to move. 03/20/19 05:38 CAT results discussed with pt. Departure - Departure Time of Disposition: 05:39 Disposition: Home, Self-Care 01 Condition: Good Clinical Impression: Cervical myofascial strain Qualifiers: Encounter type: initial encounter Qualified Code(s): S16.1XXA - Strain of muscle, fascia and tendon at neck level, initial encounter - Discharge Information Instructions: Muscle Strain, [id number] Forms: ED Department Discharge Additional Instructions: 1) avoid bending lifting straining 2) try ice or heat to sore areas 3) follow up at clinic rx given; flexeril 10mg bid prn x 12 Sepsis Event Note - Focused Exam Vital Signs: Vital Signs Temp Pulse Resp BP Pulse Ox 03/20/19 03:03 36.5 C 74 19 154/62 H 95 Date Exam was Performed: 03/20/19 Time Exam was Performed: 05:38 - My Orders Last 24 Hours: My Active Orders 03/20/19 04:04 Cervical Spine wo Cont [CT] Urgent - Assessment/Plan Last 24 Hours: My Active Orders 03/20/19 04:04 Cervical Spine wo Cont [CT] Urgent
[2019-03-20 03:49] LABS: ANION GAP 12.3; CHLORIDE,CL 103 mmol/L (101-111); SODIUM,NA 138 mmol/L (135-145)
[2019-03-20 05:39] VITALS: BP 122/67; PULSE 87
[2019-03-20] MEDS ORDERED: Acetaminophen/HYDROcodone 325-10 MG Tab PO ONE (05:41)
== END 2019-03-20 05:52 | disposition home or self-care (01) ==
LOC: DL.ED 03:00
DX: S16.1XXA Strain of muscle, fascia and tendon at neck level, initial encounter (principal); I10 Essential (primary) hypertension; E11.9 Type 2 diabetes mellitus without complications; Z79.899 Other long term (current) drug therapy; Z79.4 Long term (current) use of insulin; E78.00 Pure hypercholesterolemia, unspecified; Z86.73 Personal history of transient ischemic attack (TIA), and cerebral infarction without residual deficits; W01.0XXA Fall on same level from slipping, tripping and stumbling without subsequent striking against object, initial encounter
CPT/HCPCS: 36415; 72125; 80053; 84484; 85025; 96374; 99283; 99284; A9270; J1885

== ENCOUNTER 2019-04-08 15:45 | Emergency (ER) | payer MEDICARE, MEDICAID, OTHER ==
[2019-04-08 15:51] VITALS: BP 132/53; PULSE 99
--- NOTE | 2019-04-08 16:13 | EDM.PDOC ---
ED HPI GENERAL MEDICAL PROBLEM - General Chief Complaint: Neck Problem Stated Complaint: WEAK Time Seen by Provider: 04/08/19 16:00 Source of Information: Reports: Patient, Old Records, RN, RN Notes Reviewed History Limitations: Reports: No Limitations - History of Present Illness INITIAL COMMENTS - FREE TEXT/NARRATIVE: Patient presents to ER by POV brought by family member due to increased pain to neck and shoulders. Pain is worse today than yesterday, rates at 5-6/10. Pt reports he was exposed to a grandson who had flu symptoms and fever last week. Pt reports subjective fevers began yesterday, but right now in the ER he does not feel fevers. Patient was nauseated earlier today, none at present. No diarrhea or vomiting. Patient's grandson has been sick with fever and vomiting, yesterday. Patient has history of throat cancer, uses Keytruda, last dose on . Onset: Gradual Duration: Chronic, Constant, Getting Worse Location: Reports: Generalized Quality: Reports: Ache Severity: Moderate Improves with: Reports: None Worsens with: Reports: None Associated Symptoms: Reports: No Other Symptoms neck/shoulders Pain Score (Numeric/FACES): 6 - Related Data Allergies Allergy/AdvReac Type Severity Reaction Status Date / Time cephalexin Allergy Mild Itching Verified 04/08/19 15:58 levofloxacin [From Levaquin] Allergy chest pain Verified 04/08/19 15:58 and SOB Home Meds: Home Meds Aspirin [Halfprin] 81 mg PO DAILY 04/06/13 [History] Metoprolol Succinate [Toprol XL] 50 mg PO DAILY 04/06/13 [History] Simvastatin [Zocor] 40 mg PO BEDTIME 04/06/13 [History] Tamsulosin [Flomax] 0.4 mg PO DAILY 04/06/13 [History] diazePAM [Valium] 5 mg PO DAILY PRN 04/06/13 [History] ramipriL [Altace] 5 mg PO DAILY 04/06/13 [History] Clopidogrel [Plavix] 75 mg PO DAILY 06/30/13 [History] Insulin Detemir [Levemir] 0 unit SQ DAILY 09/15/13 [History] Leuprolide Acetate [Lupron Depot] 50 mg SQ ASDIRECTED 02/18/14 [History] Isosorbide Mononitrate [Imdur] 15 mg PO DAILY 07/11/15 [History] Pantoprazole [ProTONIX] 40 mg PO DAILY 10/16/15 [History] Temazepam [Restoril] 15 mg PO BEDTIME PRN #30 cap 01/19/17 [Rx] Doxycycline [Doxycycline Hyclate] 100 mg PO BID 11/05/17 [History] Pembrolizumab [Keytruda] 0 mg IV ASDIRECTED 11/05/17 [History] Cannabidiol 07/07/18 [History] Past Medical History HEENT History: Reports: Impaired Vision Cardiovascular History: Reports: Angina, Bypass, CAD, High Cholesterol, Hypertension, [place], Stents Respiratory History: Reports: Pneumonia, Recurrent Other Respiratory History: tracheostomy Gastrointestinal History: Reports: Other (See Below) Other Gastrointestinal History: feeding tube history Genitourinary History: Reports: BPH Other Genitourinary History: prostate cancer Musculoskeletal History: Reports: None Neurological History: Reports: TIA Psychiatric History: Reports: Anxiety, Depression, Panic Attack Endocrine/Metabolic History: 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, Type II, IDDM Hematologic History: Reports: None Immunologic History: Reports: None 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 "tongue" Dermatologic History: Reports: None - Infectious Disease History Infectious Disease History: Reports: Chicken Pox, Measles - Past Surgical History Head Surgeries/Procedures: Reports: None Cardiovascular Surgical History: Reports: Coronary Artery Bypass, Coronary Artery Stent Other Cardiovascular Surgeries/Procedures: 2 vessel bypass Respiratory Surgical History: Reports: Tracheostomy Other Respiratory Surgeries/Procedures: 06/05/18 repain of unhealing trach, healed on 04/08/2019 Social & Family History - Family History Family Medical History: Noncontributory HEENT: Reports: None Cardiac: Reports: None Respiratory: Reports: None GI: Reports: None : Reports: None OBGYN: Reports: None Musculoskeletal: Reports: None Neurological: Reports: None Psychiatric: Reports: None Endocrine/Metabolic: 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, Type I Hematologic: Reports: None Immunologic: Reports: None Dermatologic: Reports: None Oncologic: Reports: Breast, Colon, Pancreatic - Tobacco Use Smoking Status *Q: Never Smoker Second Hand Smoke Exposure: No - Caffeine Use Caffeine Use: Reports: Coffee - Recreational Drug Use Recreational Drug Use: No - Living Situation & Occupation Living situation: Reports: , Alone Occupation: Retired ED ROS GENERAL - Review of Systems Review Of Systems: Comprehensive ROS is negative, except as noted in HPI. ED EXAM, UPPER BACK/NECK PAIN - Physical Exam Exam: See Below Exam Limited By: No Limitations General Appearance: Alert, No Apparent Distress, Other (chronically ill appearing) Eye Exam: Bilateral Eye: Conjunctival Injection (mild, with yellow matting), Normal Inspection, PERRL Ears Exam: Normal External Exam, Hearing Grossly Normal Nose Exam: Normal Inspection, Normal Mucousa, No Blood Throat/Mouth Exam: Normal Inspection, Normal Lips, No Airway Compromise Head Exam: Atraumatic, Normocephalic Neck Exam: Full Range of Motion, Normal Alignment, Paraspinous Muscle Tender. No: Stiff Neck Nexus Criteria: No: Posterior, Midline Cervical Tenderness, Evidence of Intoxication, Altered Level of Consciousness, Focal Neurological Deficit, Painful Distraction Injuries Cardiovascular/Respiratory: Regular Rate, Rhythm, Normal Peripheral Pulses, Normal Breath Sounds, No Respiratory Distress, Other (Mild dry cough). No: Rales, Rhonchi GI/Abdominal: Normal Bowel Sounds (Male) Exam: Deferred Rectal (Males) Exam: Deferred Back Exam: Normal Inspection Extremities: Normal Inspection Neurologic: rubber tile floor layer II-XII nml As Tested, No Motor/Sensory Deficits, Alert, Normal Mood/Affect, Oriented x 3 Psychiatric: Normal Affect, Normal Mood Skin Exam: Normal Color, Warm/Dry Course - Vital Signs Last Recorded V/S: Last Vital Signs Temp 99.7 F 04/08/19 15:49 Pulse 99 04/08/19 15:49 Resp 20 04/08/19 15:49 BP 132/53 L 04/08/19 15:49 Pulse Ox 94 L 04/08/19 15:49 - Orders/Labs/Meds Orders: Active Orders 24 hr Category Date Time Status CULTURE STREP A CONFIRMATION [] Stat Lab 04/08/19 16:14 Results STREP SCRN A RAPID W CULT CONF [] Stat Lab 04/08/19 16:14 Results Labs: Laboratory Tests 04/08/19 04/08/19 04/08/19 Range/Units 16:39 16:39 17:04 WBC 7.5 (5.0-10.0) 10^3/uL RBC 4.39 L (4.6-6.2) 10^6/uL Hgb 14.1 (14.0-18.0) g/dL Hct 42.5 (40.0-54.0) % MCV 96.8 (80-100) fL MCH 32.1 (27.0-34.0) pg MCHC 33.2 (33.0-35.0) g/dL Plt Count 201 (150-450) 10^3/uL Neut % (Auto) 77.8 H (42.2-75.2) % Lymph % (Auto) 6.3 L (20.5-50.1) % Jackson % (Auto) 14.2 H (2-8) % Eos % (Auto) 1.6 (1.0-3.0) % Baso % (Auto) 0.1 (0.0-1.0) % Sodium 131 L (135-145) mmol/L Potassium 4.4 (3.6-5.0) mmol/L Chloride 97 L (101-111) mmol/L Carbon Dioxide 23.0 (21.0-31.0) mmol/L Anion Gap 15.4 BUN 17 (7-18) mg/dL Creatinine 1.4 H (0.6-1.3) mg/dL Est Cr Clr Drug Dosing 43.45 mL/min Estimated GFR (MDRD) 49 BUN/Creatinine Ratio 12.14 Glucose 197 H (74-105) mg/dL Calcium 8.7 (8.4-10.2) mg/dl Total Bilirubin 0.6 (0.2-1.0) mg/dL AST 30 (10-42) IU/L ALT 22 (10-60) IU/L Alkaline Phosphatase 102 (42-121) IU/L Total Protein 8.1 (6.7-8.2) g/dl Albumin 3.9 (3.2-5.5) g/dl Globulin 4.2 Albumin/Globulin Ratio 0.93 Urine Color Yellow (YELLOW) Urine Appearance Clear (CLEAR) Urine pH 6.0 (5.0-9.0) Ur Specific [place] 1.020 (1.005-1.030) Urine Protein 30 H (NEGATIVE) Urine Glucose (UA) 100 H (NEGATIVE) Urine Ketones Negative (NEGATIVE) Urine Occult Blood Trace-lysed H (NEGATIVE) Urine Nitrite Negative (NEGATIVE) Urine Bilirubin Negative (NEGATIVE) Urine Urobilinogen 1.0 (0.2-1.0) mg/dL Ur Leukocyte Esterase Negative (NEGATIVE) Urine RBC 5-10 H /HPF Urine WBC 0-5 (0-5/HPF) /HPF Ur Epithelial Cells Rare (NOT SEEN) /HPF Amorphous Sediment Rare (NOT SEEN) /HPF Urine Bacteria Rare (0-FEW/HPF) /HPF Urine Mucus Occasional (NOT SEEN) /LPF Influenza A/B: negative Rapid Strep: negative Meds: Medications Discontinued Medications Generic Name Dose Route Start Last Admin Trade Name Jessie PRN Reason Stop Dose Admin Gentamicin Sulfate 1 ml 04/08/19 16:19 04/08/19 16:26 Garamycin 0.3% Ophth Soln EYEBOTH 04/08/19 16:20 1 drop ONETIME ONE Administration Departure - Departure Time of Disposition: 17:39 Disposition: Home, Self-Care 01 Condition: Fair Clinical Impression: Viral upper respiratory infection, Bacterial conjunctivitis of both eyes Dry eye syndrome Qualifiers: Laterality: bilateral Qualified Code(s): 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 Rx: Tessalon Perles 200mg Use an over the counter drop for dry eyes such as 'Clear Eye'. Follow up in clinic in 3 to 5 days for recheck if needed. Sepsis Event Note - Evaluation Sepsis Screening Result: No Definite Risk - Focused Exam Vital Signs: Vital Signs Temp Pulse Resp BP Pulse Ox 04/08/19 15:49 99.7 F 99 20 132/53 L 94 L Date Exam was Performed: 04/08/19 Time Exam was Performed: 17:39 - My Orders Last 24 Hours: My Active Orders 04/08/19 16:14 CULTURE STREP A CONFIRMATION [RM] Stat STREP SCRN A RAPID W CULT CONF [] Stat - Assessment/Plan Last 24 Hours: My Active Orders 04/08/19 16:14 CULTURE STREP A CONFIRMATION [RM] Stat STREP SCRN A RAPID W CULT CONF [] Stat
[2019-04-08] MEDS ORDERED: Gentamicin 0.3% Ophth Soln 5 ML Bottle EYEBOTH ONE (16:19)
[2019-04-08 17:21] LABS: ANION GAP 15.4
== END 2019-04-08 17:53 | disposition home or self-care (01) ==
LOC: DL.ED 15:45
DX: J06.9 Acute upper respiratory infection, unspecified (principal); H10.9 Unspecified conjunctivitis; H04.123 Dry eye syndrome of bilateral lacrimal glands; I25.10 Atherosclerotic heart disease of native coronary artery without angina pectoris; E78.00 Pure hypercholesterolemia, unspecified; I10 Essential (primary) hypertension; I25.2 Old myocardial infarction; E11.9 Type 2 diabetes mellitus without complications; F41.9 Anxiety disorder, unspecified; Z79.82 Long term (current) use of aspirin; Z79.4 Long term (current) use of insulin; Z79.02 Long term (current) use of antithrombotics/antiplatelets; Z79.899 Other long term (current) drug therapy; Z88.1 Allergy status to other antibiotic agents; Z86.73 Personal history of transient ischemic attack (TIA), and cerebral infarction without residual deficits
CPT/HCPCS: 36415; 80053; 81001; 85025; 87081; 87430; 87804; 99283; A9270

== ENCOUNTER 2019-04-21 07:44 | Day surgery (SDC) | payer MEDICARE, MEDICAID ==
[~2019-04-21 07:44] MED LIST changes: -Iopamidol 612 MG/ML 75 ML Bottle IVPUSH ONE; +Tropicamide 1% Ophth Soln 15 ML Bottle EYELF ONE
[2019-04-21] MEDS ORDERED: Dexamethasone 4 MG/ML SDV IV ONE (07:45)
[2019-04-21] MEDS ORDERED: Midazolam 1 MG/ML 2 ML SDV IV ONE (07:45)
[2019-04-21] MEDS ORDERED: Povidone-Iodine 5% Sterile Ophth Soln 30 ML Bottle EYELF ONE ×2 (08:00→09:17)
[2019-04-21] MEDS ORDERED: Phenylephrine 10% Ophth Soln 5 ML Bot EYELF ONE (08:00)
[2019-04-21] MEDS ORDERED: Timolol Maleate 0.5% Ophth Soln 5 ML Bottle EYELF ONE (08:00)
[2019-04-21] MEDS ORDERED: Acetaminophen 325 MG Tab PO PRN (08:00)
[2019-04-21] MEDS ORDERED: Proparacaine 0.5% Ophth Soln 15 ML Bottle EYELF ONE (08:00)
[2019-04-21] MEDS ORDERED: Sodium Chloride 0.9% 10 ML Syringe FLUSH PRN (08:00)
[2019-04-21] MEDS ORDERED: Ondansetron 4 MG/2 ML SDV IVPUSH PRN (08:00)
[2019-04-21] MEDS ORDERED: Moxifloxacin 0.5% Ophth Soln 3 ML Bottle EYELF ONE (08:00)
[2019-04-21] MEDS ORDERED: Cataract Ophth Solution EYELF ONE (08:00)
[2019-04-21] MEDS ORDERED: Phenylephrine 10% Ophth Soln 5 ML Bot EYELF PRN (08:18)
[2019-04-21] MEDS ORDERED: Tetracaine HCl/PF 0.5% 4 ML Bottle EYELF ONE (09:16)
[2019-04-21] MEDS ORDERED: Lidocaine 1% 30 ML SDV ONE (09:16)
[2019-04-21] MEDS ORDERED: Balanced Salt Solution Ophth Irrig 500 ML Bottle IOCULAR ONE (09:17)
[2019-04-21] MEDS ORDERED: Chondroitin Sulfate/Hyaluronate Sodium Ophth Inj 0.75 ML Syringe EYELF ONE (09:17)
[2019-04-21] MEDS ORDERED: Dexamethasone/Neomycin/Polymyxin B Ophth Oint 3.5 GM Tube EYELF ONE (09:17)
[2019-04-21] MEDS ORDERED: Apraclonidine 0.5% Ophth Soln 5 ML Bot EYELF ONE (09:17)
[2019-04-21] MEDS ORDERED: Diclofenac Sodium 0.1% Ophth Soln 5 ML Bottle EYELF ONE (09:17)
[2019-04-21] MEDS ORDERED: Vancomycin 500 MG SDV EYELF ONE (09:18)
[2019-04-21 12:07] VITALS: BP 108/48; PULSE 53
--- NOTE | 2019-04-22 08:15 | OR ---
DATE: 04/21/2019 PREOPERATIVE DIAGNOSIS: Visually significant mixed cataract, complex, left eye, with small pupil/Malyugin ring. POSTOPERATIVE DIAGNOSIS: Visually significant mixed cataract, complex, left eye, with small pupil/Malyugin ring. PROCEDURE: Extracapsular cataract extraction with intraocular lens implant, left eye. ANESTHESIA: Topical/local MAC. COMPLICATIONS: None. INDICATION: Mr. Ruth was seen in the clinic with complaints of blurred vision. His examination revealed visually significant mixed cataract. I explained the options and offered cataract surgery. I explained risks preoperatively including, but not limited to infection, retinal detachment, loss of vision, and need for additional surgery amongst others. We discussed implant options. He requested a monofocal implant. He is comfortable wearing spectacle correction following the surgery if necessary. OPERATIVE DESCRIPTION: After informed consent was obtained and the risks, benefits, and alternatives were explained, the patient was brought to the operative suite and topical anesthesia was administered. The patient was then prepped and draped in the sterile fashion and attention was placed on the left eye. A sterile lid speculum was placed into the left eye to allow operative exposure. A full-thickness paracentesis was made in the temporal portion of the operative eye. Preservative-free lidocaine 0.1 mL was injected into the anterior chamber followed by viscoelastic. A full-thickness corneal incision was then made into the anterior chamber. A bent needle cystotome was used to create a small talha in the anterior capsule. The capsulorrhexis forceps was then used to create a 360-degree curvilinear capsulorrhexis. The nucleus was then removed using a phacoemulsification handpiece and the remaining cortical material was then removed with irrigation and aspiration handpiece. Following removal of the cortical material, the capsular bag was then inspected and noted to be free of any holes or tears. Viscoelastic was then injected into the capsular bag and the intraocular lens was inserted into the capsular bag. The viscoelastic material was then removed from both the anterior and posterior chambers and from behind the IOL. The lens and capsular bag were then reinspected. The IOL was well centered and the capsular bag intact. The wound and paracentesis sites were inspected and hydrated with balanced saline solution. Both were found to be self- sealing. The intraocular pressure was assessed digitally and found to be within normal range. A good red reflex was noted at the completion of the procedure. No complications occurred during the operation. At the completion of the procedure, Maxitrol, Voltaren, and Iopidine drops were placed into the operative eye. A sterile eye shield was placed over the operative eye and the patient was transported to the postoperative recovery area having tolerated the procedure well. Postoperative instructions were given along with a postoperative appointment. The patient was advised to call with any questions or concerns. [facility] /[phone]
== END 2019-04-21 10:26 | disposition home or self-care (01) ==
LOC: DL.SDS 07:44
PROVIDERS: ATTEND Ophthalmology
DX: E11.36 Type 2 diabetes mellitus with diabetic cataract (principal); E11.22 Type 2 diabetes mellitus with diabetic chronic kidney disease; I12.9 Hypertensive chronic kidney disease with stage 1 through stage 4 chronic kidney disease, or unspecified chronic kidney disease; N18.3 Chronic kidney disease, stage 3 (moderate); I25.10 Atherosclerotic heart disease of native coronary artery without angina pectoris; E03.9 Hypothyroidism, unspecified; E78.5 Hyperlipidemia, unspecified; E11.42 Type 2 diabetes mellitus with diabetic polyneuropathy; Z88.8 Allergy status to other drugs, medicaments and biological substances; Z88.1 Allergy status to other antibiotic agents; Z79.4 Long term (current) use of insulin; Z79.899 Other long term (current) drug therapy; Z79.82 Long term (current) use of aspirin
CPT/HCPCS: 00140; 82962; A9270-GY; J1100; J2001; J2250; J3370; V2632

== ENCOUNTER 2019-04-28 07:49 | Day surgery (SDC) | payer MEDICARE, MEDICAID, OTHER ==
[~2019-04-28 07:49] MED LIST changes: -Tropicamide 1% Ophth Soln 15 ML Bottle EYELF ONE; +Tropicamide 1% Ophth Soln 15 ML Bottle EYERT ONE
[2019-04-28] MEDS ORDERED: Sodium Chloride 0.9% 10 ML Syringe IV ONE (07:50)
[2019-04-28] MEDS ORDERED: Dexamethasone 4 MG/ML SDV IV ONE (07:50)
[2019-04-28] MEDS ORDERED: Midazolam 1 MG/ML 2 ML SDV IV ONE (07:50)
[2019-04-28] MEDS ORDERED: Moxifloxacin 0.5% Ophth Soln 3 ML Bottle EYERT ONE (08:00)
[2019-04-28] MEDS ORDERED: Acetaminophen 325 MG Tab PO PRN (08:00)
[2019-04-28] MEDS ORDERED: Timolol Maleate 0.5% Ophth Soln 5 ML Bottle EYERT ONE (08:00)
[2019-04-28] MEDS ORDERED: Povidone-Iodine 5% Sterile Ophth Soln 30 ML Bottle EYERT ONE ×2 (08:00→09:07)
[2019-04-28] MEDS ORDERED: Phenylephrine 10% Ophth Soln 5 ML Bot EYERT ONE (08:00)
[2019-04-28] MEDS ORDERED: Sodium Chloride 0.9% 10 ML Syringe FLUSH PRN (08:00)
[2019-04-28] MEDS ORDERED: Cataract Ophth Solution EYERT ONE (08:00)
[2019-04-28] MEDS ORDERED: Proparacaine 0.5% Ophth Soln 15 ML Bottle EYERT ONE (08:00)
[2019-04-28] MEDS ORDERED: Phenylephrine 10% Ophth Soln 5 ML Bot EYERT PRN (08:00)
[2019-04-28] MEDS ORDERED: Ondansetron 4 MG/2 ML SDV IVPUSH PRN (08:00)
[2019-04-28] MEDS ORDERED: Lidocaine 1% 30 ML SDV ONE (09:06)
[2019-04-28] MEDS ORDERED: Tetracaine HCl/PF 0.5% 4 ML Bottle EYERT ONE (09:06)
[2019-04-28] MEDS ORDERED: Diclofenac Sodium 0.1% Ophth Soln 5 ML Bottle EYERT ONE (09:07)
[2019-04-28] MEDS ORDERED: Dexamethasone/Neomycin/Polymyxin B Ophth Oint 3.5 GM Tube EYERT ONE (09:07)
[2019-04-28] MEDS ORDERED: Balanced Salt Solution Ophth Irrig 500 ML Bottle IOCULAR ONE (09:07)
[2019-04-28] MEDS ORDERED: Apraclonidine 0.5% Ophth Soln 5 ML Bot EYERT ONE (09:07)
[2019-04-28] MEDS ORDERED: Chondroitin Sulfate/Hyaluronate Sodium Ophth Inj 0.75 ML Syringe EYERT ONE (09:07)
[2019-04-28] MEDS ORDERED: Vancomycin 500 MG SDV EYERT ONE (09:08)
[2019-04-28 14:19] VITALS: BP 107/48; PULSE 50
--- NOTE | 2019-04-29 08:26 | OR ---
DATE: 04/28/2019 PREOPERATIVE DIAGNOSIS: Visually significant mixed cataract, right eye. POSTOPERATIVE DIAGNOSIS: Visually significant mixed cataract, right eye. PROCEDURE: Extracapsular cataract extraction with intraocular lens implant, right eye. ANESTHESIA: Topical/local MAC. COMPLICATIONS: None. INDICATION: Visually significant symptomatic cataract. The patient was seen in the clinic. Examination revealed visually significant cataract. He is symptomatic and requested cataract surgery. I explained options, offered cataract surgery, and I explained risks, including, but not limited to, infection, retinal detachment, loss of vision, need for additional surgery, amongst others. We discussed implant options. He has requested a monofocal implant. OPERATIVE DESCRIPTION: After informed consent was obtained and the risks, benefits, and alternatives were explained, the patient was brought to the operative suite and topical anesthesia was administered. The patient was then prepped and draped in the sterile fashion and attention was placed on the right eye. A sterile lid speculum was placed into the right eye to allow operative exposure. A full-thickness paracentesis was made in the temporal portion of the operative eye. Preservative-free lidocaine 0.1 mL was injected into the anterior chamber followed by viscoelastic. A full-thickness corneal incision was then made into the anterior chamber. A bent needle cystotome was used to create a small talha in the anterior capsule. The capsulorrhexis forceps was then used to create a 360-degree curvilinear capsulorrhexis. The nucleus was then removed using a phacoemulsification handpiece and the remaining cortical material was then removed with irrigation and aspiration handpiece. Following removal of the cortical material, the capsular bag was then inspected and noted to be free of any holes or tears. Viscoelastic was then injected into the capsular bag and the intraocular lens was inserted into the capsular bag. The viscoelastic material was then removed from both the anterior and posterior chambers and from behind the IOL. The lens and capsular bag were then reinspected. The IOL was well centered and the capsular bag intact. The wound and paracentesis sites were inspected and hydrated with balanced saline solution. Both were found to be self- sealing. The intraocular pressure was assessed digitally and found to be within normal range. A good red reflex was noted at the completion of the procedure. No complications occurred during the operation. At the completion of the procedure, Maxitrol, Voltaren, and Iopidine drops were placed into the operative eye. A sterile eye shield was placed over the operative eye and the patient was transported to the postoperative recovery area having tolerated the procedure well. Postoperative instructions were given along with a postoperative appointment. The patient was advised to call with any questions or concerns. [facility] /[id number]
== END 2019-04-28 10:16 | disposition home or self-care (01) ==
LOC: DL.SDS 07:49
PROVIDERS: ATTEND Ophthalmology
DX: E11.36 Type 2 diabetes mellitus with diabetic cataract (principal); H25.811 Combined forms of age-related cataract, right eye; H26.9 Unspecified cataract; I12.9 Hypertensive chronic kidney disease with stage 1 through stage 4 chronic kidney disease, or unspecified chronic kidney disease; E11.22 Type 2 diabetes mellitus with diabetic chronic kidney disease; N18.3 Chronic kidney disease, stage 3 (moderate); I25.10 Atherosclerotic heart disease of native coronary artery without angina pectoris; E11.42 Type 2 diabetes mellitus with diabetic polyneuropathy; E78.5 Hyperlipidemia, unspecified; E03.9 Hypothyroidism, unspecified; F32.9 Major depressive disorder, single episode, unspecified; F41.9 Anxiety disorder, unspecified; C61 Malignant neoplasm of prostate; Z92.3 Personal history of irradiation; Z95.5 Presence of coronary angioplasty implant and graft; Z95.1 Presence of aortocoronary bypass graft; Z79.818 Long term (current) use of other agents affecting estrogen receptors and estrogen levels; Z85.810 Personal history of malignant neoplasm of tongue
CPT/HCPCS: 00142; 66984; A9270; J1100; J2001; J2250; J3370; V2632

== ENCOUNTER 2020-07-22 21:26 | Emergency (ER) | payer MEDICARE, MEDICAID ==
--- NOTE | 2020-07-22 22:15 | PCM.EKG ---
#1 Interpretation EKG Date: 07/22/20 Time: 21:58 Rhythm: NSR Rate (Beats/Min): 68 Glenn: LAD-Left Glenn Deviation P-Wave: Present QRS: Normal ST-T: Normal QT: Normal Comparison: No Change
[2020-07-22 22:26] VITALS: BP 151/52; PULSE 68
[2020-07-22 22:48] LABS: CHLORIDE,CL 105 mmol/L (98-107); SODIUM,NA 140 mmol/L (136-145)
[2020-07-22 22:53] LABS: ANION GAP 14.4 mEq/L (7-13)
--- NOTE | 2020-07-22 23:26 | CT ---
PROCEDURE INFORMATION: Exam: CT Head Without Contrast Exam date and time: 07/22/2020 11:03 PM Age: 79 years old Clinical indication: Dizziness; Additional info: Vertigo unsteadynes TECHNIQUE: Imaging protocol: Computed tomography of the head without contrast. Radiation optimization: All CT scans at this facility use at least one of these dose optimization techniques: automated exposure control; mA and/or kV adjustment per patient size (includes targeted exams where dose is matched to clinical indication); or iterative reconstruction. COMPARISON: 1. CT Head wo Cont 01/18/2017 4:57 PM 2. (No prior similar studies are available for comparison.) FINDINGS: There is no mass lesion or mass effect. There is diffuse central and cortical atrophy consistent with age. There is no CT evidence of acute parenchymal ischemia. There is no intra-axial or extra-axial hemorrhage. There is no evidence of acute obstructive sinonasal disease. Mastoid air cells are grossly normal. Visualized osseous structures are normal. Other findings: EXAM TYPE: CT of the BRAIN; DATE AND TIME: 07/22/2020 11:03 PM; CLINICAL INFORMATION:; Dizziness; Additional info: Vertigo unsteadynes IMPRESSION: 1. Central and cortical atrophy consistent with age. 2. No CT evidence of acute infarction, intracranial hemorrhage or mass.
--- NOTE | 2020-07-22 23:43 | EDM.PDOC ---
ED HPI GENERAL MEDICAL PROBLEM - General Chief Complaint: Neuro Symptoms/Deficits Stated Complaint: DIZZY, FELL DOWN ON LEFT SIDE Time Seen by Provider: 07/22/20 22:10 Source of Information: Reports: Patient History Limitations: Reports: No Limitations - History of Present Illness INITIAL COMMENTS - FREE TEXT/NARRATIVE: Patient comes emergency department today with complaints of lightheadedness dizziness and unsteadiness with his gait. He reports every time he stands up and starts to move or turn his head when he is ambulating he feels unsteady and he has been falling against the wall and he is fallen down multiple times at home. He has never hit his head. He has never had a loss of conscious. He has no head neck or back pain. He has had no palpitations generalized weakness focal neurological weakness or syncope. He has had some crackling and pressure sensation in his left ear ever since the symptoms started. He has had similar symptoms with these in the past when he has had vertigo or labyrinthitis. He has no visual acuity changes. No paresthesias of his upper or lower extremities. No change in the functionality of his upper or lower extremities. No fever no chills. No cough or congestion. No chest pain no shortness of breath or difficulty breathing. No abdominal pain nausea or vomiting. No hematuria dysuria urinary frequency. No black or tarry stools. He denies any confusion or difficulty with memory. Treatments VP ANALYSIS: Reports: Other (see below) Other Treatments VP ANALYSIS: none - Related Data Allergies Allergy/AdvReac Type Severity Reaction Status Date / Time cephalexin Allergy Mild Itching Verified 07/22/20 22:26 levofloxacin [From Levaquin] Allergy chest pain Verified 07/22/20 22:26 and SOB Home Meds: Home Meds Aspirin [Halfprin] 81 mg PO DAILY 04/06/13 [History] Metoprolol Succinate [Toprol XL] 50 mg PO DAILY 04/06/13 [History] Simvastatin [Zocor] 40 mg PO BEDTIME 04/06/13 [History] Tamsulosin [Flomax] 0.4 mg PO DAILY 04/06/13 [History] ramipriL [Altace] 5 mg PO DAILY 04/06/13 [History] Clopidogrel [Plavix] 75 mg PO DAILY 06/30/13 [History] Insulin Detemir [Levemir] 50 unit SQ DAILY 09/15/13 [History] Leuprolide Acetate [Lupron Depot] 50 mg SQ ASDIRECTED 02/18/14 [History] Isosorbide Mononitrate [Imdur] 15 mg PO BID 07/11/15 [History] Cannabidiol 07/07/18 [History] Insulin Aspart [NovoLOG] 20 unit SQ TID 04/20/19 [History] Ketorolac [Acular 0.5% Ophth Soln] 1 drop EYELF BID 04/20/19 [History] Nitroglycerin 0.4 mg SL ASDIRECTED PRN 04/20/19 [History] Omeprazole 20 mg PO DAILY 04/20/19 [History] prednisoLONE acetate [Pred Forte 1% Ophth Susp] 1 drop EYELF QID 04/20/19 [History] bisacodyL [Dulcolax] 10 mg RC BID PRN 04/27/19 [History] Past Medical History HEENT History: Reports: Impaired Vision Other HEENT History: Presbyopia Cardiovascular History: Reports: Angina, Bypass, CAD, High Cholesterol, Hypertension, [place], Stents Respiratory History: Reports: Pneumonia, Recurrent Other Respiratory History: tracheostomy Gastrointestinal History: Reports: Other (See Below) Other Gastrointestinal History: feeding tube history Genitourinary History: Reports: BPH Other Genitourinary History: prostate cancer Musculoskeletal History: Reports: None Neurological History: Reports: TIA Psychiatric History: Reports: Anxiety, Depression, Panic Attack Endocrine/Metabolic History: 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, Type II, IDDM Hematologic History: Reports: None Immunologic History: Reports: None 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 "tongue" Dermatologic History: Reports: None - Infectious Disease History Infectious Disease History: Reports: Chicken Pox, Measles - Past Surgical History Head Surgeries/Procedures: Reports: None HEENT Surgical History: Reports: Cataract Surgery, Tonsillectomy Other HEENT Surgeries/Procedures: CATARACT SURGERY LEFT EYE ON 04/21/2019 Cardiovascular Surgical History: Reports: Coronary Artery Bypass, Coronary Artery Stent Other Cardiovascular Surgeries/Procedures: 2 vessel bypass Respiratory Surgical History: Reports: Tracheostomy Other Respiratory Surgeries/Procedures: 06/05/18 repair of unhealing trach, healed on 04/08/2019 GI Surgical History: Reports: Cholecystectomy Social & Family History - Family History Family Medical History: No Pertinent Family History HEENT: Reports: None Cardiac: Reports: None Respiratory: Reports: None GI: Reports: None : Reports: None OBGYN: Reports: None Musculoskeletal: Reports: None Neurological: Reports: None Psychiatric: Reports: None Endocrine/Metabolic: 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, Type I Hematologic: Reports: None Immunologic: Reports: None Dermatologic: Reports: None Oncologic: Reports: Breast, Colon, Pancreatic - Tobacco Use Tobacco Use Status *Q: Former Tobacco User Used Tobacco, but Quit: Yes Month/Year Tobacco Last Used: 03/1989 - Caffeine Use Caffeine Use: Reports: Coffee - Recreational Drug Use Recreational Drug Use: No - Living Situation & Occupation Living situation: Reports: , Alone Occupation: Retired ED ROS GENERAL - Review of Systems Review Of Systems: Comprehensive ROS is negative, except as noted in HPI. ED EXAM, NEURO - Physical Exam Exam: See Below Exam Limited By: No Limitations General Appearance: Alert, WD/WN, No Apparent Distress Eye Exam: Bilateral Eye: EOMI, PERRL Ears: Normal External Exam, Normal Canal, Normal TMs Nose: Normal Inspection, Normal Mucosa Throat/Mouth: Normal Inspection, Normal Oropharynx Head Exam: Atraumatic, Normocephalic Neck: Normal Inspection, Supple, Non-Tender, Full Range of Motion Respiratory/Chest: No Respiratory Distress, Lungs Clear, Normal Breath Sounds, No Accessory Muscle Use, Chest Non-Tender Cardiovascular: Normal Peripheral Pulses, Regular Rate, Rhythm, No Murmur GI/Abdominal: Normal Bowel Sounds, Soft, Non-Tender (Male) Exam: Deferred Rectal (Males) Exam: Deferred Neurological: Alert, Normal Mood/Affect, Normal Dorsiflexion, CN II-XII Intact, Normal Plantar Flexion, Normal Gait, Normal Reflexes, No Motor/Sensory Deficits, Difficulty Walking, Other (His NIH stroke scale is 0. His Frandy-Hallpike is positive isolatory to the left with rotary nystagmus. Even when I move his head side to side he has recurrence of his vertigo.). No: Ataxia Back Exam: Normal Inspection, Full Range of Motion Extremities: Normal Inspection, Normal Range of Motion, Non-Tender, No Pedal Edema, Normal Capillary Refill Psychiatric: Normal Affect, Normal Mood Skin Exam: Warm, Dry, Intact, Normal Color Course - Vital Signs Last Recorded V/S: Last Vital Signs Temp 97.6 F 07/22/20 22:21 Pulse 68 07/22/20 22:21 Resp 19 07/22/20 22:21 BP 151/52 H 07/22/20 22:21 Pulse Ox 100 07/22/20 22:21 - Orders/Labs/Meds Labs: Laboratory Tests 07/22/20 07/22/20 Range/Units 22:09 22:09 WBC 7.6 (5.0-10.0) 10^3/uL RBC 4.21 L (4.6-6.2) 10^6/uL Hgb 13.5 L (14.0-18.0) g/dL Hct 41.4 (40.0-54.0) % MCV 98.3 (80-100) fL MCH 32.1 (27.0-34.0) pg MCHC 32.6 L (33.0-35.0) g/dL Plt Count 237 (150-450) 10^3/uL Neut % (Auto) 65.7 (42.2-75.2) % Lymph % (Auto) 18.7 L (20.5-50.1) % [place] % (Auto) 10.4 H (2-8) % Eos % (Auto) 4.9 H (1.0-3.0) % Baso % (Auto) 0.3 (0.0-1.0) % Sodium 140 (136-145) mmol/L Potassium 4.4 (3.5-5.1) mmol/L Chloride 105 (98-107) mmol/L Carbon Dioxide 25 (21-32) mmol/L Anion Gap 14.4 H (7-13) mEq/L BUN 17 (7-18) mg/dL Creatinine 1.37 H (0.70-1.30) mg/dL Est Cr Clr Drug Dosing 43.66 mL/min Estimated GFR (MDRD) 50 BUN/Creatinine Ratio 12.4 (No establ ref range) Glucose 250 H (70-99) mg/dL Calcium 8.2 L (8.5-10.1) mg/dL Magnesium 1.8 (1.8-2.4) mg/dL Total Bilirubin 0.4 (0.2-1.0) mg/dL AST 24 (15-37) U/L ALT 23 (16-63) U/L Alkaline Phosphatase 153 H (46-116) U/L Troponin I < 0.017 (0.000-0.056) ng/mL Total Protein 7.0 (6.4-8.2) g/dL Albumin 3.0 L (3.4-5.0) g/dL Globulin 4.0 Albumin/Globulin Ratio 0.75 Meds: Medications Discontinued Medications Generic Name Dose Route Start Last Admin Trade Name Jessie PRN Reason Stop Dose Admin Meclizine HCl 25 mg 07/23/20 00:23 07/23/20 00:29 Meclizine 12.5 Mg Tab PO 07/23/20 00:24 25 mg ONETIME ONE Administration - Radiology Interpretation Free Text/Narrative:: CT of the head per radiology shows central and cortical atrophy consistent with age. No CT evidence of acute infarction, intracranial hemorrhage or mass. - Re-Assessments/Exams Free Text/Narrative Re-Assessment/Exam: 07/23/20 18:15 His EKG is unremarkable. CT of the head no acute findings. I completed a bedside Jayshree maneuver isolated to the left ear and the patient had complete resolution of the symptoms of vertigo. He was able to ambulate around the department easily steadily and without any vertigo. He feels much better. He has had this vertigo in the past. We will discharge him home with Jayshree Maneuver instructions for home as well as meclizine. Consider PT if continued issues or problems. He is comfortable with this plan and his questions answered. Departure - Departure Time of Disposition: 00:25 Disposition: Home, Self-Care 01 Clinical Impression: Vertigo - Discharge Information Instructions: Vertigo, [id number], How to Perform the Jayshree Maneuver Referrals: PCP,None [Primary Care Provider] - Forms: ED Department Discharge Additional Instructions: Home rest tonight. If you are able to sleep in a recliner tonight that would be best with your head in midline position. Drink plenty of fluids over the next few days that will help with the fluid in your ears as well. Meclizine, 1 tablet three times a day as needed for vertigo symptoms. Caution sedation. RX given to the patient. See physical therapy next week if continued symptoms of vertigo and they can work more with you. I have supplied the Jayshree maneuver instructions as well for you to complete at home and if you have continued symptoms you can try this at home as well. Return to the ed if new or worsening symptoms. Follow up with PCP if continued issues or concerns. Sepsis Event Note (ED) - Evaluation Sepsis Screening Result: No Definite Risk
[2020-07-23] MEDS ORDERED: Meclizine 12.5 MG Tab PO ONE (00:23)
== END 2020-07-23 00:30 | disposition home or self-care (01) ==
LOC: DL.ED 21:26
DX: R42 Dizziness and giddiness (principal); I25.10 Atherosclerotic heart disease of native coronary artery without angina pectoris; E78.00 Pure hypercholesterolemia, unspecified; I10 Essential (primary) hypertension; I25.2 Old myocardial infarction; N40.0 Benign prostatic hyperplasia without lower urinary tract symptoms; E11.9 Type 2 diabetes mellitus without complications; Z79.82 Long term (current) use of aspirin; Z79.02 Long term (current) use of antithrombotics/antiplatelets; Z79.4 Long term (current) use of insulin; Z79.899 Other long term (current) drug therapy; Z88.1 Allergy status to other antibiotic agents; Z95.5 Presence of coronary angioplasty implant and graft; Z95.1 Presence of aortocoronary bypass graft; Z86.73 Personal history of transient ischemic attack (TIA), and cerebral infarction without residual deficits; Z87.891 Personal history of nicotine dependence
CPT/HCPCS: 36415; 70450; 80053; 83735; 84484; 85025; 93005; 99283; 99284-25; A9270-GY

== ENCOUNTER 2020-07-24 10:01 | Emergency (ER) | payer MEDICARE, MEDICAID ==
[2020-07-24 10:19] VITALS: BP 142/70; PULSE 74
[2020-07-24] MEDS ORDERED: Meclizine 12.5 MG Tab PO ONE (10:46)
--- NOTE | 2020-07-24 10:46 | EDM.PDOC ---
ED HPI GENERAL MEDICAL PROBLEM - General Chief Complaint: Chest Pain Stated Complaint: AMBULANCE Time Seen by Provider: 07/24/20 10:20 Source of Information: Reports: Patient, Old Records, RN, RN Notes Reviewed History Limitations: Reports: No Limitations - History of Present Illness INITIAL COMMENTS - FREE TEXT/NARRATIVE: Lukasz is an 79 y/o male who presents to the ED via [facility] with complaints of left lateral chest and back pain, as well as transient vertigo. The patient reports he was examined in this facility two nights ago due to persistent dizziness and frequent falls. The patient was subsequently diagnosed with vertigo; Jayshree maneuver was performed successfully and the patient was discharged on Meclizine. The patient states he has sustained no falls since his previous visit but has since noted pain in his left, lateral thorax. Additionally, he reports he has been unable to obtain his Meclizine as the [facility] was not open over the weekend. He denies fever, shaking chills, chest pressure, palpitations, shortness of breath, or abdominal pain. He states he has taken no medications for this pain. Left Chest Pain Score (Numeric/FACES): 5 - Related Data Allergies Allergy/AdvReac Type Severity Reaction Status Date / Time cephalexin Allergy Mild Itching Verified 07/22/20 22:26 levofloxacin [From Levaquin] Allergy chest pain Verified 07/22/20 22:26 and SOB Home Meds: Home Meds Aspirin [Halfprin] 81 mg PO DAILY 04/06/13 [History] Metoprolol Succinate [Toprol XL] 50 mg PO DAILY 04/06/13 [History] Simvastatin [Zocor] 40 mg PO BEDTIME 04/06/13 [History] Tamsulosin [Flomax] 0.4 mg PO DAILY 04/06/13 [History] ramipriL [Altace] 5 mg PO DAILY 04/06/13 [History] Clopidogrel [Plavix] 75 mg PO DAILY 06/30/13 [History] Insulin Detemir [Levemir] 50 unit SQ DAILY 09/15/13 [History] Leuprolide Acetate [Lupron Depot] 50 mg SQ ASDIRECTED 02/18/14 [History] Isosorbide Mononitrate [Imdur] 15 mg PO BID 07/11/15 [History] Cannabidiol 07/07/18 [History] Insulin Aspart [NovoLOG] 20 unit SQ TID 04/20/19 [History] Ketorolac [Acular 0.5% Ophth Soln] 1 drop EYELF BID 04/20/19 [History] Nitroglycerin 0.4 mg SL ASDIRECTED PRN 04/20/19 [History] Omeprazole 20 mg PO DAILY 04/20/19 [History] prednisoLONE acetate [Pred Forte 1% Ophth Susp] 1 drop EYELF QID 04/20/19 [History] bisacodyL [Dulcolax] 10 mg RC BID PRN 04/27/19 [History] Past Medical History HEENT History: Reports: Impaired Vision Other HEENT History: Presbyopia Cardiovascular History: Reports: Angina, Bypass, CAD, High Cholesterol, Hypertension, [place], Stents Respiratory History: Reports: Pneumonia, Recurrent Other Respiratory History: tracheostomy Gastrointestinal History: Reports: Other (See Below) Other Gastrointestinal History: feeding tube history Genitourinary History: Reports: BPH Other Genitourinary History: prostate cancer Musculoskeletal History: Reports: None Neurological History: Reports: TIA Psychiatric History: Reports: Anxiety, Depression, Panic Attack Endocrine/Metabolic History: 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, Type II, IDDM Hematologic History: Reports: None Immunologic History: Reports: None 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 "tongue" Dermatologic History: Reports: None - Infectious Disease History Infectious Disease History: Reports: Chicken Pox, Measles - Past Surgical History Head Surgeries/Procedures: Reports: None HEENT Surgical History: Reports: Cataract Surgery, Tonsillectomy Other HEENT Surgeries/Procedures: CATARACT SURGERY LEFT EYE ON 04/21/2019 Cardiovascular Surgical History: Reports: Coronary Artery Bypass, Coronary Artery Stent Other Cardiovascular Surgeries/Procedures: 2 vessel bypass Respiratory Surgical History: Reports: Tracheostomy Other Respiratory Surgeries/Procedures: 06/05/18 repair of unhealing trach, healed on 04/08/2019 GI Surgical History: Reports: Cholecystectomy Social & Family History - Family History Family Medical History: No Pertinent Family History HEENT: Reports: None Cardiac: Reports: None Respiratory: Reports: None GI: Reports: None : Reports: None OBGYN: Reports: None Musculoskeletal: Reports: None Neurological: Reports: None Psychiatric: Reports: None Endocrine/Metabolic: 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, Type I Hematologic: Reports: None Immunologic: Reports: None Dermatologic: Reports: None Oncologic: Reports: Breast, Colon, Pancreatic - Caffeine Use Caffeine Use: Reports: Coffee - Recreational Drug Use Recreational Drug Use: No - Living Situation & Occupation Living situation: Reports: , Alone Occupation: Retired ED ROS GENERAL - Review of Systems Review Of Systems: Comprehensive ROS is negative, except as noted in HPI. ED EXAM, GENERAL - Physical Exam Exam: See Below Exam Limited By: No Limitations General Appearance: Alert, No Apparent Distress Eye Exam: Left Eye: Nystagmus (Jerk-nystagmus), Bilateral Eye: EOMI, PERRL (3mm) Ears: Normal External Exam, Normal Canal, Hearing Grossly Normal, Normal TMs Ear Exam: Bilateral Ear: Auricle Normal, Canal Normal, TM normal Nose: Normal Inspection, Normal Mucosa, No Blood Throat/Mouth: Normal Inspection, Normal Oropharynx, Normal Voice, No Airway Compromise Head: Atraumatic, Normocephalic Neck: Normal Inspection, Supple, Non-Tender, Full Range of Motion Respiratory/Chest: No Respiratory Distress, No Accessory Muscle Use, Decreased Breath Sounds, Other (Tenderness to palpation of left lateral thorax). No: Crackles, Rales, Rhonchi, Wheezing, Stridor Cardiovascular: Normal Peripheral Pulses, Regular Rate, Rhythm, No Edema, No Gallop, No JVD, No Murmur, No Rub Peripheral Pulses: 2+: Radial (L), Radial (R) GI/Abdominal: Normal Bowel Sounds, Soft, Non-Tender, No Distention, No Abnormal Bruit, No Mass, Pelvis Stable (Male) Exam: Deferred Rectal (Males) Exam: Deferred Back Exam: Full Range of Motion, Other (Tenderness to palpation of left lateral thorax) Extremities: Normal Inspection, Normal Range of Motion, No Pedal Edema, Normal Capillary Refill Neurological: Alert, Oriented, CN II-XII Intact, Normal Cognition, Normal Gait, No Motor/Sensory Deficits Psychiatric: Normal Affect, Normal Mood Skin Exam: Warm, Dry, Intact, Normal Color, No Rash. No: Ecchymosis, Erythema, Jaundice, Mottled, Pallor, Petechiae Course - Vital Signs Last Recorded V/S: Last Vital Signs Temp 97.4 F 07/24/20 10:13 Pulse 74 07/24/20 10:13 Resp 18 07/24/20 10:13 BP 142/70 H 07/24/20 10:13 Pulse Ox 95 07/24/20 10:13 - Orders/Labs/Meds Meds: Medications Discontinued Medications Generic Name Dose Route Start Last Admin Trade Name Jessie PRN Reason Stop Dose Admin Meclizine HCl 12.5 mg 07/24/20 10:46 07/24/20 11:16 Meclizine 12.5 Mg Tab PO 07/24/20 10:47 12.5 mg ONETIME ONE Administration - Radiology Interpretation Free Text/Narrative:: [facility] [place] [facility] Final Radiology Report Call: [phone] assistance Online chat: [email or web address] Name: LUKASZ FLETCHER Age: 79Years M Date: 07/24/2020 SSN: -- : [id number] Study: CR RIBS 2V W CHEST LT Requesting Physician: Gloria Gonzales Images: 3 Addl Studies: Provided Clinical History: Fall onto left side d/t vertigo Contrast: Contrast Medium: Contrast Amount: Contrast Method: Page 1 of 2 PROCEDURE INFORMATION: Exam: XR Left Ribs with PA Chest Exam date and time: 07/24/2020 10:46 AM Age: 79 years old Clinical indication: Injury or trauma; Fall; Rib area, left side; Blunt trauma; Additional info: Fall onto left side d/t vertigo TECHNIQUE: Imaging protocol: XR Left ribs with PA chest. Views: 3 views COMPARISON: CT Chest Abdomen Pelvis w Cont 04/20/2019 8:42 AM FINDINGS: Lungs: There is a thickened band like density at the right lung base with patchy basilar interstitial change, not identified on comparison CT exam. Pleural spaces: Unremarkable. No pleural effusion. No pneumothorax. Heart/Mediastinum: Unremarkable. No cardiomegaly. Bones/joints: Median sternotomy wires and sutures are identified. No visualized fracture. IMPRESSION: 1. No visualized rib fracture. 2. Thickened band like density right lung base with patchy interstitium, greater than expected for discoid atelectasis and inflammatory process or developing mass is not excluded. 3. Findings compatible with CABG. Thank you for allowing us to participate in the care of your patient. Dictated and Authenticated by: Helen Neal MD 07/24/2020 11:23 AM Central Time ([place] & [place]) - Re-Assessments/Exams Free Text/Narrative Re-Assessment/Exam: 07/24/20 Meclizine administered. Given lab work and imaging obtained at previous appointment, will only obtain Xray of ribs today. Findings of examination and imaging reviewed with patient. Discussed need for follow up with PCP regarding incidental findings of chest XR. Supportive cares, as well as red flag signs and symptoms, reviewed with patient. Lukasz verbalized understanding and agreement with the plan of care. Departure - Departure Time of Disposition: 11:35 Disposition: Home, Self-Care 01 Condition: Good Clinical Impression: Rib pain on left side, Fall from ground level, Vertigo, Hx of tongue cancer, Abnormal chest xray - Discharge Information *PRESCRIPTION DRUG MONITORING PROGRAM REVIEWED*: Not Applicable *COPY OF PRESCRIPTION DRUG MONITORING REPORT IN PATIENT GLADYS: Not Applicable Instructions: Fall Prevention in the Home, Adult, [id number], Vertigo, [id number] Referrals: PCP,Unobtain [Primary Care Provider] - Forms: ED Department Discharge Additional Instructions: 1.) You may take acetaminophen (Tylenol) 650mg, up to 1000mg, every six hours as pain persists. 2.) You may apply ice to the lateral ribs for comfort. 3.) Obtain your previously prescribed medications for vertigo. Should you continue to experience vertigo while taking these medications, obtain a physical therapy assessment for vertigo. 4.) Drink plenty of water to stay hydrated while taking your previously prescribed medication. 5.) Follow up with your oncologist regarding the abnormal finding your chest X- ray today. I sent her the film so she can access it. 6.) Follow up with your primary care provider, or return to the emergency room, with any persistent symptoms despite medications and physical therapy. Sepsis Event Note (ED) - Evaluation Sepsis Screening Result: No Definite Risk
--- NOTE | 2020-07-24 11:23 | CR ---
PROCEDURE INFORMATION: Exam: XR Left Ribs with PA Chest Exam date and time: 07/24/2020 10:46 AM Age: 79 years old Clinical indication: Injury or trauma; Fall; Rib area, left side; Blunt trauma; Additional info: Fall onto left side d/t vertigo TECHNIQUE: Imaging protocol: XR Left ribs with PA chest. Views: 3 views COMPARISON: CT Chest Abdomen Pelvis w Cont 04/20/2019 8:42 AM FINDINGS: Lungs: There is a thickened band like density at the right lung base with patchy basilar interstitial change, not identified on comparison CT exam. Pleural spaces: Unremarkable. No pleural effusion. No pneumothorax. Heart/Mediastinum: Unremarkable. No cardiomegaly. Bones/joints: Median sternotomy wires and sutures are identified. No visualized fracture. IMPRESSION: 1. No visualized rib fracture. 2. Thickened band like density right lung base with patchy interstitium, greater than expected for discoid atelectasis and inflammatory process or developing mass is not excluded. 3. Findings compatible with CABG.
== END 2020-07-24 11:52 | disposition home or self-care (01) ==
LOC: DL.ED 10:01
DX: R07.81 Pleurodynia (principal); R42 Dizziness and giddiness; I25.10 Atherosclerotic heart disease of native coronary artery without angina pectoris; E78.00 Pure hypercholesterolemia, unspecified; I10 Essential (primary) hypertension; I25.2 Old myocardial infarction; N40.0 Benign prostatic hyperplasia without lower urinary tract symptoms; E11.9 Type 2 diabetes mellitus without complications; Z85.810 Personal history of malignant neoplasm of tongue; R91.8 Other nonspecific abnormal finding of lung field; Z88.1 Allergy status to other antibiotic agents; Z79.82 Long term (current) use of aspirin; Z79.02 Long term (current) use of antithrombotics/antiplatelets; Z79.4 Long term (current) use of insulin; Z79.899 Other long term (current) drug therapy; Z86.73 Personal history of transient ischemic attack (TIA), and cerebral infarction without residual deficits; Z95.5 Presence of coronary angioplasty implant and graft; W18.30XA Fall on same level, unspecified, initial encounter
CPT/HCPCS: 71101-LT; 99284; A9270-GY

== ENCOUNTER 2020-08-15 07:33 | Emergency (ER) | payer MEDICARE, MEDICAID ==
--- NOTE | 2020-08-15 08:13 | EDM.PDOC ---
ED HPI GENERAL MEDICAL PROBLEM - General Chief Complaint: Genitourinary Problem Stated Complaint: AMBULANCE Time Seen by Provider: 08/15/20 08:13 Source of Information: Reports: Patient, EMS, EMS Notes Reviewed, RN, RN Notes Reviewed History Limitations: Reports: No Limitations - History of Present Illness INITIAL COMMENTS - FREE TEXT/NARRATIVE: Patient is an 79-year-old male who presents to ER per [facility] with complaint of urinary retention. Patient states he has prostate cancer but also is uncircumcised and has issues with phimosis. He feels this wa s the issue this morning he was unable to retract the foreskin to be able to urinate. Patient states he cleans the penis daily attempting to retract foreskin as much as he can to clean. Patient denies any signs or symptoms of infection i.e. fever, chills, any drainage. No frequency, urgency, burning with urination. Onset: Today Abdominal Pain Score (Numeric/FACES): 10 - Related Data Allergies Allergy/AdvReac Type Severity Reaction Status Date / Time cephalexin Allergy Mild Itching Verified 08/15/20 08:14 levofloxacin [From Levaquin] Allergy chest pain Verified 08/15/20 08:14 and SOB Home Meds: Home Meds Aspirin [Halfprin] 81 mg PO DAILY 04/06/13 [History] Metoprolol Succinate [Toprol XL] 50 mg PO DAILY 04/06/13 [History] Simvastatin [Zocor] 40 mg PO BEDTIME 04/06/13 [History] Tamsulosin [Flomax] 0.4 mg PO DAILY 04/06/13 [History] ramipriL [Altace] 5 mg PO DAILY 04/06/13 [History] Clopidogrel [Plavix] 75 mg PO DAILY 06/30/13 [History] Insulin Detemir [Levemir] 50 unit SQ DAILY 09/15/13 [History] Leuprolide Acetate [Lupron Depot] 50 mg SQ ASDIRECTED 02/18/14 [History] Isosorbide Mononitrate [Imdur] 15 mg PO BID 07/11/15 [History] Cannabidiol 07/07/18 [History] Insulin Aspart [NovoLOG] 20 unit SQ TID 04/20/19 [History] Ketorolac [Acular 0.5% Ophth Soln] 1 drop EYELF BID 04/20/19 [History] Nitroglycerin 0.4 mg SL ASDIRECTED PRN 04/20/19 [History] Omeprazole 20 mg PO DAILY 04/20/19 [History] prednisoLONE acetate [Pred Forte 1% Ophth Susp] 1 drop EYELF QID 04/20/19 [History] bisacodyL [Dulcolax] 10 mg RC BID PRN 04/27/19 [History] Past Medical History HEENT History: Reports: Impaired Vision Other HEENT History: Presbyopia Cardiovascular History: Reports: Angina, Bypass, CAD, High Cholesterol, Hypertension, MS, Stents Respiratory History: Reports: Pneumonia, Recurrent Other Respiratory History: tracheostomy Gastrointestinal History: Reports: Other (See Below) Other Gastrointestinal History: feeding tube history Genitourinary History: Reports: BPH Other Genitourinary History: prostate cancer Musculoskeletal History: Reports: None Neurological History: Reports: TIA Psychiatric History: Reports: Anxiety, Depression, Panic Attack Endocrine/Metabolic History: 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, Type II, IDDM Hematologic History: Reports: None Immunologic History: Reports: None 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 "tongue" Dermatologic History: Reports: None - Infectious Disease History Infectious Disease History: Reports: Chicken Pox, Measles - Past Surgical History Head Surgeries/Procedures: Reports: None HEENT Surgical History: Reports: Cataract Surgery, Tonsillectomy Other HEENT Surgeries/Procedures: CATARACT SURGERY LEFT EYE ON 04/21/2019 Cardiovascular Surgical History: Reports: Coronary Artery Bypass, Coronary Artery Stent Other Cardiovascular Surgeries/Procedures: 2 vessel bypass Respiratory Surgical History: Reports: Tracheostomy Other Respiratory Surgeries/Procedures: 06/05/18 repair of unhealing trach, healed on 04/08/2019 GI Surgical History: Reports: Cholecystectomy Social & Family History - Family History Family Medical History: No Pertinent Family History HEENT: Reports: None Cardiac: Reports: None Respiratory: Reports: None GI: Reports: None : Reports: None OBGYN: Reports: None Musculoskeletal: Reports: None Neurological: Reports: None Psychiatric: Reports: None Endocrine/Metabolic: 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, Type I Hematologic: Reports: None Immunologic: Reports: None Dermatologic: Reports: None Oncologic: Reports: Breast, Colon, Pancreatic - Caffeine Use Caffeine Use: Reports: Coffee - Living Situation & Occupation Living situation: Reports: , Alone Occupation: Retired ED ROS GENERAL - Review of Systems Review Of Systems: Comprehensive ROS is negative, except as noted in HPI. ED EXAM, RENAL/ - Physical Exam Exam: See Below Exam Limited By: No Limitations General Appearance: Alert, WD/WN, No Apparent Distress Eye Exam: Bilateral Eye: EOMI, Normal Inspection Ears: Normal External Exam, Hearing Grossly Normal Nose: Normal Inspection Throat/Mouth: Normal Inspection, Normal Voice, No Airway Compromise Head: Atraumatic, Normocephalic Neck: Normal Inspection, Supple, Non-Tender, Full Range of Motion Respiratory/Chest: No Respiratory Distress, Lungs Clear, Normal Breath Sounds, No Accessory Muscle Use, Chest Non-Tender Cardiovascular: Normal Peripheral Pulses, Regular Rate, Rhythm, No Edema, No Gallop, No JVD, No Murmur, No Rub GI/Abdominal: Normal Bowel Sounds, Soft, Non-Tender, No Organomegaly, No Distention, No Abnormal Bruit, No Mass (Male) Exam: Other (Phimosis with no redness or irritation, no swelling). No: Circumcised, Penile Lesions Rectal (Males) Exam: Deferred Back Exam: Normal Inspection, Full Range of Motion, NT Extremities: Normal Inspection, Normal Range of Motion, Non-Tender, Normal Capillary Refill, No Pedal Edema Neurological: Alert, Oriented, Normal Cognition, Normal Gait, No Motor/Sensory Deficits Psychiatric: Normal Affect, Normal Mood Skin Exam: Warm, Dry, Intact, Normal Color, No Rash Course - Vital Signs Last Recorded V/S: Last Vital Signs Temp 97.4 F 08/15/20 08:10 Pulse 57 L 08/15/20 08:10 Resp 12 08/15/20 08:10 BP 118/43 L 08/15/20 08:10 Pulse Ox 97 08/15/20 08:10 - Orders/Labs/Meds Orders: Active Orders 24 hr Category Date Time Status Insert Glynn Catheter [Insert Urinary Catheter] [OM.PC] Care 08/15/20 08:30 Ordered Q24H Urinary Catheter Assessment [RC] ASDIRECTED Care 08/15/20 08:18 Active Labs: Laboratory Tests 08/15/20 Range/Units 08:22 Urine Color Yellow (YELLOW) Urine Appearance Clear (CLEAR) Urine pH 6.0 (5.0-9.0) Ur Specific [place] 1.015 (1.005-1.030) Urine Protein Negative (NEGATIVE) Urine Glucose (UA) Negative (NEGATIVE) Urine Ketones Negative (NEGATIVE) Urine Occult Blood Negative (NEGATIVE) Urine Nitrite Negative (NEGATIVE) Urine Bilirubin Negative (NEGATIVE) Urine Urobilinogen 0.2 (0.2-1.0) mg/dL Ur Leukocyte Esterase Negative (NEGATIVE) - Re-Assessments/Exams Free Text/Narrative Re-Assessment/Exam: 08/15/20 08:38 Glynn catheter was inserted per nursing staff draining clear yellow urine. Patient states relief from drainage of urine. Departure - Departure Time of Disposition: 08:38 Disposition: Home, Self-Care 01 Condition: Good Clinical Impression: Urinary retention, Phimosis of penis - Discharge Information *PRESCRIPTION DRUG MONITORING PROGRAM REVIEWED*: No *COPY OF PRESCRIPTION DRUG MONITORING REPORT IN PATIENT GLADYS: No Instructions: Acute Urinary Retention, Male, [id number] Forms: ED Department Discharge Additional Instructions: Gently retract the scope foreskin to clean with warm washcloth, use mild soap May soak the penis in warm mild soapy water Dry area completely as needed Follow-up with your primary care provider Return to ER with any worsening of problems Sepsis Event Note (ED) - Focused Exam Vital Signs: Vital Signs Temp Pulse Resp BP Pulse Ox 08/15/20 08:10 97.4 F 57 L 12 118/43 L 97 - My Orders Last 24 Hours: My Active Orders 08/15/20 08:18 Urinary Catheter Assessment [RC] ASDIRECTED 08/15/20 08:30 Insert Glynn Catheter [Insert Urinary Catheter] [OM.PC] Q24H - Assessment/Plan Last 24 Hours: My Active Orders 08/15/20 08:18 Urinary Catheter Assessment [RC] ASDIRECTED 08/15/20 08:30 Insert Glynn Catheter [Insert Urinary Catheter] [OM.PC] Q24H
[2020-08-15 08:14] VITALS: BP 118/43; PULSE 57
== END 2020-08-15 08:55 | disposition home or self-care (01) ==
LOC: DL.ED 07:33
DX: R33.9 Retention of urine, unspecified (principal); N47.1 Phimosis; I25.10 Atherosclerotic heart disease of native coronary artery without angina pectoris; E78.00 Pure hypercholesterolemia, unspecified; I10 Essential (primary) hypertension; I25.2 Old myocardial infarction; E11.9 Type 2 diabetes mellitus without complications; Z95.5 Presence of coronary angioplasty implant and graft; Z79.82 Long term (current) use of aspirin; Z79.4 Long term (current) use of insulin; Z79.899 Other long term (current) drug therapy; Z88.1 Allergy status to other antibiotic agents
CPT/HCPCS: 51702; 81003; 99283; 99283-25

== ENCOUNTER 2020-09-26 07:48 | Emergency (ER) | payer MEDICARE, MEDICAID ==
[2020-09-26 08:06] VITALS: BP 147/70; PULSE 61
[2020-09-26 08:35] LABS: ANION GAP 13.3 mEq/L (7-13)
--- NOTE | 2020-09-26 08:57 | EDM.PDOC ---
ED HPI GENERAL MEDICAL PROBLEM - General Chief Complaint: Chest Pain Stated Complaint: AMBULANCE Time Seen by Provider: 09/26/20 08:40 Source of Information: Reports: Patient History Limitations: Reports: No Limitations - History of Present Illness INITIAL COMMENTS - FREE TEXT/NARRATIVE: This 79 yo male patient was brought to the ED by [facility] due to increased pain in his left arm and shoulder. The patient reports his pain was getting better upon arrival in the ED. By the time of examination, the patient reports his pain was gone. 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 Onset: Today Duration: Hour(s):, Improving Location: Reports: Upper Extremity, Left Quality: Reports: Ache, Dull Severity: Moderate Improves with: Reports: None Worsens with: Reports: None Context: Reports: Other - Related Data Allergies Allergy/AdvReac Type Severity Reaction Status Date / Time cephalexin Allergy Mild Itching Verified 08/15/20 08:14 levofloxacin [From Levaquin] Allergy chest pain Verified 08/15/20 08:14 and SOB Home Meds: Home Meds Aspirin [Halfprin] 81 mg PO DAILY 04/06/13 [History] Metoprolol Succinate [Toprol XL] 50 mg PO DAILY 04/06/13 [History] Simvastatin [Zocor] 40 mg PO BEDTIME 04/06/13 [History] Tamsulosin [Flomax] 0.4 mg PO DAILY 04/06/13 [History] ramipriL [Altace] 5 mg PO DAILY 04/06/13 [History] Clopidogrel [Plavix] 75 mg PO DAILY 06/30/13 [History] Insulin Detemir [Levemir] 50 unit SQ DAILY 09/15/13 [History] Leuprolide Acetate [Lupron Depot] 50 mg SQ ASDIRECTED 02/18/14 [History] Isosorbide Mononitrate [Imdur] 15 mg PO BID 07/11/15 [History] Cannabidiol 07/07/18 [History] Insulin Aspart [NovoLOG] 20 unit SQ TID 04/20/19 [History] Ketorolac [Acular 0.5% Ophth Soln] 1 drop EYELF BID 04/20/19 [History] Nitroglycerin 0.4 mg SL ASDIRECTED PRN 04/20/19 [History] Omeprazole 20 mg PO DAILY 04/20/19 [History] prednisoLONE acetate [Pred Forte 1% Ophth Susp] 1 drop EYELF QID 04/20/19 [History] bisacodyL [Dulcolax] 10 mg RC BID PRN 04/27/19 [History] Past Medical History HEENT History: Reports: Impaired Vision Other HEENT History: Presbyopia Cardiovascular History: Reports: Angina, Bypass, CAD, High Cholesterol, Hypertension, MA, Stents Respiratory History: Reports: Pneumonia, Recurrent Other Respiratory History: tracheostomy Gastrointestinal History: Reports: Other (See Below) Other Gastrointestinal History: feeding tube history Genitourinary History: Reports: BPH Other Genitourinary History: prostate cancer Musculoskeletal History: Reports: None Neurological History: Reports: TIA Psychiatric History: Reports: Anxiety, Depression, Panic Attack Endocrine/Metabolic History: 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, Type II, IDDM Hematologic History: Reports: None Immunologic History: Reports: None 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 "tongue" Dermatologic History: Reports: None - Infectious Disease History Infectious Disease History: Reports: Chicken Pox, Measles - Past Surgical History Head Surgeries/Procedures: Reports: None HEENT Surgical History: Reports: Cataract Surgery, Tonsillectomy Other HEENT Surgeries/Procedures: CATARACT SURGERY LEFT EYE ON 04/21/2019 Cardiovascular Surgical History: Reports: Coronary Artery Bypass, Coronary Artery Stent Other Cardiovascular Surgeries/Procedures: 2 vessel bypass Respiratory Surgical History: Reports: Tracheostomy Other Respiratory Surgeries/Procedures: 06/05/18 repair of unhealing trach, healed on 04/08/2019 GI Surgical History: Reports: Cholecystectomy Social & Family History - Family History Family Medical History: No Pertinent Family History HEENT: Reports: None Cardiac: Reports: None Respiratory: Reports: None GI: Reports: None : Reports: None OBGYN: Reports: None Musculoskeletal: Reports: None Neurological: Reports: None Psychiatric: Reports: None Endocrine/Metabolic: 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, Type I Hematologic: Reports: None Immunologic: Reports: None Dermatologic: Reports: None Oncologic: Reports: Breast, Colon, Pancreatic - Tobacco Use Tobacco Use Status *Q: Never Tobacco User Second Hand Smoke Exposure: No - Caffeine Use Caffeine Use: Reports: Coffee - Recreational Drug Use Recreational Drug Use: No - Living Situation & Occupation Living situation: Reports: , Alone Occupation: Retired ED ROS GENERAL - Review of Systems Review Of Systems: Comprehensive ROS is negative, except as noted in HPI. ED EXAM, GENERAL - Physical Exam Exam: See Below Exam Limited By: No Limitations General Appearance: Alert, WD/WN, Anxious, Mild Distress Eye Exam: Bilateral Eye: EOMI, Normal Inspection, PERRL Ears: Normal External Exam, Normal Canal, Hearing Grossly Normal, Normal TMs Nose: Normal Inspection, Normal Mucosa, No Blood Throat/Mouth: Normal Inspection Head: Atraumatic, Normocephalic Neck: Normal Inspection, Supple, Non-Tender, Full Range of Motion Respiratory/Chest: No Respiratory Distress, Lungs Clear, Normal Breath Sounds, No Accessory Muscle Use, Chest Non-Tender Cardiovascular: Normal Peripheral Pulses, Regular Rate, Rhythm, No Edema, No Gallop, No JVD, No Murmur, No Rub GI/Abdominal: Normal Bowel Sounds, Soft, Non-Tender, No Organomegaly, No Distention, No Abnormal Bruit, No Mass (Male) Exam: Deferred Rectal (Males) Exam: Deferred Back Exam: Normal Inspection, Full Range of Motion, NT Extremities: Normal Inspection, Normal Range of Motion, Non-Tender, No Pedal Edema, Normal Capillary Refill, Arm Pain (Arm pain had resolved prior to assessment.) Neurological: Alert, Oriented, CN II-XII Intact, Normal Cognition, Normal Gait, Normal Reflexes, No Motor/Sensory Deficits Psychiatric: Normal Affect, Normal Mood Skin Exam: Warm, Dry, Intact, Normal Color, No Rash Lymphatic: No Adenopathy #1 Interpretation EKG Date: 09/26/20 Time: 07:59 Rhythm: NSR Rate (Beats/Min): 63 [place]: Normal P-Wave: Present QRS: Normal ST-T: Normal QT: Normal Comparison: No Change Course - Vital Signs Last Recorded V/S: Last Vital Signs Temp 97.7 F 09/26/20 08:00 Pulse 61 09/26/20 08:00 Resp 16 09/26/20 08:00 BP 147/70 H 09/26/20 08:00 Pulse Ox 95 09/26/20 08:00 - Orders/Labs/Meds Orders: Active Orders 24 hr Category Date Time Status EKG Documentation Completion [RC] STAT Care 09/26/20 07:57 Ordered Chest 1V Frontal [CR] Urgent Exams 09/26/20 07:57 Ordered Labs: Laboratory Tests 09/26/20 09/26/20 09/26/20 Range/Units 08:08 08:08 08:08 WBC 6.8 (5.0-10.0) 10^3/uL RBC 4.33 L (4.6-6.2) 10^6/uL Hgb 14.1 (14.0-18.0) g/dL Hct 42.5 (40.0-54.0) % MCV 98.2 (80-100) fL MCH 32.6 (27.0-34.0) pg MCHC 33.2 (33.0-35.0) g/dL Plt Count 242 (150-450) 10^3/uL Neut % (Auto) 61.1 (42.2-75.2) % Lymph % (Auto) 24.0 (20.5-50.1) % [place] % (Auto) 8.8 H (2-8) % Eos % (Auto) 5.8 H (1.0-3.0) % Baso % (Auto) 0.3 (0.0-1.0) % Sodium 142 (136-145) mmol/L Potassium 4.3 (3.5-5.1) mmol/L Chloride 106 (98-107) mmol/L Carbon Dioxide 27 (21-32) mmol/L Anion Gap 13.3 H (7-13) mEq/L BUN 19 H (7-18) mg/dL Creatinine 1.55 H (0.70-1.30) mg/dL Est Cr Clr Drug Dosing 36.16 mL/min Estimated GFR (MDRD) 43 BUN/Creatinine Ratio 12.3 (No establ ref range) Glucose 240 H (70-99) mg/dL Lactic Acid 1.2 (0.4-2.0) mmol/L Calcium 8.1 L (8.5-10.1) mg/dL Total Bilirubin 0.3 (0.2-1.0) mg/dL AST 19 (15-37) U/L ALT 21 (16-63) U/L Alkaline Phosphatase 147 H (46-116) U/L Troponin I High Sens 8 (<=76) pg/mL Total Protein 6.9 (6.4-8.2) g/dL Albumin 3.0 L (3.4-5.0) g/dL Globulin 3.9 Albumin/Globulin Ratio 0.77 Departure - Departure Time of Disposition: 08:54 Disposition: Home, Self-Care 01 Condition: Fair Clinical Impression: Left arm pain Care Plan Goals: The patient was advised of the examination, lab, EKG and x-ray results during the visit. The patient was encouraged to continue to monitor for any additional symptoms. The patient was advised to take it easy today due to high temperatures and high humidity. If the patient has any additional symptoms or concerns, the patient should either return to the emergency department or visit his primary care facility. Sepsis Event Note (ED) - Evaluation Sepsis Screening Result: No Definite Risk - Focused Exam Vital Signs: Vital Signs Temp Pulse Resp BP Pulse Ox 09/26/20 08:00 97.7 F 61 16 147/70 H 95 - My Orders Last 24 Hours: My Active Orders 09/26/20 07:57 EKG Documentation Completion [RC] STAT Chest 1V Frontal [CR] Urgent - Assessment/Plan Last 24 Hours: My Active Orders 09/26/20 07:57 EKG Documentation Completion [RC] STAT Chest 1V Frontal [CR] Urgent
--- NOTE | 2020-09-26 09:37 | CR ---
PROCEDURE INFORMATION: Exam: XR Chest Exam date and time: 09/26/2020 8:22 AM Age: 79 years old Clinical indication: Other: Chest pain; Additional info: Chest and left arm pain TECHNIQUE: Imaging protocol: XR of the chest. Views: 1 view. COMPARISON: CT Chest w Cont, Chest w Cont 09/19/2020 12:33 PM FINDINGS: Lungs: Low lung volumes. Linear atelectasis right lung base. Pleural spaces: Possible left pneumothorax measuring 4.6 cm at the left lung apex. Heart/Mediastinum: Unremarkable. No cardiomegaly. Heart and mediastinum are midline. Bones/joints: Median sternotomy wires. IMPRESSION: Possible left lung pneumothorax.
== END 2020-09-26 09:18 | disposition home or self-care (01) ==
LOC: DL.ED 07:48
DX: M79.602 Pain in left arm (principal); I25.10 Atherosclerotic heart disease of native coronary artery without angina pectoris; E78.00 Pure hypercholesterolemia, unspecified; I10 Essential (primary) hypertension; I25.2 Old myocardial infarction; E11.9 Type 2 diabetes mellitus without complications; Z88.1 Allergy status to other antibiotic agents; Z79.82 Long term (current) use of aspirin; Z79.02 Long term (current) use of antithrombotics/antiplatelets; Z79.4 Long term (current) use of insulin; Z79.899 Other long term (current) drug therapy
CPT/HCPCS: 36415; 71045; 80053; 83605; 84484; 85025; 93005; 93010; 99284; 99284-25

== ENCOUNTER 2021-03-03 08:26 | Emergency (ER) | payer MEDICAID, MEDICARE ==
[2021-03-03] MEDS ORDERED: Sodium Chloride 0.9% 10 ML Syringe FLUSH PRN (08:40)
--- NOTE | 2021-03-03 08:40 | EDM.PDOC ---
ED HPI GENERAL MEDICAL PROBLEM - General Chief Complaint: Chest Pain Stated Complaint: AMBULANCE Time Seen by Provider: 03/03/21 08:40 Source of Information: Reports: Patient, EMS, Old Records, RN, RN Notes Reviewed History Limitations: Reports: No Limitations - History of Present Illness INITIAL COMMENTS - FREE TEXT/NARRATIVE: Pt arrives to ER from home by [facility] with c/o recurring chest and epigastric pain x1 week. Pt states it seemed to get worse after he ate bullets & bangs for dinner last night. On arrival to the ER the pt states the pain is nearly gone without any intervention. Pt states he call the ambulance several days ago for the chest pain, but "called them off" because it went away before they got to his house. Pt describes the pain episodes as starting like a pressure pushing up from his stomach into his chest, followed by an aching all across his chest, then it goes away. 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 He denies radiating pain, shortness of breath, cough, fever, lightheadedness, or syncope. The pain seems to come on randomly without regard to activity, exertion, eating, or position. Pt states he had a Moderna COVID booster shot last week on . Duration: Week(s): (1), Intermittent, Recurring, Waxing/Waning Location: Reports: Chest, Abdomen Quality: Reports: Ache, Pressure Severity: Moderate Improves with: Reports: None Worsens with: Reports: None Associated Symptoms: Reports: No Other Symptoms Middle Chest Pain Score (Numeric/FACES): 2 - Related Data Allergies Allergy/AdvReac Type Severity Reaction Status Date / Time cephalexin Allergy Mild Itching Verified 03/03/21 08:51 levofloxacin [From Levaquin] Allergy chest pain Verified 03/03/21 08:51 and SOB Home Meds: Home Meds Aspirin [Halfprin] 81 mg PO DAILY 04/06/13 [History] Metoprolol Succinate [Toprol XL] 50 mg PO DAILY 04/06/13 [History] Simvastatin [Zocor] 40 mg PO BEDTIME 04/06/13 [History] Tamsulosin [Flomax] 0.4 mg PO DAILY 04/06/13 [History] ramipriL [Altace] 5 mg PO DAILY 04/06/13 [History] Clopidogrel [Plavix] 75 mg PO DAILY 06/30/13 [History] Insulin Detemir [Levemir] 50 unit SQ DAILY 09/15/13 [History] Leuprolide Acetate [Lupron Depot] 50 mg SQ ASDIRECTED 02/18/14 [History] Isosorbide Mononitrate [Imdur] 15 mg PO BID 07/11/15 [History] Cannabidiol 07/07/18 [History] Insulin Aspart [NovoLOG] 20 unit SQ TID 04/20/19 [History] Ketorolac [Acular 0.5% Ophth Soln] 1 drop EYELF BID 04/20/19 [History] Nitroglycerin 0.4 mg SL ASDIRECTED PRN 04/20/19 [History] Omeprazole 20 mg PO DAILY 04/20/19 [History] bisacodyL [Dulcolax] 10 mg RC BID PRN 04/27/19 [History] Past Medical History HEENT History: Reports: Impaired Vision Other HEENT History: Presbyopia Cardiovascular History: Reports: Angina, Bypass, CAD, High Cholesterol, Hypertension, [place], Stents Respiratory History: Reports: Pneumonia, Recurrent Other Respiratory History: tracheostomy Gastrointestinal History: Reports: Other (See Below) Other Gastrointestinal History: feeding tube history Genitourinary History: Reports: BPH Other Genitourinary History: prostate cancer Musculoskeletal History: Reports: None Neurological History: Reports: TIA Psychiatric History: Reports: Anxiety, Depression, Panic Attack Endocrine/Metabolic History: 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, Type II, IDDM Hematologic History: Reports: None Immunologic History: Reports: None 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 "tongue" Dermatologic History: Reports: None - Infectious Disease History Infectious Disease History: Reports: Chicken Pox, Measles - Past Surgical History Head Surgeries/Procedures: Reports: None HEENT Surgical History: Reports: Cataract Surgery, Tonsillectomy Other HEENT Surgeries/Procedures: CATARACT SURGERY LEFT EYE ON 04/21/2019 Cardiovascular Surgical History: Reports: Coronary Artery Bypass, Coronary Artery Stent Other Cardiovascular Surgeries/Procedures: 2 vessel bypass Respiratory Surgical History: Reports: Tracheostomy Other Respiratory Surgeries/Procedures: 06/05/18 repair of unhealing trach, healed on 04/08/2019 GI Surgical History: Reports: Cholecystectomy Social & Family History - Family History Family Medical History: No Pertinent Family History HEENT: Reports: None Cardiac: Reports: None Respiratory: Reports: None GI: Reports: None : Reports: None OBGYN: Reports: None Musculoskeletal: Reports: None Neurological: Reports: None Psychiatric: Reports: None Endocrine/Metabolic: 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, Type I Hematologic: Reports: None Immunologic: Reports: None Dermatologic: Reports: None Oncologic: Reports: Breast, Colon, Pancreatic - Caffeine Use Caffeine Use: Reports: Coffee - Living Situation & Occupation Living situation: Reports: , Alone Occupation: Retired ED ROS GENERAL - Review of Systems Review Of Systems: Comprehensive ROS is negative, except as noted in HPI. ED EXAM, GENERAL - Physical Exam Exam: See Below Exam Limited By: No Limitations General Appearance: Alert, No Apparent Distress, Other (Frail elderly appearing male) Eye Exam: Bilateral Eye: Normal Inspection Nose: Normal Inspection, Normal Mucosa, No Blood Throat/Mouth: Normal Lips, Normal Voice, No Airway Compromise Head: Atraumatic, Normocephalic Neck: Normal Inspection Respiratory/Chest: No Respiratory Distress, Lungs Clear, Normal Breath Sounds, No Accessory Muscle Use, Chest Non-Tender Cardiovascular: Regular Rate, Rhythm, No Edema GI/Abdominal: Normal Bowel Sounds, Soft, Non-Tender Back Exam: Normal Inspection Extremities: Normal Inspection, Normal Range of Motion, Non-Tender, Normal Capillary Refill, No Pedal Edema Neurological: Alert, Oriented, No Motor/Sensory Deficits Psychiatric: Normal Mood Skin Exam: Warm, Dry, Intact, Normal Color, No Rash #1 Interpretation EKG Date: 03/03/21 Time: 09:20 Rhythm: Other (SR) Rate (Beats/Min): 52 [place]: LAD-Left [place] Deviation P-Wave: Present QRS: Normal ST-T: Normal QT: Normal Comparison: No Change Course - Vital Signs Last Recorded V/S: Last Vital Signs Temp 95.7 F L 03/03/21 08:41 Pulse 55 L 03/03/21 08:41 Resp 16 03/03/21 08:41 BP 148/60 H 03/03/21 08:41 Pulse Ox 96 03/03/21 08:41 - Orders/Labs/Meds Orders: Active Orders 24 hr Category Date Time Status Peripheral IV Care [RC] . DIRECTED Care 03/03/21 08:41 Active Sodium Chloride 0.9% [Saline Flush] Med 03/03/21 08:40 Active 10 ml FLUSH ASDIRECTED PRN Peripheral IV Insertion Adult [OM.PC] Stat Oth 03/03/21 08:41 Ordered Medication Orders Sodium Chloride (Sodium Chloride 0.9% 10 Ml Syringe) 10 ml FLUSH ASDIRECTED PRN PRN Reason: Keep Vein Open Last Admin: 03/03/21 09:35 Dose: 10 ml Documented by: FLORENTIN Labs: Laboratory Tests 03/03/21 03/03/21 Range/Units 08:57 08:57 WBC 7.4 (5.0-10.0) 10^3/uL RBC 4.54 L (4.6-6.2) 10^6/uL Hgb 14.5 (14.0-18.0) g/dL Hct 44.4 (40.0-54.0) % MCV 97.8 (80-100) fL MCH 31.9 (27.0-34.0) pg MCHC 32.7 L (33.0-35.0) g/dL Plt Count 249 (150-450) 10^3/uL Neut % (Auto) 68.1 (42.2-75.2) % Lymph % (Auto) 19.2 L (20.5-50.1) % [place] % (Auto) 7.7 (2-8) % Eos % (Auto) 4.9 H (1.0-3.0) % Baso % (Auto) 0.1 (0.0-1.0) % Sodium 139 (136-145) mmol/L Potassium 4.5 (3.5-5.1) mmol/L Chloride 102 (98-107) mmol/L Carbon Dioxide 29 (21-32) mmol/L Anion Gap 12.5 (7-13) mEq/L BUN 26 H (7-18) mg/dL Creatinine 1.58 H (0.70-1.30) mg/dL Est Cr Clr Drug Dosing TNP Estimated GFR (MDRD) 42 BUN/Creatinine Ratio 16.5 (No establ ref range) Glucose 165 H (70-99) mg/dL Calcium 8.9 (8.5-10.1) mg/dL Total Bilirubin 0.3 (0.2-1.0) mg/dL AST 16 (15-37) U/L ALT 20 (16-63) U/L Alkaline Phosphatase 134 H (46-116) U/L Troponin I High Sens 31 (<=76) pg/mL B-Natriuretic Peptide 54 (0-100) pg/ml Total Protein 7.8 (6.4-8.2) g/dL Albumin 3.3 L (3.4-5.0) g/dL Globulin 4.5 Albumin/Globulin Ratio 0.73 Amylase 62 (25-115) U/L Lipase 124 (73-393) U/L Meds: Medications Generic Name Dose Route Start Last Admin Trade Name Freq PRN Reason Stop Dose Admin Sodium Chloride 10 ml 03/03/21 08:40 03/03/21 09:35 Sodium Chloride 0.9% 10 Ml Syringe FLUSH 10 ml ASDIRECTED PRN Administration Keep Vein Open Discontinued Medications Generic Name Dose Route Start Last Admin Trade Name Freq PRN Reason Stop Dose Admin Aspirin 324 mg 03/03/21 08:42 03/03/21 08:52 Aspirin 81 Mg Tab.Chew PO 03/03/21 08:43 324 mg ONETIME ONE Administration Sucralfate 1 gm 03/03/21 10:02 Sucralfate 1 Gm Tab PO 03/03/21 10:03 ONETIME ONE - Radiology Interpretation Free Text/Narrative:: [facility] Final Radiology Report Call: [phone] assistance Online chat: [email or web address] Name: LUKASZ FLETCHER Age: 80Years M Date: 03/03/2021 SSN: -- : [id number] Study: CR CHEST 1V FRONTAL Requesting Physician: JUAN VALENZUELA Images: 1 Addl Studies: Provided Clinical History: chest pain Contrast: Contrast Medium: Contrast Amount: Contrast Method: CONFIDENTIALITY STATEMENT This report is intended only for use by the referring physician, and only in accordance with law. If you received this in error, call [phone]. Page 1 of 1 PROCEDURE INFORMATION: Exam: XR Chest Exam date and time: 03/03/2021 8:46 AM Age: 80 years old Clinical indication: Other: Chest pain TECHNIQUE: Imaging protocol: XR of the chest. Views: 1 view. COMPARISON: CR Chest 1V Frontal 09/26/2020 8:22 AM FINDINGS: Lungs: Atelectasis present right lung base. Pleural spaces: Unremarkable. No pleural effusion. No pneumothorax. Heart/Mediastinum: Unremarkable. No cardiomegaly. Bones/joints: Median sternotomy wires. IMPRESSION: Right lower lobe atelectasis. Low lung volumes. Thank you for allowing us to participate in the care of your patient. Dictated and Authenticated by: Lukasz Moe MD 03/03/2021 10:01 AM Central Time ([place] & [place]) Departure - Departure Time of Disposition: 10:11 Disposition: Home, Self-Care 01 Condition: Good Clinical Impression: Atypical chest pain Instructions: Nonspecific Chest Pain, Adult, [id number], Esophagitis Forms: ED Department Discharge Additional Instructions: Rx: Carafate 1g *May either swallow this tablet, or chew it then swallow it if it's too large to swallow. Continue other medications at prescribed. Follow up in clinic this week for recheck, and consider a referral to a GI specialist if needed. Sepsis Event Note (ED) - Focused Exam Vital Signs: Vital Signs Temp Pulse Resp BP Pulse Ox 03/03/21 08:41 95.7 F L 55 L 16 148/60 H 96 - My Orders Last 24 Hours: My Active Orders 03/03/21 08:40 Sodium Chloride 0.9% [Saline Flush] 10 ml FLUSH ASDIRECTED PRN 03/03/21 08:41 Peripheral IV Care [RC] . DIRECTED Peripheral IV Insertion Adult [OM.PC] Stat - Assessment/Plan Last 24 Hours: My Active Orders 03/03/21 08:40 Sodium Chloride 0.9% [Saline Flush] 10 ml FLUSH ASDIRECTED PRN 03/03/21 08:41 Peripheral IV Care [RC] . DIRECTED Peripheral IV Insertion Adult [OM.PC] Stat
[2021-03-03] MEDS ORDERED: Aspirin 81 MG Tab.Chew PO ONE (08:42)
[2021-03-03 08:51] VITALS: BP 148/60; PULSE 55
[2021-03-03 09:28] LABS: ANION GAP 12.5 mEq/L (7-13); CHLORIDE,CL 102 mmol/L (98-107); SODIUM,NA 139 mmol/L (136-145)
--- NOTE | 2021-03-03 10:01 | CR ---
PROCEDURE INFORMATION: Exam: XR Chest Exam date and time: 03/03/2021 8:46 AM Age: 80 years old Clinical indication: Other: Chest pain TECHNIQUE: Imaging protocol: XR of the chest. Views: 1 view. COMPARISON: CR Chest 1V Frontal 09/26/2020 8:22 AM FINDINGS: Lungs: Atelectasis present right lung base. Pleural spaces: Unremarkable. No pleural effusion. No pneumothorax. Heart/Mediastinum: Unremarkable. No cardiomegaly. Bones/joints: Median sternotomy wires. IMPRESSION: Right lower lobe atelectasis. Low lung volumes.
[2021-03-03] MEDS ORDERED: Sucralfate 1 GM Tab PO ONE (10:02)
== END 2021-03-03 10:30 | disposition home or self-care (01) ==
LOC: DL.ED 08:26
DX: R07.89 Other chest pain (principal); I25.10 Atherosclerotic heart disease of native coronary artery without angina pectoris; E78.00 Pure hypercholesterolemia, unspecified; I10 Essential (primary) hypertension; I25.2 Old myocardial infarction; E11.9 Type 2 diabetes mellitus without complications; N40.0 Benign prostatic hyperplasia without lower urinary tract symptoms; Z95.5 Presence of coronary angioplasty implant and graft; Z88.1 Allergy status to other antibiotic agents; Z86.73 Personal history of transient ischemic attack (TIA), and cerebral infarction without residual deficits; Z79.82 Long term (current) use of aspirin; Z79.899 Other long term (current) drug therapy
CPT/HCPCS: 36415; 71045; 80053; 82150; 83690; 83880; 84484; 85025; 93005; 99285; A9270

== ENCOUNTER 2021-03-04 06:35 | Emergency (ER) | payer MEDICARE ==
[2021-03-04 07:01] VITALS: BP 137/67; PULSE 56
--- NOTE | 2021-03-04 07:05 | EDM.PDOC ---
ED HPI GENERAL MEDICAL PROBLEM - General Chief Complaint: Gastrointestinal Problem Stated Complaint: AMBULANCE Time Seen by Provider: 03/04/21 07:00 Source of Information: Reports: Patient, Old Records, RN, RN Notes Reviewed History Limitations: Reports: No Limitations - History of Present Illness INITIAL COMMENTS - FREE TEXT/NARRATIVE: Pt arrives to ER from home with c/o difficulty swallowing, throat and chest pain which is worse if he tries to eat or swallow anything other than liquids, and occasionally hurts even with swallowing liquids. Pt states he food gets stuck in his throat and causes both pain and anxiety. Pt describes an aching, burning, cramping sensation that begins at the epigastric region and runs straight up the midline chest to the throat. He denies acid reflux into the mouth. 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 He claims his throat specialist told him at the last visit that he would need his esophagus dilated, but then he missed the next appointment, and fears he has let it go to far. Pt states that he can only take very small bite and has to chew a lot, then sip water to get any food to go down. The pt states he is alone, has no appetite, has "failing health", and welcomes but is not suicidal. He was seen here in the ER yesterday with c/o chest pain, but with symptoms as above. He now returns complaining that he is not any better today. Onset: Unknown/Unsure Duration: Chronic, Constant, Getting Worse Location: Reports: Chest, Abdomen, Other (Throat) Quality: Reports: Ache, Burning, Pressure, Other (Cramping, spasms) Severity: Severe Improves with: Reports: None Worsens with: Reports: Eating Associated Symptoms: Reports: No Other Symptoms Shoulder Pain Score (Numeric/FACES): 2 - Related Data Allergies Allergy/AdvReac Type Severity Reaction Status Date / Time cephalexin Allergy Mild Itching Verified 03/04/21 06:57 levofloxacin [From Levaquin] Allergy chest pain Verified 03/04/21 06:57 and SOB Home Meds: Home Meds Aspirin [Halfprin] 81 mg PO DAILY 04/06/13 [History] Metoprolol Succinate [Toprol XL] 50 mg PO BEDTIME 04/06/13 [History] Simvastatin [Zocor] 40 mg PO BEDTIME 04/06/13 [History] Tamsulosin [Flomax] 0.4 mg PO DAILY 04/06/13 [History] ramipriL [Altace] 5 mg PO BEDTIME 04/06/13 [History] Clopidogrel [Plavix] 75 mg PO DAILY 06/30/13 [History] Insulin Detemir [Levemir] 50 unit SQ DAILY 09/15/13 [History] Leuprolide Acetate [Lupron Depot] 50 mg SQ ASDIRECTED 02/18/14 [History] Isosorbide Mononitrate [Imdur] 5 mg PO BID 07/11/15 [History] Cannabidiol 1 tab PO ASDIRECTED 07/07/18 [History] Insulin Aspart [NovoLOG] 40 unit SQ TID 04/20/19 [History] Ketorolac [Acular 0.5% Ophth Soln] 1 drop EYELF BID 04/20/19 [History] Nitroglycerin 0.4 mg SL ASDIRECTED PRN 04/20/19 [History] Omeprazole 20 mg PO DAILY 04/20/19 [History] bisacodyL [Dulcolax] 10 mg RC BID PRN 04/27/19 [History] Calcium Carbonate/Vitamin D3 [Calcium 600-Vit D3 400 Tablet] 1 each PO DAILY 03/04/21 [History] Fluorometholone [Fluorometholone 0.1% Ophth Susp] 1 drop EYEBOTH ASDIRECTED 03/04/21 [History] Sennosides [Senna] 2 tab PO BID 03/04/21 [History] diazePAM [Valium.] 5 mg PO Q8H PRN 03/04/21 [History] Past Medical History HEENT History: Reports: Impaired Vision Other HEENT History: Presbyopia Cardiovascular History: Reports: Angina, Bypass, CAD, High Cholesterol, Hypertension, [place], Stents Respiratory History: Reports: Pneumonia, Recurrent Other Respiratory History: tracheostomy Gastrointestinal History: Reports: Gastritis, GERD, GI Bleed, Other (See Below) (Esophageal stricture. 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 "tongue" Dermatologic History: Reports: None - Infectious Disease History Infectious Disease History: Reports: Chicken Pox, Measles - Past Surgical History Head Surgeries/Procedures: Reports: None HEENT Surgical History: Reports: Cataract Surgery, Tonsillectomy Other HEENT Surgeries/Procedures: CATARACT SURGERY LEFT EYE ON 04/21/2019 Cardiovascular Surgical History: Reports: Coronary Artery Bypass, Coronary Artery Stent Other Cardiovascular Surgeries/Procedures: 2 vessel bypass Respiratory Surgical History: Reports: Tracheostomy Other Respiratory Surgeries/Procedures: 06/05/18 repair of unhealing trach, healed on 04/08/2019 GI Surgical History: Reports: Cholecystectomy Social & Family History - Family History Family Medical History: No Pertinent Family History HEENT: Reports: None Cardiac: Reports: None Respiratory: Reports: None GI: Reports: None : Reports: None OBGYN: Reports: None Musculoskeletal: Reports: None Neurological: Reports: None Psychiatric: Reports: None Endocrine/Metabolic: 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, Type I Hematologic: Reports: None Immunologic: Reports: None Dermatologic: Reports: None Oncologic: Reports: Breast, Colon, Pancreatic - Tobacco Use Tobacco Use Status *Q: Former Tobacco User Used Tobacco, but Quit: Yes Month/Year Tobacco Last Used: 03/2020 - Caffeine Use Caffeine Use: Reports: Coffee - Recreational Drug Use Recreational Drug Use: No - Living Situation & Occupation Living situation: Reports: , Alone Occupation: Retired ED ROS GENERAL - Review of Systems Review Of Systems: Comprehensive ROS is negative, except as noted in HPI. ED EXAM, GI/ABD - Physical Exam Exam: See Below Exam Limited By: No Limitations General Appearance: Alert, No Apparent Distress, Anxious, Other (Frail elderly, chronically ill appearing male.) Eyes: Bilateral: Normal Appearance (No scleral icterus) Nose: Normal Inspection, Normal Mucosa, No Blood Throat/Mouth: Normal Lips, No Airway Compromise, Other (Hoarse voice) Head: Atraumatic, Normocephalic Neck: Normal Inspection, Supple, Non-Tender, Full Range of Motion Respiratory/Chest: No Respiratory Distress, Lungs Clear, Normal Breath Sounds, No Accessory Muscle Use, Chest Non-Tender Cardiovascular: Regular Rate, Rhythm, No Edema, Bradycardia GI/Abdominal Exam: Normal Bowel Sounds, Soft, Non-Tender, No Distention. No: Guarding, Rigid, Rebound Back Exam: Normal Inspection Extremities: Normal Inspection Neurological: Alert, Oriented, CN II-XII Intact, No Motor/Sensory Deficits Psychiatric: Anxious, Depressed Mood, Flat Affect Skin Exam: Warm, Dry, Intact, Normal Color, No Rash #1 Interpretation EKG Date: 03/04/21 Time: 08:40 Rhythm: Other (SR) Rate (Beats/Min): 55 [place]: LAD-Left [place] Deviation P-Wave: Present QRS: Wide (Nonspecific IVCD) ST-T: Normal QT: Normal Comparison: No Change Course - Vital Signs Last Recorded V/S: Last Vital Signs Temp 98.0 F 03/04/21 06:57 Pulse 56 L 03/04/21 06:57 Resp 18 03/04/21 06:57 BP 137/67 03/04/21 06:57 Pulse Ox 95 03/04/21 06:57 - Orders/Labs/Meds Orders: Active Orders 24 hr Category Date Time Status Peripheral IV Care [RC] . DIRECTED Care 03/04/21 07:06 Active Sodium Chloride 0.9% [Saline Flush] Med 03/04/21 07:06 Active 10 ml FLUSH ASDIRECTED PRN Peripheral IV Insertion Adult [OM.PC] Stat Oth 03/04/21 07:06 Ordered Medication Orders Sodium Chloride (Sodium Chloride 0.9% 10 Ml Syringe) 10 ml FLUSH ASDIRECTED PRN PRN Reason: Keep Vein Open Last Admin: 03/04/21 08:06 Dose: 10 ml Documented by: TRACEY Labs: Laboratory Tests 03/04/21 03/04/21 Range/Units 07:45 07:45 WBC 6.8 (5.0-10.0) 10^3/uL RBC 4.49 L (4.6-6.2) 10^6/uL Hgb 14.4 (14.0-18.0) g/dL Hct 44.0 (40.0-54.0) % MCV 98.0 (80-100) fL MCH 32.1 (27.0-34.0) pg MCHC 32.7 L (33.0-35.0) g/dL Plt Count 228 (150-450) 10^3/uL Neut % (Auto) 65.6 (42.2-75.2) % Lymph % (Auto) 20.1 L (20.5-50.1) % [place] % (Auto) 9.3 H (2-8) % Eos % (Auto) 4.9 H (1.0-3.0) % Baso % (Auto) 0.1 (0.0-1.0) % Sodium 142 (136-145) mmol/L Potassium 4.7 (3.5-5.1) mmol/L Chloride 106 (98-107) mmol/L Carbon Dioxide 27 (21-32) mmol/L Anion Gap 13.7 H (7-13) mEq/L BUN 23 H (7-18) mg/dL Creatinine 1.50 H (0.70-1.30) mg/dL Est Cr Clr Drug Dosing 39.20 mL/min Estimated GFR (MDRD) 45 BUN/Creatinine Ratio 15.3 (No establ ref range) Glucose 217 H (70-99) mg/dL Calcium 8.5 (8.5-10.1) mg/dL Total Bilirubin 0.2 (0.2-1.0) mg/dL AST 18 (15-37) U/L ALT 16 (16-63) U/L Alkaline Phosphatase 128 H (46-116) U/L Troponin I High Sens 60 (<=76) pg/mL Total Protein 7.5 (6.4-8.2) g/dL Albumin 3.1 L (3.4-5.0) g/dL Globulin 4.4 Albumin/Globulin Ratio 0.70 Amylase 59 (25-115) U/L Lipase 109 (73-393) U/L Meds: Medications Generic Name Dose Route Start Last Admin Trade Name Freq PRN Reason Stop Dose Admin Sodium Chloride 10 ml 03/04/21 07:06 03/04/21 08:06 Sodium Chloride 0.9% 10 Ml Syringe FLUSH 10 ml ASDIRECTED PRN Administration Keep Vein Open Discontinued Medications Generic Name Dose Route Start Last Admin Trade Name Freq PRN Reason Stop Dose Admin Sodium Chloride 1,000 mls @ 999 mls/hr 03/04/21 07:10 03/04/21 08:05 Normal Saline IV 03/04/21 08:10 999 mls/hr .BOLUS ONE Administration Pantoprazole Sodium 40 mg/ 100 mls @ 200 mls/hr 03/04/21 07:10 03/04/21 08:04 Sodium Chloride IV 03/04/21 07:39 200 mls/hr ONETIME ONE Administration Morphine Sulfate 4 mg 03/04/21 07:12 03/04/21 08:04 Morphine 4 Mg/Ml Syringe IVPUSH 03/04/21 07:13 4 mg ONETIME ONE Administration Ondansetron HCl 4 mg 03/04/21 07:13 03/04/21 08:04 Ondansetron 4 Mg/2 Ml Sdv IV 03/04/21 07:14 4 mg ONETIME ONE Administration Departure - Departure Time of Disposition: 09:12 Disposition: Home, Self-Care 01 Condition: Good Clinical Impression: Esophageal stricture, Esophagitis, Dehydration - Discharge Information *PRESCRIPTION DRUG MONITORING PROGRAM REVIEWED*: No *COPY OF PRESCRIPTION DRUG MONITORING REPORT IN PATIENT GLADYS: No Instructions: Esophageal Stricture, Esophagitis, Dehydration, Adult, [id number]-[id number] Forms: ED Department Discharge Additional Instructions: Rx: Lortab (Hydrocodone) Elixir Fill the Carafate prescription you received yesterday. Follow up in clinic for recheck and referral so you can see the specialist for your esophagus. Sepsis Event Note (ED) - Evaluation Sepsis Screening Result: No Definite Risk - Focused Exam Vital Signs: Vital Signs Temp Pulse Resp BP Pulse Ox 03/04/21 06:57 98.0 F 56 L 18 137/67 95 - My Orders Last 24 Hours: My Active Orders 03/04/21 07:06 Peripheral IV Care [RC] . DIRECTED Sodium Chloride 0.9% [Saline Flush] 10 ml FLUSH ASDIRECTED PRN Peripheral IV Insertion Adult [OM.PC] Stat - Assessment/Plan Last 24 Hours: My Active Orders 03/04/21 07:06 Peripheral IV Care [RC] . DIRECTED Sodium Chloride 0.9% [Saline Flush] 10 ml FLUSH ASDIRECTED PRN Peripheral IV Insertion Adult [OM.PC] Stat
[2021-03-04] MEDS ORDERED: Sodium Chloride 0.9% 10 ML Syringe FLUSH PRN (07:06)
[2021-03-04] MEDS ORDERED: Sodium Chloride 0.9% 1,000 ML IV ONE (07:10)
[2021-03-04] MEDS ORDERED: Pantoprazole 40 MG in Sodium Chloride 0.9% 100 ML IV ONE (07:10)
[2021-03-04] MEDS ORDERED: Morphine 4 MG/ML Syringe IVPUSH ONE (07:12)
[2021-03-04] MEDS ORDERED: Ondansetron 4 MG/2 ML SDV IV ONE (07:13)
[2021-03-04 08:16] LABS: ANION GAP 13.7 mEq/L (7-13)
== END 2021-03-04 09:32 | disposition home or self-care (01) ==
LOC: DL.ED 06:35
DX: K22.2 Esophageal obstruction (principal); K20.90 Esophagitis, unspecified without bleeding; E86.0 Dehydration; I10 Essential (primary) hypertension; E78.00 Pure hypercholesterolemia, unspecified; I25.2 Old myocardial infarction; I25.10 Atherosclerotic heart disease of native coronary artery without angina pectoris; K21.9 Gastro-esophageal reflux disease without esophagitis; E11.9 Type 2 diabetes mellitus without complications; Z79.899 Other long term (current) drug therapy; Z88.8 Allergy status to other drugs, medicaments and biological substances; Z79.4 Long term (current) use of insulin; Z79.82 Long term (current) use of aspirin
CPT/HCPCS: 36415; 80053; 82150; 83690; 84484; 85025; 93005; 96365; 96375; 99285; C9113; J2270; J2405; J7030

== ENCOUNTER 2021-03-07 19:27 | Emergency (ER) | payer MEDICARE ==
--- NOTE | 2021-03-07 20:57 | EDM.PDOC ---
ED HPI GENERAL MEDICAL PROBLEM - General Chief Complaint: General Stated Complaint: HURTS AROUND NECK, SHOULDERS, EARS, DIZZY Time Seen by Provider: 03/07/21 20:35 Source of Information: Reports: Patient History Limitations: Reports: No Limitations - History of Present Illness INITIAL COMMENTS - FREE TEXT/NARRATIVE: This 80 yo male patient reports to the ED with neck pain, right shoulder pain and difficulties swallowing. The patient has been seen in the ED 2 times previously this week for similar symptoms. The patient reports his symptoms have not changed. The patient reports he did attempt to get into his primary care facility, but there were no appointments available. The patient reports he does have an appointment with Dr. Benson on 03/15/21. The patient reports he is in "so much pain" that he had to come in. The patient reports he was released from oncology about 6 months ago due to his throat cancer being in remission. The patient reports he has had increased difficulties swallowing and only able to eat soft foods. Duration: Day(s):, Constant, Getting Worse Location: Reports: Neck, Upper Extremity, Right, Other (throat) Quality: Reports: Ache, Sharp Severity: Severe Improves with: Reports: None Worsens with: Reports: None Context: Reports: Other Associated Symptoms: Reports: No Other Symptoms - Related Data Allergies Allergy/AdvReac Type Severity Reaction Status Date / Time cephalexin Allergy Mild Itching Verified 03/07/21 20:23 levofloxacin [From Levaquin] Allergy chest pain Verified 03/07/21 20:23 and SOB Home Meds: Home Meds Aspirin [Halfprin] 81 mg PO DAILY 04/06/13 [History] Metoprolol Succinate [Toprol XL] 50 mg PO BEDTIME 04/06/13 [History] Simvastatin [Zocor] 40 mg PO BEDTIME 04/06/13 [History] Tamsulosin [Flomax] 0.4 mg PO DAILY 04/06/13 [History] ramipriL [Altace] 5 mg PO BEDTIME 04/06/13 [History] Clopidogrel [Plavix] 75 mg PO DAILY 06/30/13 [History] Insulin Detemir [Levemir] 50 unit SQ DAILY 09/15/13 [History] Leuprolide Acetate [Lupron Depot] 50 mg SQ ASDIRECTED 02/18/14 [History] Isosorbide Mononitrate [Imdur] 5 mg PO BID 07/11/15 [History] Cannabidiol 1 tab PO ASDIRECTED 07/07/18 [History] Insulin Aspart [NovoLOG] 40 unit SQ TID 04/20/19 [History] Ketorolac [Acular 0.5% Ophth Soln] 1 drop EYELF BID 04/20/19 [History] Nitroglycerin 0.4 mg SL ASDIRECTED PRN 04/20/19 [History] Omeprazole 20 mg PO DAILY 04/20/19 [History] bisacodyL [Dulcolax] 10 mg RC BID PRN 04/27/19 [History] Calcium Carbonate/Vitamin D3 [Calcium 600-Vit D3 400 Tablet] 1 each PO DAILY 03/04/21 [History] Fluorometholone [Fluorometholone 0.1% Ophth Susp] 1 drop EYEBOTH ASDIRECTED 03/04/21 [History] Sennosides [Senna] 2 tab PO BID 03/04/21 [History] diazePAM [Valium.] 5 mg PO Q8H PRN 03/04/21 [History] Past Medical History HEENT History: Reports: Impaired Vision Other HEENT History: Presbyopia Cardiovascular History: Reports: Angina, Bypass, CAD, High Cholesterol, Hypertension, [place], Stents Respiratory History: Reports: Pneumonia, Recurrent Other Respiratory History: tracheostomy Gastrointestinal History: Reports: Gastritis, GERD, GI Bleed, Other (See Below) Other Gastrointestinal History: feeding tube history Genitourinary History: Reports: BPH Other Genitourinary History: prostate cancer Musculoskeletal History: Reports: None Neurological History: Reports: TIA Psychiatric History: Reports: Anxiety, Depression, Panic Attack Endocrine/Metabolic History: 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, Type II, IDDM Hematologic History: Reports: None Immunologic History: Reports: None 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 "tongue" Dermatologic History: Reports: None - Infectious Disease History Infectious Disease History: Reports: Chicken Pox, Measles - Past Surgical History Head Surgeries/Procedures: Reports: None HEENT Surgical History: Reports: Cataract Surgery, Tonsillectomy Other HEENT Surgeries/Procedures: CATARACT SURGERY LEFT EYE ON 04/21/2019 Cardiovascular Surgical History: Reports: Coronary Artery Bypass, Coronary Artery Stent Other Cardiovascular Surgeries/Procedures: 2 vessel bypass Respiratory Surgical History: Reports: Tracheostomy Other Respiratory Surgeries/Procedures: 06/05/18 repair of unhealing trach, healed on 04/08/2019 GI Surgical History: Reports: Cholecystectomy Social & Family History - Family History Family Medical History: No Pertinent Family History HEENT: Reports: None Cardiac: Reports: None Respiratory: Reports: None GI: Reports: None : Reports: None OBGYN: Reports: None Musculoskeletal: Reports: None Neurological: Reports: None Psychiatric: Reports: None Endocrine/Metabolic: 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, Type I Hematologic: Reports: None Immunologic: Reports: None Dermatologic: Reports: None Oncologic: Reports: Breast, Colon, Pancreatic - Tobacco Use Tobacco Use Status *Q: Former Tobacco User Used Tobacco, but Quit: Yes Month/Year Tobacco Last Used: 03/1981 - Caffeine Use Caffeine Use: Reports: Coffee - Recreational Drug Use Recreational Drug Use: No - Living Situation & Occupation Living situation: Reports: , Alone Occupation: Retired ED ROS GENERAL - Review of Systems Review Of Systems: Comprehensive ROS is negative, except as noted in HPI. ED EXAM, GENERAL - Physical Exam Exam: See Below Exam Limited By: No Limitations General Appearance: Anxious, Moderate Distress Eye Exam: Bilateral Eye: EOMI, Normal Inspection, PERRL Ears: Normal External Exam, Normal Canal, Hearing Grossly Normal, Normal TMs Nose: Normal Inspection, Normal Mucosa, No Blood Throat/Mouth: Normal Inspection, Normal Lips, Normal Teeth, Normal Gums, Normal Oropharynx, No Airway Compromise Head: Atraumatic Neck: Other (diffuse tenderness) Respiratory/Chest: No Respiratory Distress, Lungs Clear, Normal Breath Sounds, No Accessory Muscle Use, Chest Non-Tender Cardiovascular: Normal Peripheral Pulses, Regular Rate, Rhythm, No Edema, No Gallop, No JVD, No Murmur, No Rub GI/Abdominal: Normal Bowel Sounds, Soft, Non-Tender, No Organomegaly, No Distention, No Abnormal Bruit, No Mass (Male) Exam: Deferred Rectal (Males) Exam: Deferred Back Exam: Normal Inspection, Full Range of Motion, NT Extremities: Arm Pain (Right shoulder pain) Neurological: Alert, Oriented, CN II-XII Intact, Normal Cognition, Normal Gait, Normal Reflexes, No Motor/Sensory Deficits Psychiatric: Normal Affect, Normal Mood Skin Exam: Warm, Dry, Intact, Normal Color, No Rash Lymphatic: No Adenopathy Course - Vital Signs Last Recorded V/S: Last Vital Signs Temp 97.1 F 03/07/21 20:26 Pulse 56 L 03/07/21 20:26 Resp 20 03/07/21 20:26 BP 136/62 03/07/21 20:26 Pulse Ox 95 03/07/21 20:26 - Orders/Labs/Meds Orders: Active Orders 24 hr Category Date Time Status CULTURE STREP A CONFIRMATION [] Stat Lab 03/07/21 21:15 Results STREP SCRN A RAPID W CULT CONF [] Stat Lab 03/07/21 21:15 Results Labs: Laboratory Tests 03/07/21 03/07/21 03/07/21 Range/Units 20:52 20:52 21:15 WBC 11.4 H (5.0-10.0) 10^3/uL RBC 4.44 L (4.6-6.2) 10^6/uL Hgb 14.3 (14.0-18.0) g/dL Hct 42.6 (40.0-54.0) % MCV 95.9 (80-100) fL MCH 32.2 (27.0-34.0) pg MCHC 33.6 (33.0-35.0) g/dL Plt Count 252 (150-450) 10^3/uL Neut % (Auto) 78.6 H (42.2-75.2) % Lymph % (Auto) 11.8 L (20.5-50.1) % [place] % (Auto) 8.6 H (2-8) % Eos % (Auto) 0.8 L (1.0-3.0) % Baso % (Auto) 0.2 (0.0-1.0) % Sodium 140 (136-145) mmol/L Potassium 4.5 (3.5-5.1) mmol/L Chloride 102 (98-107) mmol/L Carbon Dioxide 26 (21-32) mmol/L Anion Gap 16.5 H (7-13) mEq/L BUN 18 (7-18) mg/dL Creatinine 1.43 H (0.70-1.30) mg/dL Est Cr Clr Drug Dosing TNP Estimated GFR (MDRD) 47 BUN/Creatinine Ratio 12.6 (No establ ref range) Glucose 183 H (70-99) mg/dL Calcium 8.8 (8.5-10.1) mg/dL Total Bilirubin 0.4 (0.2-1.0) mg/dL AST 116 H (15-37) U/L ALT 36 (16-63) U/L Alkaline Phosphatase 122 H (46-116) U/L Total Protein 7.7 (6.4-8.2) g/dL Albumin 3.3 L (3.4-5.0) g/dL Globulin 4.4 Albumin/Globulin Ratio 0.75 Influenza Type A RNA Negative (NEGATIVE) Influenza Type B RNA Negative (NEGATIVE) SARS-CoV-2 RNA (GELY) Positive H (NEGATIVE) Departure - Departure Time of Disposition: 22:07 Disposition: Home, Self-Care 01 Condition: Fair Clinical Impression: COVID-19 - Discharge Information *PRESCRIPTION DRUG MONITORING PROGRAM REVIEWED*: No *COPY OF PRESCRIPTION DRUG MONITORING REPORT IN PATIENT GLADYS: No Instructions: Symptoms of COVID-19 - [facility] [place] (04/24/2020), COVID-19 Quarantine vs. Isolation - [facility] [place] (11/27/2020) Forms: ED Department Discharge Care Plan Goals: The patient was advised of the examination and lab results during the visit. The patient was advised to quarantine to avoid spreading the virus. The patient was advised to continue to take his medications as prescribed. The patient should follow-up with his primary care facility for continued evaluation and management. If the patient has any additional symptoms or concern, the patient should either return to the emergency department or visit his primary care facility. Sepsis Event Note (ED) - Evaluation Sepsis Screening Result: No Definite Risk - Focused Exam Vital Signs: Vital Signs Temp Pulse Resp BP Pulse Ox 03/07/21 20:26 97.1 F 56 L 20 136/62 95 - My Orders Last 24 Hours: My Active Orders 03/07/21 21:15 CULTURE STREP A CONFIRMATION [RM] Stat STREP SCRN A RAPID W CULT CONF [] Stat - Assessment/Plan Last 24 Hours: My Active Orders 03/07/21 21:15 CULTURE STREP A CONFIRMATION [RM] Stat STREP SCRN A RAPID W CULT CONF [] Stat
[2021-03-07 21:17] LABS: ANION GAP 16.5 mEq/L (7-13); CHLORIDE,CL 102 mmol/L (98-107); SODIUM,NA 140 mmol/L (136-145)
[2021-03-07 22:04] LABS: CORONAVIRUS COVID-19 NAA POSITIVE (NEGATIVE)
[2021-03-07 22:08] VITALS: BP 150/64; PULSE 54
== END 2021-03-07 22:07 | disposition home or self-care (01) ==
LOC: DL.ED 19:27
DX: U07.1 COVID-19 (principal); I25.709 Atherosclerosis of coronary artery bypass graft(s), unspecified, with unspecified angina pectoris; E78.00 Pure hypercholesterolemia, unspecified; I10 Essential (primary) hypertension; I25.2 Old myocardial infarction; K21.9 Gastro-esophageal reflux disease without esophagitis; N40.0 Benign prostatic hyperplasia without lower urinary tract symptoms; E11.9 Type 2 diabetes mellitus without complications; Z87.891 Personal history of nicotine dependence; Z88.1 Allergy status to other antibiotic agents; Z79.82 Long term (current) use of aspirin; Z79.02 Long term (current) use of antithrombotics/antiplatelets; Z79.4 Long term (current) use of insulin; Z79.899 Other long term (current) drug therapy
CPT/HCPCS: 0240U; 36415; 80053; 85025; 87081; 87430; 99284

== ENCOUNTER 2021-03-08 04:37 | Emergency (ER) | payer MEDICARE ==
--- NOTE | 2021-03-08 04:44 | EDM.PDOC ---
ED HPI GENERAL MEDICAL PROBLEM - General Time Seen by Provider: 03/08/21 04:38 Source of Information: Reports: Patient History Limitations: Reports: No Limitations - History of Present Illness INITIAL COMMENTS - FREE TEXT/NARRATIVE: This 80 yo male patient was brought to the ED by [facility] due to neck pain and dizziness. The patient was seen in the ED last night due to posterior neck pain and tested positive for COVID. The patient reports when he got home last night he started to have some chest pain. The patient denies any current chest pain. EMS gave the patient aspirin during their visit with the patient. The patient has been seen for neck pain 3 times this past week in the ED for neck pain. 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 - Related Data Allergies Allergy/AdvReac Type Severity Reaction Status Date / Time cephalexin Allergy Mild Itching Verified 03/08/21 04:50 levofloxacin [From Levaquin] Allergy chest pain Verified 03/08/21 04:50 and SOB Home Meds: Home Meds Aspirin [Halfprin] 81 mg PO DAILY 04/06/13 [History] Metoprolol Succinate [Toprol XL] 50 mg PO BEDTIME 04/06/13 [History] Simvastatin [Zocor] 40 mg PO BEDTIME 04/06/13 [History] Tamsulosin [Flomax] 0.4 mg PO DAILY 04/06/13 [History] ramipriL [Altace] 5 mg PO BEDTIME 04/06/13 [History] Clopidogrel [Plavix] 75 mg PO DAILY 06/30/13 [History] Insulin Detemir [Levemir] 50 unit SQ DAILY 09/15/13 [History] Leuprolide Acetate [Lupron Depot] 50 mg SQ ASDIRECTED 02/18/14 [History] Isosorbide Mononitrate [Imdur] 5 mg PO BID 07/11/15 [History] Cannabidiol 1 tab PO ASDIRECTED 07/07/18 [History] Insulin Aspart [NovoLOG] 40 unit SQ TID 04/20/19 [History] Ketorolac [Acular 0.5% Ophth Soln] 1 drop EYELF BID 04/20/19 [History] Nitroglycerin 0.4 mg SL ASDIRECTED PRN 04/20/19 [History] Omeprazole 20 mg PO DAILY 04/20/19 [History] bisacodyL [Dulcolax] 10 mg RC BID PRN 04/27/19 [History] Calcium Carbonate/Vitamin D3 [Calcium 600-Vit D3 400 Tablet] 1 each PO DAILY 03/04/21 [History] Fluorometholone [Fluorometholone 0.1% Ophth Susp] 1 drop EYEBOTH ASDIRECTED 03/04/21 [History] Sennosides [Senna] 2 tab PO BID 03/04/21 [History] diazePAM [Valium.] 5 mg PO Q8H PRN 03/04/21 [History] Past Medical History HEENT History: Reports: Impaired Vision Other HEENT History: Presbyopia Cardiovascular History: Reports: Angina, Bypass, CAD, High Cholesterol, Hypertension, [place], Stents Respiratory History: Reports: Pneumonia, Recurrent Other Respiratory History: tracheostomy Gastrointestinal History: Reports: Gastritis, GERD, GI Bleed, Other (See Below) Other Gastrointestinal History: feeding tube history Genitourinary History: Reports: BPH Other Genitourinary History: prostate cancer Musculoskeletal History: Reports: None Neurological History: Reports: TIA Psychiatric History: Reports: Anxiety, Depression, Panic Attack Endocrine/Metabolic History: 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, Type II, IDDM Hematologic History: Reports: None Immunologic History: Reports: None 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 "tongue" Dermatologic History: Reports: None - Infectious Disease History Infectious Disease History: Reports: Chicken Pox, Measles - Past Surgical History Head Surgeries/Procedures: Reports: None HEENT Surgical History: Reports: Cataract Surgery, Tonsillectomy Other HEENT Surgeries/Procedures: CATARACT SURGERY LEFT EYE ON 04/21/2019 Cardiovascular Surgical History: Reports: Coronary Artery Bypass, Coronary Artery Stent Other Cardiovascular Surgeries/Procedures: 2 vessel bypass Respiratory Surgical History: Reports: Tracheostomy Other Respiratory Surgeries/Procedures: 06/05/18 repair of unhealing trach, healed on 04/08/2019 GI Surgical History: Reports: Cholecystectomy Social & Family History - Family History Family Medical History: No Pertinent Family History HEENT: Reports: None Cardiac: Reports: None Respiratory: Reports: None GI: Reports: None : Reports: None OBGYN: Reports: None Musculoskeletal: Reports: None Neurological: Reports: None Psychiatric: Reports: None Endocrine/Metabolic: 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, Type I Hematologic: Reports: None Immunologic: Reports: None Dermatologic: Reports: None Oncologic: Reports: Breast, Colon, Pancreatic - Caffeine Use Caffeine Use: Reports: Coffee - Living Situation & Occupation Living situation: Reports: , Alone Occupation: Retired ED ROS GENERAL - Review of Systems Review Of Systems: Comprehensive ROS is negative, except as noted in HPI. ED EXAM, GENERAL - Physical Exam Exam: See Below Exam Limited By: No Limitations General Appearance: Alert, WD/WN, Moderate Distress Eye Exam: Bilateral Eye: EOMI, Normal Inspection, PERRL Ears: Normal External Exam, Normal Canal, Hearing Grossly Normal, Normal TMs Nose: Normal Inspection, Normal Mucosa, No Blood Throat/Mouth: Normal Inspection, Normal Lips, Normal Teeth, Normal Gums, Normal Oropharynx, Normal Voice, No Airway Compromise Head: Atraumatic, Normocephalic Neck: Normal Inspection, Supple, Non-Tender, Full Range of Motion Respiratory/Chest: No Respiratory Distress, Lungs Clear, Normal Breath Sounds, No Accessory Muscle Use, Chest Non-Tender Cardiovascular: Normal Peripheral Pulses, No Edema, No Gallop, No JVD, No Murmur, No Rub, Bradycardia GI/Abdominal: Normal Bowel Sounds, Soft, Non-Tender, No Organomegaly, No Distention, No Abnormal Bruit, No Mass (Male) Exam: Deferred Rectal (Males) Exam: Deferred Back Exam: Normal Inspection, Full Range of Motion, NT Extremities: Normal Inspection, Normal Range of Motion, Non-Tender, Normal Capillary Refill, No Pedal Edema Neurological: Alert, Oriented, CN II-XII Intact, Normal Cognition, Normal Gait, Normal Reflexes, No Motor/Sensory Deficits Psychiatric: Normal Affect, Normal Mood Skin Exam: Warm, Dry, Intact, Normal Color, No Rash Lymphatic: No Adenopathy Course - Vital Signs Last Recorded V/S: Last Vital Signs Temp 97.2 F 03/08/21 04:46 Pulse 40 L 03/08/21 05:43 Resp 24 H 03/08/21 05:43 BP 99/36 L 03/08/21 05:43 Pulse Ox 100 03/08/21 05:43 - Orders/Labs/Meds Orders: Active Orders 24 hr Category Date Time Status CULTURE BLOOD [BC] Stat Lab 03/08/21 04:40 Received DOPamine/Dextrose 5%-Water [DOPamine in D5W 400 MG/250 Med 03/08/21 05:30 Active ML] 400 mg in 250 ml IV TITRATE Heparin Sodium/0.45% NaCl [Heparin 25,000 Units in 1/2 Med 03/08/21 05:15 Ordered NS 500 ML] 25,000 units in 500 ml IV TITRATE Medication Orders Heparin Sodium/Sodium Chloride (Heparin 25,000 Units In 1/2 Ns 500 Ml) 25,000 units in 500 mls @ 30.481 mls/hr IV TITRATE DRU Last Admin: 03/08/21 05:26 Dose: 9.19 units/kg/hr, 20 mls/hr Documented by: JESSENIA Cosigned by: KAI Dopamine HCl/Dextrose (Dopamine In D5w 400 Mg/250 Ml) 400 mg in 250 mls @ 20.412 mls/hr IV TITRATE DRU; Protocol Last Titration: 03/08/21 05:44 Dose: 7.5 mcg/kg/min, 30.617 mls/hr Documented by: Admin: 03/08/21 05:30 Dose: 5 mcg/kg/min, 20.412 mls/hr Documented by: JESSENIA Labs: Laboratory Tests 03/08/21 03/08/21 03/08/21 Range/Units 04:40 04:40 04:40 WBC 11.9 H (5.0-10.0) 10^3/uL RBC 4.64 (4.6-6.2) 10^6/uL Hgb 15.0 (14.0-18.0) g/dL Hct 44.8 (40.0-54.0) % MCV 96.6 (80-100) fL MCH 32.3 (27.0-34.0) pg MCHC 33.5 (33.0-35.0) g/dL Plt Count 278 (150-450) 10^3/uL Neut % (Auto) 76.9 H (42.2-75.2) % Lymph % (Auto) 12.8 L (20.5-50.1) % [place] % (Auto) 9.9 H (2-8) % Eos % (Auto) 0.3 L (1.0-3.0) % Baso % (Auto) 0.1 (0.0-1.0) % PT 10.0 (9.0-12.0) SEC INR 1.0 (0.9-1.2) D-Dimer, Quantitative 614 H (0-400) ng/mL Sodium 139 (136-145) mmol/L Potassium 4.5 (3.5-5.1) mmol/L Chloride 101 (98-107) mmol/L Carbon Dioxide 26 (21-32) mmol/L Anion Gap 16.5 H (7-13) mEq/L BUN 22 H (7-18) mg/dL Creatinine 1.68 H (0.70-1.30) mg/dL Est Cr Clr Drug Dosing 35.00 mL/min Estimated GFR (MDRD) 39 BUN/Creatinine Ratio 13.1 (No establ ref range) Glucose 193 H (70-99) mg/dL Lactic Acid (0.4-2.0) mmol/L Calcium 8.9 (8.5-10.1) mg/dL Total Bilirubin 0.5 (0.2-1.0) mg/dL AST 149 H (15-37) U/L ALT 39 (16-63) U/L Alkaline Phosphatase 129 H (46-116) U/L Troponin I High Sens 63828 H* (<=76) pg/mL Total Protein 8.3 H (6.4-8.2) g/dL Albumin 3.5 (3.4-5.0) g/dL Globulin 4.8 Albumin/Globulin Ratio 0.7 03/08/21 Range/Units 04:40 WBC (5.0-10.0) 10^3/uL RBC (4.6-6.2) 10^6/uL Hgb (14.0-18.0) g/dL Hct (40.0-54.0) % MCV (80-100) fL MCH (27.0-34.0) pg MCHC (33.0-35.0) g/dL Plt Count (150-450) 10^3/uL Neut % (Auto) (42.2-75.2) % Lymph % (Auto) (20.5-50.1) % [place] % (Auto) (2-8) % Eos % (Auto) (1.0-3.0) % Baso % (Auto) (0.0-1.0) % PT (9.0-12.0) SEC INR (0.9-1.2) D-Dimer, Quantitative (0-400) ng/mL Sodium (136-145) mmol/L Potassium (3.5-5.1) mmol/L Chloride (98-107) mmol/L Carbon Dioxide (21-32) mmol/L Anion Gap (7-13) mEq/L BUN (7-18) mg/dL Creatinine (0.70-1.30) mg/dL Est Cr Clr Drug Dosing mL/min Estimated GFR (MDRD) BUN/Creatinine Ratio (No establ ref range) Glucose (70-99) mg/dL Lactic Acid 2.0 (0.4-2.0) mmol/L Calcium (8.5-10.1) mg/dL Total Bilirubin (0.2-1.0) mg/dL AST (15-37) U/L ALT (16-63) U/L Alkaline Phosphatase (46-116) U/L Troponin I High Sens (<=76) pg/mL Total Protein (6.4-8.2) g/dL Albumin (3.4-5.0) g/dL Globulin Albumin/Globulin Ratio Meds: Medications Generic Name Dose Route Start Last Admin Trade Name Freq PRN Reason Stop Dose Admin Heparin Sodium/Sodium Chloride 25,000 units in 500 mls @ 30.481 mls/hr 03/08/21 05:15 03/08/21 05:26 Heparin 25,000 Units In 1/2 Ns 500 Ml IV 9.19 units/kg/hr TITRATE DRU 20 mls/hr Administration 14 UNITS/KG/HR Dopamine HCl/Dextrose 400 mg in 250 mls @ 20.412 mls/hr 03/08/21 05:30 03/08/21 05:44 Dopamine In D5w 400 Mg/250 Ml IV 7.5 mcg/kg/min TITRATE DRU 30.617 mls/hr Titration Protocol 5 MCG/KG/MIN Discontinued Medications Generic Name Dose Route Start Last Admin Trade Name Freq PRN Reason Stop Dose Admin Heparin Sodium (Porcine) 4,000 units 03/08/21 05:15 03/08/21 05:25 Heparin Sodium 5,000 Units/Ml Vial IVPUSH 03/08/21 05:16 4,000 units .BOLUS ONE Administration Ondansetron HCl 4 mg 03/08/21 05:48 03/08/21 05:52 Ondansetron 4 Mg/2 Ml Sdv IVPUSH 03/08/21 05:49 4 mg ONETIME ONE Administration - Re-Assessments/Exams Free Text/Narrative Re-Assessment/Exam: 03/08/21 06:07 The patient's heart rate continued in the low 40's and blood pressure dropped on the Dopamine 5 mcg/kg/min. The Dopamine was increased to 7.5 mcg/kg/min which stabilized blood pressure in the 100's systolic and pulse in the mid to upper 40's. The patient did get nauseated and was given Zofran (4 mg) IV. Departure - Departure Time of Disposition: 05:18 Disposition: DC/Tfer to [facility] 02 Reason for Transfer *Q: Other Condition: Serious Clinical Impression: STEMI (ST elevation myocardial infarction) Qualifiers: Involved coronary artery: unspecified coronary artery Qualified Code(s): I21.3 - ST elevation (STEMI) myocardial infarction of unspecified site Forms[facility] Plan Goals: Discussed the patient's history, examination, lab results and EKG with Dr. Khan (Mobile Tester with [facility] in [place]). Dr. Khan accepted the patient for continued evaluation and management through [facility] in [place]. Dr. Khan advised to start the patient on Heparin and Dopamine prior to transport. Dr. Khan advised against TNK at this time due to heart rate and blood pressure. The patient will be transported by [facility] as no flight services are currently available. Sepsis Event Note (ED) - Focused Exam Vital Signs: Vital Signs Temp Pulse Resp BP Pulse Ox 03/08/21 05:43 40 L 24 H 99/36 L 100 03/08/21 05:30 42 L 24 H 100/41 L 100 03/08/21 04:52 44 L 20 96/47 L 94 L 03/08/21 04:46 97.2 F 42 L 20 81/56 L 96 - My Orders Last 24 Hours: My Active Orders 03/08/21 04:40 CULTURE BLOOD [BC] Stat 03/08/21 05:15 Heparin Sodium/0.45% NaCl [Heparin 25,000 Units in 1/2 NS 500 ML] 25,000 units in 500 ml IV TITRATE 03/08/21 05:30 DOPamine/Dextrose 5%-Water [DOPamine in D5W 400 MG/250 ML] 400 mg in 250 ml IV TITRATE - Assessment/Plan Last 24 Hours: My Active Orders 03/08/21 04:40 CULTURE BLOOD [BC] Stat 03/08/21 05:15 Heparin Sodium/0.45% NaCl [Heparin 25,000 Units in 1/2 NS 500 ML] 25,000 units in 500 ml IV TITRATE 03/08/21 05:30 DOPamine/Dextrose 5%-Water [DOPamine in D5W 400 MG/250 ML] 400 mg in 250 ml IV TITRATE
[2021-03-08 05:07] LABS: ANION GAP 16.5 mEq/L (7-13)
[2021-03-08] MEDS ORDERED: Heparin Sodium/0.45% NaCl 25,000 UNITS/500 ML BAG IV SCH (05:15)
[2021-03-08] MEDS ORDERED: Heparin Sodium 5,000 Units/ML Vial IVPUSH ONE (05:15)
[2021-03-08] MEDS ORDERED: DOPamine/Dextrose 5%-Water 400 MG/250 ML BAG IV SCH (05:30)
--- NOTE | 2021-03-08 05:31 | CR ---
PROCEDURE INFORMATION: Exam: XR Chest Exam date and time: 03/08/2021 5:06 AM Age: 80 years old Clinical indication: Pain; Left-sided; Prior surgery; Surgery date: 6+ months; Additional info: Chest pain, covid + TECHNIQUE: Imaging protocol: XR of the chest. Views: 1 view. COMPARISON: CR Chest 1V Frontal 03/03/2021 8:46 AM FINDINGS: Lungs: The lung volumes are decreased with vascular crowding secondary to elevation of the diaphragms which is likely on the basis of poor inspiratory effort. There is minimal bibasilar atelectasis. Minimal ground-glass airspace disease at the lower lung young bilaterally. Pleural spaces: Unremarkable. No pleural effusion. No pneumothorax. Heart/Mediastinum: The heart is enlarged. Bones/joints: There is evidence of a previous sternotomy. Organs: Surgical clips are noted in the right upper quadrant most likely due to prior cholecystectomy. IMPRESSION: 1. There is minimal bibasilar atelectasis. 2. Minimal ground-glass airspace disease at the lower lung young bilaterally.
[2021-03-08 05:43] VITALS: BP 99/36; PULSE 40
[2021-03-08] MEDS ORDERED: Ondansetron 4 MG/2 ML SDV IVPUSH ONE (05:48)
== END 2021-03-08 06:02 ==
LOC: DL.ED 04:37
DX: I21.3 ST elevation (STEMI) myocardial infarction of unspecified site (principal); I25.119 Atherosclerotic heart disease of native coronary artery with unspecified angina pectoris; E78.00 Pure hypercholesterolemia, unspecified; I10 Essential (primary) hypertension; I25.2 Old myocardial infarction; E11.9 Type 2 diabetes mellitus without complications; N40.0 Benign prostatic hyperplasia without lower urinary tract symptoms; Z95.5 Presence of coronary angioplasty implant and graft; Z88.1 Allergy status to other antibiotic agents; Z79.82 Long term (current) use of aspirin; Z79.899 Other long term (current) drug therapy; Z86.73 Personal history of transient ischemic attack (TIA), and cerebral infarction without residual deficits
CPT/HCPCS: 36415; 71045; 80053; 83605; 84484; 85025; 85379; 85610; 87040; 93005; 96365; 96368; 96375; 99285; J1265; J1644; J2405

== ENCOUNTER 2021-03-22 17:30 | Emergency (ER) | payer MEDICARE ==
[2021-03-22 18:15] VITALS: BP 136/66; PULSE 58
== END 2021-03-22 18:47 | disposition home or self-care (01) ==
LOC: DL.ED 17:30
DX: R33.9 Retention of urine, unspecified (principal); I25.709 Atherosclerosis of coronary artery bypass graft(s), unspecified, with unspecified angina pectoris; E78.00 Pure hypercholesterolemia, unspecified; I10 Essential (primary) hypertension; I25.2 Old myocardial infarction; K21.9 Gastro-esophageal reflux disease without esophagitis; E11.9 Type 2 diabetes mellitus without complications; Z88.1 Allergy status to other antibiotic agents; Z79.82 Long term (current) use of aspirin; Z79.4 Long term (current) use of insulin; Z79.899 Other long term (current) drug therapy
CPT/HCPCS: 81003; 99283

== ENCOUNTER 2021-03-23 06:10 | Emergency (ER) | payer MEDICARE ==
[2021-03-23 05:47] LABS: ANION GAP 14.7 mEq/L (7-13); CHLORIDE,CL 99 mmol/L (98-107); SODIUM,NA 136 mmol/L (136-145)
[2021-03-23 06:15] VITALS: BP 97/73; PULSE 70
[2021-03-23] MEDS ORDERED: Amoxicillin/Clavulanate K 500-125 MG Tab PO ONE (07:04)
== END 2021-03-23 07:47 | disposition home or self-care (01) ==
LOC: DL.ED 06:10
DX: N39.0 Urinary tract infection, site not specified (principal); R31.9 Hematuria, unspecified; I25.119 Atherosclerotic heart disease of native coronary artery with unspecified angina pectoris; E78.00 Pure hypercholesterolemia, unspecified; I10 Essential (primary) hypertension; I25.2 Old myocardial infarction; E11.9 Type 2 diabetes mellitus without complications; Z95.0 Presence of cardiac pacemaker; Z88.1 Allergy status to other antibiotic agents; Z79.82 Long term (current) use of aspirin; Z79.899 Other long term (current) drug therapy
CPT/HCPCS: 36415; 51702; 71045; 80053; 81001; 83605; 83880; 84484; 85025; 85610; 87040; 87086; 87088; 87186; 93005; 99284; A9270

== ENCOUNTER 2021-04-06 19:56 | Emergency (ER) | payer MEDICARE, OTHER ==
[~2021-04-06 19:56] MED LIST changes: +Sodium Chloride 0.9% 10 ML Syringe FLUSH PRN; -Tropicamide 1% Ophth Soln 15 ML Bottle EYERT ONE
[2021-04-06 19:59] VITALS: PULSE 67
[2021-04-06 20:05] VITALS: BP 134/68
[2021-04-06 20:35] LABS: ANION GAP 13.8 mEq/L (7-13); CHLORIDE,CL 108 mmol/L (98-107); SODIUM,NA 141 mmol/L (136-145)
[2021-04-06 20:37] LABS: MDMA (ECSTASY), URINE NEGATIVE (NEGATIVE); METHADONE,URINE NEGATIVE (NEGATIVE); METHAMPHETAMINES,URINE NEGATIVE (NEGATIVE)
[2021-04-06 20:38] LABS: AMPHETAMINES,URINE NEGATIVE (NEGATIVE); BARBITURATES,URINE NEGATIVE (NEGATIVE); BENZODIAZEPINE,URINE POSITIVE (NEGATIVE); OPIATES,URINE NEGATIVE (NEGATIVE); OXYCODONE,URINE NEGATIVE (NEGATIVE); PHENCYCLIDINE,URINE NEGATIVE (NEGATIVE); TCA,URINE NEGATIVE (NEGATIVE)
== END 2021-04-06 21:40 | disposition home or self-care (01) ==
LOC: DL.ED 19:56
DX: U07.1 COVID-19 (principal); R53.83 Other fatigue; E11.9 Type 2 diabetes mellitus without complications; I25.119 Atherosclerotic heart disease of native coronary artery with unspecified angina pectoris; E78.00 Pure hypercholesterolemia, unspecified; I25.2 Old myocardial infarction; K21.9 Gastro-esophageal reflux disease without esophagitis; N40.0 Benign prostatic hyperplasia without lower urinary tract symptoms; Z95.0 Presence of cardiac pacemaker; Z88.1 Allergy status to other antibiotic agents; Z79.82 Long term (current) use of aspirin; Z86.16 Personal history of COVID-19; Z79.4 Long term (current) use of insulin; Z79.899 Other long term (current) drug therapy; Z79.02 Long term (current) use of antithrombotics/antiplatelets; Z86.73 Personal history of transient ischemic attack (TIA), and cerebral infarction without residual deficits
CPT/HCPCS: 36415; 80053; 80305-QW; 80307; 81001; 83605; 83735; 83880; 84443; 85025; 85610; 86140; 93005; 99284-25

== ENCOUNTER 2021-04-07 05:32 | Emergency (ER) | payer MEDICARE, OTHER ==
[2021-04-07 02:46] VITALS: BP 147/65; PULSE 86
== END 2021-04-07 05:45 | disposition home or self-care (01) ==
LOC: DL.ED 05:32
DX: F41.9 Anxiety disorder, unspecified (principal); R06.02 Shortness of breath; I25.119 Atherosclerotic heart disease of native coronary artery with unspecified angina pectoris; E11.9 Type 2 diabetes mellitus without complications; E78.00 Pure hypercholesterolemia, unspecified; I10 Essential (primary) hypertension; K21.9 Gastro-esophageal reflux disease without esophagitis; I25.2 Old myocardial infarction; N40.0 Benign prostatic hyperplasia without lower urinary tract symptoms; Z95.0 Presence of cardiac pacemaker; Z88.1 Allergy status to other antibiotic agents; Z79.82 Long term (current) use of aspirin; Z79.4 Long term (current) use of insulin; Z79.899 Other long term (current) drug therapy; Z86.73 Personal history of transient ischemic attack (TIA), and cerebral infarction without residual deficits
CPT/HCPCS: 36415; 71046; 80053; 83605; 84484; 85025; 87040; 93005; 93010; 99285; 99285-25

== ENCOUNTER 2021-07-08 03:30 | Emergency (ER) | payer MEDICAID, MEDICARE ==
[2021-07-08] MEDS ORDERED: Benzonatate 100 MG Cap PO ONE ×2 (03:31→05:34)
[2021-07-08 04:35] LABS: ANION GAP 11.4 mEq/L (7-13)
[2021-07-08 05:10] VITALS: PULSE 78
[2021-07-08 05:27] LABS: CORONAVIRUS COVID-19 NAA NEGATIVE (NEGATIVE)
[2021-07-08] MEDS ORDERED: Benzonatate 100 MG Cap ONE ×2 (05:37→05:42)
[2021-07-08 06:13] VITALS: BP 135/61
== END 2021-07-08 06:05 | disposition home or self-care (01) ==
LOC: DL.ED 03:30
DX: J06.9 Acute upper respiratory infection, unspecified (principal); I25.119 Atherosclerotic heart disease of native coronary artery with unspecified angina pectoris; E78.00 Pure hypercholesterolemia, unspecified; I10 Essential (primary) hypertension; I25.2 Old myocardial infarction; E11.9 Type 2 diabetes mellitus without complications; K21.9 Gastro-esophageal reflux disease without esophagitis; N40.0 Benign prostatic hyperplasia without lower urinary tract symptoms; Z86.73 Personal history of transient ischemic attack (TIA), and cerebral infarction without residual deficits; Z95.0 Presence of cardiac pacemaker; Z88.1 Allergy status to other antibiotic agents; Z79.82 Long term (current) use of aspirin; Z20.822 Contact with and (suspected) exposure to COVID-19
CPT/HCPCS: 0240U; 36415; 71045; 80053; 83605; 84484; 85025; 87040; 93005; 99285; A9270; 93010; 99284

== ENCOUNTER 2021-12-17 05:15 | Emergency (ER) | payer MEDICARE, MEDICAID ==
[2022-01-09 11:29] LABS: SODIUM,NA 141 mmol/L (136-145)
[2022-01-09 11:30] LABS: ANION GAP 12.8 mEq/L (7-13); CHLORIDE,CL 104 mmol/L (98-107); ESTIMATED GFR 45 mL/min (>=60)
[2022-01-09 11:31] LABS: PTT,PARTIAL THROMBOPLSTIN TIME 20.7 SEC (22.0-34.0)
[2022-01-09 11:32] LABS: CORONAVIRUS COVID-19 NAA NEGATIVE (NEGATIVE)
== END 2021-12-17 19:30 | disposition home or self-care (01) ==
LOC: DL.ED 05:15
DX: I20.9 Angina pectoris, unspecified (principal)
CPT/HCPCS: 93005; 99285

== ENCOUNTER 2021-12-18 17:27 | Emergency (ER) | payer MEDICARE, MEDICAID ==
[2021-12-18 17:09] VITALS: BP 121/82; PULSE 65
[2021-12-18 18:12] LABS: ANION GAP 12.6 mEq/L (7-13)
[2021-12-18] MEDS ORDERED: Iopamidol 755 Mg/ML 100 ML Bottle IVPUSH ONE (18:54)
== END 2021-12-18 20:13 | disposition home or self-care (01) ==
LOC: DL.ED 17:27
DX: I20.8 Other forms of angina pectoris (principal); F41.9 Anxiety disorder, unspecified; I25.10 Atherosclerotic heart disease of native coronary artery without angina pectoris; E78.00 Pure hypercholesterolemia, unspecified; I10 Essential (primary) hypertension; E11.9 Type 2 diabetes mellitus without complications; I25.2 Old myocardial infarction; Z88.1 Allergy status to other antibiotic agents; Z79.899 Other long term (current) drug therapy; Z79.82 Long term (current) use of aspirin; Z79.4 Long term (current) use of insulin; Z86.16 Personal history of COVID-19
CPT/HCPCS: 36415; 71045; 71260; 80053; 81001; 83605; 84484; 85025; 85379; 85610; 87040; 87086; 93005; 93010; 99284; 99285

== ENCOUNTER 2022-08-06 01:13 | Inpatient (IN) | payer MEDICARE, MEDICAID ==
[2022-08-06 01:46] LABS: BASOPHILS PERCENT AUTO 0.1 % (0.0-1.0); EOSINOPHILS PERCENT AUTO 0.2 % (1.0-3.0); HEMATOCRIT 42.2 % (40.0-54.0); LYMPHOCYTES PERCENT AUTO 6.6 % (20.5-50.1); MEAN CORPUSCULAR HEMOGLOBIN 32.6 pg (27.0-34.0); MEAN CORPUSCULAR HGB CONC 33.2 g/dL (33.0-35.0); MEAN CORPUSCULAR VOLUME 98.1 fL (80-100); MONOCYTES PERCENT AUTO 5.2 % (2-8); NEUTROPHILS PERCENT AUTO 87.9 % (42.2-75.2); PLATELET COUNT,PLT 201 10^3/uL (150-450); WHITE BLOOD CELL COUNT,WBC 9.7 10^3/uL (5.0-10.0)
[2022-08-06 02:09] LABS: B-TYPE NATRIURETIC PEPTIDE,BNP 204 pg/ml (0-100)
[2022-08-06 02:10] LABS: PTT,PARTIAL THROMBOPLSTIN TIME 26.5 SEC (22.0-34.0)
[2022-08-06 02:13] LABS: A/G RATIO 0.9; ALANINE AMINOTRANSFERASE,ALT 13 U/L (16-63); ALBUMIN 3.6 g/dL (3.4-5.0); ALKALINE PHOSPHATASE 122 U/L (46-116); AMYLASE 58 U/L (25-115); ANION GAP 12.8 mEq/L (7-13); ASPARTATE AMNIOTRANSFERASE,AST 16 U/L (15-37); BILIRUBIN TOTAL 0.4 mg/dL (0.2-1.0); BLOOD UREA NITROGEN,BUN 14 mg/dL (7-18); BUN/CREATININE RATIO 10.8 (No establ ref range); C-REACTIVE PROTEIN 0.9 mg/dL (0.0-0.9); CALCIUM 8.4 mg/dL (8.5-10.1); CARBON DIOXIDE,CO2 27 mmol/L (21-32); CHLORIDE,CL 100 mmol/L (98-107); GLUCOSE RANDOM 241 mg/dL (70-99); LIPASE 60 U/L (73-393); POTASSIUM,K 4.8 mmol/L (3.5-5.1); PROTEIN TOTAL,TP 7.4 g/dL (6.4-8.2); SODIUM,NA 135 mmol/L (136-145); TSH ULTRASENSITIVE 2.17 uIU/mL (0.36-3.74)
[2022-08-06 02:24] LABS: ESTIMATED GFR 55 mL/min (>=60)
[2022-08-06 03:01] LABS: LACTIC ACID 1.2 mmol/L (0.4-2.0)
[2022-08-06] MEDS ORDERED: Furosemide 20 MG/2 ML VIAL IVPUSH ONE (04:05)
[2022-08-06] MEDS ORDERED: cefTRIAXone 2 GM Vial IVPUSH ONE (05:30)
[2022-08-06] MEDS ORDERED: Doxycycline Monohydrate 100 MG Cap PO ONE (05:31)
[2022-08-06] MEDS ORDERED: Acetaminophen/HYDROcodone 325-5 MG Tab PO PRN (09:53)
[2022-08-06] MEDS ORDERED: Docusate Sodium 100 MG Cap PO PRN (09:53)
[2022-08-06] MEDS ORDERED: 50% Dextrose in Water 50 ML Syringe IVPUSH PRN (10:05)
[2022-08-06] MEDS ORDERED: Glucagon,Human Recombinant 1 MG Vial IM PRN (10:05)
[2022-08-06] MEDS ORDERED: Bisacodyl 10 MG Supp RECTAL PRN (10:06)
[2022-08-06] MEDS ORDERED: Non-Formulary Medication 1 Each (Fluorometholone [Fluorometholone 0.1% Ophth Susp] 10 ML B EYEBOTH SCH (10:15)
[2022-08-06] MEDS: Insulin Lispro 100 Units/ML 3 ML Vial SUBCUT SCH ×5 (12:18→21:32)
[2022-08-06] MEDS: Azithromycin 500 MG in Sodium Chloride 0.9% 250 ML IV SCH (12:19)
[2022-08-06] MEDS: Albuterol/Ipratropium 3.0-0.5 MG/3 ML Neb Soln NEB SCH ×2 (13:49→18:25)
[2022-08-06] MEDS: Piperacillin/Tazobactam 4.5 GM in Sodium Chloride 0.9% 100 ML IV SCH ×2 (13:49→18:37)
[2022-08-06] MEDS ORDERED: Piperacillin/Tazobactam 4.5 GM Vial ONE ×3 (13:54→18:31)
[2022-08-06] MEDS: Acetaminophen 325 MG Tab PO PRN (19:53)
[2022-08-06] MEDS ORDERED: Metoprolol Succinate 50 MG Tab.ER PO SCH (21:00)
[2022-08-06] MEDS ORDERED: KETOROLAC EYELF SCH (21:00)
[2022-08-06] MEDS: Sodium Chloride 0.9% 10 ML Syringe FLUSH PRN ×2 (21:14→21:15)
[2022-08-07] MEDS: Piperacillin/Tazobactam 4.5 GM in Sodium Chloride 0.9% 100 ML IV SCH ×5 (00:14→23:40)
[2022-08-07] MEDS: Albuterol/Ipratropium 3.0-0.5 MG/3 ML Neb Soln NEB SCH ×6 (00:30→23:47)
[2022-08-07] MEDS: Acetaminophen 325 MG Tab PO PRN ×2 (04:27→18:52)
[2022-08-07] MEDS: Omeprazole 20 MG Cap.CR PO SCH ×2 (04:28→05:24)
[2022-08-07] MEDS: Sodium Chloride 0.9% 10 ML Syringe FLUSH PRN ×2 (05:45→23:39)
[2022-08-07 06:23] LABS: BASOPHILS PERCENT AUTO 0.2 % (0.0-1.0); EOSINOPHILS PERCENT AUTO 0.9 % (1.0-3.0); HEMATOCRIT 36.8 % (40.0-54.0); HEMOGLOBIN 11.9 g/dL (14.0-18.0); LYMPHOCYTES PERCENT AUTO 10.3 % (20.5-50.1); MEAN CORPUSCULAR HEMOGLOBIN 32.2 pg (27.0-34.0); MEAN CORPUSCULAR HGB CONC 32.3 g/dL (33.0-35.0); MEAN CORPUSCULAR VOLUME 99.7 fL (80-100); MONOCYTES PERCENT AUTO 6.7 % (2-8); NEUTROPHILS PERCENT AUTO 81.9 % (42.2-75.2); PLATELET COUNT,PLT 179 10^3/uL (150-450); RED BLOOD CELL COUNT 3.69 10^6/uL (4.6-6.2); WHITE BLOOD CELL COUNT,WBC 9.2 10^3/uL (5.0-10.0)
[2022-08-07 06:37] LABS: ANION GAP 12.2 mEq/L (7-13); CALCIUM 7.3 mg/dL (8.5-10.1); CREATININE 1.59 mg/dL (0.70-1.30); EST CRCL DRUG DOSING (CG) 36.35 mL/min; POTASSIUM,K 4.2 mmol/L (3.5-5.1)
[2022-08-07] MEDS ORDERED: Piperacillin/Tazobactam 4.5 GM in Sodium Chloride 0.9% 100 ML IV SCH (07:24)
[2022-08-07] MEDS: Insulin Lispro 100 Units/ML 3 ML Vial SUBCUT SCH ×7 (08:07→21:23)
[2022-08-07] MEDS: Tamsulosin 0.4 MG Cap.ER PO SCH (08:56)
[2022-08-07] MEDS: Aspirin 81 MG Tab.EC PO SCH (08:57)
[2022-08-07] MEDS: atorvaSTATin 20 MG Tab PO SCH (08:58)
[2022-08-07] MEDS: Clopidogrel 75 MG Tab PO SCH (08:58)
[2022-08-07] MEDS: Insulin Glarg,Human.Rec.Analog 100 Unit/ML SUBCUT SCH ×2 (08:59→21:21)
[2022-08-07] MEDS ORDERED: Isosorbide Mononitrate 60 MG Tab.ER PO SCH (09:00)
[2022-08-07] MEDS ORDERED: Enoxaparin 30 MG/0.3 ML Syringe SUBCUT SCH (09:00)
[2022-08-07] MEDS: Sennosides/Docusate Sodium 50-8.6 MG Tab PO SCH ×2 (10:11→21:26)
[2022-08-07] MEDS: Azithromycin 500 MG in Sodium Chloride 0.9% 250 ML IV SCH (11:25)
[2022-08-07] MEDS: Ondansetron 4 MG Tab.DIS PO PRN (16:43)
[2022-08-07] MEDS: Nitroglycerin 0.4 MG Tab.SL SL PRN ×3 (18:56→21:10)
[2022-08-07] MEDS ORDERED: Aspirin 325 MG Tab PO ONE (19:59)
[2022-08-07] MEDS: Enoxaparin 100 MG/1 ML Syringe SUBCUT SCH (20:14)
[2022-08-07] MEDS ORDERED: Metoprolol Succinate 50 MG Tab.ER PO SCH (21:00)
[2022-08-07] MEDS: Diazepam 5 MG Tab PO PRN (21:04)
[2022-08-08] MEDS: Omeprazole 20 MG Cap.CR PO SCH (06:01)
[2022-08-08] MEDS: Diazepam 5 MG Tab PO PRN ×2 (06:01→19:09)
[2022-08-08] MEDS: Sodium Chloride 0.9% 10 ML Syringe FLUSH PRN ×2 (06:05→21:28)
[2022-08-08] MEDS: Piperacillin/Tazobactam 4.5 GM in Sodium Chloride 0.9% 100 ML IV SCH ×3 (06:08→17:44)
[2022-08-08 06:09] LABS: HEMATOCRIT 35.4 % (40.0-54.0); HEMOGLOBIN 11.5 g/dL (14.0-18.0); MEAN CORPUSCULAR HEMOGLOBIN 32.3 pg (27.0-34.0); MEAN CORPUSCULAR HGB CONC 32.5 g/dL (33.0-35.0); MEAN CORPUSCULAR VOLUME 99.4 fL (80-100); PLATELET COUNT,PLT 168 10^3/uL (150-450); RED BLOOD CELL COUNT 3.56 10^6/uL (4.6-6.2); WHITE BLOOD CELL COUNT,WBC 6.7 10^3/uL (5.0-10.0)
[2022-08-08 06:18] LABS: BASOPHILS PERCENT AUTO 0.1 % (0.0-1.0); EOSINOPHILS PERCENT AUTO 2.5 % (1.0-3.0); LYMPHOCYTES PERCENT AUTO 12.5 % (20.5-50.1); MONOCYTES PERCENT AUTO 7.7 % (2-8); NEUTROPHILS PERCENT AUTO 77.2 % (42.2-75.2)
[2022-08-08 06:29] LABS: BAND PERCENT MAN 3 %; EOSINOPHILS PERCENT MAN 1 % (1-3); LYMPHOCYTES PERCENT MAN 11 % (20-50); MONOCYTES PERCENT MAN 4 % (2-8); SEG NEUTROPHILS PERCENT MAN 81 % (42-75)
[2022-08-08 06:32] LABS: CALCIUM 7.3 mg/dL (8.5-10.1); CREATININE 1.46 mg/dL (0.70-1.30); EST CRCL DRUG DOSING (CG) 39.58 mL/min
[2022-08-08] MEDS: Insulin Lispro 100 Units/ML 3 ML Vial SUBCUT SCH ×7 (08:11→20:41)
[2022-08-08] MEDS: Albuterol/Ipratropium 3.0-0.5 MG/3 ML Neb Soln NEB SCH ×5 (08:27→23:59)
[2022-08-08] MEDS: Tamsulosin 0.4 MG Cap.ER PO SCH (08:45)
[2022-08-08] MEDS: Aspirin 81 MG Tab.EC PO SCH (08:45)
[2022-08-08] MEDS: Clopidogrel 75 MG Tab PO SCH (08:45)
[2022-08-08] MEDS: Metoprolol Succinate 50 MG Tab.ER PO SCH (08:46)
[2022-08-08] MEDS: atorvaSTATin 20 MG Tab PO SCH (08:47)
[2022-08-08] MEDS: Sennosides/Docusate Sodium 50-8.6 MG Tab PO SCH ×2 (08:48→20:44)
[2022-08-08] MEDS: Insulin Glarg,Human.Rec.Analog 100 Unit/ML SUBCUT SCH ×2 (08:50→20:43)
[2022-08-08] MEDS: Enoxaparin 100 MG/1 ML Syringe SUBCUT SCH ×2 (08:52→20:44)
[2022-08-08] MEDS: Azithromycin 500 MG in Sodium Chloride 0.9% 250 ML IV SCH (10:20)
[2022-08-08] MEDS: Nitroglycerin 0.4 MG Tab.SL SL PRN (21:19)
[2022-08-08] MEDS: Morphine 2 MG/ML SYRINGE IVPUSH PRN (21:24)
[2022-08-09] MEDS: Nitroglycerin 0.4 MG Tab.SL SL PRN ×3 (00:05→08:55)
[2022-08-09] MEDS: Morphine 2 MG/ML SYRINGE IVPUSH PRN (00:10)
[2022-08-09] MEDS: Diazepam 5 MG Tab PO PRN ×2 (03:02→21:37)
[2022-08-09] MEDS: Omeprazole 20 MG Cap.CR PO SCH (06:06)
[2022-08-09] MEDS: Piperacillin/Tazobactam 4.5 GM in Sodium Chloride 0.9% 100 ML IV SCH ×5 (06:06→18:41)
[2022-08-09] MEDS: Albuterol/Ipratropium 3.0-0.5 MG/3 ML Neb Soln NEB SCH ×3 (07:03→18:46)
[2022-08-09] MEDS: Insulin Lispro 100 Units/ML 3 ML Vial SUBCUT SCH ×7 (08:47→21:32)
[2022-08-09] MEDS: Insulin Glarg,Human.Rec.Analog 100 Unit/ML SUBCUT SCH ×2 (09:02→21:32)
[2022-08-09] MEDS: Enoxaparin 100 MG/1 ML Syringe SUBCUT SCH ×2 (09:08→21:33)
[2022-08-09] MEDS: Isosorbide Mononitrate 30 MG Tab.ER PO SCH (10:27)
[2022-08-09] MEDS: atorvaSTATin 20 MG Tab PO SCH (10:27)
[2022-08-09] MEDS: Aspirin 81 MG Tab.EC PO SCH (10:27)
[2022-08-09] MEDS: Tamsulosin 0.4 MG Cap.ER PO SCH (10:28)
[2022-08-09] MEDS: Clopidogrel 75 MG Tab PO SCH (10:28)
[2022-08-09] MEDS: Sennosides/Docusate Sodium 50-8.6 MG Tab PO SCH ×2 (10:28→21:31)
[2022-08-09] MEDS: Metoprolol Succinate 50 MG Tab.ER PO SCH (10:29)
[2022-08-09] MEDS: Azithromycin 500 MG in Sodium Chloride 0.9% 250 ML IV SCH ×2 (11:33→12:14)
[2022-08-09] MEDS: Ondansetron 4 MG Tab.DIS PO PRN (21:43)
[2022-08-10] MEDS: Albuterol/Ipratropium 3.0-0.5 MG/3 ML Neb Soln NEB SCH ×5 (00:32→18:36)
[2022-08-10] MEDS: Piperacillin/Tazobactam 4.5 GM in Sodium Chloride 0.9% 100 ML IV SCH ×5 (00:32→23:44)
[2022-08-10] MEDS: Omeprazole 20 MG Cap.CR PO SCH (06:18)
[2022-08-10] MEDS: Isosorbide Mononitrate 30 MG Tab.ER PO SCH (06:18)
[2022-08-10 06:49] LABS: BASOPHILS PERCENT AUTO 0.2 % (0.0-1.0); EOSINOPHILS PERCENT AUTO 4.1 % (1.0-3.0); HEMATOCRIT 37.5 % (40.0-54.0); HEMOGLOBIN 12.2 g/dL (14.0-18.0); LYMPHOCYTES PERCENT AUTO 20.1 % (20.5-50.1); MEAN CORPUSCULAR HEMOGLOBIN 32.4 pg (27.0-34.0); MEAN CORPUSCULAR HGB CONC 32.5 g/dL (33.0-35.0); MEAN CORPUSCULAR VOLUME 99.7 fL (80-100); MONOCYTES PERCENT AUTO 10.9 % (2-8); NEUTROPHILS PERCENT AUTO 64.7 % (42.2-75.2); PLATELET COUNT,PLT 196 10^3/uL (150-450); RED BLOOD CELL COUNT 3.76 10^6/uL (4.6-6.2); WHITE BLOOD CELL COUNT,WBC 5.6 10^3/uL (5.0-10.0)
[2022-08-10 07:11] LABS: ANION GAP 14.3 mEq/L (7-13); CREATININE 1.47 mg/dL (0.70-1.30); EST CRCL DRUG DOSING (CG) 39.31 mL/min; POTASSIUM,K 4.3 mmol/L (3.5-5.1)
[2022-08-10] MEDS: Insulin Lispro 100 Units/ML 3 ML Vial SUBCUT SCH ×7 (09:05→20:41)
[2022-08-10] MEDS: Clopidogrel 75 MG Tab PO SCH (09:07)
[2022-08-10] MEDS: Tamsulosin 0.4 MG Cap.ER PO SCH (09:07)
[2022-08-10] MEDS: Enoxaparin 100 MG/1 ML Syringe SUBCUT SCH ×2 (09:07→20:41)
[2022-08-10] MEDS: atorvaSTATin 20 MG Tab PO SCH (09:07)
[2022-08-10] MEDS: Sennosides/Docusate Sodium 50-8.6 MG Tab PO SCH ×2 (09:08→20:44)
[2022-08-10] MEDS: Metoprolol Succinate 50 MG Tab.ER PO SCH (09:08)
[2022-08-10] MEDS: Aspirin 81 MG Tab.EC PO SCH (09:08)
[2022-08-10] MEDS: Insulin Glarg,Human.Rec.Analog 100 Unit/ML SUBCUT SCH ×2 (09:13→20:42)
[2022-08-10] MEDS: Azithromycin 500 MG in Sodium Chloride 0.9% 250 ML IV SCH (12:48)
[2022-08-10] MEDS ORDERED: Sodium Chloride 0.9% 100 ML ONE (14:47)
[2022-08-10] MEDS: Saccharomyces Boulardii (Probiotic) 250 MG Cap PO SCH (16:32)
[2022-08-10] MEDS: Benzonatate 100 MG Cap PO PRN (16:32)
[2022-08-10] MEDS: Diazepam 5 MG Tab PO PRN ×2 (18:46→23:51)
[2022-08-10] MEDS: Ondansetron 4 MG Tab.DIS PO PRN (23:51)
[2022-08-11] MEDS: Albuterol/Ipratropium 3.0-0.5 MG/3 ML Neb Soln NEB SCH ×4 (00:30→17:43)
[2022-08-11] MEDS: Benzonatate 100 MG Cap PO PRN (02:23)
[2022-08-11] MEDS: Isosorbide Mononitrate 30 MG Tab.ER PO SCH ×2 (06:07→20:51)
[2022-08-11] MEDS: Piperacillin/Tazobactam 4.5 GM in Sodium Chloride 0.9% 100 ML IV SCH ×3 (06:08→17:37)
[2022-08-11] MEDS: Omeprazole 20 MG Cap.CR PO SCH (06:08)
[2022-08-11] MEDS: Diazepam 5 MG Tab PO PRN ×2 (06:11→20:51)
[2022-08-11 06:46] LABS: ANION GAP 11.4 mEq/L (7-13); CALCIUM 8.2 mg/dL (8.5-10.1); CREATININE 1.36 mg/dL (0.70-1.30); EST CRCL DRUG DOSING (CG) 42.49 mL/min; POTASSIUM,K 4.4 mmol/L (3.5-5.1)
[2022-08-11] MEDS: Enoxaparin 100 MG/1 ML Syringe SUBCUT SCH ×2 (08:20→20:45)
[2022-08-11] MEDS: atorvaSTATin 20 MG Tab PO SCH (08:21)
[2022-08-11] MEDS: Tamsulosin 0.4 MG Cap.ER PO SCH (08:21)
[2022-08-11] MEDS: Clopidogrel 75 MG Tab PO SCH (08:21)
[2022-08-11] MEDS: Aspirin 81 MG Tab.EC PO SCH (08:21)
[2022-08-11] MEDS: Metoprolol Succinate 50 MG Tab.ER PO SCH (08:21)
[2022-08-11] MEDS: Saccharomyces Boulardii (Probiotic) 250 MG Cap PO SCH (08:21)
[2022-08-11] MEDS: Insulin Lispro 100 Units/ML 3 ML Vial SUBCUT SCH ×6 (08:22→17:08)
[2022-08-11] MEDS: Insulin Glarg,Human.Rec.Analog 100 Unit/ML SUBCUT SCH ×2 (08:29→20:48)
[2022-08-11] MEDS: Sennosides/Docusate Sodium 50-8.6 MG Tab PO SCH ×3 (08:30→20:52)
[2022-08-11] MEDS ORDERED: guaiFENesin 600 MG Tab.ER PO ONE (10:03)
[2022-08-11] MEDS: Azithromycin 500 MG in Sodium Chloride 0.9% 250 ML IV SCH (10:45)
[2022-08-11] MEDS ORDERED: Sodium Chloride 0.9% 100 ML ONE (17:22)
[2022-08-11] MEDS: guaiFENesin 600 MG Tab.ER PO SCH (20:51)
[2022-08-12] MEDS: Benzonatate 100 MG Cap PO PRN (00:04)
[2022-08-12] MEDS: Sodium Chloride 0.9% 10 ML Syringe FLUSH PRN ×3 (00:05→06:39)
[2022-08-12] MEDS: Piperacillin/Tazobactam 4.5 GM in Sodium Chloride 0.9% 100 ML IV SCH ×3 (00:06→12:35)
[2022-08-12] MEDS: Albuterol/Ipratropium 3.0-0.5 MG/3 ML Neb Soln NEB SCH ×3 (00:19→13:03)
[2022-08-12] MEDS: Diazepam 5 MG Tab PO PRN (01:02)
[2022-08-12] MEDS: Omeprazole 20 MG Cap.CR PO SCH (05:53)
[2022-08-12] MEDS: Nitroglycerin 0.4 MG Tab.SL SL PRN (06:38)
[2022-08-12] MEDS: Insulin Lispro 100 Units/ML 3 ML Vial SUBCUT SCH ×3 (08:06→12:14)
[2022-08-12] MEDS: Saccharomyces Boulardii (Probiotic) 250 MG Cap PO SCH (09:13)
[2022-08-12] MEDS: Isosorbide Mononitrate 30 MG Tab.ER PO SCH (09:13)
[2022-08-12] MEDS: Insulin Glarg,Human.Rec.Analog 100 Unit/ML SUBCUT SCH (09:13)
[2022-08-12] MEDS: Aspirin 81 MG Tab.EC PO SCH (09:14)
[2022-08-12] MEDS: Clopidogrel 75 MG Tab PO SCH (09:14)
[2022-08-12] MEDS: atorvaSTATin 20 MG Tab PO SCH (09:14)
[2022-08-12] MEDS: Metoprolol Succinate 50 MG Tab.ER PO SCH (09:14)
[2022-08-12] MEDS: Sennosides/Docusate Sodium 50-8.6 MG Tab PO SCH ×2 (09:14→09:20)
[2022-08-12] MEDS: Enoxaparin 100 MG/1 ML Syringe SUBCUT SCH (09:15)
[2022-08-12] MEDS: guaiFENesin 600 MG Tab.ER PO SCH (09:15)
[2022-08-12] MEDS: Tamsulosin 0.4 MG Cap.ER PO SCH (09:15)
[2022-08-12] MEDS: Azithromycin 500 MG in Sodium Chloride 0.9% 250 ML IV SCH (11:00)
[2022-08-12 13:13] VITALS: BP 117/51; PULSE 73
[2022-08-12] MEDS ORDERED: Docusate Sodium 100 MG Cap PO SCH (21:00)
[2022-08-12] MEDS ORDERED: INSULIN DETEMIR 100 UNIT/ML SUBCUT SCH (21:00)
[2022-08-12] MEDS ORDERED: ISOSORBIDE DINITRATE 20 MG PO SCH (21:00)
[2022-08-13] MEDS ORDERED: RIVAROXABAN 15 MG PO SCH (09:00)
[2022-08-13] MEDS ORDERED: amLODIPine 5 MG Tab PO SCH (09:00)
[2022-08-13] MEDS ORDERED: ISOSORBIDE DINITRATE 20 MG PO SCH (09:00)
[2022-08-13] MEDS ORDERED: Clopidogrel 75 MG Tab PO SCH (09:00)
== END 2022-08-12 14:45 | disposition home or self-care (01) | DRG 280 ==
LOC: DL.ED 01:13 → DL.MS 07:35 → UNDOADMIN 07:35 → DL.MS 08-07 20:05
PROVIDERS: ADMIT Internal Medicine; ATTEND Internal Medicine
DX: I21.9 Acute myocardial infarction, unspecified (principal); J18.9 Pneumonia, unspecified organism; I25.709 Atherosclerosis of coronary artery bypass graft(s), unspecified, with unspecified angina pectoris; I10 Essential (primary) hypertension; I25.2 Old myocardial infarction; E78.00 Pure hypercholesterolemia, unspecified; E87.21 Acute metabolic acidosis; E11.9 Type 2 diabetes mellitus without complications; N17.9 Acute kidney failure, unspecified; E87.1 Hypo-osmolality and hyponatremia; I50.22 Chronic systolic (congestive) heart failure; I25.110 Atherosclerotic heart disease of native coronary artery with unstable angina pectoris; Z85.21 Personal history of malignant neoplasm of larynx; R09.02 Hypoxemia; Z66 Do not resuscitate; E11.65 Type 2 diabetes mellitus with hyperglycemia; E78.5 Hyperlipidemia, unspecified; Z20.822 Contact with and (suspected) exposure to COVID-19; I11.0 Hypertensive heart disease with heart failure; I48.0 Paroxysmal atrial fibrillation; D50.9 Iron deficiency anemia, unspecified; Z93.0 Tracheostomy status; J45.909 Unspecified asthma, uncomplicated; K21.9 Gastro-esophageal reflux disease without esophagitis; F41.9 Anxiety disorder, unspecified; N40.0 Benign prostatic hyperplasia without lower urinary tract symptoms; R74.8 Abnormal levels of other serum enzymes; Z85.46 Personal history of malignant neoplasm of prostate; Z88.1 Allergy status to other antibiotic agents; Z79.01 Long term (current) use of anticoagulants; Z95.5 Presence of coronary angioplasty implant and graft; Z95.1 Presence of aortocoronary bypass graft; Z79.82 Long term (current) use of aspirin; Z79.02 Long term (current) use of antithrombotics/antiplatelets; Z79.4 Long term (current) use of insulin; Z79.899 Other long term (current) drug therapy; Z95.0 Presence of cardiac pacemaker; Z86.73 Personal history of transient ischemic attack (TIA), and cerebral infarction without residual deficits; Z90.49 Acquired absence of other specified parts of digestive tract; Z85.818 Personal history of malignant neoplasm of other sites of lip, oral cavity, and pharynx; Z86.16 Personal history of COVID-19; Z98.42 Cataract extraction status, left eye
CPT/HCPCS: 36415; 71045; 71250; 80048; 80053; 80061; 82150; 82947; 83605; 83690; 83880; 84443; 84484; 85025; 85610; 85730; 86140; 87040; 87804; 93005; 93010; 94640; 96374; 96375; 97161-GP; 97165-GO; 99233; 99238; 99284; 99285-25; A9270-GY; J0456; J0696; J1650; J1815-GY; J1940; J2270; J2543; J3490; J7050; J7620-GY; U0002

== ENCOUNTER 2022-11-12 13:39 | Emergency (ER) | payer MEDICARE, MEDICAID ==
[2022-11-12] MEDS ORDERED: Sodium Chloride 0.9% 10 ML Syringe FLUSH PRN (13:51)
[2022-11-12] MEDS ORDERED: Sodium Chloride 0.9% 1,000 ML IV ONE (13:53)
[2022-11-12 14:06] VITALS: BP 148/72; PULSE 66
[2022-11-12 14:08] LABS: BASOPHILS PERCENT AUTO 0.2 % (0.0-1.0); EOSINOPHILS PERCENT AUTO 0.4 % (1.0-3.0); HEMATOCRIT 43.9 % (40.0-54.0); HEMOGLOBIN 14.9 g/dL (14.0-18.0); LYMPHOCYTES PERCENT AUTO 15.3 % (20.5-50.1); MEAN CORPUSCULAR HEMOGLOBIN 31.9 pg (27.0-34.0); MEAN CORPUSCULAR HGB CONC 33.9 g/dL (33.0-35.0); MONOCYTES PERCENT AUTO 5.8 % (2-8); NEUTROPHILS PERCENT AUTO 78.3 % (42.2-75.2); PLATELET COUNT,PLT 230 10^3/uL (150-450); RED BLOOD CELL COUNT 4.67 10^6/uL (4.6-6.2); WHITE BLOOD CELL COUNT,WBC 9.6 10^3/uL (5.0-10.0)
[2022-11-12 14:32] LABS: LACTIC ACID 1.3 mmol/L (0.4-2.0)
[2022-11-12 14:33] LABS: INR 1.1 (0.9-1.2); PROTHROMBIN TIME 11.6 SEC (9.0-12.0)
[2022-11-12 14:35] LABS: A/G RATIO 0.8; ALANINE AMINOTRANSFERASE,ALT 17 U/L (16-63); ALBUMIN 3.7 g/dL (3.4-5.0); ALKALINE PHOSPHATASE 137 U/L (46-116); ASPARTATE AMNIOTRANSFERASE,AST 20 U/L (15-37); BILIRUBIN TOTAL 0.6 mg/dL (0.2-1.0); BLOOD UREA NITROGEN,BUN 19 mg/dL (7-18); BUN/CREATININE RATIO 13.9 (No establ ref range); C-REACTIVE PROTEIN 0.41 ng/dL (<=0.30); CARBON DIOXIDE,CO2 28 mmol/L (21-32); CHLORIDE,CL 95 mmol/L (98-107); CREATININE 1.37 mg/dL (0.70-1.30); EST CRCL DRUG DOSING (CG) 42.18 mL/min; GLUCOSE RANDOM 226 mg/dL (70-99); MAGNESIUM 1.7 mg/dL (1.8-2.4); PROTEIN TOTAL,TP 8.2 g/dL (6.4-8.2); SODIUM,NA 133 mmol/L (136-145); TSH ULTRASENSITIVE 1.49 uIU/mL (0.36-3.74)
[2022-11-12 14:36] LABS: ESTIMATED GFR 51 mL/min (>=60); ETHANOL BLOOD MEDICAL < 3 mg/dL (0)
== END 2022-11-12 15:02 | disposition home or self-care (01) ==
LOC: DL.ED 13:39
DX: R51.9 Headache, unspecified (principal); R11.0 Nausea; I25.709 Atherosclerosis of coronary artery bypass graft(s), unspecified, with unspecified angina pectoris; I10 Essential (primary) hypertension; I25.2 Old myocardial infarction; E78.00 Pure hypercholesterolemia, unspecified; K21.9 Gastro-esophageal reflux disease without esophagitis; E11.9 Type 2 diabetes mellitus without complications; Z86.16 Personal history of COVID-19; Z88.1 Allergy status to other antibiotic agents; Z79.02 Long term (current) use of antithrombotics/antiplatelets; Z79.4 Long term (current) use of insulin; Z79.899 Other long term (current) drug therapy
CPT/HCPCS: 36415; 70450; 80053; 80307; 82140; 82947; 83605; 83735; 84443; 85025; 85610; 86140; 93010; 99284; J7030; J3490

== ENCOUNTER 2022-11-13 16:28 | Emergency (ER) | payer MEDICARE, MEDICAID ==
[2022-11-13 17:10] VITALS: BP 131/71; PULSE 66
[2022-11-13] MEDS ORDERED: Acetaminophen 500 MG Tab PO ONE (17:44)
== END 2022-11-13 19:06 | disposition home or self-care (01) ==
LOC: DL.ED 16:28
DX: M54.2 Cervicalgia (principal); I25.10 Atherosclerotic heart disease of native coronary artery without angina pectoris; I10 Essential (primary) hypertension; E78.00 Pure hypercholesterolemia, unspecified; K21.9 Gastro-esophageal reflux disease without esophagitis; E11.9 Type 2 diabetes mellitus without complications; Z95.1 Presence of aortocoronary bypass graft; Z86.16 Personal history of COVID-19; Z79.4 Long term (current) use of insulin; Z79.899 Other long term (current) drug therapy; Z88.1 Allergy status to other antibiotic agents; Z88.8 Allergy status to other drugs, medicaments and biological substances
CPT/HCPCS: 99283; A9270

== ENCOUNTER 2022-12-25 20:50 | Emergency (ER) | payer MEDICARE, MEDICAID ==
[2022-12-25 21:19] LABS: BASOPHILS PERCENT AUTO 0.1 % (0.0-1.0); EOSINOPHILS PERCENT AUTO 3.5 % (1.0-3.0); HEMATOCRIT 42.1 % (40.0-54.0); HEMOGLOBIN 13.9 g/dL (14.0-18.0); LYMPHOCYTES PERCENT AUTO 26.1 % (20.5-50.1); MEAN CORPUSCULAR HEMOGLOBIN 31.6 pg (27.0-34.0); MEAN CORPUSCULAR VOLUME 95.7 fL (80-100); MONOCYTES PERCENT AUTO 9.3 % (2-8); PLATELET COUNT,PLT 223 10^3/uL (150-450); WHITE BLOOD CELL COUNT,WBC 7.1 10^3/uL (5.0-10.0)
[2022-12-25 21:30] VITALS: BP 155/73; PULSE 68
[2022-12-25 21:38] LABS: PROTHROMBIN TIME 10.4 SEC (9.0-12.0); PTT,PARTIAL THROMBOPLSTIN TIME 27.4 SEC (22.0-34.0)
[2022-12-25 21:42] LABS: LACTIC ACID 1.5 mmol/L (0.4-2.0)
[2022-12-25 21:47] LABS: ALANINE AMINOTRANSFERASE,ALT 16 U/L (16-63); ALBUMIN 3.2 g/dL (3.4-5.0); ALKALINE PHOSPHATASE 148 U/L (46-116); ANION GAP 10.5 mEq/L (7-13); ASPARTATE AMNIOTRANSFERASE,AST 17 U/L (15-37); BILIRUBIN TOTAL 0.2 mg/dL (0.2-1.0); BLOOD UREA NITROGEN,BUN 18 mg/dL (7-18); BUN/CREATININE RATIO 12.4 (No establ ref range); C-REACTIVE PROTEIN 0.41 ng/dL (<=0.30); CALCIUM 8.4 mg/dL (8.5-10.1); CARBON DIOXIDE,CO2 28 mmol/L (21-32); CHLORIDE,CL 102 mmol/L (98-107); CREATININE 1.45 mg/dL (0.70-1.30); GLUCOSE RANDOM 313 mg/dL (70-99); LIPASE 49 U/L (16-77); POTASSIUM,K 4.5 mmol/L (3.5-5.1); PROTEIN TOTAL,TP 7.6 g/dL (6.4-8.2); SODIUM,NA 136 mmol/L (136-145); TSH ULTRASENSITIVE 4.29 uIU/mL (0.36-3.74)
[2022-12-25 21:51] LABS: A/G RATIO 0.73; ESTIMATED GFR 48 mL/min (>=60)
[2022-12-25 22:23] LABS: CORONAVIRUS COVID-19 NAA NEGATIVE (NEGATIVE); INFLUENZA A NAA NEGATIVE (NEGATIVE); INFLUENZA B NAA NEGATIVE (NEGATIVE); RESPIRATORY SYNCYTIAL VIR NAA NEGATIVE (NEGATIVE)
== END 2022-12-25 23:18 | disposition home or self-care (01) ==
LOC: DL.ED 21:21
DX: I25.118 Atherosclerotic heart disease of native coronary artery with other forms of angina pectoris (principal); E11.65 Type 2 diabetes mellitus with hyperglycemia; I12.9 Hypertensive chronic kidney disease with stage 1 through stage 4 chronic kidney disease, or unspecified chronic kidney disease; N18.31 Chronic kidney disease, stage 3a; E11.22 Type 2 diabetes mellitus with diabetic chronic kidney disease; R94.31 Abnormal electrocardiogram [ECG] [EKG]; R94.6 Abnormal results of thyroid function studies; K21.9 Gastro-esophageal reflux disease without esophagitis; I25.10 Atherosclerotic heart disease of native coronary artery without angina pectoris; I25.2 Old myocardial infarction; E11.9 Type 2 diabetes mellitus without complications; Z88.1 Allergy status to other antibiotic agents; Z79.899 Other long term (current) drug therapy; Z79.4 Long term (current) use of insulin; Z86.16 Personal history of COVID-19; Z90.49 Acquired absence of other specified parts of digestive tract; Z20.822 Contact with and (suspected) exposure to COVID-19
CPT/HCPCS: 0241U; 36415; 71045; 80053; 83605; 83690; 84443; 84484; 85025; 85610; 85730; 86140; 93005; 93010; 99284; 99285

== ENCOUNTER 2023-05-31 22:18 | Emergency (ER) | payer MEDICARE, MEDICAID, OTHER ==
[2023-05-31 22:59] LABS: BASOPHILS PERCENT AUTO 0.3 % (0.0-1.0); EOSINOPHILS PERCENT AUTO 5.4 % (1.0-3.0); HEMATOCRIT 42.6 % (40.0-54.0); HEMOGLOBIN 14.2 g/dL (14.0-18.0); LYMPHOCYTES PERCENT AUTO 19.4 % (20.5-50.1); MEAN CORPUSCULAR HEMOGLOBIN 31.9 pg (27.0-34.0); MEAN CORPUSCULAR HGB CONC 33.3 g/dL (33.0-35.0); MEAN CORPUSCULAR VOLUME 95.7 fL (80-100); MONOCYTES PERCENT AUTO 10.9 % (2-8); PLATELET COUNT,PLT 235 10^3/uL (150-450); RED BLOOD CELL COUNT 4.45 10^6/uL (4.6-6.2); WHITE BLOOD CELL COUNT,WBC 7.5 10^3/uL (5.0-10.0)
[2023-05-31 23:20] LABS: A/G RATIO 0.8; ALBUMIN 3.6 g/dL (3.4-5.0); BILIRUBIN TOTAL 0.4 mg/dL (0.2-1.0); BUN/CREATININE RATIO 10.8 (No establ ref range); CALCIUM 8.6 mg/dL (8.5-10.1); CREATININE 1.39 mg/dL (0.70-1.30); EST CRCL DRUG DOSING (CG) 40.85 mL/min; PROTEIN TOTAL,TP 7.9 g/dL (6.4-8.2)
[2023-05-31 23:34] LABS: CORONAVIRUS COVID-19 NAA NEGATIVE (NEGATIVE); INFLUENZA A NAA NEGATIVE (NEGATIVE); INFLUENZA B NAA NEGATIVE (NEGATIVE); RESPIRATORY SYNCYTIAL VIR NAA NEGATIVE (NEGATIVE)
[2023-05-31 23:44] LABS: APPEARANCE,URINE SLIGHTLY CLOUDY (CLEAR); BILIRUBIN,URINE NEGATIVE (NEGATIVE); COLOR,URINE YELLOW (YELLOW); GLUCOSE,URINE NEGATIVE (NEGATIVE); KETONES,URINE NEGATIVE (NEGATIVE); LEUKOCYTE ESTERASE,URINE SMALL (NEGATIVE); NITRITE,URINE NEGATIVE (NEGATIVE); OCCULT BLOOD,URINE TRACE-INTACT (NEGATIVE); PH,URINE 6.5 (5.0-9.0); PROTEIN,URINE NEGATIVE (NEGATIVE); UROBILINOGEN,URINE 0.2 mg/dL (0.2-1.0)
[2023-05-31 23:53] LABS: AMORPHOUS SEDIMENT,URINE FEW /HPF (NOT SEEN); BACTERIA,URINE RARE /HPF (0-FEW/HPF); EPITHELIAL CELLS,URINE RARE /HPF (NOT SEEN); MUCUS,URINE RARE /LPF (NOT SEEN); RBC,URINE 0-5 /HPF (0-5); WBC,URINE 0-5 /HPF (0-5/HPF)
[2023-06-01 01:41] VITALS: BP 158/77; PULSE 88
== END 2023-06-01 01:42 | disposition home or self-care (01) ==
LOC: DL.ED 22:18
DX: J06.9 Acute upper respiratory infection, unspecified (principal); R07.9 Chest pain, unspecified; I10 Essential (primary) hypertension; E78.00 Pure hypercholesterolemia, unspecified; I25.2 Old myocardial infarction; I25.10 Atherosclerotic heart disease of native coronary artery without angina pectoris; K21.9 Gastro-esophageal reflux disease without esophagitis; E11.9 Type 2 diabetes mellitus without complications; Z86.73 Personal history of transient ischemic attack (TIA), and cerebral infarction without residual deficits; Z88.1 Allergy status to other antibiotic agents; Z79.4 Long term (current) use of insulin; Z79.899 Other long term (current) drug therapy; Z79.01 Long term (current) use of anticoagulants; Z86.16 Personal history of COVID-19; Z95.1 Presence of aortocoronary bypass graft; Z95.5 Presence of coronary angioplasty implant and graft; Z90.49 Acquired absence of other specified parts of digestive tract
CPT/HCPCS: 0241U; 36415; 71045; 80053; 81001; 83880; 84484; 85025; 87086; 93005; 93010; 99284; 99285; 87088

== ENCOUNTER 2024-04-13 23:26 | Emergency (ER) | payer MEDICARE, MEDICAID, OTHER ==
[2024-04-13 23:31] LABS: BASOPHILS PERCENT AUTO 0.3 % (0.0-1.0); HEMATOCRIT 42.8 % (40.0-54.0); HEMOGLOBIN 13.9 g/dL (14.0-18.0); LYMPHOCYTES PERCENT AUTO 35.1 % (20.5-50.1); MEAN CORPUSCULAR HEMOGLOBIN 31.7 pg (27.0-34.0); MEAN CORPUSCULAR HGB CONC 32.5 g/dL (33.0-35.0); MEAN CORPUSCULAR VOLUME 97.5 fL (80-100); MONOCYTES PERCENT AUTO 10.7 % (2-8); NEUTROPHILS PERCENT AUTO 50.9 % (42.2-75.2); PLATELET COUNT,PLT 231 10^3/uL (150-450); RED BLOOD CELL COUNT 4.39 10^6/uL (4.6-6.2); WHITE BLOOD CELL COUNT,WBC 7.3 10^3/uL (5.0-10.0)
[2024-04-13] MEDS: GI Cocktail Oral Solution 30 ML PO ONE (23:31)
[2024-04-13 23:56] LABS: ALBUMIN 3.3 g/dL (3.4-5.0); ANION GAP 8.1 mEq/L (7-13); BILIRUBIN TOTAL 0.2 mg/dL (0.2-1.0); BUN/CREATININE RATIO 14.2 (No establ ref range); CALCIUM 8.6 mg/dL (8.5-10.1); CREATININE 1.48 mg/dL (0.70-1.30); EST CRCL DRUG DOSING (CG) 37.68 mL/min; MAGNESIUM 1.9 mg/dL (1.8-2.4); POTASSIUM,K 4.1 mmol/L (3.5-5.1); PROTEIN TOTAL,TP 7.2 g/dL (6.4-8.2)
[2024-04-13 23:57] LABS: A/G RATIO 0.85
[2024-04-14 02:16] VITALS: BP 154/76; PULSE 75
== END 2024-04-14 02:15 | disposition home or self-care (01) ==
LOC: DL.ED 23:26
DX: K21.9 Gastro-esophageal reflux disease without esophagitis (principal); I25.10 Atherosclerotic heart disease of native coronary artery without angina pectoris; I10 Essential (primary) hypertension; I25.2 Old myocardial infarction; E78.00 Pure hypercholesterolemia, unspecified; E11.9 Type 2 diabetes mellitus without complications; Z88.1 Allergy status to other antibiotic agents; Z79.899 Other long term (current) drug therapy; Z79.4 Long term (current) use of insulin; Z86.73 Personal history of transient ischemic attack (TIA), and cerebral infarction without residual deficits; Z86.16 Personal history of COVID-19; Z95.1 Presence of aortocoronary bypass graft
CPT/HCPCS: 36415; 71045; 80053; 83735; 83880; 84484; 85025; 85379; 93005; 99285; A9270

== ENCOUNTER 2024-04-28 17:39 | Emergency (ER) | payer MEDICARE, MEDICAID, OTHER ==
[2024-04-28] MEDS ORDERED: Sodium Chloride 0.9% 10 ML Syringe FLUSH PRN (17:44)
[2024-04-28 17:51] LABS: BASOPHILS PERCENT AUTO 0.3 % (0.0-1.0); EOSINOPHILS PERCENT AUTO 2.8 % (1.0-3.0); HEMATOCRIT 41.5 % (40.0-54.0); HEMOGLOBIN 13.7 g/dL (14.0-18.0); LYMPHOCYTES PERCENT AUTO 31.5 % (20.5-50.1); MEAN CORPUSCULAR HEMOGLOBIN 32.1 pg (27.0-34.0); MEAN CORPUSCULAR VOLUME 97.2 fL (80-100); MONOCYTES PERCENT AUTO 11.8 % (2-8); NEUTROPHILS PERCENT AUTO 53.6 % (42.2-75.2); PLATELET COUNT,PLT 239 10^3/uL (150-450); RED BLOOD CELL COUNT 4.27 10^6/uL (4.6-6.2); WHITE BLOOD CELL COUNT,WBC 7.9 10^3/uL (5.0-10.0)
[2024-04-28 17:52] VITALS: BP 148/64; PULSE 96
[2024-04-28 18:11] LABS: A/G RATIO 0.9; ALANINE AMINOTRANSFERASE,ALT 14 U/L (16-63); ALBUMIN 3.4 g/dL (3.4-5.0); ALKALINE PHOSPHATASE 152 U/L (46-116); ANION GAP 12.1 mEq/L (7-13); ASPARTATE AMNIOTRANSFERASE,AST 12 U/L (15-37); BILIRUBIN TOTAL 0.3 mg/dL (0.2-1.0); BLOOD UREA NITROGEN,BUN 21 mg/dL (7-18); BUN/CREATININE RATIO 15.2 (No establ ref range); CALCIUM 8.5 mg/dL (8.5-10.1); CARBON DIOXIDE,CO2 28 mmol/L (21-32); CHLORIDE,CL 103 mmol/L (98-107); CREATININE 1.38 mg/dL (0.70-1.30); GLUCOSE RANDOM 131 mg/dL (70-99); MAGNESIUM 1.9 mg/dL (1.8-2.4); POTASSIUM,K 4.1 mmol/L (3.5-5.1); PROTEIN TOTAL,TP 7.4 g/dL (6.4-8.2); SODIUM,NA 139 mmol/L (136-145)
[2024-04-28 18:12] LABS: C-REACTIVE PROTEIN < 0.50 ng/dL (<=0.50); ESTIMATED GFR 50 mL/min (>=60)
== END 2024-04-28 18:30 | disposition home or self-care (01) ==
LOC: DL.ED 17:39
DX: K21.9 Gastro-esophageal reflux disease without esophagitis (principal); E78.00 Pure hypercholesterolemia, unspecified; I25.2 Old myocardial infarction; I10 Essential (primary) hypertension; E11.9 Type 2 diabetes mellitus without complications; Z88.1 Allergy status to other antibiotic agents; Z88.8 Allergy status to other drugs, medicaments and biological substances; Z79.899 Other long term (current) drug therapy; Z79.4 Long term (current) use of insulin; Z86.73 Personal history of transient ischemic attack (TIA), and cerebral infarction without residual deficits; Z86.16 Personal history of COVID-19; Z95.1 Presence of aortocoronary bypass graft; Z95.5 Presence of coronary angioplasty implant and graft; Z95.0 Presence of cardiac pacemaker
CPT/HCPCS: 36415; 71045; 80053; 83735; 84484; 85025; 86140; 93005; 93010; 99284; 99285

== ENCOUNTER 2024-08-07 05:12 | Emergency (ER) | payer MEDICARE, MEDICAID, OTHER ==
[2024-08-07 05:31] VITALS: BP 122/54; PULSE 71
[2024-08-07 06:24] LABS: BASOPHILS PERCENT AUTO 0.1 % (0.0-1.0); EOSINOPHILS PERCENT AUTO 2.5 % (1.0-3.0); HEMATOCRIT 41.3 % (40.0-54.0); HEMOGLOBIN 13.7 g/dL (14.0-18.0); LYMPHOCYTES PERCENT AUTO 23.6 % (20.5-50.1); MEAN CORPUSCULAR HEMOGLOBIN 33.2 pg (27.0-34.0); MEAN CORPUSCULAR HGB CONC 33.2 g/dL (33.0-35.0); MONOCYTES PERCENT AUTO 11.7 % (2-8); NEUTROPHILS PERCENT AUTO 62.1 % (42.2-75.2); PLATELET COUNT,PLT 226 10^3/uL (150-450); RED BLOOD CELL COUNT 4.13 10^6/uL (4.6-6.2); WHITE BLOOD CELL COUNT,WBC 6.7 10^3/uL (5.0-10.0)
[2024-08-07 06:33] LABS: BLOOD UREA NITROGEN,BUN 15 mg/dL (8-26); BUN/CREATININE RATIO 10.6 (No establ ref range); CHLORIDE,CL 106 mmol/L (98-107); CREATININE 1.42 mg/dL (0.51-1.19); EST CRCL DRUG DOSING (CG) 39.27 mL/min; ESTIMATED GFR 48 mL/min (>=60); GLUCOSE RANDOM 200 mg/dL (74-100); POTASSIUM,K 4.3 mmol/L (3.5-4.5); SODIUM,NA 140 mmol/L (138-146)
[2024-08-07 07:31] LABS: ANION GAP 15.3 mEq/L (7-13); CALCIUM 1.14 mmol/l (1.15-1.33); CARBON DIOXIDE,CO2 23 mmol/L (23-30)
[2024-08-07 14:24] LABS: ALANINE AMINOTRANSFERASE,ALT 17 U/L (16-63); ALBUMIN 3.3 g/dL (3.4-5.0); ALKALINE PHOSPHATASE 138 U/L (46-116); ASPARTATE AMNIOTRANSFERASE,AST 19 U/L (15-37); BILIRUBIN TOTAL 0.3 mg/dL (0.2-1.0); LIPASE 26 U/L (16-77); PROTEIN TOTAL,TP 7.3 g/dL (6.4-8.2)
[2024-08-07 14:25] LABS: A/G RATIO 0.83
== END 2024-08-07 08:20 | disposition home or self-care (01) ==
LOC: DL.ED 05:12
DX: K59.09 Other constipation (principal); I25.10 Atherosclerotic heart disease of native coronary artery without angina pectoris; E78.00 Pure hypercholesterolemia, unspecified; I10 Essential (primary) hypertension; I25.2 Old myocardial infarction; E11.9 Type 2 diabetes mellitus without complications; Z88.1 Allergy status to other antibiotic agents; Z79.4 Long term (current) use of insulin; Z79.02 Long term (current) use of antithrombotics/antiplatelets; Z79.899 Other long term (current) drug therapy; Z86.16 Personal history of COVID-19
CPT/HCPCS: 36415; 74018; 80053; 83690; 85025; 99283; 99284

== ENCOUNTER 2024-12-23 02:22 | Emergency (ER) | payer MEDICARE, MEDICAID, OTHER ==
[2024-12-23 02:41] LABS: BASOPHILS PERCENT AUTO 0.3 % (0.0-1.0); EOSINOPHILS PERCENT AUTO 1.9 % (1.0-3.0); LYMPHOCYTES PERCENT AUTO 20.6 % (20.5-50.1); MONOCYTES PERCENT AUTO 11.1 % (2-8); NEUTROPHILS PERCENT AUTO 66.1 % (42.2-75.2); PLATELET COUNT,PLT 238 10^3/uL (150-450); RED BLOOD CELL COUNT 4.08 10^6/uL (4.6-6.2); WHITE BLOOD CELL COUNT,WBC 7.5 10^3/uL (5.0-10.0)
[2024-12-23 02:53] LABS: A/G RATIO 0.9; ALANINE AMINOTRANSFERASE,ALT 14.0 U/L (16-63); ASPARTATE AMNIOTRANSFERASE,AST 14.0 U/L (15-37); BILIRUBIN TOTAL 0.3 mg/dL (0.2-1.0); BLOOD UREA NITROGEN,BUN 15.0 mg/dL (7-18); CARBON DIOXIDE,CO2 27.0 mmol/L (21-32); CHLORIDE,CL 104.0 mmol/L (98-107); CREATININE 1.45 mg/dL (0.70-1.30); EST CRCL DRUG DOSING (CG) 37.76 mL/min; ESTIMATED GFR 47.0 mL/min (>=60); GLUCOSE RANDOM 138.0 mg/dL (70-99); POTASSIUM,K 4.0 mmol/L (3.5-5.1); PROTEIN TOTAL,TP 7.1 g/dL (6.4-8.2); SODIUM,NA 142.0 mmol/L (136-145)
[2024-12-23] MEDS: Iopamidol 755 Mg/ML 100 ML Bottle IVPUSH ONE (03:03)
[2024-12-23] MEDS: Nitroglycerin 0.4 MG Tab.SL SL ONE (03:43)
[2024-12-23 05:11] VITALS: BP 133/61; PULSE 60
== END 2024-12-23 04:53 | disposition left against medical advice (07) ==
LOC: DL.ED 02:22
DX: G45.4 Transient global amnesia (principal); I25.10 Atherosclerotic heart disease of native coronary artery without angina pectoris; I10 Essential (primary) hypertension; I25.2 Old myocardial infarction; E78.00 Pure hypercholesterolemia, unspecified; K21.9 Gastro-esophageal reflux disease without esophagitis; E11.9 Type 2 diabetes mellitus without complications; Z86.73 Personal history of transient ischemic attack (TIA), and cerebral infarction without residual deficits; Z95.1 Presence of aortocoronary bypass graft; Z79.4 Long term (current) use of insulin; Z79.02 Long term (current) use of antithrombotics/antiplatelets; Z79.899 Other long term (current) drug therapy; Z88.1 Allergy status to other antibiotic agents
CPT/HCPCS: 36415; 70450; 70496; 70498; 80053; 83735; 84484; 85025; 93005; 99285; A9270; Q9967

== ENCOUNTER 2024-12-26 15:52 | Emergency (ER) | payer MEDICARE, MEDICAID, OTHER ==
[2024-12-26] MEDS: Ketorolac 30 MG/ML SDV IVPUSH ONE (16:13)
[2024-12-26 16:18] LABS: BASOPHILS PERCENT AUTO 0.5 % (0.0-1.0); EOSINOPHILS PERCENT AUTO 2.7 % (1.0-3.0); LYMPHOCYTES PERCENT AUTO 29.2 % (20.5-50.1); MONOCYTES PERCENT AUTO 13.1 % (2-8); NEUTROPHILS PERCENT AUTO 54.5 % (42.2-75.2); PLATELET COUNT,PLT 217 10^3/uL (150-450); RED BLOOD CELL COUNT 4.23 10^6/uL (4.6-6.2); WHITE BLOOD CELL COUNT,WBC 6.3 10^3/uL (5.0-10.0)
[2024-12-26 16:20] VITALS: BP 158/64; PULSE 64
[2024-12-26 16:22] LABS: APPEARANCE,URINE CLEAR (CLEAR); GLUCOSE,URINE NEGATIVE (NEGATIVE); OCCULT BLOOD,URINE NEGATIVE (NEGATIVE)
[2024-12-26 16:35] LABS: BLOOD UREA NITROGEN,BUN 15 mg/dL (7-18); CARBON DIOXIDE,CO2 30 mmol/L (21-32); CHLORIDE,CL 104 mmol/L (98-107); CREATININE 1.43 mg/dL (0.70-1.30); ESTIMATED GFR 48 mL/min (>=60); GLUCOSE RANDOM 212 mg/dL (70-99); POTASSIUM,K 4.4 mmol/L (3.5-5.1); SODIUM,NA 141 mmol/L (136-145)
== END 2024-12-26 17:42 | disposition home or self-care (01) ==
LOC: DL.ED 15:52
DX: R51.9 Headache, unspecified (principal); I25.10 Atherosclerotic heart disease of native coronary artery without angina pectoris; E10.9 Type 1 diabetes mellitus without complications; E78.00 Pure hypercholesterolemia, unspecified; I10 Essential (primary) hypertension; I25.2 Old myocardial infarction; K21.9 Gastro-esophageal reflux disease without esophagitis; Z86.73 Personal history of transient ischemic attack (TIA), and cerebral infarction without residual deficits; Z86.16 Personal history of COVID-19; Z95.1 Presence of aortocoronary bypass graft; Z95.5 Presence of coronary angioplasty implant and graft; Z90.49 Acquired absence of other specified parts of digestive tract; Z79.899 Other long term (current) drug therapy; Z88.1 Allergy status to other antibiotic agents; Z79.01 Long term (current) use of anticoagulants; Z79.4 Long term (current) use of insulin
CPT/HCPCS: 36415; 80048; 81003; 82947; 83735; 85025; 86140; 96374; 99282; 99284-25; J1885